=== PATIENT | male | born 1960 | race Caucasian/White ===

== ENCOUNTER → 2017-08-25 14:25 | Outpatient (CLI) | payer BC, SELFPAY ==
[2017-08-25 16:14] LABS: Alanine Aminotransfer ALT/SGPT 117 U/L (16-61); Anion Gap 10 (5-15); BUN 20 mg/dL (7-18); BUN/Creat Ratio 22.2 RATIO (10-20); CPK Total, Creatine Kinase 56 U/L (39-308); Calcium,Total 9.3 mg/dL (8.5-10.1); Chloride 105 mmol/L (98-107); Cholesterol 225 mg/dL (200); EST Glomerular Filtration Rate 92 mL/min (>60); Est Glom Filt Rate - Afr Amer 112 mL/min (>60); Glucose 160 mg/dL (74-106); High Density Lipoprotein 24 mg/dL; Potassium 4.4 mmol/L (3.5-5.1); Sodium Level 137 mmol/L (136-145); Triglycerides 762 mg/dL
[2017-08-25 16:19] LABS: Microalbumin,Random Urine 9.6 mg/L (NO RANGE EST.); Microalbumin:Creatinine Ratio 13.6 mg/g CRE (<30 mg/g CRE)
[2017-08-25 16:34] LABS: Hemoglobin A1c 6.7 % (4.2-6.3)
== END ==
PROVIDERS: Family Provider Family Medicine; PCP Family Medicine; Visit Provider Family Medicine
DX: E11.9 Type 2 diabetes mellitus without complications (principal); I25.10 Atherosclerotic heart disease of native coronary artery without angina pectoris
CPT/HCPCS: 36415; 80048; 80061; 82043; 82550; 82570; 83036; 84460

== ENCOUNTER 2017-08-31 12:30 | Outpatient (RCR) | payer BC, SELFPAY ==
--- NOTE | 2017-08-22 08:07 | HP.PTEVAL_ITS ---
Patient's Visit Information SONIA PARSONS is a 57 year old M referred to Physical Therapy by Jorge Luis PEACE with a diagnosis of R lateral epicondylitis. Date of Evaluation: 08/19/17 Physical Therapist: Kyaw Marquez - Visit Plan Frequency: 2x /Week Duration: 4 Weeks Plan: Start with DFM to lateral epicondyle, wrist extensor stretching, US to wrist flexor group insertion, eccentric loading of wrist extensors. - Subjective Subjective: Pt. is here today for his initial evaluation with diagnosis of R lateral epicondylitis. Pt. reports having increased pain for ~5 months now. He reports he initially hurt it when he slipped and fell on an out stretched arm. He reports some mild tenderness at the time, but shortly after he went hunting and got to the point where he could barely bend or straighten his R elbow. He went to physician who initially recommended casting for 2 weeks, but ulitmately decided on trialling PT. Increased pain: bending elbow, straightneing elbow, gripping, supination/pronation, extending wrist. Decreases pain: rest, limiting motion and use of brace. Pt. has not trialed ice or heat. Pt. is not taking any medications. Pt. is also having increased pain at nights, unsure why. Pt. 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 He reports being worried about this as his job is a lot of lifting, and labor like work. He is to follow up with physician in ~ 10 days. He is hopeful to reduce symptoms in order to get back to work without limitations. - Pain R lateral elbow Pain Intensity (Out of 10): 3 Pain Intensity Range: 2, 8 - Objective POSTURE: Pt. keeps R arm in gaurded positioning. He tends to not straighten out arm at rest. Pt. has normal cervical spine and shoulder positioning. PALPATION : Pt. is tender throughout lateral epicondyle, no pain at olecranon process, no pain at ulnar groove or medial epicondyle. Pt. has no pain in R shoulder or cervical spine. NEUROLOGICAL: Pt. has normal sensation throughout bilateral UEs to light and sharp touch. Pt. has 2+ biceps and triceps DTR bilaterally. No limb tension noted. ROM: R elbow- full motion with increased symptoms at end ranges of flexion and extension. Pt has normal wrist motions with increase in symptoms with extension and radial deviation. Normal shoulder and cervical spine ROM without increase in symptoms. MMT: LUE- wrist 5/5 throughout; elbow- 5/5 throughout, shoulder 5/5 throughout. 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 RUE- wrist- flexion 5/5 NE, ext 4+/5 increase NW, ulnar deviation 4/5 increase NW, radiation deviation 5/5 NE; elbow- flexion 5/5 NE, ext 5/5 NE, supination- 5/5 increase NW, prontation 5/5 mild increase NW; shoulder 5/5 NE. 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 - Special Tests R Elbow Tinels - Ulnar n.: Negative R Elbow Valgus Stress Test - MCL Instability: Negative R Elbow Varus Stress Stest - MCL Instability: Negative R Elbow Lat Epiconylitis - as named: Positive Comments: + cozens sign, + horn test - Goals Goal 1:: Pt. to be I with HEP. Goal Time Frame: 4-6 Weeks Goal 2:: Pt. to have full wrist extension of RUE without increase in symptoms. Goal Time Frame: 4-6 Weeks Goal 3:: Pt. to have no pain with all wrist extension activities. Goal Time Frame: 4-6 Weeks Goal 4:: Pt. to return to work without increase in symptoms. - Rehabilitation Potential Physical Therapy Diagnosis: Pt. has signs and symptoms consistent with R lateral epicondylitis. He has all positive signs correlated with this pathology. He has marked weakness of wrist extensors, radial deviators secondary to increased pain and pain with gripping. He would benefit from PT to decrease symptoms, eccentrically load tendon origin, and increase tissue length in order to reduce symptoms with all work related activities. Rehabilitation Potential: Good - Anticipated Interventions Patient/Client Instruction: Educate patient on: Condition, Plan of Care, Risk Factors, Benefits of Fitness Program For the Purpose of:: To improve safety, To improve health and function, To foster healthy habits, To improve decision making, To facilitate caregiver knowledge, To improve self management, To prevent re-injury, To improve ability to perform tasks related to life management, To improve tolerance to ADL's Therapeutic Exercise to Include: Strength training, Power training, Endurance training, Body mechanics, Postural training, Flexibilty training, Passive ROM, Active ROM For the Purpose of:: To decrease pain, To decrease swelling/inflammation, To increase ROM, To improve nutrient delivery to tissue, To increase oxygenation perfusion, To improve muscle performance and motor function, To improve health of tissue, To decrease soft tissue restriction, To increase flexibility/ROM Manual Therapy Techniques to Include: Trigger point massage, Scar massage, Mobilization, Functional dry needling For the Purpose of:: To decrease pain, To decrease swelling/inflammation, To increase ROM, To improve nutrient delivery to tissue Ultrasound (thermal/non thermal): Yes For the Purpose of:: To decrease pain, To decrease swelling/inflammation, To increase ROM Thank you for the opportunity to evaluate your patient. For Medicare and Medicare HMO plans, please review the plan of care and approve it. It will need to be FAXED BACK to us at [phone] for Medicare purposes. Please let me know if there are questions or concerns regarding this plan of care. Physician Signature: Date:
--- NOTE | 2018-02-09 10:33 | HP.PT.NRP ---
HP - Discharge Summary (1) - Patient Information SONIA PARSONS was seen in my office for initial evaluation on 08/19/17. The following Plan of Care was established for this patient: Initial Frequency: 2x /Week Initial Duration: 4 Weeks - Anticipated Interventions Patient/Client Instruction: Educate patient on: Condition, Plan of Care, Risk Factors, Benefits of Fitness Program For the Purpose of:: To improve safety, To improve health and function, To foster healthy habits, To improve decision making, To facilitate caregiver knowledge, To improve self management, To prevent re-injury, To improve ability to perform tasks related to life management, To improve tolerance to ADL's Therapeutic Exercise to Include: Strength training, Power training, Endurance training, Body mechanics, Postural training, Flexibilty training, Passive ROM, Active ROM For the Purpose of:: To decrease pain, To decrease swelling/inflammation, To increase ROM, To improve nutrient delivery to tissue, To increase oxygenation perfusion, To improve muscle performance and motor function, To improve health of tissue, To decrease soft tissue restriction, To increase flexibility/ROM Manual Therapy Techniques to Include: Trigger point massage, Scar massage, Mobilization, Functional dry needling For the Purpose of:: To decrease pain, To decrease swelling/inflammation, To increase ROM, To improve nutrient delivery to tissue Ultrasound (thermal/non thermal): Yes For the Purpose of:: To decrease pain, To decrease swelling/inflammation, To increase ROM This patient was last seen in our office 08/31/17. Pertinent comments regarding their Physical therapy will appear below: Pt. was treated for his lateral epicondilitis. Pt. was treated with US, eccentric loading and inotophoresis, and stretching. Pt. had to return back work and had late work hours. Pt. has not been seen in ~5 months and will be DC from PT at this point in time. At this point I will be discontinuing this patient from physical therapy. I would be happy to see this patient again in the future if found appropriate by the physician. Thank you! Kyaw Marquez
== END 2017-08-31 19:00 | disposition home or self-care (01) ==
LOC: PT 12:30
PROVIDERS: Family Provider Family Medicine; PCP Family Medicine; Visit Provider Family Medicine
DX: M77.11 Lateral epicondylitis, right elbow (principal)
CPT/HCPCS: 97035; 97110; 97161

== ENCOUNTER 2018-01-30 13:55 | Emergency (ER) | payer BC, SELFPAY ==
[2018-01-30 13:57] VITALS: BP 131/85; PULSE 84; RESP 16; TEMP 37.1; O2SAT 98; BMI 27.8
--- NOTE | 2018-01-30 16:19 | ED.VISSUMM ---
- ER Visit Summary Date of Service: 01/30/18 Chief Complaint: Perirectal abscess History of Present Illness: The patient is a 57 M who presents with abscess to his right perirectal area that has been getting worse over the past 3 days. Patient states the pain is constant, aching, and pressure. Patient states the pain is worse with sitting, laying, and walking. Patient denies any fevers or chills. Patient denies any discharge or drainage. Patient denies any bleeding. Patient denies any abdominal pain. Patient denies any nausea or vomiting. Physical Examination: Vital signs are stable. Patient is afebrile. Patient is in no acute distress. Oral mucosa is pink and moist. Neck is supple. Trachea is midline. Is no JVD noted. Heart was regular rate and rhythm. Lungs are clear and equal bilateral. There is good respiratory effort noted. Abdomen is soft. Bowel sounds are normal. There is no tenderness. There is no rebound or guarding noted. Rectal exam shows edema and tenderness over the right perirectal area. There is no fluctuance palpated. There is no active bleeding or drainage. The remaining physical exam is within normal limits. Test Results: CT scan of the abdomen and pelvis was obtained. There is some inflammatory changes in the perirectal area. There is no definite abscess noted. Emergency Department Course and Treatment: Patient was given a prescription for Augmentin and a short course of Fiatt. Patient was instructed to follow-up with his primary care physician in 3-5 days. Patient understood and was agreeable with the plan. All questions were answered. Disposition: Discharge home Impression: Perirectal abscess This note was generated with [employer] dictation software. It may contain incorrect words, spelling, and punctuation that were not noted in review of the chart prior to signing ED Disposition - Plan for ED Patient: Disposition: Home or Assisted Living Chief Complaint: Abscess Diagnosis: Perirectal abscess Instructions: ED Infec Skin Cellulitis Prescriptions: Hydrocodone Bitart/Apap 5-325 [Fiatt 5MG-325MG] 1 tab PO Q6H PRN PRN 3 Days #10 tab PRN Reason: Pain Amox/Clavulanate Tablet [Augmentin Tablet] 875 mg PO Q12H #20 tab Referrals: Jorge Luis De Guzman MD [Primary Care Provider] -
[2018-01-30 17:19] VITALS: RESP 18
== END 2018-01-30 17:19 | disposition home or self-care (01) ==
PROVIDERS: Emergency Provider Emergency Medicine; Family Provider Family Medicine; PCP Family Medicine
DX: K61.1 Rectal abscess (principal); I25.10 Atherosclerotic heart disease of native coronary artery without angina pectoris; I25.2 Old myocardial infarction; Z95.1 Presence of aortocoronary bypass graft; Z72.0 Tobacco use
CPT/HCPCS: 74176; 99282

== ENCOUNTER 2018-06-14 12:18 | Day surgery (SDC) | payer BC, SELFPAY ==
[2018-06-12 12:31] LABS: Hematocrit 44.7 % (40-54); Hemoglobin 15.6 g/dl (13.0-16.5); Mean Corp Hgb Conc 34.9 g/gl (32-36); Mean Corpuscular Hgb 31.2 pg (27.0-32.0); Mean Corpuscular Volume 89.4 fL (80-94); Mean Platelet Vol. 10.9 fl (6.2-12.0); Platelet Count 186 K/mm3 (150-450); RBC Distribution Width CV 12.9 % (11.6-14.6); RBC Distribution Width SD 41.6 fl (35.1-43.9); White Blood Count 4.4 K/mm3 (4.4-11.0)
[2018-06-12 12:32] LABS: Scan Indicated on CBC? Y/N NO
[2018-06-12 13:02] LABS: Anion Gap 11 (5-15); BUN 16 mg/dL (7-18); BUN/Creat Ratio 16.2 RATIO (10-20); Calcium,Total 9.3 mg/dL (8.5-10.1); Chloride 104 mmol/L (98-107); Creatinine, Serum 0.99 mg/dL (0.70-1.30); EST Glomerular Filtration Rate 83 mL/min (>60); Est Glom Filt Rate - Afr Amer 100 mL/min (>60); Glucose 185 mg/dL (74-106); Potassium 4.7 mmol/L (3.5-5.1); Sodium Level 139 mmol/L (136-145)
[2018-06-14] VITALS (7 sets, daily range): BP systolic 87–117; BP diastolic 53–74; PULSE 58–64; RESP 16; TEMP 36.7–37.1; O2SAT 92–100; BMI 26.9
[2018-06-14 13:00] LABS: Bedside Glucose 141 mg/dL (70-110)
--- NOTE | 2018-06-14 13:31 | DCINST_ITS ---
Discharge Diet: No Restrictions Discharge Activity: Return to Normal Activity, May Not Drive - while you are taking narcotic pain medications. Do not drive, work with heavy equipment or sign legal documents for 24 hours after your surgery. Additional Activity Instructions:: Consider using on a daily basis a daily fiber supplementation like Metamucil or Citrucel or FiberCon or Benefiber. I recommend utilizing a large tablespoon in juice or fluid daily. Mineral oil 30 cc (1 ounce) daily in juice or food Additional Dressing/Incision Instructions:: You may anticipate mucus or bloody or stool drainage. You may utilize gauze or a hygiene pad to assist. I encourage sitz baths sitting in a warm tub with soapy water for comfort and for hygiene after defecation. Allergies/Adverse Reactions: Allergies ticlopidine HCl [From Ticlid] Allergy (Verified 06/09/18 10:35) Unknown Medications to take at Discharge ascorbic acid (vitamin C) 500 mg tablet 500 mg PO TID tab 06/08/18 aspirin 81 mg tablet,delayed release 81 mg PO DAILY 06/08/18 atenolol 50 mg tablet 50 mg PO DAILY 06/08/18 cholecalciferol (vitamin D3) 50,000 unit tablet 50,000 unit PO QWEEK 06/08/18 fenofibrate micronized 200 mg capsule 200 mg PO DAILY 06/08/18 isosorbide mononitrate ER 60 mg tablet,extended release 24 hr 60 mg PO DAILY 06/08/18 lansoprazole 30 mg capsule,delayed release 30 mg PO DAILY 06/08/18 magnesium oxide 400 mg capsule 400 mg PO DAILY cap 06/08/18 metformin ER 500 mg tablet,extended release 24 hr 500 mg PO DAILY 06/08/18 multivitamin tablet 1 tab PO DAILY 06/08/18 nitroglycerin 0.4 mg sublingual tablet 0.4 mg SUBLINGUAL Q5-15M PRN 06/08/18 potassium citrate ER 5 mEq (540 mg) tablet,extended release 5 meq PO DAILY tab 06/08/18 prasugrel 10 mg tablet 10 mg PO DAILY 06/08/18 ramipril 5 mg capsule 10 mg PO DAILY 06/08/18 rosuvastatin 40 mg tablet 40 mg PO QHS 06/08/18 Hydrocodone Bitart/Apap 5-325 [[place] 5MG-325MG] 1 tablet PO Q6H PRN PRN 3 Days #10 tablet 06/14/18 Metronidazole [Flagyl] 250 mg PO Q8H #15 tablet 06/14/18 The following prescriptions were given: Hydrocodone Bitart/Apap 5-325 [[place] 5MG-325MG] 1 tablet PO Q6H PRN PRN 3 Days #10 tablet PRN Reason: Pain Metronidazole [Flagyl] 250 mg PO Q8H #15 tablet Primary Care Physician: Jorge Luis De Guzman MD [Primary Care Provider] - Test Results: Test results from this visit will be discussed in further detail at your follow- up appointment, if applicable. Please Follow Up With: Jarvis Hoover MD - [phone] When: Plan to have a follow up approximately 3 weeks after surgery.
[2018-06-14] MEDS: Bupivacaine Mpf 0.5% 30 ML VIAL (13:55)
[2018-06-14] MEDS: Dibucaine 30 GM Tube 1 APPLIC (14:00)
--- NOTE | 2018-06-14 14:12 | OP.PCM_ITS ---
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 58-year-old gent was taken the operating room. He was placed prone on the table. He underwent monitored anesthesia care local anesthetic. Cefotetan 2 g were given intravenously. The he was placed prone jackknife. The periorbital area was clipper and Betadine prep. Right posterior slightly lateral there was a evidence of an external tract. I placed a 0.5% Marcaine using a 30-gauge needle and a 25-gauge needle and a total of 30 cc was placed perianally. I used a 20-gauge Angiocath and injected hydroperoxide down the tract seeing the internal opening just proximal to the sphincter muscles. I was able to get a lacrimal duct probe to follow the tract. I then utilized electrocautery to incise down along the tract incising the mucosa at the entrance site within the anal rectum and then overlying the sphincter muscles and then externally. I utilized a curette to curette the track in all you size some electrocautery to clean the track as well as the in ternal and external tissues. Were needed electrocautery was used for hemostasis. I then placed a small vessel loop as my seton suture and I secured that to itself with 2 3-0 nylon sutures. There was good placement of the seton suture nice cleansing of the granulation tissue of the tract. This was a fistulotomy no tissue was sent for analysis. Vaseline gauze continue dibucaine was inserted. Sterile covered dressings applied. Sponge instrument and needle counts were reported the surgeon be correct. Blood loss was minimal. No apparent complications. Type of Anesthesia:: Local MAC Anesthesiologist: Jamal Burroughs
[2018-06-14] MEDS: HYDROcodone Bitartrate/Apap 5/325 Tablet PO (16:38)
--- OUTSIDE RECORDS SUMMARY | 2018-08-19 08:17 | XMS RPT_ITS ---
:1960 Author Organization OHIP Care Team Providers Name Role Phone Jarvis Hoover Attending Unavailable Bharathi De Guzman Referring Unavailable Jarvis Hoover Attending Unavailable Cebul, Jarvis Referring Unavailable De Guzman, Bharathi Primary Care Unavailable De Guzman, Bharathi Attending Unavailable De Guzman, Bharathi Referring Unavailable De Guzman, Bharathi Primary Care Unavailable De Guzman, Bharathi Attending Unavailable De Guzman, Bharathi Primary Care Unavailable De Guzman, Bharathi Primary Care Unavailable Schwiger, Bharathi Attending Unavailable PRINCE, BRYANNA E Attending Unavailable PRINCE, BRYANNA E Referring Unavailable PRINCE, BRYANNA E Referring Unavailable PRINCE, BRYANNA E Referring Unavailable PRINCE, BRYANNA E Referring Unavailable PRINCE, BRYANNA E Referring Unavailable JOSIE JARAMILLO Attending Unavailable PRINCE, BRYANNA E Referring Unavailable PRINCE, BRYANNA E Attending Unavailable PRINCE, BRYANNA E Referring Unavailable PRINCE, BRYANNA Attending Unavailable PRINCE, BRYANNA Referring Unavailable DE GUZMAN, BHARATHI A Primary Care Unavailable PRINCE, BRYANNA Attending Unavailable PRINCE, BRYANNA Referring Unavailable DE GUZMAN, BHARATHI A Primary Care Unavailable PROBLEMS PROBLEMS DATE TYPE CONDITION / CODE ATTENDING STATUS SOURCE 06/14/2018 Unknown G89.18 - Other acute CeJarvis diaz Active [facility] / G89.18(ICD-10) Hospital Repository 01/30/2018 Unknown K61.1 - Rectal Schwjovani, Bharathi Active [facility] abscess / Community K61.1(ICD-10) Hospital Repository 02/09/2018 Unknown M77.11 - Lateral De Guzman, Bharathi Active [facility] epicondylitis, right [facility] elbow / Hospital M77.11(ICD-10) Repository 08/29/2017 Active Atherosclerotic PRINCE, Active [place] heart disease of [facility] Other [place] coronary [place] artery without Repository angina pectoris / I25.10(ICD-10) 08/29/2017 Active Essential (primary) PRINCE, Active [place] hypertension / [facility] Other I10(ICD-10) [place] Repository 08/29/2017 Active Dizziness and PRINCE, Active [place] giddiness / BRYANNA E [facility] Other R42(ICD-10) [place] Repository 08/29/2017 Admitting Unknown / PRINCE, Active [facility] diagnosis UNK(Unknown) [facility] Repository PROCEDURES PROCEDURES No Procedure Records FoundRESULTS RESULTS OPERATIVE REPORT Observed: 06/15/2018 Status: F Source: [place] 6:05 AM [facility] REPOSITORY [facility] Medical Records Department [address] [place] [address] Operative Report 06/14/18 1408 MR#: [id number] Acct: [id number] Name: SONIA MORGAN Rep #: [id number] : 1960 58 From: Jarvis Hoover MD PCP: Bharathi De Guzman MD Status: DEP [facility] Y Location: 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 58-year-old gent was taken the operating room. He was placed prone on the table. He underwent monitored anesthesia care local anesthetic. Cefotetan 2 g were given intravenously. The he was placed prone jackknife. The periorbital area was clipper and Betadine prep. Right posterior slightly lateral there was a evidence of an external tract. I placed a 0.5% Marcaine using a 30-gauge needle and a 25-gauge needle and a total of 30 cc was placed perianally. I used a 20-gauge Angiocath and injected hydroperoxide down the tract seeing the internal opening just proximal to the sphincter muscles. I was able to get a lacrimal duct probe to follow the tract. I then utilized electrocautery to incise down along the tract incising the mucosa at the entrance site within the anal rectum and then overlying the sphincter muscles and then externally. I utilized a curette to curette the track in all you size some electrocautery to clean the track as well as the internal and external tissues. Were needed electrocautery was used for hemostasis. I then placed a small vessel loop as my seton suture and I secured that to itself with 2 3-0 nylon sutures. There was good placement of the seton suture nice cleansing of the granulation tissue of the tract. This was a fistulotomy no tissue was sent for analysis. Vaseline gauze continue dibucaine was inserted. Sterile covered dressings applied. Sponge instrument and needle counts were reported the surgeon be correct. Blood loss was minimal. No apparent complications. Type of Anesthesia:: Local MAC Anesthesiologist: Jamal Burroughs 06/15/18 0605 <Electronically signed by Jarvis Hoover MD> Date Jarvis Hoover MD CC: Bharathi De Guzman MD; Jarvis Hoover MD Signed DISCHARGE INSTRUCTION Observed: 06/15/2018 Status: F Source: [place] 6:05 AM [facility] REPOSITORY [facility] Medical Records Department [address] [place] [address] Instructions for Home/Discharge Instructions 06/14/18 1329 MR#: [id number] Acct: [id number] Name: SNOIA MORGAN Rep #: [id number] : 1960 58 From: Jarvis Hoover MD PCP: Bharathi De Guzman MD Status: DEP [facility] Discharge Diet: No Restrictions Discharge Activity: Return to Normal Activity, May Not Drive - while you are taking narcotic pain medications. Do not drive, work with heavy equipment or sign legal documents for 24 hours after your surgery. Additional Activity Instructions:: Consider using on a daily basis a daily fiber supplementation like Metamucil or Citrucel or FiberCon or Benefiber. I recommend utilizing a large tablespoon in juice or fluid daily. Mineral oil 30 cc (1 ounce) daily in juice or food Additional Dressing/Incision Instructions:: You may anticipate mucus or bloody or stool drainage. You may utilize gauze or a hygiene pad to assist. I encourage sitz baths sitting in a warm tub with soapy water for comfort and for hygiene after defecation. Allergies/Adverse Reactions: Allergies ticlopidine HCl [From Ticlid] Allergy (Verified 06/09/18 10:35) Unknown Medications to take at Discharge ascorbic acid (vitamin C) 500 mg tablet 500 mg PO TID tab 06/08/18 aspirin 81 mg tablet,delayed release 81 mg PO DAILY 06/08/18 atenolol 50 mg tablet 50 mg PO DAILY 06/08/18 cholecalciferol (vitamin D3) 50,000 unit tablet 50,000 unit PO QWEEK 06/08/18 fenofibrate micronized 200 mg capsule 200 mg PO DAILY 06/08/18 isosorbide mononitrate ER 60 mg tablet,extended release 24 hr 60 mg PO DAILY 06/08/18 lansoprazole 30 mg capsule,delayed release 30 mg PO DAILY 06/08/18 magnesium oxide 400 mg capsule 400 mg PO DAILY cap 06/08/18 metformin ER 500 mg tablet,extended release 24 hr 500 mg PO DAILY 06/08/18 multivitamin tablet 1 tab PO DAILY 06/08/18 nitroglycerin 0.4 mg sublingual tablet 0.4 mg SUBLINGUAL Q5- 15M PRN 06/08/18 potassium citrate ER 5 mEq (540 mg) tablet,extended release 5 meq PO DAILY tab 06/08/18 prasugrel 10 mg tablet 10 mg PO DAILY 06/08/18 ramipril 5 mg capsule 10 mg PO DAILY 06/08/18 rosuvastatin 40 mg tablet 40 mg PO QHS 06/08/18 Hydrocodone Bitart/Apap 5-325 [[place] 5MG-325MG] 1 tablet PO Q6H PRN PRN 3 Days #10 tablet 06/14/18 Metronidazole [Flagyl] 250 mg PO Q8H #15 tablet 06/14/18 The following prescriptions were given: Hydrocodone Bitart/Apap 5-325 [[place] 5MG-325MG] 1 tablet PO Q6H PRN PRN 3 Days #10 tablet PRN Reason: Pain Metronidazole [Flagyl] 250 mg PO Q8H #15 tablet Primary Care Physician: Bharathi De Guzman MD [Primary Care Provider] - Test Results: Test results from this visit will be discussed in further detail at your follow-up appointment, if applicable. Please Follow Up With: Jarvis Hoover MD - [phone] When: Plan to have a follow up approximately 3 weeks after surgery. 06/15/18 0605 <Electronically signed by Jarvis Hoover MD> Date Jarvis Hoover MD CC: Bharathi De Guzman MD Signed BEDSIDE GLUCOSE Collected: 06/14/2018 Status: F Source: [place] 12:45 PM [facility] REPOSITORY TYPE CODE TESTS RESULT OUT OF REFERENCE UNITS RANGE LAB L501.080 70-110 mg/dL High BEDSIDE GLU 141 Result Comment: MANAGEMENT OF PATIENT CARE PER NURSING PROTOCOL Performed By: #### L501.080 #### [facility] Point of Care [address] [place], [place] [address] CBC-COMPLETE BLOOD CNT Collected: 06/12/2018 Status: F Source: [place] NO DIFF 12:12 PM [facility] REPOSITORY TYPE CODE TESTS RESULT OUT OF RANGE REFERENCE UNITS LAB L100.1000 4.4-11.0 K/mm3 Normal WBC 4.4 LAB L100.1200 4.6-6.2 M/mm3 Normal RBC 5.00 LAB L100.1300 13.0-16.5 g/dl Normal HGB 15.6 LAB L100.1400 40-54 % Normal HCT 44.7 LAB L100.1500 80-94 fL Normal MCV 89.4 LAB L100.1600 27.0-32.0 pg Normal MCH 31.2 LAB L100.1700 32-36 g/gl Normal MCHC 34.9 LAB L100.1810 11.6-14.6 % Normal RDW CV 12.9 LAB L100.1820 35.1-43.9 fl Normal RDW SD 41.6 LAB L100.1900 150-450 K/mm3 Normal PLT 186 LAB L100.2000 6.2-12.0 fl Normal MPV 10.9 Performed By: #### L100.0500 #### [facility] [address] [place], [place], [address] BASIC METABOLIC Collected: 06/12/2018 Status: F Source: [place] PROFILE (BMP) 12:12 PM [facility] REPOSITORY TYPE CODE TESTS RESULT OUT OF RANGE REFERENCE UNITS LAB L501.0100 74-106 mg/dL High GLU 185 Result Comment: Fasting Glucose result greater than or equal to 126 mg/dL suggests DIABETES MELLITUS per A.D.A. criteria. Please note revised GLUCOSE reference range effective 2017. LAB L501.1000 7-18 mg/dL Normal BUN 16 LAB L501.1100 0.70-1.30 mg/dL Normal CREAT,SERUM 0.99 Result Comment: The validity of the calculated GFR AND GFRAA in patients over 70 years has not been determined. Clinical correlation is essential. LAB L501.1110 >60 mL/min Normal EST GFR 83 Result Comment: Non- GFR Calc LAB L501.1115 >60 mL/min Normal EST GFR - AA 100 Result Comment: GFR Calc LAB L501.1300 10-20 RATIO Normal BUN/CRE 16.2 LAB L501.2200 8.5-10.1 mg/dL CA Normal 9.3 LAB L501.5300 136-145 mmol/L NA Normal 139 LAB L501.5600 3.5-5.1 mmol/L K Normal 4.7 Result Comment: Moderate Hemolysis, Result may be falsely increased. LAB L501.5900 98-107 mmol/L Normal CL 104 LAB L501.6100 21.0-32.0 mmol/L Normal CO2 24.0 LAB L501.6200 5-15 Normal GAP 11 Performed By: #### L500.2500 #### [facility] [address] [facility] [place], [address] SURGERY VISIT REPORT Observed: 06/08/2018 Status: F Source: [place] 1:55 PM [facility] REPOSITORY [facility] 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 Is patient in pain?: No (Not currently, pain comes and goes) Allergies ticlopidine HCl [From Ticlid] Allergy (Verified 06/08/18 10:37) Unknown Medications acetylcysteine (bulk) powder ea MISCELLANEOUS g 06/08/18 [History Confirmed 06/08/18] ascorbic acid (vitamin C) 500 mg tablet 500 mg PO TID tab 06/08/18 [History Confirmed 06/08/18] aspirin 81 mg tablet,delayed release 81 mg PO DAILY 06/08/18 [History Confirmed 06/08/18] atenolol 50 mg tablet 50 mg PO DAILY 06/08/18 [History Confirmed 06/08/18] cholecalciferol (vitamin D3) 50,000 unit tablet 50,000 unit PO QWEEK 06/08/18 [History Confirmed 06/08/18] fenofibrate micronized 200 mg capsule 200 mg PO DAILY 06/08/18 [History Confirmed 06/08/18] isosorbide mononitrate ER 60 mg tablet,extended release 24 hr 60 mg PO DAILY 06/08/18 [History Confirmed 06/08/18] lansoprazole 30 mg capsule,delayed release 30 mg PO DAILY 06/08/18 [History Confirmed 06/08/18] magnesium oxide 400 mg capsule 400 mg PO DAILY cap 06/08/18 [History Confirmed 06/08/18] metformin ER 500 mg tablet,extended release 24 hr 500 mg PO QPM 06/08/18 [History Confirmed 06/08/18] multivitamin tablet 1 tab PO DAILY 06/08/18 [History Confirmed 06/08/18] nitroglycerin 0.4 mg sublingual tablet 0.4 mg SUBLINGUAL Q5- 15M PRN 06/08/18 [History Confirmed 06/08/18] potassium citrate ER 5 mEq (540 mg) tablet,extended release 5 meq PO DAILY tab 06/08/18 [History Confirmed 06/08/18] prasugrel 10 mg tablet 10 mg PO DAILY 06/08/18 [History Confirmed 06/08/18] ramipril 5 mg capsule 5 mg PO BID 06/08/18 [History Confirmed 06/08/18] rosuvastatin 40 mg tablet 40 mg PO DAILY 06/08/18 [History Confirmed 06/08/18] PFS Medical History Snoring (Acute) Malignant neoplasm of anterior wall of urinary bladder (Acute) Hypertension (Chronic) Hyperlipidemia (Acute) Esophagitis (Acute) Dysphagia (Acute) Diabetes (Acute) Coronary artery disease (Acute) COPD (chronic obstructive pulmonary disease) (Chronic) Carotid artery stenosis (Acute) Arrhythmia (Acute) Acute myocardial infarction (Acute) Acute gastritis without mention of hemorrhage (Acute) Surgical History Hx of vasectomy (Acute) Hx of heart artery stent (Acute) Hx of cardiac cath (Acute) History of esophagogastroduodenoscopy (EGD) (Acute) Hx of cystoscopy (Acute) Hx of colonoscopy (Acute) Hx of CABG (Acute) Hx of appendectomy (Acute) Family History Father Cancer Heart disease Brother Diabetes Hypertension Mother Heart disease Social History Smoking Status: Current every day smoker alcohol intake: current alcohol intake frequency: holidays/special occasions only substance use type: does not use caffeine: Yes HPI HPI HPI: SONIA MORGAN, is a 58 M who presents to the office today for surgical consultation regarding what he calls a buttock cyst. The patient states that intermittently this will swell and then drain or bleed. He does not recall a specific it accident or injury. He has not had any particular constipation or diarrhea. 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 His most recent colonoscopy was performed July 24, [address] Eris Bales at the [facility] at 50 cm a polyp was removed that was possible hyperplastic on pathology. At 15 cm a polyp was removed that was hyperplastic. It is of additional note that September 02, 2017 at the [facility] the patient had carotid duplex imaging. Peak systolic velocity within the right proximal internal carotid was 216 cm/s flow with an end-diastolic velocity of 52. On the left peak systolic velocity was 210 cm left obstructive with end-diastolic velocity of 60. On their interpretation scale that was felt to be consistent with 60-79% stenosis bilaterally. On my evaluation I would anticipate that this was likely closer to 60% stenosis bilaterally. On January 30, 2018 the patient was seen at the [facility] emergency room because of perirectal pain. The patient states that he did not have any incision and drainage performed. He was seen by Dr. Bharathi Mcfarland. A CT scan of the abdomen and pelvis was obtained. Perianal superficial inflammatory process without evidence of abscess was suggested. There was no evidence of acute proctocolitis. The patient states that since that index occasion he has had intermittent pain swelling and what he says is bloody discharge Patient is referred by his primary care physician Dr. Bharathi De Guzman for surgical consultation regarding perianal cystic lesion and a written compromise surgical consult recommendations will be returned to him ROS General General: No weight change, appetite, fatigue, colon cancer, breast cancer or weakness HEENT HEENT: No difficulty swallowing, eye injury, eye surgery, swollen glands or hoarseness Endo Endocrine: Yes diabetes mellitus; no thyroid disease, thyroid cancer, Hair loss, heat intolerance or cold intolerance Skin Skin: No rash or changing moles Musc Musculoskeletal: No back problems, arthritis, rheumatoid arthritis, gout or joint pain Cardio Cardiovascular: Yes heart disease, high blood pressure, heart attack and heart stent; no murmur, pacemaker, atrial fibrillation, palpitations, shortness of breat with exertion or chest pain Psych Psychiatric: No depression, anxiety or hearing voices Resp Respiratory: No shortness of breath, No sleep apnea, No cough, No COPD, No asthma, No emphysema, No wheezing Gastro Gastrointestinal: No abdominal pain, No nausea or vomiting, No diarrhea, No constipation, No blood in stool, No acid reflux, No hemorrhoids, No ulcers, No gallbladder problem, No black,tarry stools [place]rey Hematologic: Yes blood thinners, No blood disorders, No bleeding, No anemia, No blood clots Neuro Neurologic: No system reviewed and no additional complaints, except as docu, No as per HPI, No abnormal walking, No abnormal hearing, No abnormal movements, No abnormal speech, No behavioral changes, No burning sensations, No confusion, No seizure-like activity, No unsteadiness, No dizziness, No localized weakness, No frequent falls, No headache(s), No lack of coordination, No loss of vision, No memory loss, No numbness, No other visual disturbances, No radiating pain, No restless legs, No sensory deficit, No fainting, No tingling, No tremor(s), No weakness, No other Exam Const General: cooperative Nutritional Appearance: overweight Orientation: alert, awake [facility] Head: normal to inspection Resp Effort AND Inspection: normal respiratory effort Auscultation: clear to auscultation bilaterally Cardio Rate: regular rate Rhythm: regular rhythm Heart Sounds: no murmurs GI Palpation: soft, no hepatosplenomegaly Other: Inspection of the anus exteriorly demonstrates mild hemorrhoidal changes. Right slightly posterior lateral there is evidence of an external fistula track with slight induration that extends towards the anus. No active drainage. No erythema Neuro Cranial Nerves: CN's II-XI intact bilaterally Extrem General: no clubbing, cyanosis or edema Psych Affect: normal affect Assessment AND Plan Problems 1. Fistula, anal K60.3 Plan The patient's symptoms and findings are very much consistent with a fistula in ano. I recommend to him a examination under anesthesia with possible fistulotomy or possible fistulectomy or possible seton suture placement. I believe this procedure could be performed under monitored anesthesia care local anesthetic. It is of note that the patient has coronary stents and has had open coronary artery bypass grafting. He has been a long-term cigarette smoker. He states that he is still not nicotine free continuing to use the e-cigarette. Among his other medications he is treated with aspirin and isosorbide mononitrate and Effient and rosuvastatin. He has had an opportunity to ask and have questions answered. Absolutely no guarantees of success have been offered. We will schedule and proceed at his discretion. He will utilize magnesium citrate with clear liquids a day preprocedure. I appreciate the opportunity of assisting with his surgical care CC: Dr. Bharathi Hoover M.D., F.A.C.S. Coding Level of Care Code Comprehensive,moderate Diagnoses Fistula, anal K60.3 06/08/18 0880 <Electronically signed by Jarvis Hoover MD> Date Jarvsi Hoover MD Cosigner Signature: Date (if applicable) CC: Bharathi De Guzman MD PROGRESS Observed: 04/07/2018 Status: COMPLETED Source: [place] 11:58 AM [facility] REPOSITORY HNO ID: [id number] Author: Josie Jaramillo Service: (none) Author Type: Physician Type: Progress Notes Filed: 04/07/2018 11:58 AM Note Text: This office note has been dictated. Josie Jaramillo DO PROGRESS Observed: 04/03/2018 Status: COMPLETED Source: [place] 11:46 AM [facility] REPOSITORY HNO ID: [id number] Author: Bryanna Morrison Service: (none) Author Type: Physician Type: Progress Notes Filed: 04/03/2018 5:28 PM Note Text: PERTINENT CARDIAC HISTORY ASHD - PCI LAD and DX 1995, CABGx3 2003, PCI OM graft and Dx stent 2013, PCI (laser and brachy) LAD ISR 2017 HTN HL DM Carotid artery disease Persistent lateral T wave inversion PAD ADHERENCE TO GUIDELINES ALEJANDRO-I or ARB for HF with prior LVEF<40 (NQF 0081) - N/A ASA or Plavix for ASHD (NQF 0067) - met Beta luz maria for ASHD with prior [place] or prior LVEF<40 (NQF 0070) - met Beta luz maria for HF with prior LVEF<40 (NQF 0083) - N/A ALEJANDRO-I or ARB for ASHD with DM or prior LVEF<40 (NQF 0066) - met Statin therapy for ASHD or FHL or DM - met BMI documented and plan if >25 (NQF 0421) - lifestyle recommendation form Tobacco use screening and referral (NQF 0028) - lifestyle recommendation form Recommendation for whole food, plant based diet - lifestyle recommendation form CLINICAL IMPRESSION/PLAN: Sonia Morgan has stable ischemic heart disease. His blood pressure is adequately controlled. I've asked for a copy of his next set of labs to be sent to us. He has been advised to follow-up with vascular surgery regarding his carotid disease. I will see him in 6 months or as needed. Written and verbal health teaching given to patient, patient verbalizes understanding and agrees with treatment plan. DIAGNOSIS FOR VISIT: ASHD HISTORY OF PRESENT ILLNESS Sonia Morgan returns for follow-up of his coronary disease and hypertension. He has stopped working for the winter. He reports stable exercise tolerance. He's had no chest discomfort and has used no nitroglycerin. He denies orthopnea, edema, syncope, palpitations, TIAs, amaurosis and claudication. ALLERGIES: ALLERGIES Allergen Reactions - Ticlid [Ticlopidine* Muscle ache CURRENT OUTPATIENT MEDICATIONS: rosuvastatin (CRESTOR) 40 mg tablet Take 1 tablet by mouth daily at bedtime. clopidogrel (PLAVIX) 75 mg tablet TAKE ONE TABLET BY MOUTH DAILY ramipril (ALTACE) 10 mg capsule Take 1 capsule by mouth once daily. coenzyme Q10 (COQ-10) 100 mg cap capsule Take 100 mg by mouth twice daily. fenofibrate (LOFIBRA) 200 mg capsule Take 1 capsule by mouth once daily. atenolol (TENORMIN) 50 mg tablet Take 1 tablet by mouth once daily. isosorbide mononitrate ER (IMDUR) 30 mg 24 hr tablet Take 1 tablet by mouth once daily. ramipril (ALTACE) 5 mg capsule TAKE TWO CAPSULES BY MOUTH ONCE DAILY potassium citrate ER (UROCIT-K) 5 mEq (540 mg) TbER Take 1 tablet by mouth once daily. Ciprofloxacin HCl-Betaine Comb 500 mg 24 hr tablet Take 500 mg by mouth once daily. metFORMIN (GLUCOPHAGE) 500 mg tablet Take 1 tablet by mouth once daily. aspirin, enteric coated (ECOTRIN LOW STRENGTH) 81 mg EC tablet Take 1 tablet by mouth once daily. nitroglycerin sublingual (NITROQUICK) 0.4 mg SL tablet Dissolve 1 tablet under the tongue as needed. DISSOLVE ON TONGUE FOR CHEST PAIN. IF NO PAIN RELIEF, CALL 911 NEXIUM 40 mg capsule TAKE ONE CAPSULE BY MOUTH ONCE DAILY BEFORE BREAKFAST amitriptyline (ELAVIL) 25 mg tablet Take 1 tablet by mouth daily at bedtime. CINNAMON BARK ORAL Take 3,000 mg by mouth once daily. [place]-3 Fatty Acids (FISH OIL) 500 mg cap Take 2 capsules by mouth once daily. COMPOUNDED PRESCRIPTION BLOOD PRESSURE CUFF FOR HOME USE. DX: LABILE BLOOD PRESSURE Blood-Glucose Meter monitoring kit Dx: 790.29 blood sugar diagnostic (BLOOD GLUCOSE TEST) test strip Test blood sugar(s) 1 time daily. Dx: 790.29. Insulin: No Lancets lancets Test blood sugar(s) 1 time daily. Dx: 790.29. Insulin: No PHYSICAL EXAMINATION: VITAL SIGNS: BP 132/80 Pulse 82 Wt 193 lb 9.6 oz (87.8kg) Chest: Clear to auscultation. Trachea is midline. Air entry is equal. Cardiac: Regular rhythm. S1 and S2 are normal. PMI is nondisplaced. There is a soft S4 gallop and a soft systolic ejection murmur. Carotids are brisk with soft bilateral bruits. JVP is less than 10 cm. Abdomen: Soft and nontender. There are no pulsatile masses or bruits. No liver enlargement. Bowel sounds are active. Extremities: No edema. Pulses are intact and symmetrical. Recent carotid Doppler was reviewed. This shows no significant change. There is bilateral moderate plaque. Recent labs have been done in the primary care and are due. He was asked to have a copy sent to us. Most recent triglycerides were still quite elevated. Recent stress test was reviewed. This showed no evidence of ischemia. Electronically Signed: Bryanna Morrison MD April 03, 2018 11:47 AM CC: Bharathi De Guzman MD CNOV Observed: 04/03/2018 Status: COMPLETED Source: [place] 11:30 AM [facility] REPOSITORY Office Visit (CAWSTR) GILBERTSONIA BALDERRAMA ([id number]) 1960 M NFR Date Time Provider Department 04/03/18 11:30 AM BRYANNA MORRISON CAWSTR During your visit today, we recorded the following information about you: Pulse Blood pressure Weight 82/minute 132/80 87.8 kg Bryanna Morrison MD 04/03/2018 5:28 PM Signed PERTINENT CARDIAC HISTORY ASHD - PCI LAD and DX 1995, CABGx3 2003, PCI OM graft and Dx stent 2013, PCI (laser and brachy) LAD ISR 2016 HTN HL DM Carotid artery disease Persistent lateral T wave inversion PAD ADHERENCE TO GUIDELINES ALEJANDRO-I or ARB for HF with prior LVEF<40 (NQF 0081) - N/A ASA or Plavix for ASHD (NQF 0067) - met Beta luz maria for ASHD with prior [place] or prior LVEF<40 (NQF 0070) - met Beta luz maria for HF with prior LVEF<40 (NQF 0083) - N/A ALEJANDRO-I or ARB for ASHD with DM or prior LVEF<40 (NQF 0066) - met Statin therapy for ASHD or FHL or DM - met BMI documented and plan if >25 (NQF 0421) - lifestyle recommendation form Tobacco use screening and referral (NQF 0028) - lifestyle recommendation form Recommendation for whole food, plant based diet - lifestyle recommendation form CLINICAL IMPRESSION/PLAN: Sonia Liao Cathy has stable ischemic heart disease. His blood pressure is adequately controlled. I've asked for a copy of his next set of labs to be sent to us. He has been advised to follow-up with vascular surgery regarding his carotid disease. I will see him in 6 months or as needed. Written and verbal health teaching given to patient, patient verbalizes understanding and agrees with treatment plan. DIAGNOSIS FOR VISIT: ASHD HISTORY OF PRESENT ILLNESS Sonia Morgan returns for follow-up of his coronary disease and hypertension. He has stopped working for the winter. He reports stable exercise tolerance. He's had no chest discomfort and has used no nitroglycerin. He denies orthopnea, edema, syncope, palpitations, TIAs, amaurosis and claudication. ALLERGIES: ALLERGIES Allergen Reactions - Ticlid [Ticlopidine* Muscle ache CURRENT OUTPATIENT MEDICATIONS: rosuvastatin (CRESTOR) 40 mg tablet Take 1 tablet by mouth daily at bedtime. clopidogrel (PLAVIX) 75 mg tablet TAKE ONE TABLET BY MOUTH DAILY ramipril (ALTACE) 10 mg capsule Take 1 capsule by mouth once daily. coenzyme Q10 (COQ-10) 100 mg cap capsule Take 100 mg by mouth twice daily. fenofibrate (LOFIBRA) 200 mg capsule Take 1 capsule by mouth once daily. atenolol (TENORMIN) 50 mg tablet Take 1 tablet by mouth once daily. isosorbide mononitrate ER (IMDUR) 30 mg 24 hr tablet Take 1 tablet by mouth once daily. ramipril (ALTACE) 5 mg capsule TAKE TWO CAPSULES BY MOUTH ONCE DAILY potassium citrate ER (UROCIT-K) 5 mEq (540 mg) TbER Take 1 tablet by mouth once daily. Ciprofloxacin HCl-Betaine Comb 500 mg 24 hr tablet Take 500 mg by mouth once daily. metFORMIN (GLUCOPHAGE) 500 mg tablet Take 1 tablet by mouth once daily. aspirin, enteric coated (ECOTRIN LOW STRENGTH) 81 mg EC tablet Take 1 tablet by mouth once daily. nitroglycerin sublingual (NITROQUICK) 0.4 mg SL tablet Dissolve 1 tablet under the tongue as needed. DISSOLVE ON TONGUE FOR CHEST PAIN. IF NO PAIN RELIEF, CALL 911 NEXIUM 40 mg capsule TAKE ONE CAPSULE BY MOUTH ONCE DAILY BEFORE BREAKFAST amitriptyline (ELAVIL) 25 mg tablet Take 1 tablet by mouth daily at bedtime. CINNAMON BARK ORAL Take 3,000 mg by mouth once daily. [place]-3 Fatty Acids (FISH OIL) 500 mg cap Take 2 capsules by mouth once daily. COMPOUNDED PRESCRIPTION BLOOD PRESSURE CUFF FOR HOME USE. DX: LABILE BLOOD PRESSURE Blood-Glucose Meter monitoring kit Dx: 790.29 blood sugar diagnostic (BLOOD GLUCOSE TEST) test strip Test blood sugar(s) 1 time daily. Dx: 790.29. Insulin: No Lancets lancets Test blood sugar(s) 1 time daily. Dx: 790.29. Insulin: No PHYSICAL EXAMINATION: VITAL SIGNS: BP 132/80 Pulse 82 Wt 193 lb 9.6 oz (87.8kg) Chest: Clear to auscultation. Trachea is midline. Air entry is equal. Cardiac: Regular rhythm. S1 and S2 are normal. PMI is nondisplaced. There is a soft S4 gallop and a soft systolic ejection murmur. Carotids are brisk with soft bilateral bruits. JVP is less than 10 cm. Abdomen: Soft and nontender. There are no pulsatile masses or bruits. No liver enlargement. Bowel sounds are active. Extremities: No edema. Pulses are intact and symmetrical. Recent carotid Doppler was reviewed. This shows no significant change. There is bilateral moderate plaque. Recent labs have been done in the primary care and are due. He was asked to have a copy sent to us. Most recent triglycerides were still quite elevated. Recent stress test was reviewed. This showed no evidence of ischemia. Electronically Signed: Bryanna Morrison MD April 03, 2018 11:47 AM CC: MD Bryanna Harrington MD 04/03/2018 11:47 AM Signed LIFESTYLE CHANGE A healthy lifestyle is the most important component of your overall treatment plan. Please give serious thought to the following areas and commit to making [facility] changes. EAT A WHOLE FOOD, PLANT BASED DIET The nutrition your body gets is more important than the medicine you take. What matters most is the overall way you eat. We encourage you to minimize the use of animal products (which include dairy and all meats except fatty fish) and use whole, unprocessed plant foods to provide your protein, vitamins and other nutrients. We have a lot of information to share with you on this topic. This is not a diet. It is a way of life that you will keep with you. EXERCISE REGULARLY It is not important to spend hours in the gym, lifting weights and perspiring heavily. A total of 2-3 hours per week of aerobic (causing you to be moderately short of breath) exercise is sufficient to improve your health. Talk to us before you begin a new exercise program, if you have heart disease or experience shortness of breath or chest pain. REDUCE STRESS Chronic emotional and physical stress leads to disease. Ways of reducing stress include meditation, visualization, prayer, yoga and other forms of relaxation therapy. Consistency is the davis. Find a technique that works for you and do it every day. CULTIVATE RELATIONSHIPS Loneliness and isolation have a major negative impact on health. Seek out others who can love, care for and nurture you. Avoid hurtful relationships. MAINTAIN IDEAL BODY WEIGHT The best way to do this is to do all the things above. Our bodies naturally find the right weight if we keep moving and feed ourselves the right food. If your BMI is greater than 25, we strongly recommend a referral to a weight management program. Please speak to us or your family physician about available programs. AVOID NICOTINE IN ALL FORMS This includes all tobacco products, whether chewed, smoked, vaped, or rubbed on the skin. Smoking cessation programs, which can make use of tobacco substitutes, medications to suppress cravings and behavior management, are available. Please contact your family physician about programs in your area. Referring Provider: BRYANNA MORRISON [[id number]] Allergies As of Date: 04/03/2018 Noted Allergy Reaction TICLID (TICLOPIDINE HCL) 02/05/2005 Comments: Muscle ache Date Reviewed: 04/03/2018 Reviewed by: Joe Barraza RN - Fully Assessed Reason for Visit: Recheck [92] Visit Diagnoses:ASHD (arteriosclerotic heart disease) [I25.10] Essential hypertension [I10] Order(s):rosuvastatin (CRESTOR) 40 mg tabletTake 1 tablet by mouth daily at bedtime.Disp: 90 tabletRfl: 3 Prescriptions as of 04/03/2018 Sig: ROSUVASTATIN 40 MG TABLET Take 1 tablet by mouth daily * CLOPIDOGREL 75 MG TABLET TAKE ONE TABLET BY MOUTH DAILY RAMIPRIL 10 MG CAPSULE Take 1 capsule by mouth once * COENZYME Q10 100 MG CAPSULE Take 100 mg by mouth twice da* FENOFIBRATE MICRONIZED 200 MG* Take 1 capsule by mouth once * ATENOLOL 50 MG TABLET Take 1 tablet by mouth once d* ISOSORBIDE MONONITRATE ER 30 * Take 1 tablet by mouth once d* RAMIPRIL 5 MG CAPSULE TAKE TWO CAPSULES BY MOUTH ON* POTASSIUM CITRATE ER 5 MEQ (5* Take 1 tablet by mouth once d* CIPROFLOXACIN ER 500 MG TABLE* Take 500 mg by mouth once jun* METFORMIN 500 MG TABLET Take 1 tablet by mouth once d* ASPIRIN 81 MG TABLET,DELAYED * Take 1 tablet by mouth once d* NITROGLYCERIN 0.4 MG SUBLINGU* Dissolve 1 tablet under the t* NEXIUM 40 MG CAPSULE,DELAYED * TAKE ONE CAPSULE BY MOUTH ONC* AMITRIPTYLINE 25 MG TABLET Take 1 tablet by mouth daily * CINNAMON BARK ORAL Take 3,000 mg by mouth once d* OMEGA-3 FATTY ACIDS 500 MG CA* Take 2 capsules by mouth once* COMPOUNDED PRESCRIPTION BLOOD PRESSURE CUFF FOR HOME * BLOOD-GLUCOSE METER KIT Dx: 790.29 BLOOD SUGAR DIAGNOSTIC STRIPS Test blood sugar(s) 1 time da* LANCETS Test blood sugar(s) 1 time da* Problem List As Of Date 04/03/2018 Noted Resolved Acute myocardial infarction [410] More... HYPERLIPIDEMIA NEC/NOS [E78.5] INVALID FOR* HYPERTENSION NOS [I10] INVALID FOR* CORONARY ATHEROSCLER UNSPEC VESSEL [I25.10] INVALID FOR* BLADDER CANCER UNSPECIFIED [C67.9] INVALID FOR* More... TOBACCO USE DISORDER [F17.200] INVALID FOR* Personal history of malignant neoplasm of bladd*INVALID FOR*09/01/2010 LBP (Low Back Pain) [M54.5] INVALID FOR* Neoplasm of Uncertain Behavior of Skin [D48.5] INVALID FOR*09/16/2009 Wart [B07.9] INVALID FOR*09/01/2010 Insomnia [G47.00] INVALID FOR* Diabetes mellitus type II, controlled, with no *INVALID FOR*11/01/2011 Perirectal abscess [K61.1] INVALID FOR*11/01/2011 Pre-diabetes [R73.03] INVALID FOR* Family conflict [Z63.8] INVALID FOR* Other and unspecified angina pectoris [I20.9] INVALID FOR* Routine physical examination [Z00.00] INVALID FOR* Anxiety [F41.9] INVALID FOR* GERD (gastroesophageal reflux disease) [K21.9] INVALID FOR* Hx of past noncompliance [Z91.19] More... Abnormal stress test [R94.39] INVALID FOR* Carotid artery stenosis [I65.29] BPH (benign prostatic hyperplasia) [N40.0] INVALID FOR* History of bladder cancer [Z85.51] INVALID FOR* Screening for colon cancer [Z12.11] INVALID FOR*07/24/2015 Old myocardial infarction [I25.2] INVALID FOR* Presence of drug coated stent in left circumfle*INVALID FOR* Presence of drug coated stent in LAD coronary a*INVALID FOR* Stenosis of carotid artery [I65.29] INVALID FOR* Other instructions from your clinician: LIFESTYLE CHANGE A healthy lifestyle is the most important component of your overall treatment plan. 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 EAT A WHOLE FOOD, PLANT BASED DIET The nutrition your body gets is more important than the medicine you take. What matters most is the overall way you eat. We encourage you to minimize the use of animal products (which include dairy and all meats except fatty fish) and use whole, unprocessed plant foods to provide your protein, vitamins and other nutrients. We have a lot of information to share with you on this topic. This is not a diet. It is a way of life that you will keep with you. EXERCISE REGULARLY It is not important to spend hours in the gym, lifting weights and perspiring heavily. A total of 2-3 hours per week of aerobic (causing you to be moderately short of breath) exercise is sufficient to improve your health. Talk to us before you begin a new exercise program, if you have heart disease or experience shortness of breath or chest pain. REDUCE STRESS Chronic emotional and physical stress leads to disease. Ways of reducing stress include meditation, visualization, prayer, yoga and other forms of relaxation therapy. Consistency is the davis. Find a technique that works for you and do it every day. CULTIVATE RELATIONSHIPS Loneliness and isolation have a major negative impact on health. Seek out others who can love, care for and nurture you. Avoid hurtful relationships. MAINTAIN IDEAL BODY WEIGHT The best way to do this is to do all the things above. Our bodies naturally find the right weight if we keep moving and feed ourselves the right food. If your BMI is greater than 25, we strongly recommend a referral to a weight management program. Please speak to us or your family physician about available programs. AVOID NICOTINE IN ALL FORMS This includes all tobacco products, whether chewed, smoked, vaped, or rubbed on the skin. Smoking cessation programs, which can make use of tobacco substitutes, medications to suppress cravings and behavior management, are available. Please contact your family physician about programs in your area. Prescriptions ordered this encounter Disp Refills Start End ROSUVASTATIN 40 MG TABLET 90 t* 3 04/03/2018 Route: ORAL Sig: Take 1 tablet by mouth daily at bedtime. Medications Discontinued During This Encounter rosuvastatin (CRESTOR) 40 mg tablet 90 t* 3 07/08/2015 04/03/2018 Route: ORAL Sig: Take 1 tablet by mouth daily at bedtime. Disc: Reason for discontinue is not on file. Encounter Status:Closed by BRYANNA MORRISON MD on 04/03/18 CNOV Observed: 04/03/2018 Status: COMPLETED Source: [place] 11:00 AM [facility] REPOSITORY Office Visit (VASSWS) SONIA MORGAN ([id number]) 1960 M NFR Date Time Provider Department 04/03/18 11:00 AM JOSIE JARAMILLO During your visit today, we recorded the following information about you: Josie Jaramillo DO 04/07/2018 11:58 AM Signed This office note has been dictated. Josie Jaramillo DO Referring Provider: BRYANNA MORRISON [[id number]] Allergies As of Date: 04/03/2018 Noted Allergy Reaction TICLID (TICLOPIDINE HCL) 02/05/2005 Comments: Muscle ache Date Reviewed: 04/03/2018 Reviewed by: Joe Barraza RN - Fully Assessed Reason for Visit: Established Patient [175] Primary Visit Diagnosis:Carotid artery stenosis, asymptomatic [I65.29] Order(s):US CAROTID ARTERIES [facility] [[id number]] Order #: [id number] FUTURE Prescriptions as of 04/03/2018 Sig: CLOPIDOGREL 75 MG TABLET TAKE ONE TABLET BY MOUTH DAILY RAMIPRIL 10 MG CAPSULE Take 1 capsule by mouth once * COENZYME Q10 100 MG CAPSULE Take 100 mg by mouth twice da* FENOFIBRATE MICRONIZED 200 MG* Take 1 capsule by mouth once * ATENOLOL 50 MG TABLET Take 1 tablet by mouth once d* ISOSORBIDE MONONITRATE ER 30 * Take 1 tablet by mouth once d* RAMIPRIL 5 MG CAPSULE TAKE TWO CAPSULES BY MOUTH ON* POTASSIUM CITRATE ER 5 MEQ (5* Take 1 tablet by mouth once d* CIPROFLOXACIN ER 500 MG TABLE* Take 500 mg by mouth once jun* METFORMIN 500 MG TABLET Take 1 tablet by mouth once d* ASPIRIN 81 MG TABLET,DELAYED * Take 1 tablet by mouth once d* NITROGLYCERIN 0.4 MG SUBLINGU* Dissolve 1 tablet under the t* X ROSUVASTATIN 40 MG TABLET Take 1 tablet by mouth daily * NEXIUM 40 MG CAPSULE,DELAYED * TAKE ONE CAPSULE BY MOUTH ONC* AMITRIPTYLINE 25 MG TABLET Take 1 tablet by mouth daily * CINNAMON BARK ORAL Take 3,000 mg by mouth once d* OMEGA-3 FATTY ACIDS 500 MG CA* Take 2 capsules by mouth once* COMPOUNDED PRESCRIPTION BLOOD PRESSURE CUFF FOR HOME * BLOOD-GLUCOSE METER KIT Dx: 790.29 BLOOD SUGAR DIAGNOSTIC STRIPS Test blood sugar(s) 1 time da* LANCETS Test blood sugar(s) 1 time da* Problem List As Of Date 04/03/2018 Noted Resolved Acute myocardial infarction [410] More... HYPERLIPIDEMIA NEC/NOS [E78.5] INVALID FOR* HYPERTENSION NOS [I10] INVALID FOR* CORONARY ATHEROSCLER UNSPEC VESSEL [I25.10] INVALID FOR* BLADDER CANCER UNSPECIFIED [C67.9] INVALID FOR* More... TOBACCO USE DISORDER [F17.200] INVALID FOR* Personal history of malignant neoplasm of bladd*INVALID FOR*09/01/2010 LBP (Low Back Pain) [M54.5] INVALID FOR* Neoplasm of Uncertain Behavior of Skin [D48.5] INVALID FOR*09/16/2009 Wart [B07.9] INVALID FOR*09/01/2010 Insomnia [G47.00] INVALID FOR* Diabetes mellitus type II, controlled, with no *INVALID FOR*11/01/2011 Perirectal abscess [K61.1] INVALID FOR*11/01/2011 Pre-diabetes [R73.03] INVALID FOR* Family conflict [Z63.8] INVALID FOR* Other and unspecified angina pectoris [I20.9] INVALID FOR* Routine physical examination [Z00.00] INVALID FOR* Anxiety [F41.9] INVALID FOR* GERD (gastroesophageal reflux disease) [K21.9] INVALID FOR* Hx of past noncompliance [Z91.19] More... Abnormal stress test [R94.39] INVALID FOR* Carotid artery stenosis [I65.29] BPH (benign prostatic hyperplasia) [N40.0] INVALID FOR* History of bladder cancer [Z85.51] INVALID FOR* Screening for colon cancer [Z12.11] INVALID FOR*07/24/2015 Old myocardial infarction [I25.2] INVALID FOR* Presence of drug coated stent in left circumfle*INVALID FOR* Presence of drug coated stent in LAD coronary a*INVALID FOR* Stenosis of carotid artery [I65.29] INVALID FOR* Encounter Status:Closed by JOSIE JARAMILLO DO on 04/07/18 PROGRESS Observed: 04/03/2018 Status: COMPLETED Source: [place] 12:00 AM [facility] REPOSITORY O ID: [id number] Author: Josie Jaramillo Service: Vascular Surgery Author Type: Physician Type: Progress Notes Filed: 04/10/2018 4:43 PM Note Text: NAME: SONIA MORGAN [facility] NO: [id number] DATE OF SERVICE: 04/03/2018 Subjective: Mr. Morgan is here to follow up on bilateral carotid artery disease. He was last seen in 2014. He denies any focal neurologic deficit or shortness of breath. Otherwise, he has been doing well. He has been followed by Dr. Morrison from Cardiology. His medications were reviewed, which include Plavix and aspirin. Reviewed his carotid duplex which demonstrates bilateral 60-79% stenosis, which has been stable from July 2016. Assessment/Plan: Asymptomatic carotid artery disease. Reviewed with Mr. Morgan recommend continued antiplatelet therapy, blood pressure control and cholesterol management, and continued close followup with Cardiology. He will follow up with me in one year with repeat imaging, or sooner with any concerns. Josie Jaramillo D.O. KB/089 Audio #: [id number] Date Dictated: 04/07/2018 11:48:59 Date Typed: 04/10/2018 09:27:11 Date Revised: EMERGENCY DEPARTMENT Observed: 01/30/2018 Status: F Source: [place] SUMMARY 5:16 PM [facility] REPOSITORY [facility] Medical Records Department [address] [place] [address] Emergency Department Summary 01/30/18 1619 MR#: [id number] Acct: [id number] Name: SONIA MORGAN Rep #: [id number] : 1960 57 From: Bharathi Mcfarland DO PCP: Gab BERGMAN,Bharathi Status: REG ER - ER Visit Summary Date of Service: 01/30/18 Chief Complaint: Perirectal abscess History of Present Illness: The patient is a 57 M who presents with abscess to his right perirectal area that has been getting worse over the past 3 days. Patient states the pain is constant, aching, and pressure. Patient states the pain is worse with sitting, laying, and walking. Patient denies any fevers or chills. Patient denies any discharge or drainage. Patient denies any bleeding. Patient denies any abdominal pain. Patient denies any nausea or vomiting. Physical Examination: Vital signs are stable. Patient is afebrile. Patient is in no acute distress. Oral mucosa is pink and moist. Neck is supple. Trachea is midline. Is no JVD noted. Heart was regular rate and rhythm. Lungs are clear and equal bilateral. There is good respiratory effort noted. Abdomen is soft. Bowel sounds are normal. There is no tenderness. There is no rebound or guarding noted. Rectal exam shows edema and tenderness over the right perirectal area. There is no fluctuance palpated. There is no active bleeding or drainage. The remaining physical exam is within normal limits. Test Results: CT scan of the abdomen and pelvis was obtained. There is some inflammatory changes in the perirectal area. There is no definite abscess noted. Emergency Department Course and Treatment: Patient was given a prescription for Augmentin and a short course of [place]. Patient was instructed to follow-up with his primary care physician in 3-5 days. Patient understood and was agreeable with the plan. All questions were answered. Disposition: Discharge home Impression: Perirectal abscess This note was generated with Zeuss dictation software. It may contain incorrect words, spelling, and punctuation that were not noted in review of the chart prior to signing ED Disposition - Plan for ED Patient: Disposition: Home or Assisted Living Chief Complaint: Abscess Diagnosis: Perirectal abscess Instructions: ED Infec Skin Cellulitis Prescriptions: Hydrocodone Bitart/Apap 5-325 [[place] 5MG-325MG] 1 tab PO Q6H PRN PRN 3 Days #10 tab PRN Reason: Pain Amox/Clavulanate Tablet [Augmentin Tablet] 875 mg PO Q12H #20 tab Referrals: Bharathi De Guzman MD [Primary Care Provider] - What to do if you have Problems For any increased pain, shortness of breath, bleeding, nausea or vomiting, chest pain, or any unexpected problems, contact your Primary Care Provider. Call [facility] ([phone]) or report to the closest Emergency Room. Call 911 if necessary. 01/30/18 1716 <Electronically signed by Bharathi Mcfarland DO> Date Bharathi Mcfarland DO Cosigner Signature (If Indicated): Date CC: Bharathi De Guzman MD ABDOMEN/PELVIS WITHOUT Observed: 01/30/2018 Status: F Source: [place] CONT 3:11 PM [facility] REPOSITORY [facility] Imaging Services [address] [place] [address] Abdomen/Pelvis without Cont MR#: [id number] Acct: [id number] Name: SONIA MORGAN Rep #: [id number] : 1960 M 57 From: Nahun Ambrose MD PCP: Bharathi De Guzman MD Status: REG ER Study: Abdomen/Pelvis without Cont Date of Exam: 01/30/18 Exam# [id number] Ordering Dr: Bhraathi Mcfarland DO STUDY: CT ABDOMEN AND PELVIS WITHOUT CONTRAST REASON FOR EXAM: Male, 57 years old. Perirectal abscess. RADIATION DOSAGE (If Supplied By Facility): CTDIvol = ( 10.90 ) mGy, DLP = ( 593.47 ) mGycm TECHNIQUE: Transaxial images were obtained from the dome of the diaphragm to the symphysis pubis without oral contrast, and without intravenous contrast. Sagittal and coronal images were reconstructed. Individualized dose optimization techniques were used for this CT. COMPARISON: None. FINDINGS: There is an area of induration in the right posterior perianal soft tissues of the gluteal crease measuring approximately 3.3 cm craniocaudal, 2.1 cm anterior-posterior and 1.9 cm transverse, consistent with phlegmon without organized abscess. There is thickening of the overlying skin and mild induration in nearby fat consistent with cellulitis. There is no evidence of intraperitoneal extension of this process. The rectum appears normal. Body wall soft tissues otherwise unremarkable. No acute osseous process. Degenerative disease at L5-S1 with disc narrowing, vacuum changes, disc bulge and facet arthropathy contributes to bilateral foraminal narrowing. No cardiomegaly. Coronary calcifications are present. Normal distal esophagus. Lung bases clear. Hepatic steatosis with hepatomegaly. Right liver craniocaudal 20 cm. Multiple small gravel-like calculi in the gallbladder. No inflammatory features. Nondilated biliary tree. Mild pancreatic atrophy. Normal spleen and adrenal glands. Normal kidneys, collecting systems, ureters, urinary bladder, prostate and seminal vesicles. Pelvic floor and sidewalls and retroperitoneum exhibit no mass or lymphadenopathy. Mild aortoiliac atherosclerosis. Normal stomach, small bowel and mesentery. The appendix is not clearly seen. There may be a small appendiceal stump. Correlate for prior appendectomy. Normal appearance of the large bowel and rectum. There is creeping fat surrounding much of the sigmoid colon and rectum which may be a site of prior inflammation but there is no evidence of acute proctocolitis. CT/Abdomen/Pelvis without Cont IMPRESSION: Perianal superficial inflammatory process without evidence of abscess. Electronically Signed: Nahun Ambrose, at 16:40 EDT Tel , Service support , CC: Bharathi Mcfarland DO; Bharathi De Guzman MD Radio Program Checker: Signed NM CARDIAC PERF Observed: 09/05/2017 Status: F Source: [place] STRESS/PHARM 3:09 PM CLINIC OTHER CAMPUS REPOSITORY * * *Final Report* * * DATE OF EXAM: Sep 05 2017 3:09PM MAVIS 0006 - NM CARDIAC PERF STRESS/PHARM / PROCEDURE REASON: I25.10-Atherosclerotic heart disease of [place] coronary artery without angina pe * * * * Physician Interpretation * * * * PATIENT: Name: CATHY Liao Age: 57 years Gender: M CONCLUSIONS: 1. SPECT Perfusion Study: Normal. 2. There is no scintigraphic evidence for inducible ischemia. 3. No evidence of scarred myocardium. 4. Functional capacity N/A (pharmacological). 5. Left ventricle is normal in size. The left ventricle systolic function is hyperdynamic. 6. This is a low risk scan. 1 LVEF % 77 Prior Study Comparison Prior nuclear cardiology exam was performed on [..].08/15/2012. Nuclear Med Report:1-Day Tc-Tetrofosmin Gated SPECT Myocardial Perfusion with Regadenoson Stress: Myocardial perfusion imaging was performed at rest 30 minutes following the IV injection of Tc-99m tetrofosmin. The patient received 0.4 mg of regadenoson, via rapid IV push, immediately followed by Tc-99m tetrofosmin IV. Gated post stress tomographic imaging was performed 30 to 60 minutes later. See administered doses below. [facility] Date of service: 09/05/2017 1:28:03 PM Ordering Physician: Bryanna Morrison Requesting Physician: Indication: Assessment for suspected CAD, Abnormal Baseline ECG and Unable to Exercise. Interpreting physician: Araceli Duncan MD Patient History: History of hypertension, diabetes mellitus, dyslipidemia, coronary heart disease, family hx of premature CAD and myocardial infarction. Medications currently taking are B-luz maria, nitrate, ACEI, ASA, plavix and statins. Previous Cardiovascular Interventions: PCI CABG (x3) Height: 175.26 cm BSA: 2.08 m? Weight: 88.91 kg BMI: 28.9 kg/m? Exam Type: Rest Stress Radiopharm: Tc-99m Tetrofosmin Tc-99m Tetrofosmin Dosage(mCi): 11.6 31.6 Atten Correction: not performed not performed Stress Agent: Regadenoson 0.4mg Supply provided from [facility] Resting Heart Rate: 63 bpm Resting Blood Press: 168/79 mmHg Image Quality The overall study imaging quality was deemed to be excellent. FINDINGS: Left Ventricle Wall Motion: 1 - All scored segments are normal. 1 1 LVEF: 77 % LEFT VENTRICLE The left ventricle is normal in size. Left ventricular systolic function is hyperdynamic. Right Ventricle The right ventricle is unseen or not interrogated. Stress Test Findings: There is no scintigraphic evidence for inducible ischemia. There is no evidence of scarring. The stress test was terminated due to the following: End of Protocol. Peak HR 93 bpm. (58 % MPHR) Peak BP 169 mmHg/83 mmHg Patient experienced shortness of breath and headache during stress. Stress ECG normal sinus rhythm and showed borderline ST depression. Stress complications: none. Final Radio Program Checker: V[employer]ware Transcribe Date/Time: Sep 05 2017 1:28P Dictated by : ARACELI DUNCAN MD This examination was interpreted and the report reviewed and electronically signed by: ARACELI DUNCAN MD on Sep 05 2017 6:42PM EST [id number] ASP/LOPEZ RESIST PANEL Collected: 09/05/2017 Status: F Source: [place] 12:25 PM [facility] REPOSITORY TYPE CODE TESTS RESULT OUT OF REFERENCE UNITS RANGE LAB ADP 70-100 % Max ADP Max Aggreg Low 9 LAB [place] 66-100 % Max Arach Max Aggreg Low 3 LAB INTRP4 Interpretation (NOTE) Result Comment: Performing Pathologist: Mya Lyons M.D., Ph.D. Abnormal - see comment below. The platelet aggregation study is abnormal and suggests combined therapy with aspirin and clopidogrel. COMMENT: If the patient is on aspirin therapy, the degree of platelet inhibition indicates aspirin responsiveness because the arachidonic acid aggregation is <20 percent and the ADP aggregation is <70 percent. These parameters were developed at the [facility] utilizing the assay and reagents performed on this patient's platelets. Samra HARGROVE. Gerardo HARGROVE. Leanne MOLINA. A prospective, blinded determination of the natural history of aspirin resistance among stable patients with cardiovascular disease. Journal of the [place] College of Cardiology. 41(6):961-5, 2002. There is a decrease in ADP-induced platelet aggregation. Guidelines for optimal platelet inhibition during clopidogrel therapy have not been well-established. However, if the patient is currently receiving clopidogrel therapy, the results suggest clopidogrel response. The medication record indicates therapy with aspirin at 81 mg/day plus clopidogrel at 75 mg/day. Compared to prior results from 08/29/17, the current aggregation pattern indicates a similar level of platelet inhibition for an aspirin effect. Performed By: #### ASPCLP #### [facility] [address] [place], [place] [address] CNPN Observed: 09/02/2017 Status: COMPLETED Source: [place] 12:00 AM [facility] OTHER CAMPUS REPOSITORY Telephone (CDLBME) SONIA MORGAN ([id number]) 1960 M NFR Date Time Provider Department 09/02/17 MEGHANN PANIAGUA (RN) CDLE During your visit today, we recorded the following information about you: Meghann Paniagua RN, RN 09/02/2017 12:31 PM Signed Left message regarding reminder for stress test on Tuesday and given instructions Allergies As of Date: 09/02/2017 Noted Allergy Reaction TICLID (TICLOPIDINE HCL) 02/05/2005 Comments: Muscle ache Date Reviewed: 08/29/2017 Reviewed by: Kolby (Rn) YULISA Hoyos - Fully Assessed Reason for Visit: Reminder Call [[id number]] Prescriptions as of 09/02/2017 Sig: COENZYME Q10 100 MG CAPSULE Take 100 mg by mouth twice da* FENOFIBRATE MICRONIZED 200 MG* Take 1 capsule by mouth once * ATENOLOL 50 MG TABLET Take 1 tablet by mouth once d* ISOSORBIDE MONONITRATE ER 30 * Take 1 tablet by mouth once d* RAMIPRIL 5 MG CAPSULE TAKE TWO CAPSULES BY MOUTH ON* CLOPIDOGREL 75 MG TABLET Take 1 tablet by mouth once d* POTASSIUM CITRATE ER 5 MEQ (5* Take 1 tablet by mouth once d* CIPROFLOXACIN ER 500 MG TABLE* Take 500 mg by mouth once jun* METFORMIN 500 MG TABLET Take 1 tablet by mouth once d* ASPIRIN 81 MG TABLET,DELAYED * Take 1 tablet by mouth once d* NITROGLYCERIN 0.4 MG SUBLINGU* Dissolve 1 tablet under the t* ROSUVASTATIN 40 MG TABLET Take 1 tablet by mouth daily * NEXIUM 40 MG CAPSULE,DELAYED * TAKE ONE CAPSULE BY MOUTH ONC* AMITRIPTYLINE 25 MG TABLET Take 1 tablet by mouth daily * CINNAMON BARK ORAL Take 3,000 mg by mouth once d* OMEGA-3 FATTY ACIDS 500 MG CA* Take 2 capsules by mouth once* COMPOUNDED PRESCRIPTION BLOOD PRESSURE CUFF FOR HOME * BLOOD-GLUCOSE METER KIT Dx: 790.29 BLOOD SUGAR DIAGNOSTIC STRIPS Test blood sugar(s) 1 time da* LANCETS Test blood sugar(s) 1 time da* Problem List As Of Date 09/02/2017 Noted Resolved Acute myocardial infarction [410] More... HYPERLIPIDEMIA NEC/NOS [E78.5] INVALID FOR* HYPERTENSION NOS [I10] INVALID FOR* CORONARY ATHEROSCLER UNSPEC VESSEL [I25.10] INVALID FOR* BLADDER CANCER UNSPECIFIED [C67.9] INVALID FOR* More... TOBACCO USE DISORDER [F17.200] INVALID FOR* Personal history of malignant neoplasm of bladd*INVALID FOR*09/01/2010 LBP (Low Back Pain) [M54.5] INVALID FOR* Neoplasm of Uncertain Behavior of Skin [D48.5] INVALID FOR*09/16/2009 Wart [B07.9] INVALID FOR*09/01/2010 Insomnia [G47.00] INVALID FOR* Diabetes mellitus type II, controlled, with no *INVALID FOR*11/01/2011 Perirectal abscess [K61.1] INVALID FOR*11/01/2011 Pre-diabetes [R73.03] INVALID FOR* Family conflict [Z63.8] INVALID FOR* Other and unspecified angina pectoris [I20.9] INVALID FOR* Routine physical examination [Z00.00] INVALID FOR* Anxiety [F41.9] INVALID FOR* GERD (gastroesophageal reflux disease) [K21.9] INVALID FOR* Hx of past noncompliance [Z91.19] More... Abnormal stress test [R94.39] INVALID FOR* Carotid artery stenosis [I65.29] BPH (benign prostatic hyperplasia) [N40.0] INVALID FOR* History of bladder cancer [Z85.51] INVALID FOR* Screening for colon cancer [Z12.11] INVALID FOR*07/24/2015 Old myocardial infarction [I25.2] INVALID FOR* Presence of drug coated stent in left circumfle*INVALID FOR* Presence of drug coated stent in LAD coronary a*INVALID FOR* Stenosis of carotid artery [I65.29] INVALID FOR* Encounter Status:Closed by MEGHANN PANIAGUA on 09/02/17 ASP/LOPEZ RESIST PANEL Collected: 08/29/2017 Status: F Source: [place] 2:08 PM [facility] REPOSITORY TYPE CODE TESTS RESULT OUT OF REFERENCE UNITS RANGE LAB ADP 70-100 % Max ADP Max Aggreg Technical difficulties. Unable to report. LAB [place] 66-100 % Max Arach Max Aggreg 3 Low LAB INTRP4 Interpretation (NOTE) Result Comment: Performing Pathologist: Dr. Jame Rose M.D., Ph.D. Abnormal - see comment below. The platelet aggregation study is abnormal and is consistent with an aspirin-like drug effect. If the patient is on aspirin therapy, the degree of platelet inhibition indicates aspirin responsiveness because the arachidonic acid aggregation is <20 percent and the ADP aggregation is <70 percent. These parameters were developed at the [facility] utilizing the assay and reagents performed on this patient's platelets. Samra HARGROVE. Gerardo HARGROVE. Leanne MOLINA. A prospective, blinded determination of the natural history of aspirin resistance among stable patients with cardiovascular disease. Journal of the [place] College of Cardiology. 41(6):961-5, 2003. The medication record indicates therapy with aspirin at 81 mg/day plus clopidogrel at 75 mg/day. Please correlate these laboratory results with clinical findings and medication history. Performed By: #### ASPCLP #### [facility] [address] [place], [place] [address] PROGRESS Observed: 08/29/2017 Status: COMPLETED Source: [place] 1:42 PM [facility] OTHER CAMPUS REPOSITORY HNO ID: [id number] Author: Bryanna Morrison Service: (none) Author Type: Physician Type: Progress Notes Filed: 08/29/2017 1:55 PM Note Text: PERTINENT CARDIAC HISTORY ASHD - PCI LAD and DX 1995, CABGx3 2003, PCI OM graft and Dx stent 2013, PCI (laser and brachy) LAD ISR 2016 HTN HL DM Carotid artery disease Persistent lateral T wave inversion PAD ADHERENCE TO GUIDELINES ALEJANDRO-I or ARB for HF with prior LVEF<40 (NQF 0081) - N/A ASA or Plavix for ASHD (NQF 0067) - met Beta luz maria for ASHD with prior [place] or prior LVEF<40 (NQF 0070) - met Beta luz maria for HF with prior LVEF<40 (NQF 0083) - N/A ALEJANDRO-I or ARB for ASHD with DM or prior LVEF<40 (NQF 0066) - met Statin therapy for ASHD or FHL or DM - met BMI documented and plan if >25 (NQF 0421) - lifestyle recommendation form Tobacco use screening and referral (NQF 0028) - lifestyle recommendation form Recommendation for whole food, plant based diet - lifestyle recommendation form CLINICAL IMPRESSION/PLAN: Sonia Morgan has a change in his EKG which is nonspecific but concerning. Recent changes were made in his lipid treatment. He had increased triglycerides and mild elevation of liver enzymes. This is being managed in primary care. He will have clopidogrel inhibition test to see whether he needs to switch from Nexium to Protonix. In addition, he will undergo pharmacologic nuclear stress testing to see if there is any large area of ischemia. I've encouraged him to use nitroglycerin liberally for chest discomfort. He will be referred to vascular surgery for follow-up. Carotid Doppler examination will be performed. Otherwise, he's been advised to continue his current medication and use nitroglycerin liberally for chest discomfort. I will see him in 6 months or as needed. Written and verbal health teaching given to patient, patient verbalizes understanding and agrees with treatment plan. DIAGNOSIS FOR VISIT: ASHD Hypertension HISTORY OF PRESENT ILLNESS Sonia Morgan returns for follow-up of multiple cardiac issues, as noted above. He's had intermittent atypical chest discomfort of various types. He has used nitroglycerin on occasion with incomplete relief. He reports stable exercise tolerance. 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 He is now taking Plavix. Contrary to my recommendation, he did not switch from Nexium to Pepcid. He has not had the clopidogrel inhibition test. He's had no orthopnea or edema. He denies syncope, palpitations, TIAs, amaurosis and claudication. He is overdue for vascular surgery follow-up. ALLERGIES: ALLERGIES Allergen Reactions - Ticlid [Ticlopidine* Muscle ache CURRENT OUTPATIENT MEDICATIONS: coenzyme Q10 (COQ-10) 100 mg cap capsule Take 100 mg by mouth twice daily. fenofibrate (LOFIBRA) 200 mg capsule Take 1 capsule by mouth once daily. atenolol (TENORMIN) 50 mg tablet Take 1 tablet by mouth once daily. isosorbide mononitrate ER (IMDUR) 30 mg 24 hr tablet Take 1 tablet by mouth once daily. ramipril (ALTACE) 5 mg capsule TAKE TWO CAPSULES BY MOUTH ONCE DAILY clopidogrel (PLAVIX) 75 mg tablet Take 1 tablet by mouth once daily. potassium citrate ER (UROCIT-K) 5 mEq (540 mg) TbER Take 1 tablet by mouth once daily. Ciprofloxacin HCl-Betaine Comb 500 mg 24 hr tablet Take 500 mg by mouth once daily. metFORMIN (GLUCOPHAGE) 500 mg tablet Take 1 tablet by mouth once daily. aspirin, enteric coated (ECOTRIN LOW STRENGTH) 81 mg EC tablet Take 1 tablet by mouth once daily. nitroglycerin sublingual (NITROQUICK) 0.4 mg SL tablet Dissolve 1 tablet under the tongue as needed. DISSOLVE ON TONGUE FOR CHEST PAIN. IF NO PAIN RELIEF, CALL 911 rosuvastatin (CRESTOR) 40 mg tablet Take 1 tablet by mouth daily at bedtime. NEXIUM 40 mg capsule TAKE ONE CAPSULE BY MOUTH ONCE DAILY BEFORE BREAKFAST amitriptyline (ELAVIL) 25 mg tablet Take 1 tablet by mouth daily at bedtime. CINNAMON BARK ORAL Take 3,000 mg by mouth once daily. Anson-3 Fatty Acids (FISH OIL) 500 mg cap Take 2 capsules by mouth once daily. COMPOUNDED PRESCRIPTION BLOOD PRESSURE CUFF FOR HOME USE. DX: LABILE BLOOD PRESSURE Blood-Glucose Meter monitoring kit Dx: 790.29 blood sugar diagnostic (BLOOD GLUCOSE TEST) test strip Test blood sugar(s) 1 time daily. Dx: 790.29. Insulin: No Lancets lancets Test blood sugar(s) 1 time daily. Dx: 790.29. Insulin: No regadenoson (LEXISCAN) 0.4 mg/5 mL syrg Inject 5 mL intravenously one time only for 1 dose. 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, multiple resections - Personal history of noncompliance with medical treatment, presenting hazards to health follow up non-compliance - Psychosexual dysfunction with inhibited sexual excitement - Snoring - Tobacco use disorder PAST SURGICAL HISTORY Procedure Laterality Date - APPENDECTOMY 1986 - CABG X (3) ARTERIAL GRAFTS 06/2003 - COLONOSCOP W/ OR W/O BRSH SPEC 07/24/15 Colonoscopy (MAC) - CYSTOSCOPY AND BIOPSY 2001 multiple cystoscopies w TURB showing superficial TCC - EGD W/O BRS SPECIMEN W/BX 09/22/09 - HEART CATHETERIZATION 08/23/12 stable coronary disease - HEART CATHETERIZATION 08/28/13 Stents: diag, SV to OM x 4 - HEART SURGERY HX - INSERT INTRACORONARY STENT 1995 2 STENTS CARDIAC - VASECTOMY 08/12/2006 FAMILY HISTORY Problem Relation Age of Onset - Ischemic Heart Disease Mother 39 - Diabetes Mother - Cancer Father ?LUNG CANCER Social History Marital status: Spouse name: Rosaura Years of education: Number of children: 2 Occupational History 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 Rides motorcycle and hunts. REVIEW OF SYSTEMS: General: No chills, fever, weight loss, night sweats. Respiratory: No productive cough. Cardiac: As noted above. GI: No melena. : No dysuria. Musculoskeletal: No myalgias. PHYSICAL EXAMINATION: S/he is alert and in no distress. VITAL SIGNS: BP 132/80 Pulse 76 Ht 5' 9 (1.75m) Wt 196 lb 12.8 oz (89.3kg) BMI 29.05 kg/(m2). SHEENT: Skin is warm and dry. No xanthelasmas appreciated. Pharynx is benign. There is no oral cyanosis. Neck: supple. No adenopathy or thyroid enlargement. Chest: Clear to percussion and auscultation. Trachea is midline. Air entry is equal. There is no chest wall tenderness. Cardiac: Regular rhythm. S1 and S2 are normal. PMI is nondisplaced. There is a soft S4 gallop. There is a soft systolic ejection murmur. No click is heard. Carotids are brisk with soft bilateral bruits. JVP is less than 10 cm. Abdomen: Soft and nontender. There are no pulsatile masses or bruits. No liver enlargement. Bowel sounds are active. Extremities: No edema. Pulses are diminished but symmetrical. There is no evidence of ischemia. No clubbing or cyanosis. No femoral bruits. Neurologic: Grossly normal motor and sensory. S/he is alert and oriented x4. EKG shows sinus rhythm. Lateral T wave inversion is more prominent. Carotid Doppler examination is overdue. His most recent study showed moderately severe bilateral disease which had increased. Electronically Signed: Bryanna Morrison MD August 29, 2017 1:42 PM CC:Bharathi De Guzman MD CNOV Observed: 08/29/2017 Status: COMPLETED Source: [place] 1:00 PM [facility] OTHER [place] REPOSITORY Office Visit (AGCARDWST) SONIA MORGAN ([id number]) 1960 M NFR Date Time Provider Department 08/29/17 1:00 PM BRYANNA MORRISON AGCARDKATY During your visit today, we recorded the following information about you: Pulse Blood pressure Weight Height 76/minute 132/80 89.3 kg 1.753 m Bryanna Morrison MD 08/29/2017 1:55 PM Signed PERTINENT CARDIAC HISTORY ASHD - PCI LAD and DX 1995, CABGx3 2003, PCI OM graft and Dx stent 2013, PCI (laser and brachy) LAD ISR 2016 HTN HL DM Carotid artery disease Persistent lateral T wave inversion PAD ADHERENCE TO GUIDELINES ALEJANDRO-I or ARB for HF with prior LVEFANDlt;40 (NQF 0081) - N/A ASA or Plavix for ASHD (NQF 0067) - met Beta luz maria for ASHD with prior [place] or prior LVEFANDlt;40 (NQF 0070) - met Beta luz maria for HF with prior LVEFANDlt;40 (NQF 0083) - N/A ALEJANDRO-I or ARB for ASHD with DM or prior LVEFANDlt;40 (NQF 0066) - met Statin therapy for ASHD or FHL or DM - met BMI documented and plan if ANDgt;25 (NQF 0421) - lifestyle recommendation form Tobacco use screening and referral (NQF 0028) - lifestyle recommendation form Recommendation for whole food, plant based diet - lifestyle recommendation form CLINICAL IMPRESSION/PLAN: Sonia Morgan has a change in his EKG which is nonspecific but concerning. Recent changes were made in his lipid treatment. He had increased triglycerides and mild elevation of liver enzymes. This is being managed in primary care. He will have clopidogrel inhibition test to see whether he needs to switch from Nexium to Protonix. In addition, he will undergo pharmacologic nuclear stress testing to see if there is any large area of ischemia. I've encouraged him to use nitroglycerin liberally for chest discomfort. He will be referred to vascular surgery for follow-up. Carotid Doppler examination will be performed. Otherwise, he's been advised to continue his current medication and use nitroglycerin liberally for chest discomfort. I will see him in 6 months or as needed. Written and verbal health teaching given to patient, patient verbalizes understanding and agrees with treatment plan. DIAGNOSIS FOR VISIT: ASHD Hypertension HISTORY OF PRESENT ILLNESS Sonia Morgan returns for follow-up of multiple cardiac issues, as noted above. He's had intermittent atypical chest discomfort of various types. He has used nitroglycerin on occasion with incomplete relief. He reports stable exercise tolerance. 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 He is now taking Plavix. Contrary to my recommendation, he did not switch from Nexium to Pepcid. He has not had the clopidogrel inhibition test. He's had no orthopnea or edema. He denies syncope, palpitations, TIAs, amaurosis and claudication. He is overdue for vascular surgery follow-up. ALLERGIES: ALLERGIES Allergen Reactions - Ticlid [Ticlopidine* Muscle ache CURRENT OUTPATIENT MEDICATIONS: coenzyme Q10 (COQ-10) 100 mg cap capsule Take 100 mg by mouth twice daily. fenofibrate (LOFIBRA) 200 mg capsule Take 1 capsule by mouth once daily. atenolol (TENORMIN) 50 mg tablet Take 1 tablet by mouth once daily. isosorbide mononitrate ER (IMDUR) 30 mg 24 hr tablet Take 1 tablet by mouth once daily. ramipril (ALTACE) 5 mg capsule TAKE TWO CAPSULES BY MOUTH ONCE DAILY clopidogrel (PLAVIX) 75 mg tablet Take 1 tablet by mouth once daily. potassium citrate ER (UROCIT-K) 5 mEq (540 mg) TbER Take 1 tablet by mouth once daily. Ciprofloxacin HCl-Betaine Comb 500 mg 24 hr tablet Take 500 mg by mouth once daily. metFORMIN (GLUCOPHAGE) 500 mg tablet Take 1 tablet by mouth once daily. aspirin, enteric coated (ECOTRIN LOW STRENGTH) 81 mg EC tablet Take 1 tablet by mouth once daily. nitroglycerin sublingual (NITROQUICK) 0.4 mg SL tablet Dissolve 1 tablet under the tongue as needed. DISSOLVE ON TONGUE FOR CHEST PAIN. IF NO PAIN RELIEF, CALL 911 rosuvastatin (CRESTOR) 40 mg tablet Take 1 tablet by mouth daily at bedtime. NEXIUM 40 mg capsule TAKE ONE CAPSULE BY MOUTH ONCE DAILY BEFORE BREAKFAST amitriptyline (ELAVIL) 25 mg tablet Take 1 tablet by mouth daily at bedtime. CINNAMON BARK ORAL Take 3,000 mg by mouth once daily. Anson-3 Fatty Acids (FISH OIL) 500 mg cap Take 2 capsules by mouth once daily. COMPOUNDED PRESCRIPTION BLOOD PRESSURE CUFF FOR HOME USE. DX: LABILE BLOOD PRESSURE Blood-Glucose Meter monitoring kit Dx: 790.29 blood sugar diagnostic (BLOOD GLUCOSE TEST) test strip Test blood sugar(s) 1 time daily. Dx: 790.29. Insulin: No Lancets lancets Test blood sugar(s) 1 time daily. Dx: 790.29. Insulin: No regadenoson (LEXISCAN) 0.4 mg/5 mL syrg Inject 5 mL intravenously one time only for 1 dose. 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, multiple resections - Personal history of noncompliance with medical treatment, presenting hazards to health follow up non-compliance - Psychosexual dysfunction with inhibited sexual excitement - Snoring - Tobacco use disorder PAST SURGICAL HISTORY Procedure Laterality Date - APPENDECTOMY 1986 - CABG X (3) ARTERIAL GRAFTS 06/2003 - COLONOSCOP W/ OR W/O BRSH SPEC 07/24/15 Colonoscopy (MAC) - CYSTOSCOPY AND BIOPSY 2001 multiple cystoscopies w TURB showing superficial TCC - EGD W/O BRS SPECIMEN W/BX 09/22/09 - HEART CATHETERIZATION 08/23/12 stable coronary disease - HEART CATHETERIZATION 08/28/13 Stents: diag, SV to OM x 4 - HEART SURGERY HX - INSERT INTRACORONARY STENT 1995 2 STENTS CARDIAC - VASECTOMY 08/12/2006 FAMILY HISTORY Problem Relation Age of Onset - Ischemic Heart Disease Mother 39 - Diabetes Mother - Cancer Father ?LUNG CANCER Social History Marital status: Spouse name: Rosaura Years of education: Number of children: 2 Occupational History 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 Rides motorcycle and hunts. REVIEW OF SYSTEMS: General: No chills, fever, weight loss, night sweats. Respiratory: No productive cough. Cardiac: As noted above. GI: No melena. : No dysuria. Musculoskeletal: No myalgias. PHYSICAL EXAMINATION: S/he is alert and in no distress. VITAL SIGNS: BP 132/80 Pulse 76 Ht 5' 9ANDquot; (1.75m) Wt 196 lb 12.8 oz (89.3kg) BMI 29.05 kg/(m2). SHEENT: Skin is warm and dry. No xanthelasmas appreciated. Pharynx is benign. There is no oral cyanosis. Neck: supple. No adenopathy or thyroid enlargement. Chest: Clear to percussion and auscultation. Trachea is midline. Air entry is equal. There is no chest wall tenderness. Cardiac: Regular rhythm. S1 and S2 are normal. PMI is nondisplaced. There is a soft S4 gallop. There is a soft systolic ejection murmur. No click is heard. Carotids are brisk with soft bilateral bruits. JVP is less than 10 cm. Abdomen: Soft and nontender. There are no pulsatile masses or bruits. No liver enlargement. Bowel sounds are active. Extremities: No edema. Pulses are diminished but symmetrical. There is no evidence of ischemia. No clubbing or cyanosis. No femoral bruits. Neurologic: Grossly normal motor and sensory. S/he is alert and oriented x4. EKG shows sinus rhythm. Lateral T wave inversion is more prominent. Carotid Doppler examination is overdue. His most recent study showed moderately severe bilateral disease which had increased. Electronically Signed: Bryanna Morrison MD August 29, 2017 1:42 PM CC:MD Kolby Harrington RN, RN 08/29/2017 6:15 PM Signed Copy of OV note mailed to Dr. De Guzman's office. Referring Provider: BRYANNA MORRISON [[id number]] Allergies As of Date: 08/29/2017 Noted Allergy Reaction TICLID (TICLOPIDINE HCL) 02/05/2005 Comments: Muscle ache Date Reviewed: 08/29/2017 Reviewed by: Kolby (Rn) YULISA Hoyos - Fully Assessed Reason for Visit: Follow Up [171] Cmt: 6 month Primary Visit Diagnosis:ASHD (arteriosclerotic heart disease) [I25.10] Other Visit Diagnoses:Essential hypertension [I10] Dizziness and giddiness [R42] Order(s):fenofibrate (LOFIBRA) 200 mg capsuleTake 1 capsule by mouth once daily.Disp: Rfl: atenolol (TENORMIN) 50 mg tabletTake 1 tablet by mouth once daily.Disp: 90 tabletRfl: 3 isosorbide mononitrate ER (IMDUR) 30 mg 24 hr tabletTake 1 tablet by mouth once daily.Disp: 90 tabletRfl: 3 ECG B/O W INTERP (MED OFFICE) [ECG06] Order #: [id number] CONSULT TO VASCULAR SURGERY [9042] Order #: [id number]: 1 NM CARDIAC PERF STRESS/PHARM [[id number]] Order #: [id number] FUTURE regadenoson (LEXISCAN) 0.4 mg/5 mL syrgInject 5 mL intravenously one time only for 1 dose. Give IV push over 10 seconds and follow with 5 ml of normal salineDisp: 5 mLRfl: 0 IV START - SPECIFY [[id number]] Order #: [id number]: 1 IV DISCONTINUE [[id number]] Order #: [id number]: 1 CAROTID ARTERIES [facility] [[id number]] Order #: [id number] FUTURE Prescriptions as of 08/29/2017 Sig: COENZYME Q10 100 MG CAPSULE Take 100 mg by mouth twice da* FENOFIBRATE MICRONIZED 200 MG* Take 1 capsule by mouth once * ATENOLOL 50 MG TABLET Take 1 tablet by mouth once d* ISOSORBIDE MONONITRATE ER 30 * Take 1 tablet by mouth once d* RAMIPRIL 5 MG CAPSULE TAKE TWO CAPSULES BY MOUTH ON* CLOPIDOGREL 75 MG TABLET Take 1 tablet by mouth once d* POTASSIUM CITRATE ER 5 MEQ (5* Take 1 tablet by mouth once d* CIPROFLOXACIN ER 500 MG TABLE* Take 500 mg by mouth once jun* METFORMIN 500 MG TABLET Take 1 tablet by mouth once d* ASPIRIN 81 MG TABLET,DELAYED * Take 1 tablet by mouth once d* NITROGLYCERIN 0.4 MG SUBLINGU* Dissolve 1 tablet under the t* ROSUVASTATIN 40 MG TABLET Take 1 tablet by mouth daily * NEXIUM 40 MG CAPSULE,DELAYED * TAKE ONE CAPSULE BY MOUTH ONC* AMITRIPTYLINE 25 MG TABLET Take 1 tablet by mouth daily * CINNAMON BARK ORAL Take 3,000 mg by mouth once d* OMEGA-3 FATTY ACIDS 500 MG CA* Take 2 capsules by mouth once* COMPOUNDED PRESCRIPTION BLOOD PRESSURE CUFF FOR HOME * BLOOD-GLUCOSE METER KIT Dx: 790.29 BLOOD SUGAR DIAGNOSTIC STRIPS Test blood sugar(s) 1 time da* LANCETS Test blood sugar(s) 1 time da* REGADENOSON 0.4 MG/5 ML INTRA* Inject 5 mL intravenously one* Problem List As Of Date 08/29/2017 Noted Resolved Acute myocardial infarction [410] More... HYPERLIPIDEMIA NEC/NOS [E78.5] INVALID FOR* HYPERTENSION NOS [I10] INVALID FOR* CORONARY ATHEROSCLER UNSPEC VESSEL [I25.10] INVALID FOR* BLADDER CANCER UNSPECIFIED [C67.9] INVALID FOR* More... TOBACCO USE DISORDER [F17.200] INVALID FOR* Personal history of malignant neoplasm of bladd*INVALID FOR*09/01/2010 LBP (Low Back Pain) [M54.5] INVALID FOR* Neoplasm of Uncertain Behavior of Skin [D48.5] INVALID FOR*09/16/2009 Wart [B07.9] INVALID FOR*09/01/2010 Insomnia [G47.00] INVALID FOR* Diabetes mellitus type II, controlled, with no *INVALID FOR*11/01/2011 Perirectal abscess [K61.1] INVALID FOR*11/01/2011 Pre-diabetes [R73.03] INVALID FOR* Family conflict [Z63.8] INVALID FOR* Other and unspecified angina pectoris [I20.9] INVALID FOR* Routine physical examination [Z00.00] INVALID FOR* Anxiety [F41.9] INVALID FOR* GERD (gastroesophageal reflux disease) [K21.9] INVALID FOR* Hx of past noncompliance [Z91.19] More... Abnormal stress test [R94.39] INVALID FOR* Carotid artery stenosis [I65.29] BPH (benign prostatic hyperplasia) [N40.0] INVALID FOR* History of bladder cancer [Z85.51] INVALID FOR* Screening for colon cancer [Z12.11] INVALID FOR*07/24/2015 Old myocardial infarction [I25.2] INVALID FOR* Presence of drug coated stent in left circumfle*INVALID FOR* Presence of drug coated stent in LAD coronary a*INVALID FOR* Stenosis of carotid artery [I65.29] INVALID FOR* Visit Notes: >> Kolby (Yulisa) YULISA Hoyos TueAug 29, 2017 6:15 PM Status: Signed Copy of OV note mailed to Dr. De Guzman's office. Prescriptions ordered this encounter Disp Refills Start End FENOFIBRATE MICRONIZED 200 MG CAPSULE 08/29/2017 Class: Med Update Route: ORAL Sig: Take 1 capsule by mouth once daily. ATENOLOL 50 MG TABLET 90 t* 3 08/29/2017 Route: ORAL Sig: Take 1 tablet by mouth once daily. ISOSORBIDE MONONITRATE ER 30 MG TABL* 90 t* 3 08/29/2017 Route: ORAL Sig: Take 1 tablet by mouth once daily. REGADENOSON 0.4 MG/5 ML INTRAVENOUS * 5 mL 0 08/29/2017 08/29/2017 Class: In Office Route: INTRAVENOUS Sig: Inject 5 mL intravenously one time only for 1 dose. Give IV push over 10 seconds and follow with 5 ml of normal saline Medications Discontinued During This Encounter fenofibrate (LOFIBRA) 134 mg capsule 90 c* 1 03/04/2015 08/29/2017 Route: ORAL Sig: Take 1 capsule by mouth once daily. Disc: Reason for discontinue is not on file. atenolol (TENORMIN) 50 mg tablet 90 t* 3 07/05/2016 08/29/2017 Route: ORAL Sig: Take 1 tablet by mouth once daily. Disc: Reason for discontinue is not on file. isosorbide mononitrate ER (IMDUR) 30* 30 t* 11 06/23/2017 08/29/2017 Cmt: Please consider 90 day supplies to promote better adherence Sig: TAKE ONE TABLET BY MOUTH ONCE DAILY Disc: Reason for discontinue is not on file. Classic SmartForms filed during this visit: Extended Vitals Encounter Status:Closed by BRYANNA MORRISON MD on 08/29/17 BASIC METABOLIC Collected: 08/25/2017 Status: F Source: [place] PROFILE (BMP) 2:27 PM [facility] REPOSITORY TYPE CODE TESTS RESULT OUT OF RANGE REFERENCE UNITS LAB L501.0100 74-106 mg/dL High GLU 160 Result Comment: Fasting Glucose result greater than or equal to 126 mg/dL suggests DIABETES MELLITUS per A.D.A. criteria. Please note revised GLUCOSE reference range effective 2017. LAB L501.1000 7-18 mg/dL High BUN 20 LAB L501.1100 0.70-1.30 mg/dL Normal CREAT,SERUM 0.90 Result Comment: The validity of the calculated GFR AND GFRAA in patients over 70 years has not been determined. Clinical correlation is essential. LAB L501.1110 >60 mL/min Normal EST GFR 92 Result Comment: Non- GFR Calc LAB L501.1115 >60 mL/min Normal EST GFR - AA 112 Result Comment: GFR Calc LAB L501.1300 10-20 RATIO High BUN/CRE 22.2 LAB L501.2200 8.5-10.1 mg/dL CA Normal 9.3 LAB L501.5300 136-145 mmol/L NA Normal 137 LAB L501.5600 3.5-5.1 mmol/L K Normal 4.4 Result Comment: Slight Hemolysis, Result may be falsely increased. LAB L501.5900 98-107 mmol/L Normal CL 105 LAB L501.6100 21.0-32.0 mmol/L Normal CO2 22.0 LAB L501.6200 5-15 Normal GAP 10 Performed By: #### L500.2500, L500.4100, L501.3620, L501.4405 #### [facility] [address] [place], [address] LIPID PROFILE Collected: 08/25/2017 Status: F Source: [place] 2:27 PM [facility] REPOSITORY TYPE CODE TESTS RESULT OUT OF RANGE REFERENCE UNITS LAB L501.4900 200 mg/dL High CHOL 225 Result Comment: <200 mg/dL Desirable 200-240 mg/dL Borderline >240 mg/dL High Risk LAB L501.5000 mg/dL High TRIG 762 Result Comment: The drugs N-Acetylcysteine and Metamizole may falsely depress this assay. TRIGLYCERIDE IS GREATER THAN 400 mg/dL. LDL RESULT IS INVALID AND WILL NOT BE REPORTED. Serum Triglycerides Reference Interval Normal <150 mg/dL Borderline high 150 - 199 mg/dL High 200 - 499 mg/dL Very High > or = 500 mg/dL LAB L501.6400 mg/dL Low HDL 24 Result Comment: The drugs N-Acetylcysteine and Metamizole may falsely depress this assay. Reference Range HDL <40 mg/dL Low HDL Cholesterol HDL >or= 60 mg/dL High HDL Cholesterol LAB L501.6500 0-130 mg/dL Test Normal not performed LDL LAB L501.6600 5-40 mg/dL Test Normal not performed VLDL Performed By: #### L500.2500, L500.4100, L501.3620, L501.4405 #### [facility] [address] [place], [address] CPK TOTAL, CREATINE Collected: 08/25/2017 Status: F Source: [place]EL KINASE 2:27 PM [facility] REPOSITORY TYPE CODE TESTS RESULT OUT OF RANGE REFERENCE UNITS LAB L501.3620 39-308 U/L Normal CPK TOTAL 56 Performed By: #### L500.2500, L500.4100, L501.3620, L501.4405 #### [facility] [address] [place], [address] ALANINE AMINOTRANSFERAS Collected: 08/25/2017 Status: F Source: [place] AN[place]EL (SGPT) 2:27 PM [facility] REPOSITORY TYPE CODE TESTS RESULT OUT OF RANGE REFERENCE UNITS LAB L501.4405 16-61 U/L High ALT 117 Result Comment: Please note revised ALT reference range effective 2017. Performed By: #### L500.2500, L500.4100, L501.3620, L501.4405 #### [facility] [address] [place], [address] MICROALB:CREAT Collected: 08/25/2017 Status: F Source: [place] RATIO,RANDOM UR 2:27 PM [facility] REPOSITORY TYPE CODE TESTS RESULT OUT OF RANGE REFERENCE UNITS LAB L501.1200 NO RANGE EST. mg/dL Normal UR CREAT 70.30 LAB L502.0500 NO RANGE EST. mg/L Normal 9.6 MICROALBUMIN ,UR LAB L502.0600 <30 mg/g CRE mg/g CRE Normal 13.6 MALB:CREAT Performed By: #### L502.0250 #### [facility] [address] [place], [address] HEMOGLOBIN A1C Collected: 08/25/2017 Status: F Source: [place] 2:27 PM [facility] REPOSITORY TYPE CODE TESTS RESULT OUT OF RANGE REFERENCE UNITS LAB L501.9985 4.2-6.3 % High HGB A1C 6.7 Performed By: #### L501.9985 #### [facility] [address] [place], [address] INITAL EVALUATION (1) Observed: 08/22/2017 Status: F Source: [place] - PT 8:07 AM [facility] REPOSITORY [facility] Physical Therapy [facility] [address] [place] [address] Fax REHABILITATION SERVICES INITIAL EVALUATION MR#: [id number] Acct: [id number] Name: SONIA MORGAN Rep #: [id number] : 1960 57 From: Kyaw Marquez DPT Referring Dr.: Bharathi De Guzman MD Status: REG RCR Insurance: [employer] SELF PAY INSURANCE Patient's Visit Information SONIA MORGAN is a 57 year old M referred to Physical Therapy by Bharathi PEACE with a diagnosis of R lateral epicondylitis. Date of Evaluation: 08/19/17 Physical Therapist: Kyaw Marquez - Visit Plan Frequency: 2x /Week Duration: 4 Weeks Plan: Start with DFM to lateral epicondyle, wrist extensor stretching, US to wrist flexor group insertion, eccentric loading of wrist extensors. - Subjective Subjective: Pt. is here today for his initial evaluation with diagnosis of R lateral epicondylitis. Pt. reports having increased pain for 5 months now. He reports he initially hurt it when he slipped and fell on an out stretched arm. He reports some mild tenderness at the time, but shortly after he went hunting and got to the point where he could barely bend or straighten his R elbow. He went to physician who initially recommended casting for 2 weeks, but ulitmately decided on trialling PT. Increased pain: bending elbow, straightneing elbow, gripping, supination/pronation, extending wrist. Decreases pain: rest, limiting motion and use of brace. Pt. has not trialed ice or heat. Pt. is not taking any medications. Pt. is also having increased pain at nights, unsure why. Pt. 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 He reports being worried about this as his job is a lot of lifting, and labor like work. He is to follow up with physician in 10 days. He is hopeful to reduce symptoms in order to get back to work without limitations. - Pain R lateral elbow Pain Intensity (Out of 10): 3 Pain Intensity Range: 2, 8 - Objective POSTURE: Pt. keeps R arm in gaurded positioning. He tends to not straighten out arm at rest. Pt. has normal cervical spine and shoulder positioning. PALPATION: Pt. is tender throughout lateral epicondyle, no pain at olecranon process, no pain at ulnar groove or medial epicondyle. Pt. has no pain in R shoulder or cervical spine. NEUROLOGICAL: Pt. has normal sensation throughout bilateral UEs to light and sharp touch. Pt. has 2+ biceps and triceps DTR bilaterally. No limb tension noted. ROM: R elbow- full motion with increased symptoms at end ranges of flexion and extension. Pt has normal wrist motions with increase in symptoms with extension and radial deviation. Normal shoulder and cervical spine ROM without increase in symptoms. MMT: LUE- wrist 5/5 throughout; elbow- 5/5 throughout, shoulder 5/5 throughout. 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 RUE- wrist- flexion 5/5 NE, ext 4+/5 increase NW, ulnar deviation 4/5 increase NW, radiation deviation 5/5 NE; elbow- flexion 5/5 NE, ext 5/5 NE, supination- 5/5 increase NW, prontation 5/5 mild increase NW; shoulder 5/5 NE. 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 - Special Tests R Elbow Tinels - Ulnar n.: Negative R Elbow Valgus Stress Test - MCL Instability: Negative R Elbow Varus Stress Stest - MCL Instability: Negative R Elbow Lat Epiconylitis - as named: Positive Comments: + cozens sign, + horn test - Goals Goal 1:: Pt. to be I with HEP. Goal Time Frame: 4-6 Weeks Goal 2:: Pt. to have full wrist extension of RUE without increase in symptoms. Goal Time Frame: 4-6 Weeks Goal 3:: Pt. to have no pain with all wrist extension activities. Goal Time Frame: 4-6 Weeks Goal 4:: Pt. to return to work without increase in symptoms. - Rehabilitation Potential Physical Therapy Diagnosis: Pt. has signs and symptoms consistent with R lateral epicondylitis. He has all positive signs correlated with this pathology. He has marked weakness of wrist extensors, radial deviators secondary to increased pain and pain with gripping. He would benefit from PT to decrease symptoms, eccentrically load tendon origin, and increase tissue length in order to reduce symptoms with all work related activities. Rehabilitation Potential: Good - Anticipated Interventions Patient/Client Instruction: Educate patient on: Condition, Plan of Care, Risk Factors, Benefits of Fitness Program For the Purpose of:: To improve safety, To improve health and function, To foster healthy habits, To improve decision making, To facilitate caregiver knowledge, To improve self management, To prevent re-injury, To improve ability to perform tasks related to life management, To improve tolerance to ADL's Therapeutic Exercise to Include: Strength training, Power training, Endurance training, Body mechanics, Postural training, Flexibilty training, Passive ROM, Active ROM For the Purpose of:: To decrease pain, To decrease swelling/inflammation, To increase ROM, To improve nutrient delivery to tissue, To increase oxygenation perfusion, To improve muscle performance and motor function, To improve health of tissue, To decrease soft tissue restriction, To increase flexibility/ROM Manual Therapy Techniques to Include: Trigger point massage, Scar massage, Mobilization, Functional dry needling For the Purpose of:: To decrease pain, To decrease swelling/inflammation, To increase ROM, To improve nutrient delivery to tissue Ultrasound (thermal/non thermal): Yes For the Purpose of:: To decrease pain, To decrease swelling/inflammation, To increase ROM Thank you for the opportunity to evaluate your patient. For Medicare and Medicare HMO plans, please review the plan of care and approve it. It will need to be FAXED BACK to us at [phone] for Medicare purposes. Please let me know if there are questions or concerns regarding this plan of care. Physician Signature: Date: <Electronically signed by Kyaw Marquez DPT> 08/22/17 0807 CC: Bharathi De Guzman MD CLS Signed For Medicare only, by signing this I certify the plan of care. Physicians Signature Date ALLERGIES ALLERGIES DATE TYPE / CODE NAME / CODE REACTION SEVERITY SOURCE 06/09/2018 Drug ticlopidine Unknown Unknown [place] Allergy/416 HCl/[id number](RXN [place] 958015([facility] ED CT) Repository 02/05/2005 DRUG TICLOPIDINE HCL [facility] INGREDI/419 Other [place] [address]([facility] ED CT) /[id number] TICLOPIDINE HCL [place] [address]([facility] [facility] CT) Repository ENCOUNTERS ENCOUNTERS ADMIT/DISCHARGE ACCOUNT NUMBER ADMITTING ENCOUNTER LOCATION SOURCE CLASS 06/14/2018/06/14/19 [id number] Ambulatory [address] ding:SDCRoom Repository : AC16 06/08/2018/06/08/19 [id number] Ambulatory BMSBuilding: [address] Repository 04/03/2018/04/05/20 [id number] Ambulatory [address] Main [place] Repository 04/03/2018/04/17/20 [id number] Ambulatory [address] Repository 04/03/2018 [id number] Ambulatory [facility] MEDICAL Repository CENTERBuildi ng:CAGWS 01/30/2018/01/31/20 [id number] Emergency [address] ding:ED Repository 09/05/2017 [id number] Ambulatory [facility] Other [place] Repository 09/05/2017 [id number] Ambulatory [facility] Other [place] Repository 09/05/2017 [id number] Ambulatory [facility] Main [place] Repository 09/02/2017/09/03/19 [id number] Ambulatory [address] Main [place] Repository 08/31/2017/09/01/19 [id number] Ambulatory [address] ding:PT Repository 08/29/2017/08/30/19 [id number] Ambulatory [address] Main [place] Repository 08/29/2017/08/30/19 [id number] Ambulatory [address] Other [place] Repository 08/29/2017/08/30/19 [id number] Ambulatory [facility] [place] [address] MEDICAL Repository SUBLIMITYBuildi ng:CAGWS 08/25/2017 [id number] Ambulatory [facility] ding:MFPLAB Repository PAYERS PAYERS ENCOUNTER GUARANTOR PAYER SUBSCRIBER SOURCE 06/14/2018 SONIA Liao Primary SONIA Walter [id number] Insurance:ANTHEMPolic MANDLEYDOB: [facility] y [place]: [id number] [id number] Repository [address]Gur: (330) Date:6679-46-87RJ [phone] () [address] [place] [address] 21468EV: 06/14/2018 Secondary NOT GIVENUNK Jose Angel Insurance:SELF PAY [facility] Number: Effective Repository Date:2018-06-08 06/08/2018 SONIA Liao Primary SONIA Liao [place] [id number] Insurance:ANTHEMPolic MANDLEYDOB: [facility] y Number: [id number], [place] [id number] Repository [address]Hnd: [phone]) Date:7698-63-70LQ [phone] () [id number] [place] [address] 67801EN: 06/08/2018 Secondary NOT GIVENUNK [place] Insurance:SELF PAY [facility] Number: Effective Repository Date:2018-06-06 04/03/2018 SONIA Liao [facility] Insurance:BLUE CARD MANDLEYDOB: [facility] Number: [id number] [facility] [id number] [place], [place] Date: [address]Sos: () 01/30/2018 SONIA Liao Primary SONIA Walter [id number] Insurance:ANTHEMPolic MANDLEYDOB: [facility] y Number: [id number], [place] [id number] Repository [address]Nmj: ([phone]) Date:1527-97-04NV [phone] () 345752FMFAABV, [place] [address]YM: 01/30/2018 Secondary NOT GIVENUNK [place] Insurance:SELF PAY [facility] Number: Effective Repository Date:2018-01-30 08/31/2017 Sonia Liao Primary [id number] Insurance:ANTHEMPolic MandleyDOB: [facility] y Number: [id number] [id number] Repository [address]Ioy: (330) Date:0423-36-46DJ [phone] () 238[address]CTLEPRV, [place] [address]AV: 08/31/2017 Secondary NOT GIVENUNK [place] Insurance:SELF PAY [facility] Number: Effective Repository Date:2017-08-09 08/29/2017 SONIA Liao [facility] Number: [id number] [facility] [id number] [place], [place] Date: [address]Hlm: () 08/25/2017 Sonia Liao Primary Sonia Gentileoster [id number] Insurance:ANTHEMPolic MandleyDOB: [facility] y Number: [id number], [place] [id number] Repository [address]Lwu: ([phone]) Date:5298-35-85DO [phone] () 518656YSDZOTS, [place] [address]QJ: 08/25/2017 Secondary NOT GIVENUNK Jose Angel Insurance:SELF PAY [facility] Number: Effective Repository Date:2017-08-25
== END 2018-06-14 16:51 | disposition home or self-care (01) ==
LOC: SDC 12:19 → AC 12:20
PROVIDERS: Family Provider Family Medicine; PCP Family Medicine; Referring Provider Surgery; Visit Provider Surgery
PROC: (CPT 46020; principal; 2018-06-14 14:10)
DX: K60.3 Anal fistula (principal); I25.10 Atherosclerotic heart disease of native coronary artery without angina pectoris; I25.2 Old myocardial infarction; I65.29 Occlusion and stenosis of unspecified carotid artery; I10 Essential (primary) hypertension; E78.5 Hyperlipidemia, unspecified; E78.00 Pure hypercholesterolemia, unspecified; E11.9 Type 2 diabetes mellitus without complications; J44.9 Chronic obstructive pulmonary disease, unspecified; K21.9 Gastro-esophageal reflux disease without esophagitis; F17.290 Nicotine dependence, other tobacco product, uncomplicated; Z95.1 Presence of aortocoronary bypass graft; Z95.5 Presence of coronary angioplasty implant and graft; Z79.84 Long term (current) use of oral hypoglycemic drugs; Z79.82 Long term (current) use of aspirin; Z79.899 Other long term (current) drug therapy
CPT/HCPCS: 00902; 46020; 46275; 36415; 80048; 82962; 85027; 93005; J7120; J2405

== ENCOUNTER → 2020-01-08 10:24 | Outpatient (CLI) | payer BC, SELFPAY ==
[2019-05-29 09:14] VITALS: BMI 28.2
[2020-01-08 12:49] LABS: Hemoglobin A1c 7.4 % (3.8-5.6)
[2020-01-08 12:56] LABS: ALB/GLOB Ratio 1.3 RATIO (0.9-2.4); AST(SGOT) 51 U/L (15-37); Alanine Aminotransfer ALT/SGPT 92 U/L (16-61); Albumin, Serum 4.4 g/dL (3.2-5.0); Alkaline Phosphatase 49 U/L (45-117); Anion Gap 10 (5-15); BUN 20 mg/dL (7-18); BUN/Creat Ratio 23.4 RATIO (10-20); Calcium,Total 9.3 mg/dL (8.5-10.1); Chloride 102 mmol/L (98-107); Cholesterol 216 mg/dL (200); Creatinine, Serum 0.85 mg/dL (0.70-1.30); EST Glomerular Filtration Rate 97 mL/min (>60); Est Glom Filt Rate - Afr Amer 118 mL/min (>60); Globulin 3.3 g/dL (2.2-4.2); Glucose 213 mg/dL (74-106); High Density Lipoprotein 20 mg/dL; Potassium 4.2 mmol/L (3.5-5.1); Protein, Total 7.7 g/dL (6.4-8.2); Sodium Level 135 mmol/L (136-145); Thyroid Stim Hormone (TSH) 2.31 uIU/mL (0.358-3.74); Triglycerides 814 mg/dL
[2020-01-08 13:15] LABS: Microalbumin,Random Urine 5.4 mg/L (NO RANGE EST.); Microalbumin:Creatinine Ratio 20.3 mg/g CRE (<30 mg/g CRE)
== END ==
PROVIDERS: PCP Family Medicine; Visit Provider Family Medicine
DX: E11.9 Type 2 diabetes mellitus without complications (principal)
CPT/HCPCS: 36415; 80053; 80061; 82043; 82570; 83036; 84443

== ENCOUNTER → 2020-05-06 11:30 | Outpatient (CLI) | payer BC, SELFPAY ==
[2020-01-08 16:29] VITALS: BMI 28.0
[2020-05-06 15:57] LABS: ALB/GLOB Ratio 1.5 RATIO (0.9-2.4); AST(SGOT) 75 U/L (15-37); AST(SGOT) 76 U/L (15-37); Alanine Aminotransfer ALT/SGPT 128 U/L (16-61); Alanine Aminotransfer ALT/SGPT 129 U/L (16-61); Albumin, Serum 4.5 g/dL (3.2-5.0); Alkaline Phosphatase 47 U/L (45-117); Anion Gap 9 (5-15); BUN 21 mg/dL (7-18); BUN/Creat Ratio 23.2 RATIO (10-20); Calcium,Total 9.8 mg/dL (8.5-10.1); Chloride 105 mmol/L (98-107); Cholesterol 210 mg/dL (200); Creatinine, Serum 0.91 mg/dL (0.70-1.30); EST Glomerular Filtration Rate 90 mL/min (>60); Est Glom Filt Rate - Afr Amer 109 mL/min (>60); Globulin 3.1 g/dL (2.2-4.2); Glucose 174 mg/dL (74-106); High Density Lipoprotein 30 mg/dL; Magnesium 1.9 mg/dL (1.6-2.6); Potassium 4.1 mmol/L (3.5-5.1); Protein, Total 7.5 g/dL (6.4-8.2); Protein, Total 7.6 g/dL (6.4-8.2); Sodium Level 136 mmol/L (136-145); Thyroid Stim Hormone (TSH) 2.86 uIU/mL (0.358-3.74); Triglycerides 335 mg/dL; Very Low Density Lipoprotein 67 mg/dL (5-40)
[2020-05-06 16:01] LABS: Hemoglobin A1c 7.6 % (3.8-5.6)
== END ==
PROVIDERS: Internal Medicine Cardiovascular Disease; PCP Family Medicine; Visit Provider Family Medicine
DX: I10 Essential (primary) hypertension (principal); E11.9 Type 2 diabetes mellitus without complications; E78.00 Pure hypercholesterolemia, unspecified
CPT/HCPCS: 36415; 80053; 80061; 80076; 83036; 83735; 84443

== ENCOUNTER → 2020-09-01 06:44 | Outpatient (CLI) | payer BC, SELFPAY ==
[2020-08-12 13:29] VITALS: BMI 27.4
--- NOTE | 2020-09-01 06:47 | CDU_ITS ---
Reason For Study: STENOSIS Rt. Velocities/BP Lt. Velocities/BP Prox CCA 149/23 cm/sec. Prox CCA 119/30 cm/sec. Mid CCA 103/21 cm/sec. Mid CCA 89/27 cm/sec. Dist CCA 76/22 cm/sec. Dist CCA 79/24 cm/sec. Prox ICA 266/66 cm/sec. Prox ICA 260/76 cm/sec. Mid ICA 146/26 cm/sec. Mid ICA 133/35 cm/sec. Dist ICA 68/25 cm/sec. Dist ICA 100/28 cm/sec. Rt. ICA/CCA = 2.6. Lt. ICA/CCA = 2.9. Prox ECA 128/32 cm/sec. Prox ECA 312/78 cm/sec. Rt. Vert. 44/11 cm/sec. Lt. Vert. 65/19 cm/sec. Right Extracranial There is homogeneous, smooth atherosclerotic plaque noted in the right common carotid artery. There is heterogeneous, irregular atherosclerotic plaque noted in the right internal carotid artery. There is homogeneous, smooth atherosclerotic plaque noted in the right external carotid artery. Antegrade flow is noted in the right vertebral artery. There is heterogeneous, irregular atherosclerotic plaque noted in the left bulb. Left Extracranial There is homogeneous, smooth atherosclerotic plaque noted in the left common carotid artery. There is heterogeneous, irregular atherosclerotic plaque noted in the left internal carotid artery. There is heterogeneous, irregular atherosclerotic plaque noted in the left external carotid artery. Antegrade flow is noted in the left vertebral artery. There is heterogeneous, irregular atherosclerotic plaque noted in the left bulb. Procedure Carotid Duplex 83471. Exam performed in department. VL/Carotid Duplex Ultrasound Interpretation Summary Severe (>70%) stenosis right extracranial internal carotid. Severe (>70%) steno sis left extracranial internal carotid. Flow within the vertebral arteries is antegrade bilaterally. Ordering Physician: Tom Mitchell Referring Physician: BHARATHI MCKEON Performed By: Camryn Morris, SIERRA, RVT
--- NOTE | 2020-09-01 06:47 | ECHOCS_ITS ---
Reason For Study: S/P CABG Procedure This was a 2D Doppler, Color Flow transthoracic echocardiogram. The study was technically difficult. Contrast injection was performed. Exam performed in department. Left Ventricle Normal LV size. Left ventricular systolic function is normal. The estimated ejection fraction is 65 %. Stage 1 diastolic dysfunction. No regional wall motion abnormalities noted. Right Ventricle Normal RV size. Normal systolic function. Atria Normal left atrium. Normal right atrium. Mitral Valve Normal mitral valve. Tricuspid Valve Normal tricuspid valve. Mild (1+) tricuspid valve insufficiency. Pulmonary artery systolic pressure is 35 mmHg. Aortic Valve The aortic valve is not well visualized. Pulmonic Valve The pulmonic valve is not well visualized. Great Vessels Normal aortic root. The pulmonary artery is normal size. Normal inferior vena cava. Pericardium/Pleural No pericardial effusion. Medication Diluted definity 3.0ml given slow IV push to enhance endocardial definition. MMode/2D Measurements & Calculations LVIDd: 4.3 cm IVSd: 1.1 cm Ao root diam: 2.7 cm LVIDs: 3.4 cm LVPWd: 1.1 cm RVDd: 3.3 cm FS: 22.1 % LAV(MOD-bp): 54.9 ml LVAd ap4: 28.5 cm2 SV(MOD-sp4): 50.8 ml LAV(MOD-bp) Indexed: 27.5 ml/m2 EDV(MOD-sp4): 79.4 ml LAV(MOD-sp2): 57.7 ml EDV(sp4-el): 83.7 ml LAV(MOD-sp4): 52.1 ml LVAs ap4: 15.2 cm2 ESV(MOD-sp4): 28.6 ml ESV(sp4-el): 29.2 ml EF(MOD-sp4): 64.0 % EF(sp4-el): 65.1 % SV(sp4-el): 54.5 ml LA A4 area: 18.6 cm2 LA dimension(2D): 4.2 cm RA A4 area: 15.7 cm2 Time Measurements MV dec time: 0.17 sec Doppler Measurements & Calculations MV E max camilo: 97.1 cm/sec Lat Peak E' Camilo: 9.6 cm/sec Med Peak E' Camilo: 8.5 cm/sec MV A max camilo: 65.2 cm/sec E/E' lat: 10.1 E/E' med: 11.5 MV E/A: 1.5 Ao V2 max: 125.7 cm/sec LV V1 max: 131.1 cm/sec PA V2 max: 108.6 cm/sec Ao max P.3 mmHg LV V1 max P.9 mmHg TR max camilo: 277.6 cm/sec TR max P.8 mmHg ECHO/Echo Complete W/ Contrast Interpretation Summary Normal LV size. Left ventricular systolic function is normal. The estimated ejection fraction is 65 %. Stage 1 diastolic dysfunction. Contrast injection was performed. Ordering Physician: Tom Mitchell Referring Physician: Jorge Luis De Guzman Performed By: Alfreda Haney, SIERRA, RVT
--- NOTE | 2020-09-01 17:59 | STRESSREP_ITS ---
Stress Test Report Pharmacologic myocardial perfusion stress test. 60-year-old man with a history of coronary artery disease status post previous coronary bypass surgery. Medications aspirin, atenolol, rosuvastatin, clopidogrel, ramipril, isosorbide. Stress protocol: Resting EKG demonstrates normal sinus rhythm with a rate of 65 bpm normal intervals are noted resting blood pressure is 152/80 mmHg. 0.4 mg of regadenoson was infused per usual protocol followed by infusion of normal saline. The maximum heart rate was 85 bpm which was 53% of maximum predicted heart rate the maximum workload was 1 metabolic equivalent. At rest there were no ST or T wave changes noted to suggest abnormal flow reserve. The peak blood pressure was 154/80 mmHg. At peak infusion nonspecific ST changes were noted with did not meet the criteria for ischemia. Myocardial perfusion protocol. 10.4 mCi of technetium 99m sestamibi was injected at rest. 0.4 mg of regaden oson was infused per usual protocol. At peak infusion 33.50 mCi of technetium 99m sestamibi was injected stress images were obtained stress and rest images were reconstructed and compared in the short axis vertical long and horizontal long axis. Gated images were also obtained. Perfusion SPECT analysis: Review of the stress images demonstrate normal uptake of tracer noted in all areas of the myocardium. The resting images similar demonstrate normal uptake of tracer noted in all areas of the myocardium. No areas of reversibility are noted to suggest ischemia and no previous infarct is noted. Gated SPECT analysis: The gated ejection fraction is 69%. Conclusion: Normal pharmacologic myocardial perfusion stress test. Preserved ejection fraction.
== END ==
PROVIDERS: PCP Family Medicine; Referring Provider Internal Medicine Cardiovascular Disease; Visit Provider Internal Medicine Cardiovascular Disease
DX: I25.10 Atherosclerotic heart disease of native coronary artery without angina pectoris (principal); I65.23 Occlusion and stenosis of bilateral carotid arteries; Z95.1 Presence of aortocoronary bypass graft
CPT/HCPCS: 78452; 93017; 93306; 93880; A9500; Q9957; A4216; C8929; J2785

== ENCOUNTER → 2021-04-02 12:40 | Outpatient (CLI) | payer OTHER, SELFPAY ==
[2021-04-02 13:55] LABS: AST(SGOT) 130 U/L (15-37); Alanine Aminotransfer ALT/SGPT 146 U/L (16-61); Albumin, Serum 4.1 g/dL (3.2-5.0); Alkaline Phosphatase 35 U/L (45-117); Bilirubin, Direct 0.25 mg/dL (0.00-0.30); Cholesterol 243 mg/dL (200); Globulin 3.2 g/dL (2.2-4.2); High Density Lipoprotein 31 mg/dL; Protein, Total 7.3 g/dL (6.4-8.2); Triglycerides 473 mg/dL
== END ==
PROVIDERS: PCP Family Medicine; Referring Provider Nurse Practitioner Family; Visit Provider Nurse Practitioner Family
DX: E78.1 Pure hyperglyceridemia (principal); E78.5 Hyperlipidemia, unspecified
CPT/HCPCS: 36415; 80061; 80076

== ENCOUNTER → 2021-10-02 | Outpatient (CLI) | payer OTHER, SELFPAY ==
--- NOTE | 2021-10-02 15:05 | STRESSREP ---
Stress Test Report Pharmacologic myocardial perfusion stress test. 61-year-old male with a history of coronary disease status post coronary bypass surgery. Stress protocol: Resting EKG demonstrates normal sinus rhythm with normal intervals. Resting blood pressure is 164/82 mmHg resting heart rate is 81 bpm. 0.4 mg of regadenoson was infused per usual protocol followed by rapid saline flush injection. Continuous EKG monitoring was performed. The patient maintained sinus rhythm throughout the recording. At rest there were no ST or T wave changes noted to suggest abnormal flow reserve and at peak infusion nonspecific ST changes were noted with did not meet the criteria for ischemia. The maximum heart rate was 101 bpm which was 63% of max impact at heart rate. The maximum blood pressure was 164/82 mmHg. Myocardial perfusion protocol. 11.9 mCi of technetium 99m sestamibi was injected at rest. 0.4 mg of regadenoson was infused per usual protocol. At peak infusion 34.4 mCi of technetium 99 sestamibi was injected stress images were obtained stress and rest images were reconstructed and compared in the short axis vertical long and horizontal long axis. Gated images were also obtained Perfusion SPECT analysis: Review of the stress images demonstrate normal uptake of tracer uptake in all areas of the myocardium. The resting images similarly demonstrate normal uptake of tracer noted in all areas of the myocardium. No areas of reversibility are noted to suggest ischemia and no previous infarct is noted. Gated SPECT analysis: Gated ejection fraction is 72%. Conclusion: Normal pharmacologic myocardial perfusion stress test. Preserved ejection fraction.
== END | disposition home or self-care (01) ==
PROVIDERS: PCP Student in an Organized Health Care Education/Training Program; Referring Provider Physician Assistant Medical; Visit Provider Physician Assistant Medical
DX: R07.9 Chest pain, unspecified (principal)
CPT/HCPCS: 78452; 93017; A9500; A4216; J2785

== ENCOUNTER 2022-01-08 06:06 | Emergency (ER) | payer OTHER, SELFPAY ==
[2022-01-08 06:08] VITALS: BP 162/87; PULSE 87; RESP 15; TEMP 36.4; O2SAT 98; BMI 23.8
[2022-01-08 06:13] VITALS: O2SAT 97
--- NOTE | 2022-01-08 06:37 | EDS_ITS ---
HPI History of Present Illness Chief Complaint: Shortness of Breath Informant: patient Onset/Context/Timing Onset: Hours (6-7) Context: Gradual Onset Timing: Continuous Quality: swollen Location: throat Current Severity: Moderate Maximum Severity: Moderate Worsened by: nothing Relieved by: nothing Associated Symptoms Associated Symptoms: feels like trouble swallowing and breathing Narrative Narrative: Patient states in the middle of the night he started noticing swelling in the back of his throat, some discomfort with swallowing and feels like it is hard to breathe. Patient states it is a little to the left. He states it sort of feels like when you are snoring but more prominent. Patient states lying down versus sitting up is no different. He denies any chest symptoms. He is able to swallow, it is just sore to do so. He denies any vomiting, coughing, fevers or chills. He drinks 3-4 alcohol drinks per day after work mostly, he admits he may have had a few more than this last night. [facility] Medical History Acute gastritis without mention of hemorrhage Arrhythmia Atherosclerosis of coronary artery bypass graft without angina pectoris Atherosclerosis of coronary artery of [place] heart without angina pectoris Carotid artery stenosis COPD (chronic obstructive pulmonary disease) Diabetes Dysphagia Esophagitis Essential (primary) hypertension Fistula, anal Hyperlipidemia Hypertriglyceridemia Malignant neoplasm of anterior wall of urinary bladder Peripheral vascular occlusive disease Snoring Home Medications ascorbic acid (vitamin C) 500 mg tablet 500 mg PO TID 06/08/18 [History Last Taken Unknown] aspirin 81 mg tablet,delayed release (Adult Low Dose Aspirin) 81 mg PO DAILY 06/08/18 [History Last Taken Unknown] cholecalciferol (vitamin D3) 1,250 mcg (50,000 unit) tablet 50,000 unit PO QWEEK 06/08/18 [History Last Taken Unknown] magnesium oxide 400 mg PO DAILY 06/08/18 [History Last Taken Unknown] acetylcysteine 600 mg capsule (NAC) 600 mg PO DAILY 05/29/19 [History Last Taken Unknown] icosapent ethyl 1 gram capsule (Vascepa) 2 g PO BID #360 caps 01/28/21 [Rx Last Taken Unknown] atenolol 50 mg tablet 50 mg PO DAILY #90 tabs 04/02/21 [Rx Last Taken Unknown] clopidogrel 75 mg tablet 75 mg PO DAILY #90 tabs 04/02/21 [Rx Last Taken Unknown] fenofibrate micronized 200 mg capsule 200 mg PO DAILY #90 caps 04/02/21 [Rx Last Taken Unknown] isosorbide mononitrate 60 mg tablet,extended release 24 hr 60 mg PO DAILY #90 tabs 04/02/21 [Rx Last Taken Unknown] lansoprazole 30 mg capsule,delayed release 30 mg PO DAILY #90 caps 04/02/21 [Rx Last Taken Unknown] metformin 500 mg tablet,extended release 24 hr 500 mg PO BID #180 tabs 04/02/21 [Rx Last Taken Unknown] nitroglycerin 0.4 mg sublingual tablet 0.4 mg sublingual Q5-15M PRN CHEST PAIN #25 tabs 04/02/21 [Rx Last Taken Unknown] potassium citrate 5 mEq (540 mg) tablet,extended release 5 meq PO DAILY #90 tabs 04/02/21 [Rx Last Taken Unknown] ramipril 10 mg capsule 10 mg PO DAILY #90 caps 04/02/21 [Rx Last Taken Unknown] rosuvastatin 40 mg tablet (Crestor) 40 mg PO QHS #90 tabs 04/02/21 [Rx Last Taken Unknown] milk thistle 175 mg tablet 175 mg PO BID 09/22/21 [History Last Taken Unknown] prednisone 20 mg tablet 20 mg PO DAILY #3 TABLETS 01/08/22 [Rx Last Taken Unknown] Allergy/AdvReac Type Severity Reaction Status Date / Time ticlopidine HCl [From Ticlid] Allergy Unknown Verified 01/08/22 06:10 Family History Father Cancer Heart disease Brother Diabetes Hypertension Mother Heart disease Surgical History H/O coronary artery bypass surgery (2003) history of anal fistula repair (05/2018) History of coronary artery stent placement (07/02/16) History of esophagogastroduodenoscopy (EGD) History of left heart catheterization (07/02/16) Hx of appendectomy Hx of colonoscopy Hx of cystoscopy Hx of vasectomy Social History Smoking Status: Current some day smoker tobacco type: e-cigarettes alcohol intake: current alcohol intake frequency: holidays/special occasions only substance use type: does not use caffeine: Yes ROS ROS ED Constitutional Constitutional ED: Denies chills or fever(s) Eyes Eyes: Denies change in vision or diplopia ENT ENT ED: Reports as per HPI, sore throat and throat swelling; Denies ear pain or tongue swelling Cardiovascular Cardiovascular: Denies chest pain or palpitations Respiratory/Chest Respiratory/Chest: Denies cough, dyspnea or sputum Gastrointestinal Gastrointestinal: Denies abdominal pain, diarrhea, nausea or vomiting Integumentary Denies abscess or rash Neurologic Neurologic: Denies headache(s), paresthesias or weakness EXAM Physical Exam Const Vital Signs: 01/08/22 06:08 01/08/22 06:13 Temperature 97.5 F L Temperature Source Temporal Pulse Rate 87 Respiratory Rate 15 Respiratory Effort Non-Labored Respiratory Depth Normal Respiratory Pattern Normal Blood Pressure 162/87 H Blood Pressure Mean 112 Pulse Ox 98 Oxygen Delivery Method Room Air Room Air Positive well nourished and well developed General Appearance ED: well developed and NAD HEENT Reports moist mucous membranes HEENT Narrative: Posterior oropharynx is symmetric, tonsils are normal, no exudates. Uvula is edematous and relatively short for swollen uvula; there is a small abrasion on the left side of it, there is a small amount of red on cotton swab when I dab it. No active bleeding. No focal swelling or signs of abscess/infection. No trismus. Tongue normal with no sublingual edema. No stridor. Voice is normal. Eyes PERRL and EOMs intact bilaterally Neck no lymphadenopathy and supple General: Negative for tenderness Resp normal respiratory effort Effort and Inspection: able to speak in complete sentences Extremity normal to inspection General Extremety ED: Negative for edema or tenderness General Extremity: Negative for edema Neuro oriented x3, CN's II-XII intact bilaterally, no focal motor deficits, no sensory deficits noted and gait normal Sensorium / Orientation: alert Speech: speech normal Psych mental status grossly normal Skin no rashes or lesions noted and no wounds MDM MDM MDM Narrative Medical decision making narrative: I anesthetized the patient's throat topically with 20% benzocaine to allow easier exploration of the abnormal area on the left side of the uvula with a cotton swab, as it resembled a tonsillolith and on initial inspection I cannot tell if it was on the medial left tonsil or the uvula. The patient is unsure of how he could have scraped his uvula. My suspicion is that he has uvulitis related to alcohol use, if that is the case it should self-resolve within a day or 2. If not, sometimes prednisone helps. Given that he is a treated type II diabetic, I am going to prescribe him prednisone at half dose and only for several days he was given the first dose here and given appropriate discharge instructions and reasons to return. Discharge Plan Triage Chief Complaint: Shortness of Breath ED Provider: Adama Clay Dx/Rx/DC Orders Clinical Impression: Uvulitis Instructions: ED Uvulitis Prescriptions: New prednisone 20 mg tablet 20 mg PO DAILY Qty: 3 0RF No Action aspirin [Adult Low Dose Aspirin] 81 mg tablet,delayed release (DR/EC) 81 mg PO DAILY cholecalciferol (vitamin D3) 50,000 unit tablet 50,000 unit PO QWEEK magnesium oxide 400 mg capsule 400 mg PO DAILY ascorbic acid (vitamin C) 500 mg tablet 500 mg PO TID acetylcysteine [NAC] 600 mg capsule 600 mg PO DAILY Rx Instructions: administer with a meal atenolol 50 mg tablet 50 mg PO DAILY Qty: 90 3RF clopidogrel 75 mg tablet 75 mg PO DAILY Qty: 90 3RF fenofibrate micronized 200 mg capsule 200 mg PO DAILY Qty: 90 3RF isosorbide mononitrate 60 mg tablet extended release 24 hr 60 mg PO DAILY Qty: 90 3RF nitroglycerin 0.4 mg tablet, sublingual 0.4 mg SUBLINGUAL Q5-15M PRN (Reason: CHEST PAIN) Qty: 25 3RF potassium citrate 5 mEq (540 mg) tablet extended release 5 meq PO DAILY Qty: 90 3RF ramipril 10 mg capsule 10 mg PO DAILY Qty: 90 3RF rosuvastatin [Crestor] 40 mg tablet 40 mg PO QHS Qty: 90 3RF lansoprazole 30 mg capsule,delayed release(DR/EC) 30 mg PO DAILY Qty: 90 3RF metformin 500 mg tablet extended release 24 hr 500 mg PO BID Qty: 180 3RF milk thistle 175 mg tablet 175 mg PO BID Rx Instructions: give with meal/snack Vascepa 1 gram capsule 2 g PO BID Qty: 360 3RF Primary Care Provider: Chai Andrea Referrals: Andrea,Chai, DO [Primary Care Provider] - 3-5 Days if not improving Activity Restrictions/Additional Instructions: The prednisone is once daily; you already received your dose the morning of 01/08, if you still have the symptoms morning of 01/09, take the medication prescribed, but if it is better, hold off and try to avoid taking the prescription if possible. Try not to drink any alcohol until it is better, since this can worsen it and cause it. Disposition Disposition: Home, Self Care
[2022-01-08 06:42] VITALS: BP 132/82; PULSE 79; RESP 15; O2SAT 96
[2022-01-08] MEDS: predniSONE 20 MG Tablet PO (06:43)
== END 2022-01-08 06:46 | disposition home or self-care (01) ==
PROVIDERS: Emergency Provider Emergency Medicine; PCP Student in an Organized Health Care Education/Training Program; Visit Provider Emergency Medicine
DX: K12.2 Cellulitis and abscess of mouth (principal); E11.51 Type 2 diabetes mellitus with diabetic peripheral angiopathy without gangrene; J44.9 Chronic obstructive pulmonary disease, unspecified; I25.10 Atherosclerotic heart disease of native coronary artery without angina pectoris; I10 Essential (primary) hypertension; E78.5 Hyperlipidemia, unspecified; F17.290 Nicotine dependence, other tobacco product, uncomplicated; Z72.89 Other problems related to lifestyle; Z79.02 Long term (current) use of antithrombotics/antiplatelets; Z79.82 Long term (current) use of aspirin; Z79.84 Long term (current) use of oral hypoglycemic drugs; Z79.899 Other long term (current) drug therapy
CPT/HCPCS: 99283

== ENCOUNTER 2022-06-06 12:53 | Inpatient (IN) | payer OTHER, SELFPAY ==
[2022-06-06] VITALS (7 sets, daily range): BP systolic 131–149; BP diastolic 66–82; PULSE 54–73; RESP 12–18; TEMP 35.8–36.9; O2SAT 98–100; BMI 22.6
--- NOTE | 2022-06-06 13:04 | EKG12_ITS ---
Test Reason : CP Blood Pressure : / mmHG Vent. Rate : 052 BPM Atrial Rate : 052 BPM P-R Int : 152 ms QRS Dur : 092 ms QT Int : 430 ms P-R-T Axes : 059 011 059 degrees QTc Int : 399 ms Sinus bradycardia Otherwise normal ECG Confirmed by ROBERT BERGMAN, MADHU ([id number]), continuity editor VIKTOR PALMER ([id number]) on 06/07/2022 1:57:23 PM Referred By: DC Confirmed By:MADHU JONES MD
--- NOTE | 2022-06-06 13:04 | RAD_ITS ---
EXAM: XR CHEST, 1 VIEW CLINICAL INDICATION: chest pain TECHNIQUE: Frontal view of the chest. This report was created using [employer] report generation technology. COMPARISON: XR Chest dated 08/28/2013 FINDINGS: LUNGS AND PLEURAL SPACES: Normal. No consolidation or edema. No pneumothorax. No effusion. HEART: Heart is normal size. Surgical changes of coronary artery bypass graft (CABG). Left coronary artery stent is noted. MEDIASTINUM: No mediastinal or hilar mass. BONES/JOINTS: No acute abnormality. SOFT TISSUES: Normal. RAD/Chest 1 View (Portable) IMPRESSION: No acute cardiopulmonary abnormality. Electronically Signed: Ridge Cheatham MD at 13:38 EST ,
--- NOTE | 2022-06-06 13:04 | CT_ITS ---
EXAM: CT ABDOMEN AND PELVIS WITH INTRAVENOUS CONTRAST CLINICAL INDICATION: epigastric pain TECHNIQUE: Helically acquired images were obtained of the abdomen and pelvis with intravenous contrast. This CT exam was performed using one or more of the following dose reduction techniques: automated exposure control, adjustment of the mA and/or kV according to patient size, and/or use of iterative reconstruction technique. This report was created using [employer] report generation technology. CONTRAST: IV 100mL [id number] COMPARISON: CT Abdomen Pelvis dated 01/30/2018 FINDINGS: LOWER THORAX: Normal. Lung bases are clear. No cardiomegaly. No pericardial effusion. ABDOMEN: LIVER: Mild hepatic steatosis. GALLBLADDER AND BILE DUCTS: Multiple calcified stones are present within the gallbladder. 3.6 mm calcification at the distal end of the common bile duct at the level of the ampulla consistent with a common bile duct stone. No gallbladder distention or wall edema. PANCREAS: No evidence of acute pancreatitis. No focal cystic or solid mass. SPLEEN: Normal. Normal size without focal cystic or solid mass. ADRENALS: Normal. No nodules. KIDNEYS AND URETERS: Normal. Normal renal size and position. No hydronephrosis. STOMACH AND BOWEL: Normal. No bowel distention. No focal inflammatory change. PELVIS: APPENDIX: No evidence of acute appendicitis. BLADDER: Normal. REPRODUCTIVE: Unremarkable as visualized. No mass. ABDOMEN and PELVIS: INTRAPERITONEAL SPACE: Normal. No ascites or other fluid collection. No free air. BONES/JOINTS: Normal. No suspicious lytic or blastic abnormality. SOFT TISSUES: Normal. No discrete abdominal or pelvic wall hernia. VASCULATURE: Normal. Abdominal aorta is non-dilated. LYMPH NODES: Normal. No enlarged lymph nodes. CT/Abdomen/Pelvis W IV Cont ONLY IMPRESSION: 1. Cholelithiasis. 2. Choledocholithiasis. 3. Mild hepatic steatosis. Electronically Signed: Ridge Cheatham MD at 15:04 EST ,
[2022-06-06] MEDS: 0.9% Normal Saline 1,000 ML 1000 ML IV (13:35)
[2022-06-06] MEDS: Ondansetron 4 MG/2 ML Vial IV (13:36)
[2022-06-06] MEDS: Morphine 4 MG/ML Syringe IV (13:36)
[2022-06-06 13:47] LABS: Absolute Lymphocyte Count 1.12 X10^3/uL (0.83-4.51); Absolute Neutrophil Count 6.7 X10^3/uL (2.0-7.7); Basophil# 0.03 X10^3/uL; Basophil% 0.3 % (0-1); Eosinophil# 0.03 X10^3/uL; Eosinophils% 0.3 % (0-5); Hematocrit 42.1 % (40-54); Hemoglobin 14.5 g/dL (13.0-16.5); Lymphocyte # 1.12 X10^3/ul (0.83-4.51); Lymphocyte % 12.5 % (19-41); Mean Corp Hgb Conc 34.4 g/dL (32-36); Mean Corpuscular Hgb 30.9 pg (27.0-32.0); Mean Corpuscular Volume 89.8 fL (80-94); Mean Platelet Vol. 10.9 fl (6.2-12.0); Monocyte# 1.07 X10^3/uL; Monocyte% 11.9 % (0-10); NRBC Flagged by Analyzer 0 % (0-5); Neutrophil # 6.71 X10^3/uL (2.7-7.7); Neutrophil % 74.7 % (47-70); Platelet Count 203 K/mm3 (150-450); RBC Distribution Width CV 12.8 % (11.6-14.6); RBC Distribution Width SD 41.9 fl (35.1-43.9); Red Blood Count 4.69 M/mm3 (4.6-6.2)
[2022-06-06 14:02] LABS: Partial Thromboplast Time 26.6 Seconds (24.1-36.2)
[2022-06-06 14:06] LABS: ALB/GLOB Ratio 1.3 RATIO (0.9-2.4); AST(SGOT) 98 U/L (15-37); Alanine Aminotransfer ALT/SGPT 71 U/L (16-61); Albumin, Serum 3.8 g/dL (3.2-5.0); Alkaline Phosphatase 46 U/L (45-117); Anion Gap 5 (5-15); BUN 20 mg/dL (7-18); BUN/Creat Ratio 24.1 RATIO (10-20); Calcium,Total 9.5 mg/dL (8.5-10.1); Chloride 106 mmol/L (98-107); Creatinine, Serum 0.83 mg/dL (0.70-1.30); EST Glomerular Filtration Rate 100 mL/min (>60); Est Glom Filt Rate - Afr Amer 121 mL/min (>60); Globulin 2.9 g/dL (2.2-4.2); Glucose 176 mg/dL (74-106); Lipase 579 U/L (73-393); Potassium 3.4 mmol/L (3.5-5.1); Protein, Total 6.7 g/dL (6.4-8.2); Sodium Level 137 mmol/L (136-145); Troponin-I HS (w/2H Reflex) 31 pg/mL (3.0-78.0)
[2022-06-06 14:11] LABS: International Normalized Ratio 1.2; Prothrombin Time (Protime)PT. 14.5 SECONDS (11.7-14.9)
[2022-06-06 15:44] LABS: Reflex Troponin-HS? (from REC) Y
--- NOTE | 2022-06-06 15:55 | EDS_ITS ---
HPI History of Present Illness Chief Complaint: Chest Pain Informant: patient Onset/Context/Timing Onset: Today Location: epigastric and chest Maximum Severity: Severe Worsened by: nothing Relieved by: nothing Narrative Narrative: drinks 5 drinks per day, no history of pancreatitis. history of CAD, CABG, stents. compliant with meds. Prior similar symptoms: No Recent Illness/Hospitalization: No PFSH PFSH Medical History Acute gastritis without mention of hemorrhage Arrhythmia Atherosclerosis of coronary artery bypass graft without angina pectoris Atherosclerosis of coronary artery of [place] heart without angina pectoris Carotid artery stenosis COPD (chronic obstructive pulmonary disease) Diabetes Dysphagia Esophagitis Essential (primary) hypertension Fistula, anal Hyperlipidemia Hypertriglyceridemia Malignant neoplasm of anterior wall of urinary bladder Peripheral vascular occlusive disease Snoring Home Medications ascorbic acid (vitamin C) 500 mg tablet 500 mg PO TID 06/08/18 [History Last Taken Unknown] aspirin 81 mg tablet,delayed release (Adult Low Dose Aspirin) 81 mg PO DAILY 06/08/18 [History Last Taken Unknown] cholecalciferol (vitamin D3) 1,250 mcg (50,000 unit) tablet 50,000 unit PO QWEEK 06/08/18 [History Last Taken Unknown] magnesium oxide 400 mg PO DAILY 06/08/18 [History Last Taken Unknown] acetylcysteine 600 mg capsule (NAC) 600 mg PO DAILY 05/29/19 [History Last Taken Unknown] clopidogrel 75 mg tablet 75 mg PO DAILY #90 tabs 04/02/21 [Rx Last Taken U nknown] fenofibrate micronized 200 mg capsule 200 mg PO DAILY #90 caps 04/02/21 [Rx Last Taken Unknown] lansoprazole 30 mg capsule,delayed release 30 mg PO DAILY #90 caps 04/02/21 [Rx Last Taken Unknown] metformin 500 mg tablet,extended release 24 hr 500 mg PO BID #180 tabs 04/02/21 [Rx Last Taken Unknown] nitroglycerin 0.4 mg sublingual tablet 0.4 mg sublingual Q5-15M PRN CHEST PAIN #25 tabs 04/02/21 [Rx Last Taken Unknown] rosuvastatin 40 mg tablet (Crestor) 40 mg PO QHS #90 tabs 04/02/21 [Rx Last Taken Unknown] milk thistle 175 mg tablet 175 mg PO BID 09/22/21 [History Last Taken Unknown] icosapent ethyl 1 gram capsule (Vascepa) 2 g PO BID #360 caps 01/20/22 [Rx Last Taken Unknown] potassium citrate 5 mEq (540 mg) tablet,extended release 5 meq PO DAILY #90 tabs 02/15/22 [Rx Last Taken Unknown] atenolol 50 mg tablet 50 mg PO DAILY #90 tabs 04/21/22 [Rx Last Taken Unknown] ramipril 10 mg capsule 10 mg PO DAILY #90 caps 04/21/22 [Rx Last Taken Unknown] Allergy/AdvReac Type Severity Reaction Status Date / Time ticlopidine HCl [From Ticlid] Allergy Unknown Verified 06/06/22 12:55 Family History Father Cancer Heart disease Brother Diabetes Hypertension Mother Heart disease Surgical History H/O coronary artery bypass surgery (2003) history of anal fistula repair (05/2018) History of coronary artery stent placement (07/02/16) History of esophagogastroduodenoscopy (EGD) History of left heart catheterization (07/02/16) Hx of appendectomy Hx of colonoscopy Hx of cystoscopy Hx of vasectomy Social History Smoking Status: Current some day smoker tobacco type: e-cigarettes alcohol intake: current alcohol intake frequency: holidays/special occasions only substance use type: does not use caffeine: Yes ROS ROS ED Constitutional Constitutional ED: Denies chills or fever(s) Eyes Eyes: Denies blurry vision ENT ENT ED: Denies ear pain Cardiovascular Cardiovascular: Reports chest pain Respiratory/Chest Respiratory/Chest: Denies cough Gastrointestinal Gastrointestinal: Reports abdominal pain; Denies constipation, diarrhea, melena, nausea or vomiting Genitourinary Genitourinary ED: Denies dysuria Musculoskeletal Musculoskeletal: Denies arthralgias Integumentary Denies abscess Neurologic Neurologic: Denies headache(s) Psychiatric Psychiatric: Denies anxiety Endocrine Endocrinology: Denies cold intolerance Hematologic/Lymphatic Hematologic/Lymphatic: Reports systems reviewed and no addt'l complaints, except as documented Allergic/Immunologic Allergic/Immunologic ED: Denies mouth swelling EXAM Physical Exam Const Vital Signs: 06/06/22 12:54 06/06/22 13:34 06/06/22 13:39 Temperature 96.4 F L Temperature Source Temporal Pulse Rate 58 L 54 L Respiratory Rate 18 12 Respiratory Effort Short of Breath Blood Pressure 131/66 H 134/67 H Blood Pressure Mean 87 89 Pulse Ox 98 99 Oxygen Delivery Method Room Air Room Air 06/06/22 14:27 Temperature Temperature Source Pulse Rate 63 Respiratory Rate 16 Respiratory Effort Blood Pressure 139/70 H Blood Pressure Mean 93 Pulse Ox 100 Oxygen Delivery Method Room Air Positive well nourished and well developed General Appearance ED: well developed HEENT Reports moist mucous membranes Eyes EOMs intact bilaterally Resp normal respiratory effort and clear to auscultation bilaterally Cardio regular rate and regular rhythm GI non-distended Palpation: tender Extremity normal to inspection Neuro oriented x3 and CN's II-XII intact bilaterally Psych mental status grossly normal Skin no rashes or lesions noted MDM MDM MDM Narrative Medical decision making narrative: Sinus rhythm at a rate of 52. No sign of ischemia or infarction pattern. This was interpreted by me. CT abdomen pelvis showed cholelithiasis, choledocholithiasis, hepatic steatosis. I agree with radiologist interpretation. Chest x-ray showed nothing acute. This was interpreted by the radiologist and myself. CBC was normal. Coags normal. Potassium 3.4. Total bilirubin is elevated at 2.1, AST 98, ALT 71, lipase 579. Glucose 176. Patient was treated with morphine and Zofran while awaiting results. Suspect that coronary disease/ACS is unlikely. Delta troponin is pending. Suspect that his pain is related to cholelithiasis and choledocholithiasis. His bilirubin is slightly elevated. Lipase is also slightly elevated. Patient will need GI consult. Pain control. Hospitalist was contacted to admit for further care. Disposition admit to [facility] Impression #1 epigastric pain Impression #2 cholelithiasis and choledocholithiasis Impression #3 history of coronary disease Lab Data Attestation: I reviewed the patient's lab results. Labs: Laboratory Results - last 24 hr 06/06/22 06/06/22 06/06/22 13:18 13:18 13:18 WBC 9.0 RBC 4.69 Hgb 14.5 Hct 42.1 MCV 89.8 MCH 30.9 MCHC 34.4 RDW Std Deviation 41.9 RDW Coeff of Jeffrey 12.8 Plt Count 203 MPV 10.9 Immature Gran % (Auto) 0.300 Neut % (Auto) 74.7 H Lymph % (Auto) 12.5 L [place] % (Auto) 11.9 H Eos % (Auto) 0.3 Baso % (Auto) 0.3 Absolute Neuts (auto) 6.7 Absolute Lymphs (auto) 1.12 Nucleated RBC % 0 PT 14.5 INR 1.2 APTT 26.6 Sodium 137 Potassium 3.4 L Chloride 106 Carbon Dioxide 26.0 Anion Gap 5 BUN 20 H Creatinine 0.83 Estim Creat Clear Calc 91.10 Est GFR (MDRD) Af Amer 121 Est GFR (MDRD) Non-Af 100 BUN/Creatinine Ratio 24.1 H Glucose 176 H Calcium 9.5 Total Bilirubin 2.10 H AST 98 H ALT 71 H Alkaline Phosphatase 46 Troponin I High Sens 31 Total Protein 6.7 Albumin 3.8 Globulin 2.9 Albumin/Globulin Ratio 1.3 Lipase 579 H Radiography Diagnostic Testing: Clinical Impression(s) from Imaging Studies Abdomen/Pelvis CT 06/06/22 13:04 IMPRESSION: 1. Cholelithiasis. 2. Choledocholithiasis. 3. Mild hepatic steatosis. Electronically Signed: Ridge Cheatham MD at 15:04 EST , Chest X-Ray 06/06/22 13:04 IMPRESSION: No acute cardiopulmonary abnormality. Electronically Signed: Ridge Cheatham MD at 13:38 EST , Discharge Plan Triage Chief Complaint: Chest Pain ED Provider: Javon Juarez Dx/Rx/DC Orders Prescriptions: No Action aspirin [Adult Low Dose Aspirin] 81 mg tablet,delayed release (DR/EC) 81 mg PO DAILY cholecalciferol (vitamin D3) 50,000 unit tablet 50,000 unit PO QWEEK magnesium oxide 400 mg capsule 400 mg PO DAILY ascorbic acid (vitamin C) 500 mg tablet 500 mg PO TID acetylcysteine [NAC] 600 mg capsule 600 mg PO DAILY Rx Instructions: administer with a meal clopidogrel 75 mg tablet 75 mg PO DAILY Qty: 90 3RF fenofibrate micronized 200 mg capsule 200 mg PO DAILY Qty: 90 3RF nitroglycerin 0.4 mg tablet, sublingual 0.4 mg SUBLINGUAL Q5-15M PRN (Reason: CHEST PAIN) Qty: 25 3RF rosuvastatin [Crestor] 40 mg tablet 40 mg PO QHS Qty: 90 3RF lansoprazole 30 mg capsule,delayed release(DR/EC) 30 mg PO DAILY Qty: 90 3RF metformin 500 mg tablet extended release 24 hr 500 mg PO BID Qty: 180 3RF milk thistle 175 mg tablet 175 mg PO BID Rx Instructions: give with meal/snack Vascepa 1 gram capsule 2 g PO BID Qty: 360 3RF potassium citrate 5 mEq (540 mg) tablet extended release 5 meq PO DAILY Qty: 90 3RF atenolol 50 mg tablet 50 mg PO DAILY Qty: 90 3RF ramipril 10 mg capsule 10 mg PO DAILY Qty: 90 3RF Primary Care Provider: Chai Andrea Referrals: Chai Andrea DO [Primary Care Provider] -
[2022-06-06 16:14] LABS: Troponin-I HS 34 pg/mL (3.0-78.0)
--- NOTE | 2022-06-06 16:35 | PCM.HP.STD ---
HPI - General General Date of Admission: 06/06/22 Date of Service: 06/06/22 Chief Complaint: Epigastric pain HPI Narrative SONIA PARSONS, is a 62 M who presented to the emergency department complaining of epigastric pain and chest pain. Patient states he felt well yesterday. He was hunting today and they stopped for lunch and he was experiencing fairly severe epigastric pain and right upper quadrant pain. He reports he tried to eat a couple bites of chili but was unable secondary to pain being so bad. He stated it radiated up into his chest a little bit but was predominantly in the epigastric region and radiated across his upper abdomen. He had no nausea or vomiting. No change in stools. He is never had this before. He does admit to regular alcohol use and states he drinks up to 9 shots daily. He has never not drink for an extended period of time so he is unclear if he will go through withdrawal. He has had no fever or chills, no respiratory symptoms, no shortness of breath, no tingling, numbness, or weakness. Upon presentation his temperature was 96.4, heart rate was 58, blood pressure 131/68, respiratory rate was 18 and his oxygen saturation was 98% on room air. BC was unremarkable other than the fact that he had a bit of a left shift with a 74.7% neutrophilia. Coags are normal. His chemistry panel showed mild hypokalemia with potassium of 3.4 and a blood glucose of 176. His liver function was abnormal with an AST of 98, ALT of 71, and total bili of 2.1. Alk phos was normal. His initial troponin was 31 and repeat was 34. His EKG shows sinus bradycardia with normal intervals and no ST-T wave changes concerning for acute ischemia. Chest x-ray demonstrated no acute cardiopulmonary process. Given his abdominal pain and abnormal liver function a CT of his abdomen pelvis was performed which showed cholelithiasis, choledocholithiasis, and mild hepatic steatosis. [facility] Medical History (Updated 06/06/22 @ 16:[address] Marcie Gomes DO) Acute gastritis without mention of hemorrhage Arrhythmia Atherosclerosis of coronary artery bypass graft without angina pectoris Atherosclerosis of coronary artery of [place] heart without angina pectoris Carotid artery stenosis COPD (chronic obstructive pulmonary disease) Diabetes Dysphagia Esophagitis Essential (primary) hypertension Fistula, anal Hyperlipidemia Hypertriglyceridemia Malignant neoplasm of anterior wall of urinary bladder Peripheral vascular occlusive disease Snoring Home Medications ascorbic acid (vitamin C) 500 mg tablet 500 mg PO TID 06/08/18 [History Last Taken Unknown] aspirin 81 mg tablet,delayed release (Adult Low Dose Aspirin) 81 mg PO DAILY 06/08/18 [History Last Taken Unknown] magnesium oxide 400 mg PO DAILY 06/08/18 [History Last Taken Unknown] acetylcysteine 600 mg capsule (NAC) 600 mg PO DAILY 05/29/19 [History Last Taken Unknown] nitroglycerin 0.4 mg sublingual tablet 0.4 mg sublingual Q5-15M PRN CHEST PAIN #25 tabs 04/02/21 [Rx Last Taken Unknown] milk thistle 175 mg tablet 175 mg PO BID 09/22/21 [History Last Taken Unknown] atenolol 50 mg tablet 50 mg PO DAILY BP 06/06/22 [History Last Taken 06/06/22] cholecalciferol (vitamin D3) 25 mcg (1,000 unit) capsule 25 mcg PO DAILY SUPPLEMENT 06/06/22 [History Last Taken 06/06/22] clindamycin HCl 150 mg capsule 150 mg PO Q6H INFECTION 06/06/22 [History Last Taken Unknown] clopidogrel 75 mg tablet 75 mg PO DAILY BLOOD THINNER 06/06/22 [History Last Taken 06/06/22] fenofibrate micronized 200 mg capsule 200 mg PO DAILY CHOLESTEROL 06/06/22 [History Last Taken 06/06/22] icosapent ethyl 1 gram capsule (Vascepa) 2 g PO BID SUPPLEMENT 06/06/22 [History Last Taken 06/06/22] lansoprazole 30 mg capsule,delayed release 30 mg PO DAILY GERD 06/06/22 [History Last Taken 06/06/22] metformin 500 mg tablet,extended release 24 hr 500 mg PO BID DM 06/06/22 [History Last Taken 06/06/22] potassium citrate 5 mEq (540 mg) tablet,extended release 5 meq PO DAILY SUPPLEMENT 06/06/22 [History Last Taken 06/06/22] ramipril 10 mg capsule 10 mg PO DAILY HEART 06/06/22 [History Last Taken 06/06/22] rosuvastatin 40 mg tablet (Crestor) 40 mg PO QHS CHOLESTEROL 06/06/22 [History Last Taken 06/01/22] sildenafil 100 mg tablet 100 mg PO DAILY PRN Erectile Dysfunction 06/06/22 [History Last Taken Unknown] Allergy/AdvReac Type Severity Reaction Status Date / Time ticlopidine HCl [From Ticlid] Allergy Unknown Verified 06/06/22 12:55 Family History Father Cancer Heart disease Brother Diabetes Hypertension Mother Heart disease Surgical History H/O coronary artery bypass surgery (2003) history of anal fistula repair (05/2018) History of coronary artery stent placement (07/02/16) History of esophagogastroduodenoscopy (EGD) History of left heart catheterization (07/02/16) Hx of appendectomy Hx of colonoscopy Hx of cystoscopy Hx of vasectomy Social History (Updated 06/06/22 @ 16:[address] Marcie Gomes DO) household members: none housing: house Smoking Status: Current every day smoker tobacco type: cigarettes Smoking packs per day: 0.5 Smoking cigarettes per day: 10.0 alcohol intake: current alcohol intake frequency: 3 or more drinks per day details: Patient admits to drinking upwards of 9 shots of hard liquor daily substance use type: does not use caffeine: Yes ROS Constitutional Constitutional: Denies anorexia, change in weight, chills, fatigue, fever(s), malaise, night sweats, weakness or other Eyes Eyes: Denies blurry vision, change in eye color, change in vision, discharge from eye(s), double vision, erythema, eye pain, loss of vision or other ENT HEENT: Denies abnormal hearing, dysphagia, ear pain, epistaxis, headache(s), hearing loss, nasal congestion, nasal discharge, post nasal drip, sinus pressure, sore throat or other Cardiovascular Cardiovascular: Reports chest pain; Denies claudication, dyspnea on exertion, edema, lightheadedness, orthopnea, palpitations, paroxysmal nocturnal dyspnea, rapid heart rate, syncope or other Respiratory/Chest Respiratory/Chest: Denies cough, dyspnea, excessive phlegm production, hemoptysis, productive cough, shortness of breath at rest, shortness of breath with exertion, wheezing or other Gastrointestinal Gastrointestinal: Reports abdominal pain; Denies coffee ground emesis, constipation, diarrhea, dyspepsia, hematemesis, hematochezia, loose stools, melena, nausea, vomiting or other Genitourinary Genitourinary: Denies burning urination, difficulty urinating, dysuria, hematuria, nocturia, urinary frequency, urinary hesitancy, urinary incontinence, urinary urgency or other Musculoskeletal Musculoskeletal: Denies arthralgias, back pain, joint pain, joint stiffness, joint swelling, myalgias, neck pain or other Neurologic Neurologic: Denies abnormal gait, abnormal speech, confusion, disequilibrium, dizziness, focal weakness, headache(s), numbness, paresthesias, seizure-like activity, seizures, syncope, tingling, tremor(s) or other Psychiatric Psychiatric: Denies anxiety, depression, homicidal ideation, suicidal ideation or other Endocrine Endocrinology: Denies change in body appearance, cold intolerance, excessive sweating, heat intolerance, polydipsia, polyuria or other Hematologic/Lymphatic Hematologic/Lymphatic: Denies anemia, easy bleeding, easy bruising, lymphadenopathy or other Allergic/Immunologic Allergic/Immunologic: Denies rhinitis, hives, eczemia, asthma or other Vital Signs Vital Signs Vital Signs: 06/06/22 12:54 06/06/22 13:34 06/06/22 13:39 Temperature 96.4 F L Temperature Source Temporal Pulse Rate 58 L 54 L Respiratory Rate 18 12 Respiratory Effort Short of Breath Blood Pressure 131/66 H 134/67 H Blood Pressure Mean 87 89 Pulse Ox 98 99 Oxygen Delivery Method Room Air Room Air 06/06/22 14:27 06/06/22 16:04 06/06/22 16:24 Temperature 98.4 F Temperature Source Oral Pulse Rate 63 62 73 Respiratory Rate 16 16 16 Respiratory Effort Blood Pressure 139/70 H 132/66 H 145/73 H Blood Pressure Mean 93 88 97 Pulse Ox 100 98 99 Oxygen Delivery Method Room Air Room Air Room Air Weight Weight: 70.76 kg Body Mass Index (BMI) 22.6 Physical Exam Const alert, oriented x3, no apparent distress and well nourished Constitutional Narrative: Upper middle-aged white male sitting up in bed, appears comfortable and nontoxic General Appearance: cooperative HEENT normocephalic, head/scalp atraumatic, hearing grossly normal bilaterally and moist oral mucous membranes HEENT Narrative: Dentition is fair, Mallampati is 2-3, no thrush Eyes PERRL, EOMs intact bilaterally and conjunctivae normal Eyes Narrative: No scleral icterus Neck no lymphadenopathy, supple and no JVD Neck Narrative: Bilateral carotid bruits Resp normal respiratory effort, no retractions, no use of accessory muscles and clear to auscultation bilaterally Resp Narrative: Diffusely diminished but clear Auscultation: Negative for crackles, rhonchi or wheezes Cardio regular rate, regular rhythm, S1 normal heart sound, S2 normal heart sound, no murmurs, no rub, no gallops and no clicks GI normal to inspection, nondistended, normoactive bowel sounds and soft to palpation GI Narrative: Tenderness in the right upper quadrant and epigastrium Palpation: tender Extremity no clubbing, cyanosis or edema Extremity Narrative: 1+ pedal pulses Skin no rashes or lesions noted, no wounds, skin turgor normal, no jaundice, no petechiae and no mottling Neuro oriented x3, CN's II-XII intact bilaterally, moves all extremities and no focal motor deficits Speech: speech normal Motor Exam: strength 5/5 throughout Psych affect normal Psych Narrative: Very pleasant, eye contact is good, appropriately interactive Results Lab / Micro Data Result Diagrams: 06/06/22 13:18 06/06/22 13:18 Labs: Laboratory Results - last 24 hr 06/06/22 13:18: WBC 9.0, RBC 4.69, Hgb 14.5, Hct 42.1, MCV 89.8, MCH 30.9, MCHC 34.4, RDW Std Deviation 41.9, RDW Coeff of Jeffrey 12.8, Plt Count 203, MPV 10.9, Immature Gran % (Auto) 0.300, Neut % (Auto) 74.7 H, Lymph % (Auto) 12.5 L, [place] % (Auto) 11.9 H, Eos % (Auto) 0.3, Baso % (Auto) 0.3, Absolute Neuts (auto) 6.7, Absolute Lymphs (auto) 1.12, Nucleated RBC % 0 06/06/22 13:18: PT 14.5, INR 1.2, APTT 26.6 06/06/22 13:18: Sodium 137, Potassium 3.4 L, Chloride 106, Carbon Dioxide 26.0, Anion Gap 5, BUN 20 H, Creatinine 0.83, Estim Creat Clear Calc 91.10, Est GFR (MDRD) Af Amer 121, Est GFR (MDRD) Non-Af 100, BUN/Creatinine Ratio 24.1 H, Glucose 176 H, Calcium 9.5, Total Bilirubin 2.10 H, AST 98 H, ALT 71 H, Alkaline Phosphatase 46, Troponin I High Sens 31, Total Protein 6.7, Albumin 3.8, Globulin 2.9, Albumin/Globulin Ratio 1.3, Lipase 579 H 06/06/22 15:45: Troponin I High Sens 34 Radiology Impression Abdomen/Pelvis CT 06/06/22 13:04 IMPRESSION: 1. Cholelithiasis. 2. Choledocholithiasis. 3. Mild hepatic steatosis. Electronically Signed: Ridge Cheatham MD at 15:04 EST , Chest X-Ray 06/06/22 13:04 IMPRESSION: No acute cardiopulmonary abnormality. Electronically Signed: Ridge Cheatham MD at 13:38 EST , Assessment & Plan Assessment/Plan (1) Epigastric pain: (2) Transaminitis: (3) Hyperbilirubinemia: (4) Cholelithiasis: (5) Choledocholithiasis: (6) Hyperglycemia: (7) Pancreatitis: (8) Alcohol abuse: PLAN: Plan Epigastric pain with choledocholithiasis/cholelithiasis -N.p.o. but okay for p.o. meds -IV fluids at 125 cc/h -As needed pain medication -Antiemetics -Consultation to gastroenterology for ERCP tomorrow--> Case discussed with Dr. Araya Transaminitis/hyperbilirubinemia -Secondary to the above -Repeat CMP in a.m. Mild pancreatitis -Only chemical in nature as his CT does not show any pancreatic stranding or signs of pancreatitis -Lipase 579 at the time of admission -N.p.o. -As needed pain medication -IV fluids DM-2 -Hold home metformin -Sliding scale insulin every 6 hours -Accu-Cheks -Check hemoglobin A1c Hepatic steatosis -Likely related to metabolic syndrome/alcohol use -Recommend outpatient follow-up with GI Alcohol abuse -Patient states he drinks upwards of 9 shots of hard alcohol daily -Has never detoxed and never had withdrawal -Start phenobarbital taper with supportive medications -Patient not interested in talking to 180 -He states he could stop drinking if he wanted to CAD/HTN/HPL -Continue home rosuvastatin -Continue home [place] -Restart Vascepa at discharge -continue home Plavix -Continue home atenolol Carotid stenosis -Patient follows with Dr. Garcia -Has bilateral bruits on exam -Continue Plavix and aspirin GERD -Continue PPI we will utilize IV while he is n.p.o. DVT prophylaxis -Lovenox CODE STATUS -Full code as verified on mission -Continue home aspirin Charges/Coding Visit Charges Inpatient E&M: 11189 Init Hosp L3
--- NOTE | 2022-06-06 16:45 | CPS ---
Pt not in room yet. Left I.S. outside door.
[2022-06-06] MEDS: Phenobarbital 32.4 MG Tablet PO ×2 (17:38→21:15)
[2022-06-06] MEDS: Potassium Chloride Oral Tablet 20 MEQ PO (17:38)
[2022-06-06] MEDS: Clindamycin HCl 150 MG Capsule PO (17:39)
[2022-06-06] MEDS: Lactated Ringers 1,000 ML 150 ML IV (17:39)
[2022-06-06] MEDS: HYDROmorphone 0.5 MG/0.5 ML SYRINGE IV ×2 (17:39→21:15)
[2022-06-07] VITALS (15 sets, daily range): BP systolic 86–151; BP diastolic 61–87; PULSE 58–73; RESP 16–18; TEMP 36.3–37.2; O2SAT 98–100; BMI 22.7
[2022-06-07] MEDS: Clindamycin HCl 150 MG Capsule PO ×2 (00:04→06:00)
[2022-06-07] MEDS: Lactated Ringers 1,000 ML 150 ML IV ×3 (00:04→12:41)
[2022-06-07] MEDS: Phenobarbital 32.4 MG Tablet PO ×6 (00:04→20:26)
[2022-06-07] MEDS: HYDROmorphone 0.5 MG/0.5 ML SYRINGE IV ×6 (00:23→23:15)
[2022-06-07 05:20] LABS: Absolute Lymphocyte Count 1.06 X10^3/uL (0.83-4.51); Basophil# 0.04 X10^3/uL; Basophil% 0.6 % (0-1); Eosinophil# 0.08 X10^3/uL; Eosinophils% 1.3 % (0-5); Hematocrit 44.4 % (40-54); Hemoglobin 14.9 g/dL (13.0-16.5); Lymphocyte # 1.06 X10^3/ul (0.83-4.51); Lymphocyte % 17.1 % (19-41); Mean Corp Hgb Conc 33.6 g/dL (32-36); Mean Corpuscular Hgb 30.8 pg (27.0-32.0); Mean Corpuscular Volume 91.7 fL (80-94); Mean Platelet Vol. 11.5 fl (6.2-12.0); Monocyte# 0.98 X10^3/uL; Monocyte% 15.8 % (0-10); NRBC Flagged by Analyzer 0 % (0-5); Neutrophil # 4.01 X10^3/uL (2.7-7.7); Neutrophil % 64.9 % (47-70); Platelet Count 179 K/mm3 (150-450); RBC Distribution Width CV 12.9 % (11.6-14.6); RBC Distribution Width SD 43.5 fl (35.1-43.9); Red Blood Count 4.84 M/mm3 (4.6-6.2); White Blood Count 6.2 K/mm3 (4.4-11.0)
[2022-06-07 06:38] LABS: ALB/GLOB Ratio 1.3 RATIO (0.9-2.4); AST(SGOT) 136 U/L (15-37); Alanine Aminotransfer ALT/SGPT 127 U/L (16-61); Albumin, Serum 3.5 g/dL (3.2-5.0); Alkaline Phosphatase 47 U/L (45-117); Anion Gap 6 (5-15); BUN 14 mg/dL (7-18); BUN/Creat Ratio 19.6 RATIO (10-20); Calcium,Total 8.9 mg/dL (8.5-10.1); Chloride 108 mmol/L (98-107); Creatinine, Serum 0.72 mg/dL (0.70-1.30); EST Glomerular Filtration Rate 118 mL/min (>60); Est Glom Filt Rate - Afr Amer 143 mL/min (>60); Estimated Creatinine Clearance 105.01 ml/min; Globulin 2.7 g/dL (2.2-4.2); Glucose 89 mg/dL (74-106); Magnesium 1.5 mg/dL (1.6-2.6); Phosphorus 2.2 mg/dL (2.5-4.9); Potassium 3.6 mmol/L (3.5-5.1); Protein, Total 6.2 g/dL (6.4-8.2); Sodium Level 140 mmol/L (136-145)
[2022-06-07 08:19] LABS: Hemoglobin A1c 5.7 % (3.8-5.6)
[2022-06-07] MEDS: 0.9% Saline Lock 10 ML Syringe IV ×2 (10:03→23:16)
[2022-06-07] MEDS: Atenolol 50 MG Tablet PO (10:19)
--- NOTE | 2022-06-07 10:29 | CASEMGMT ---
YULISA CM in to pt room to perform assessment, pt is off of the floor at this time.
--- NOTE | 2022-06-07 10:32 | PN.HOSP_ITS ---
Subjective Subjective Patient is a 62-year-old gentleman with history of chronic alcohol dependence presented with abdominal pain. Imaging studies demonstrated cholelithiasis as well as choledocholithiasis admitted to regular nursing floor Objective Data Objective Data Vital Signs: Vital Signs Temp Pulse Resp BP Pulse Ox O2 Del Method 98.9 F 66 18 139/84 H 98 Room Air 06/07/22 08:52 06/07/22 08:52 06/07/22 08:52 06/07/22 08:52 06/07/22 09:08 06/07/22 09:08 Oxygen Delivery Method Room Air Weight: 70.76 kg Body Mass Index (BMI) 22.6 Intake & Output: Intake and Output for Last 24 Hours 06/05/22 06/06/22 06/07/22 23:59 23:59 23:59 Intake Total 1000 / 1000 1902.5 / 1902.5 Balance 1000 / 1000 1902.5 / 1902.5 Lab / Micro Data Result Diagrams: 06/07/22 04:17 06/07/22 04:17 Labs: Laboratory Results - last 24 hr 06/06/22 13:18: WBC 9.0, RBC 4.69, Hgb 14.5, Hct 42.1, MCV 89.8, MCH 30.9, MCHC 34.4, RDW Std Deviation 41.9, RDW Coeff of Jeffrey 12.8, Plt Count 203, MPV 10.9, Immature Gran % (Auto) 0.300, Neut % (Auto) 74.7 H, Lymph % (Auto) 12.5 L, [place] % (Auto) 11.9 H, Eos % (Auto) 0.3, Baso % (Auto) 0.3, Absolute Neuts (auto) 6.7, Absolute Lymphs (auto) 1.12, Nucleated RBC % 0 06/06/22 13:18: PT 14.5, INR 1.2, APTT 26.6 06/06/22 13:18: Sodium 137, Potassium 3.4 L, Chloride 106, Carbon Dioxide 26.0, Anion Gap 5, BUN 20 H, Creatinine 0.83, Estim Creat Clear Calc 91.10, Est GFR (MDRD) Af Amer 121, Est GFR (MDRD) Non-Af 100, BUN/Creatinine Ratio 24.1 H, Glucose 176 H, Calcium 9.5, Total Bilirubin 2.10 H, AST 98 H, ALT 71 H, Alkaline Phosphatase 46, Troponin I High Sens 31, Total Protein 6.7, Albumin 3.8, Globulin 2.9, Albumin/Globulin Ratio 1.3, Lipase 579 H 06/06/22 15:45: Troponin I High Sens 34 06/07/22 04:17: WBC 6.2, RBC 4.84, Hgb 14.9, Hct 44.4, MCV 91.7, MCH 30.8, MCHC 33.6, RDW Std Deviation 43.5, RDW Coeff of Jeffrey 12.9, Plt Count 179, MPV 11.5, Immature Gran % (Auto) 0.300, Neut % (Auto) 64.9, Lymph % (Auto) 17.1 L, [place] % (Auto) 15.8 H, Eos % (Auto) 1.3, Baso % (Auto) 0.6, Absolute Neuts (auto) 4.0, Absolute Lymphs (auto) 1.06, Nucleated RBC % 0 06/07/22 04:17: Sodium 140, Potassium 3.6, Chloride 108 H, Carbon Dioxide 26.0, Anion Gap 6, BUN 14, Creatinine 0.72, Estim Creat Clear Calc 105.01, Est GFR (MDRD) Af Amer 143, Est GFR (MDRD) Non-Af 118, BUN/Creatinine Ratio 19.6, Glucose 89, Calcium 8.9, Phosphorus 2.2 L, Magnesium 1.5 L, Total Bilirubin 3.30 H, AST 136 H, ALT 127 H, Alkaline Phosphatase 47, Total Protein 6.2 L, Albumin 3.5, Globulin 2.7, Albumin/Globulin Ratio 1.3 06/07/22 04:17: Hemoglobin A1c 5.7 H Radiography Diagnostic Testing: Radiology Impression Abdomen/Pelvis CT 06/06/22 13:04 IMPRESSION: 1. Cholelithiasis. 2. Choledocholithiasis. 3. Mild hepatic steatosis. Electronically Signed: Ridge Cheatham MD at 15:04 EST , Chest X-Ray 06/06/22 13:04 IMPRESSION: No acute cardiopulmonary abnormality. Electronically Signed: Ridge Cheatham MD at 13:38 EST , Physical Exam Narrative GENERAL: cooperative HEENT: Atraumatic; normocephalic EYES; Anicteric, Normal Conjunctiva NECK; supple, normal thyroid, RESPIRATORY: Diminished to auscultation CARDIOVASCULAR: Regular S1 S2, GI: soft, normoactive bowel sounds, : No Renal angle tenderness; EXTREMITIES: No edema, no clubbing, MUSCULOSKELETAL: no muscle wasting NEURO: Awake; no lateralizing signs. SKIN: No Rash PSYCH; Flat affect Assessment & Plan Assessment/Plan (1) Epigastric pain: PLAN: Plan Patient is a 62-year-old gentleman with history of chronic alcohol dependence presented with abdominal pain. Imaging studies demonstrated cholelithiasis as well as choledocholithiasis admitted to regular nursing floor 1. Epigastric discomfort ? Secondary to combination of choledocholithiasis/cholelithiasis. Managed symptomatically with pain meds. Kept n.p.o. started on IV fluids and consultation placed to GI plan is for patient to undergo ERCP 2. Acute pancreatitis ? Secondary to gallstones as well as alcohol use monitoring with daily lipase levels. Patient was kept n.p.o. Was started on PPI?Protonix 3. Acute transaminitis and hyperbilirubinemia ? Secondary to patient alcohol use as well as gallstones monitoring with daily LFTs 4. Diabetes mellitus type 2 ? Patient is on metformin held please on Accu-Cheks with insulin sliding scale coverage 5. Hepatic steatosis ? Secondary to patient alcohol use as well as underlying diabetes. Monitoring with daily LFTs. GI on board 6. Chronic alcohol abuse ? Counseled on cessation, started on phenobarb taper for possible early alcohol withdrawal 7. Coronary artery disease ? Patient has history of CABG with subsequent PCI patient is on recommended medications including rosuvastatin, aspirin atenolol Plavix 8. Essential hypertension ? Patient blood pressure controlled on atenolol and ramipril did continue 9. Dyslipidemia patient is on rosuvastatin did continue 10. GERD ? Patient is on lansoprazole, substituted with Protonix in the hospital 12. Carotid artery stenosis ? Patient is followed by vascular surgery as outpatient 10. DVT prophylaxis ? SC Lovenox Total time spent on patient; 40 minutes Charges/Coding Visit Charges Inpatient E&M: 04225 Subs Hosp L2
--- NOTE | 2022-06-07 11:22 | EX.PCM.CON.G ---
HPI Consult Data Date of Consult: 06/06/22 HPI Narrative Reason for Consultation: Choledocholithiasis HPI Narrative: SONIA PARSONS, is a 62 M who presented to the emergency department complaining of epigastric pain and chest pain.? Patient states he felt well yesterday.? He was hunting today and they stopped for lunch and he was experiencing fairly severe epigastric pain and right upper quadrant pain.? He reports he tried to eat a couple bites of chili but was unable secondary to pain being so bad.? He stated it radiated up into his chest a little bit but was predominantly in the epigastric region and radiated across his upper abdomen.? He had no nausea or vomiting.? No change in stools.? He is never had this before.? He does admit to regular alcohol use and states he drinks up to 9 shots daily.? He has never not drink for an extended period of time so he is unclear if he will go through withdrawal.? He has had no fever or chills, no respiratory symptoms, no shortness of breath, no tingling, numbness, or weakness. In the ED his comprehensive metabolic profile showed a bilirubin of 2.81, AST of 198 and ALT of 171. He was also noted to have an increased lipase. he had a CT scan abdomen pelvis that had shown multiple filling defects in the distal common bile duct consistent with choledocholithiasis. I was consulted for ERCP. [facility] Medical History (Updated 06/06/22 @ 21:27 by Shane Apple) Acute gastritis without mention of hemorrhage Alcohol use Arrhythmia Atherosclerosis of coronary artery bypass graft without angina pectoris Atherosclerosis of coronary artery of [place] heart without angina pectoris Back pain due to injury Carotid artery stenosis Chest pain COPD (chronic obstructive pulmonary disease) Diabetes Dysphagia Esophagitis Essential (primary) hypertension Fistula, anal GERD (gastroesophageal reflux disease) Heart attack High cholesterol History of stress test Hyperlipidemia Hypertension Hypertriglyceridemia Malignant neoplasm of anterior wall of urinary bladder Peripheral vascular occlusive disease Rheumatic fever Snoring Home Medications ascorbic acid (vitamin C) 500 mg tablet 500 mg PO TID SUPPLEMENT 06/08/18 [History Last Taken 06/06/22] aspirin 81 mg tablet,delayed release (Adult Low Dose Aspirin) 81 mg PO DAILY HEALTH 06/08/18 [History Last Taken 06/06/22] magnesium oxide 400 mg PO DAILY SUPPLEMETN 06/08/18 [History Last Taken 2 Weeks Ago ~05/23/22] acetylcysteine 600 mg capsule (NAC) 1,200 mg PO BID DIGESTION 05/29/19 [History Last Taken 06/06/22] nitroglycerin 0.4 mg sublingual tablet 0.4 mg sublingual Q5-15M PRN CHEST PAIN #25 tabs 04/02/21 [Rx Last Taken Unknown] milk thistle 175 mg tablet 175 mg PO BID SUPPLEMENT 09/22/21 [History Last Taken 06/06/22] atenolol 50 mg tablet 50 mg PO DAILY BP 06/06/22 [History Last Taken 06/06/22] cholecalciferol (vitamin D3) 25 mcg (1,000 unit) capsule 25 mcg PO DAILY SUPPLEMENT 06/06/22 [History Last Taken 06/06/22] clindamycin HCl 150 mg capsule 150 mg PO Q6H INFECTION 06/06/22 [History Last Taken Unknown] clopidogrel 75 mg tablet 75 mg PO DAILY BLOOD THINNER 06/06/22 [History Last Taken 06/06/22] fenofibrate micronized 200 mg capsule 200 mg PO DAILY CHOLESTEROL 06/06/22 [History Last Taken 06/06/22] icosapent ethyl 1 gram capsule (Vascepa) 2 g PO BID SUPPLEMENT 06/06/22 [History Last Taken 06/06/22] lansoprazole 30 mg capsule,delayed release 30 mg PO DAILY GERD 06/06/22 [History Last Taken 06/06/22] metformin 500 mg tablet,extended release 24 hr 500 mg PO BID DM 06/06/22 [History Last Taken 06/06/22] potassium citrate 5 mEq (540 mg) tablet,extended release 5 meq PO DAILY SUPPLEMENT 06/06/22 [History Last Taken 06/06/22] ramipril 10 mg capsule 10 mg PO DAILY HEART 06/06/22 [History Last Taken 06/06/22] rosuvastatin 40 mg tablet (Crestor) 40 mg PO QHS CHOLESTEROL 06/06/22 [History Last Taken 06/01/22] sildenafil 100 mg tablet 100 mg PO DAILY PRN Erectile Dysfunction 06/06/22 [History Last Taken Unknown] Allergy/AdvReac Type Severity Reaction Status Date / Time ticlopidine HCl [From Ticlid] Allergy Unknown Verified 06/06/22 12:55 Family History Father Cancer Heart disease Brother Diabetes Hypertension Mother Heart disease Surgical History (Updated 06/06/22 @ 21:27 by Shane Apple) H/O cardiac catheterization H/O coronary artery bypass surgery (2003) history of anal fistula repair (05/2018) History of coronary artery stent placement (07/02/16) History of esophagogastroduodenoscopy (EGD) History of left heart catheterization (07/02/16) Hx of appendectomy Hx of colonoscopy Hx of cystoscopy Hx of vasectomy Status post cardiac surgery Social History (Updated 06/06/22 @ 16:[address] Marcie Gomes DO) household members: none housing: house Smoking Status: Current every day smoker tobacco type: cigarettes alcohol intake: current alcohol intake frequency: 3 or more drinks per day details: Patient admits to drinking upwards of 9 shots of hard liquor daily substance use type: does not use caffeine: Yes ROS Constitutional Constitutional: Denies anorexia, change in weight, chills, fatigue, fever(s), malaise, night sweats, weakness or other Eyes Eyes: Denies blurry vision, change in eye color, change in vision, discharge from eye(s), double vision, erythema, eye pain, loss of vision or other ENT HEENT: Denies abnormal hearing, dysphagia, ear pain, epistaxis, headache(s), hearing loss, nasal congestion, nasal discharge, post nasal drip, sinus pressure, sore throat or other Cardiovascular Cardiovascular: Reports chest pain; Denies claudication, dyspnea on exertion, edema, lightheadedness, orthopnea, palpitations, paroxysmal nocturnal dyspnea, rapid heart rate, syncope or other Respiratory/Chest Respiratory/Chest: Denies cough, dyspnea, excessive phlegm production, hemoptysis, productive cough, shortness of breath at rest, shortness of breath with exertion, wheezing or other Gastrointestinal Gastrointestinal: Reports abdominal pain; Denies coffee ground emesis, constipation, diarrhea, dyspepsia, hematemesis, hematochezia, loose stools, melena, nausea, vomiting or other Genitourinary Genitourinary: Denies burning urination, difficulty urinating, dysuria, hematuria, nocturia, urinary frequency, urinary hesitancy, urinary incontinence, urinary urgency or other Musculoskeletal Musculoskeletal: Denies arthralgias, back pain, joint pain, joint stiffness, joint swelling, myalgias, neck pain or other Neurologic Neurologic: Denies abnormal gait, abnormal speech, confusion, disequilibrium, dizziness, focal weakness, headache(s), numbness, paresthesias, seizure-like activity, seizures, syncope, tingling, tremor(s) or other Psychiatric Psychiatric: Denies anxiety, depression, homicidal ideation, suicidal ideation or other Endocrine Endocrinology: Denies change in body appearance, cold intolerance, excessive sweating, heat intolerance, polydipsia, polyuria or other Hematologic/Lymphatic Hematologic/Lymphatic: Denies anemia, easy bleeding, easy bruising, lymphadenopathy or other Allergic/Immunologic Allergic/Immunologic: Denies rhinitis, hives, eczemia, asthma or other Physical Exam Narrative GENERAL: cooperative HEENT: Atraumatic; normocephalic EYES; Anicteric, Normal Conjunctiva NECK; supple, normal thyroid, RESPIRATORY: Diminished to auscultation CARDIOVASCULAR: Regular S1 S2, GI: soft, normoactive bowel sounds, : No Renal angle tenderness; EXTREMITIES: No edema, no clubbing, MUSCULOSKELETAL: no muscle wasting NEURO: Awake; no lateralizing signs. SKIN: No Rash PSYCH; Flat affect Lab / Micro Data Result Diagrams: 06/07/22 04:17 06/07/22 04:17 Labs: Laboratory Results - last 24 hr 06/06/22 13:18: WBC 9.0, RBC 4.69, Hgb 14.5, Hct 42.1, MCV 89.8, MCH 30.9, MCHC 34.4, RDW Std Deviation 41.9, RDW Coeff of Jeffrey 12.8, Plt Count 203, MPV 10.9, Immature Gran % (Auto) 0.300, Neut % (Auto) 74.7 H, Lymph % (Auto) 12.5 L, [place] % (Auto) 11.9 H, Eos % (Auto) 0.3, Baso % (Auto) 0.3, Absolute Neuts (auto) 6.7, Absolute Lymphs (auto) 1.12, Nucleated RBC % 0 06/06/22 13:18: PT 14.5, INR 1.2, APTT 26.6 06/06/22 13:18: Sodium 137, Potassium 3.4 L, Chloride 106, Carbon Dioxide 26.0, Anion Gap 5, BUN 20 H, Creatinine 0.83, Estim Creat Clear Calc 91.10, Est GFR (MDRD) Af Amer 121, Est GFR (MDRD) Non-Af 100, BUN/Creatinine Ratio 24.1 H, Glucose 176 H, Calcium 9.5, Total Bilirubin 2.10 H, AST 98 H, ALT 71 H, Alkaline Phosphatase 46, Troponin I High Sens 31, Total Protein 6.7, Albumin 3.8, Globulin 2.9, Albumin/Globulin Ratio 1.3, Lipase 579 H 06/06/22 15:45: Troponin I High Sens 34 06/07/22 04:17: WBC 6.2, RBC 4.84, Hgb 14.9, Hct 44.4, MCV 91.7, MCH 30.8, MCHC 33.6, RDW Std Deviation 43.5, RDW Coeff of Jeffrey 12.9, Plt Count 179, MPV 11.5, Immature Gran % (Auto) 0.300, Neut % (Auto) 64.9, Lymph % (Auto) 17.1 L, [place] % (Auto) 15.8 H, Eos % (Auto) 1.3, Baso % (Auto) 0.6, Absolute Neuts (auto) 4.0, Absolute Lymphs (auto) 1.06, Nucleated RBC % 0 06/07/22 04:17: Sodium 140, Potassium 3.6, Chloride 108 H, Carbon Dioxide 26.0, Anion Gap 6, BUN 14, Creatinine 0.72, Estim Creat Clear Calc 105.01, Est GFR (MDRD) Af Amer 143, Est GFR (MDRD) Non-Af 118, BUN/Creatinine Ratio 19.6, Glucose 89, Calcium 8.9, Phosphorus 2.2 L, Magnesium 1.5 L, Total Bilirubin 3.30 H, AST 136 H, ALT 127 H, Alkaline Phosphatase 47, Total Protein 6.2 L, Albumin 3.5, Globulin 2.7, Albumin/Globulin Ratio 1.3 06/07/22 04:17: Hemoglobin A1c 5.7 H Radiology Impression Abdomen/Pelvis CT 06/06/22 13:04 IMPRESSION: 1. Cholelithiasis. 2. Choledocholithiasis. 3. Mild hepatic steatosis. Electronically Signed: Ridge Cheatham MD at 15:04 EST , Chest X-Ray 06/06/22 13:04 IMPRESSION: No acute cardiopulmonary abnormality. Electronically Signed: Ridge Cheatham MD at 13:38 EST , Assessment & Plan Assessment/Plan (1) Alcohol abuse: PLAN: Patient counseled on the harms that alcohol is causing to his liver and his pancreas. He said he would try to stop. (2) Choledocholithiasis: PLAN: He will need to undergo ERCP with stone removal. He was explained alternatives, risk, benefits including outstanding bleeding, infection, sepsis, perforation, need for emergent surgery . He will have an ASA of 3. (3) Pancreatitis: PLAN: Mild biochemical evidence of pancreatitis most likely secondary to just extreme edema at the distal common bile duct. Charges/Coding Visit Charges Inpatient E&M: 40285 Init Hosp L3
--- NOTE | 2022-06-07 11:30 | RAD_ITS ---
STUDY: ERCP. REASON FOR EXAM: Male, 62 years old. ERCP -- CHOLEDOCHOLITHIASIS, STENT PLACEMENT FLUOROSCOPY TIME (if supplied): ( 81.3 seconds ) minutes/seconds. 16 images were obtained. TECHNIQUE: An ERCP was performed by the grinder brake lining. Contrast was injected. COMPARISON: None. FINDINGS: Stent placement. RAD/ERCP Biliary/Pancreas IMPRESSION: Stent placement. Electronically Signed: Damaso Valenzuela MD at 8:12 EST ,
--- NOTE | 2022-06-07 12:42 | OP.ERCP_ITS ---
Patient Name: Mundo Morgna Procedure Date: 06/07/2022 11:36 AM Date of : 1960 Age: 62 Procedure: ERCP Indications: Bile duct stone(s) Providers: Jim Araya DO Medicines: Monitored Anesthesia Care Patient Profile: This is a 62 year old male. Refer to note in patient chart for documentation of history and physical. Patient has symptoms of acute epigastric abdominal pain and acute jaundice. Complications: No immediate complications. Procedure: Pre-Anesthesia Assessment: - Prior to the procedure, a History and Physical was performed, and patient medications and allergies were reviewed. The patient is competent. The risks and benefits of the procedure and the sedation options and risks were discussed with the patient. All questions were answered and informed consent was obtained. Patient identification and proposed procedure were verified by the physician in the pre-procedure area. Mental Status Examination: normal. Airway Examination: normal oropharyngeal airway and neck mobility. Respiratory Examination: clear to auscultation. CV Examination: normal. Prophylactic Antibiotics: The patient does not require prophylactic antibiotics. Prior Anticoagulants: The patient has taken no previous anticoagulant or antiplatelet agents. After reviewing the risks and benefits, the patient was deemed in satisfactory condition to undergo the procedure. The anesthesia plan was to use general anesthesia. Immediately prior to administration of medications, the patient was re-assessed for adequacy to receive sedatives. The heart rate, respiratory rate, oxygen saturations, blood pressure, adequacy of pulmonary ventilation, and response to care were monitored throughout the procedure. The physical status of the patient was re-assessed after the procedure. After obtaining informed consent, the scope was passed under direct vision. Throughout the procedure, the patient's blood pressure, pulse, and oxygen saturations were monitored continuously. The Duodenoscope was introduced through the mouth, and advanced to the duodenum and used to inject contrast into the bile duct. The ERCP was accomplished without difficulty. The patient tolerated the procedure well. Scope In: 12:03:57 PM Scope Out: 12:34:28 PM Total Procedure Duration Time 0 hours 30 minutes 31 seconds Findings: The coater smoking pipe film was normal. The esophagus was successfully intubated under direct vision. The scope was advanced to a normal major papilla in the descending duodenum without detailed examination of the pharynx, larynx and associated structures, and upper GI tract. The upper GI tract was grossly normal. The bile duct was deeply cannulated. Contrast was injected. I personally interpreted the bile duct images. There was brisk flow of contrast through the ducts. Image quality was excellent. Contrast extended to the entire biliary tree. Opacification of the entire opacified area was successful. The maximum diameter of the ducts was 8 mm. The lower third of the main bile duct contained one stone, which was 6 mm in diameter. The main bile duct was diffusely dilated, with a stone causing an obstruction. The largest diameter was 7 mm. A straight Roadrunner wire was passed into the biliary tree. A 5 mm biliary sphincterotomy was made with a traction (standard) sphincterotome using ERBE electrocautery. The sphincterotomy oozed blood. The biliary tree was swept with a 15 mm balloon starting at the bifurcation. Sludge was swept from the duct. All stones were removed. Dilation of the common bile duct with an 8-9-10 mm x 5.5 cm CRE balloon (to a maximum balloon size of 8 mm) dilator was successful. One 10 Fr by 5 cm temporary stent was placed 5 cm into the common bile duct. Bile flowed through the stent. The stent was in good position. Impression: - The entire main bile duct was dilated, with a stone causing an obstruction. - Choledocholithiasis was found. Complete removal was accomplished by biliary sphincterotomy and balloon extraction. - A biliary sphincterotomy was performed. - The biliary tree was swept. Procedure Code(s): --- Professional --- 79341, Endoscopic retrograde cholangiopancreatography (ERCP); with placement of endoscopic stent into biliary or pancreatic duct, including pre- and post-dilation and guide wire passage, when performed, including sphincterotomy, when performed, each stent 03240, Endoscopic retrograde cholangiopancreatography (ERCP); with removal of calculi/debris from biliary/pancreatic duct(s) 30988, Endoscopic catheterization of the biliary ductal system, radiological supervision and interpretation CPT copyright 2017 [employer]. All rights reserved. The codes documented in this report are preliminary and upon ekg/ecg technician review may be revised to meet current compliance requirements. Jim Araya DO 06/07/2022 12:41:42 PM This report has been signed electronically. Number of Addenda: 0 Note Initiated On: 06/07/2022 11:36 AM
--- NOTE | 2022-06-07 12:42 | OP.CCLET_ITS ---
06/07/2022 Chai Andrea [address] [place] [address] Re : ERCP procedure for Mundo Morgan Dear Dr. Andrea This procedure was performed on Tuesday, June 07, 2022. My impressions and recommendations are as follows: Impressions : - The entire main bile duct was dilated, with a stone causing an obstruction. - Choledocholithiasis was found. Complete removal was accomplished by biliary sphincterotomy and balloon extraction. - A biliary sphincterotomy was performed. - The biliary tree was swept. Recommendations : My findings are described in the full procedure note, which is enclosed. If I can be of further assistance, please feel free to contact me at . Sincerely, Jim Araya, 06/07/2022 12:41:42 PM This report has been signed electronically.
[2022-06-07 13:26] LABS: Bedside Glucose 86 mg/dL (74-106)
--- NOTE | 2022-06-07 15:24 | EX.PCM.CON.S ---
Assessment & Plan Assessment/Plan (1) Choledocholithiasis with acute cholecystitis: PLAN: This is a 62-year-old male, with a complex past cardiac history, who presents for evaluation of choledocholithiasis and acute cholecystitis. Latter diagnosis was made on basis of exam with positive Bob sign. Patient is status post ERCP with stone extraction and sphincterotomy earlier today, 06/07/2022. I held a lengthy conversation with him at bedside regarding the recommendation to pursue cholecystectomy after ERCP to mitigate his risk for recurrent choledocholithiasis. Further, after examining him I do believe he has cholecystitis. He accepts this recommendation. I also discussed with him the need to minimize his perioperative risk for bleeding given his history of Plavix use. Since his last administration was 06/06/2022, I would consider 06/11/2022 as patient's first eligible day for an operation. He states that he understands this rationale and is willing to go along with what ever recommendation I have. Patient was initially placed on p.o. Cleocin for his condition, but I am transitioning him to IV Zosyn for more comprehensive coverage of biliary enterics. The above information and plan has also been relayed to patient's attending, Dr. Keen. HPI Consult Data Date of Consult: 06/07/22 HPI Narrative Reason for Consultation: Cholelithiasis and choledocholithiasis HPI Narrative: SONIA PARSONS, is a 62 M who presented to [facility] on 06/06/2022 with complaints of epigastric pain. His labs were notable for derangements of his LFTs as well as CT imaging showing cholecystitis with choledocholithiasis. Gastroenterology was consulted for ERCP with stone extraction. This was completed earlier today with sphincterotomy and gastroenterology has consulted surgery for consideration of cholecystectomy. Patient states that this pain began just a couple days ago when he was hunting. He states overall he feels improved, but has some persistent right-sided discomfort following the ERCP procedure. He confirms a complex past cardiac history inclusive of CABG in 7 heart catheterizations. He states he can no longer count how many stents he has required. He is maintained on Plavix and his last use of this medication was 06/06/2022. He also comments on his work-up in August for heart attack like symptoms and states that he was under deep stress when taking care of his ill with cancer who short time later. He has not had recurrence of the symptoms. Regarding his diabetes diagnosis and blood sugars he states that in January or February his A1c was the best it has ever been. Concerning his diagnosis of urinary bladder cancer, he reports this was managed locally with cystoscopy treatments. Lastly, concerning reports of significant alcohol use, patient confirms a history of 6-8 drinks on most nights of the week. His last drink was 2 days ago at which time he had 2 drinks. Patient's past surgical history?concerning his abdomen?includes open appendectomy in the 1980s. [facility] Medical History (Updated 06/07/22 @ 15:[address] Tu Colón MD) Acute gastritis without mention of hemorrhage Alcohol use Arrhythmia Atherosclerosis of coronary artery bypass graft without angina pectoris Atherosclerosis of coronary artery of [place] heart without angina pectoris Back pain due to injury Carotid artery stenosis Chest pain COPD (chronic obstructive pulmonary disease) Diabetes Dysphagia Esophagitis Essential (primary) hypertension Fistula, anal GERD (gastroesophageal reflux disease) Heart attack High cholesterol History of stress test Hyperlipidemia Hypertension Hypertriglyceridemia Malignant neoplasm of anterior wall of urinary bladder Peripheral vascular occlusive disease Rheumatic fever Snoring Home Medications ascorbic acid (vitamin C) 500 mg tablet 500 mg PO TID SUPPLEMENT 06/08/18 [History Last Taken 06/06/22] aspirin 81 mg tablet,delayed release (Adult Low Dose Aspirin) 81 mg PO DAILY HEALTH 06/08/18 [History Last Taken 06/06/22] magnesium oxide 400 mg PO DAILY SUPPLEMETN 06/08/18 [History Last Taken 2 Weeks Ago ~05/23/22] acetylcysteine 600 mg capsule (NAC) 1,200 mg PO BID DIGESTION 05/29/19 [History Last Taken 06/06/22] nitroglycerin 0.4 mg sublingual tablet 0.4 mg sublingual Q5-15M PRN CHEST PAIN #25 tabs 04/02/21 [Rx Last Taken Unknown] milk thistle 175 mg tablet 175 mg PO BID SUPPLEMENT 09/22/21 [History Last Taken 06/06/22] atenolol 50 mg tablet 50 mg PO DAILY BP 06/06/22 [History Last Taken 06/06/22] cholecalciferol (vitamin D3) 25 mcg (1,000 unit) capsule 25 mcg PO DAILY SUPPLEMENT 06/06/22 [History Last Taken 06/06/22] clindamycin HCl 150 mg capsule 150 mg PO Q6H INFECTION 06/06/22 [History Last Taken Unknown] clopidogrel 75 mg tablet 75 mg PO DAILY BLOOD THINNER 06/06/22 [History Last Taken 06/06/22] fenofibrate micronized 200 mg capsule 200 mg PO DAILY CHOLESTEROL 06/06/22 [History Last Taken 06/06/22] icosapent ethyl 1 gram capsule (Vascepa) 2 g PO BID SUPPLEMENT 06/06/22 [History Last Taken 06/06/22] lansoprazole 30 mg capsule,delayed release 30 mg PO DAILY GERD 06/06/22 [History Last Taken 06/06/22] metformin 500 mg tablet,extended release 24 hr 500 mg PO BID DM 06/06/22 [History Last Taken 06/06/22] potassium citrate 5 mEq (540 mg) tablet,extended release 5 meq PO DAILY SUPPLEMENT 06/06/22 [History Last Taken 06/06/22] ramipril 10 mg capsule 10 mg PO DAILY HEART 06/06/22 [History Last Taken 06/06/22] rosuvastatin 40 mg tablet (Crestor) 40 mg PO QHS CHOLESTEROL 06/06/22 [History Last Taken 06/01/22] sildenafil 100 mg tablet 100 mg PO DAILY PRN Erectile Dysfunction 06/06/22 [History Last Taken Unknown] Allergy/AdvReac Type Severity Reaction Status Date / Time ticlopidine HCl [From Ticlid] Allergy Unknown Verified 06/06/22 12:55 Family History Father Cancer Heart disease Brother Diabetes Hypertension Mother Heart disease Surgical History (Updated 06/06/22 @ 21:27 by Shane Apple) H/O cardiac catheterization H/O coronary artery bypass surgery (2003) history of anal fistula repair (05/2018) History of coronary artery stent placement (07/02/16) History of esophagogastroduodenoscopy (EGD) History of left heart catheterization (07/02/16) Hx of appendectomy Hx of colonoscopy Hx of cystoscopy Hx of vasectomy Status post cardiac surgery Social History (Updated 06/06/22 @ 16:[address] Marcie Gomes DO) household members: none housing: house Smoking Status: Current every day smoker tobacco type: cigarettes alcohol intake: current alcohol intake frequency: 3 or more drinks per day details: Patient admits to drinking upwards of 9 shots of hard liquor daily substance use type: does not use caffeine: Yes Physical Exam Const alert, oriented x3 and no apparent distress General Appearance: cooperative and comfortable Resp normal respiratory effort GI GI Narrative: Long right lower quadrant incision well-healed. Nondistended. Tenderness to palpation in the right upper quadrant with positive Bob sign. Lab / Micro Data Result Diagrams: 06/07/22 04:17 06/07/22 04:17 Labs: Laboratory Results - last 24 hr 06/06/22 15:45: Troponin I High Sens 34 06/07/22 04:17: WBC 6.2, RBC 4.84, Hgb 14.9, Hct 44.4, MCV 91.7, MCH 30.8, MCHC 33.6, RDW Std Deviation 43.5, RDW Coeff of Jeffrey 12.9, Plt Count 179, MPV 11.5, Immature Gran % (Auto) 0.300, Neut % (Auto) 64.9, Lymph % (Auto) 17.1 L, [place] % (Auto) 15.8 H, Eos % (Auto) 1.3, Baso % (Auto) 0.6, Absolute Neuts (auto) 4.0, Absolute Lymphs (auto) 1.06, Nucleated RBC % 0 06/07/22 04:17: Sodium 140, Potassium 3.6, Chloride 108 H, Carbon Dioxide 26.0, Anion Gap 6, BUN 14, Creatinine 0.72, Estim Creat Clear Calc 105.01, Est GFR (MDRD) Af Amer 143, Est GFR (MDRD) Non-Af 118, BUN/Creatinine Ratio 19.6, Glucose 89, Calcium 8.9, Phosphorus 2.2 L, Magnesium 1.5 L, Total Bilirubin 3.30 H, AST 136 H, ALT 127 H, Alkaline Phosphatase 47, Total Protein 6.2 L, Albumin 3.5, Globulin 2.7, Albumin/Globulin Ratio 1.3 06/07/22 04:17: Hemoglobin A1c 5.7 H 06/07/22 13:05: POC Glucose 86 Charges/Coding Visit Charges Inpatient E&M: 63504 Subs Hosp L2
--- NOTE | 2022-06-07 16:14 | CASEMGMT ---
YULISA GRAF Assessment: Face to Face with pt for initial transition planning/care coordination assessment. RN HOMAR introduced self and role at [facility], pt voices understanding and consents to assessment. Pt is A/O x4 and answers all questions appropriately at this time. Pt sitting up in bed in no distress with sig other at bedside. Care providers, pharmacy, and demographics verified/updated. Admitting Dx: choledocholithiasis PCP:Emre Specialists:Stephen cardio Kay Pharmacy: [facility] Insurance: [employer] Prescription Benefit: yes LNOK: Tatiana Duvall, sister in law; Jesu Torres, sig other Living Arrangements: Pt lives with sig other in a single story house with 2 steps to enter with a rail. Pt reports he is I in ADL's and denies concerns at home. Transportation: Pt drives self and denies concerns with transportation. DME/HHC/SNF: Pt has a cane, FWW at home but does not use. Pt has a BGM but chooses not to use. Pt denies hx of HHC or SNF stays. Pt states no concerns with going home at time of dc. Pt wishing to be dc'd tonight. Pt states no further concerns/needs. CM to follow. Advised pt to ask CM if any further question/concerns/needs arise, voices understanding. Pt Goal: Home Plan: Home
[2022-06-07] MEDS: 0.9% Normal Saline 1,000 ML 150 ML IV ×2 (17:13→23:13)
[2022-06-08] VITALS (11 sets, daily range): BP systolic 109–146; BP diastolic 58–67; PULSE 52–66; RESP 12–18; TEMP 36–36.9; O2SAT 98–100; BMI 22.7
[2022-06-08] MEDS: traZODone 100 MG Tablet PO (00:19)
[2022-06-08] MEDS: Phenobarbital 32.4 MG Tablet PO ×6 (00:20→21:08)
[2022-06-08] MEDS: 0.9% Normal Saline 1,000 ML 150 ML IV ×2 (05:29→12:27)
[2022-06-08] MEDS: 0.9% Saline Lock 10 ML Syringe IV ×4 (05:37→20:05)
[2022-06-08] MEDS: HYDROmorphone 0.5 MG/0.5 ML SYRINGE IV ×4 (05:37→20:05)
--- NOTE | 2022-06-08 08:29 | PCM.PN.HOSP ---
Subjective Subjective Follow-up cholelithiasis Patient underwent ERCP on 06/07/[address] Araya findings included ?The entire main bile duct was dilated, with a stone causing an obstruction. - Choledocholithiasis was found.? Complete removal was accomplished by biliary ?sphincterotomy and balloon extraction. - A biliary sphincterotomy was performed. - The biliary tree was swept. Consult subsequently placed general surgery for possible Rozina cystectomy. Patient was seen in this regard by Dr. Colón Case discussed with him Patient seen this a.m. complaining of severe abdominal pain ordered lipase levels to rule out post ERCP pancreatitis Objective Data Objective Data Vital Signs: Vital Signs Temp Pulse Resp BP Pulse Ox O2 Del Method 97.3 F L 62 18 132/63 H 98 Room Air 06/08/22 05:24 06/08/22 05:24 06/08/22 05:24 06/08/22 05:24 06/08/22 08:06 06/08/22 08:06 Oxygen Delivery Method Room Air Weight: 70.76 kg Body Mass Index (BMI) 22.6 Intake & Output: Intake and Output for Last 24 Hours 06/06/22 06/07/22 06/08/22 23:59 23:59 23:59 Intake Total 1000 / 1000 6087.75 / 6087.75 1046 / 1046 Balance 1000 / 1000 6087.75 / 6087.75 1046 / 1046 Lab / Micro Data Result Diagrams: 06/07/22 04:17 06/07/22 04:17 Labs: Laboratory Results - last 24 hr 06/07/22 13:05: POC Glucose 86 Radiography Diagnostic Testing: Radiology Impression Endo Retro Cholangiopancreatogram 06/07/22 11:30 IMPRESSION: Stent placement. Electronically Signed: Damaso Valenzuela MD at 8:12 EST , Physical Exam Narrative GENERAL: cooperative HEENT: Atraumatic; normocephalic EYES; Anicteric, Normal Conjunctiva NECK; supple, normal thyroid, RESPIRATORY: Diminished to auscultation CARDIOVASCULAR: Regular S1 S2, GI: soft, normoactive bowel sounds, right upper quadrant tenderness : No Renal angle tenderness; EXTREMITIES: No edema, no clubbing, MUSCULOSKELETAL: no muscle wasting NEURO: Awake; no lateralizing signs. SKIN: No Rash PSYCH; Flat affect Assessment & Plan Assessment/Plan (1) Epigastric pain: PLAN: Plan Patient is a 62-year-old gentleman with history of chronic alcohol dependence presented with abdominal pain. Imaging studies demonstrated cholelithiasis as well as choledocholithiasis admitted to regular nursing floor 1. Epigastric discomfort ? Secondary to combination of choledocholithiasis/cholelithiasis. Managed symptomatically with pain meds. Kept n.p.o. started on IV fluids and consultation placed to GI plan is for patient to undergo ERCP 06/08/2022 patient underwent ERCP on 06/07/[address] Araya findings included ?The entire main bile duct was dilated, with a stone causing an obstruction. - Choledocholithiasis was found.? Complete removal was accomplished by biliary ?sphincterotomy and balloon extraction. - A biliary sphincterotomy was performed. - The biliary tree was swept. Consult subsequently placed general surgery for possible Rozina cystectomy. Patient was seen in this regard by Dr. Colón Case discussed with him Patient seen this a.m. complaining of severe abdominal pain ordered lipase levels to rule out post ERCP pancreatitis 2. Acute pancreatitis ? Secondary to gallstones as well as alcohol use monitoring with daily lipase levels. Patient was kept n.p.o. Was started on PPI?Protonix ? 06/08/2022 patient pain much more intense compared to previous day. Repeat labs ordered 3. Acute transaminitis and hyperbilirubinemia ? Secondary to patient alcohol use as well as gallstones monitoring with daily LFTs 4. Diabetes mellitus type 2 ? Patient is on metformin held please on Accu-Cheks with insulin sliding scale coverage 5. Hepatic steatosis ? Secondary to patient alcohol use as well as underlying diabetes. Monitoring with daily LFTs. GI on board 6. Chronic alcohol abuse ? Counseled on cessation, started on phenobarb taper for possible early alcohol withdrawal 7. Coronary artery disease ? Patient has history of CABG with subsequent PCI patient is on recommended medications including rosuvastatin, aspirin atenolol Plavix 8. Essential hypertension ? Patient blood pressure controlled on atenolol and ramipril did continue 9. Dyslipidemia patient is on rosuvastatin did continue 10. GERD ? Patient is on lansoprazole, substituted with Protonix in the hospital 12. Carotid artery stenosis ? Patient is followed by vascular surgery as outpatient 10. DVT prophylaxis ? SC Lovenox Total time spent on patient; 40 minutes Charges/Coding Visit Charges Inpatient E&M: 42714 Subs Hosp L2
[2022-06-08] MEDS: Thiamine Hydrochloride 100 MG Tablet PO (08:35)
[2022-06-08] MEDS: Folic Acid 1 MG Tablet PO (08:35)
[2022-06-08] MEDS: Fenofibrate 145 MG Tablet PO (08:36)
[2022-06-08 10:05] LABS: Absolute Lymphocyte Count 1.07 X10^3/uL (0.83-4.51); Absolute Neutrophil Count 7.8 X10^3/uL (2.0-7.7); Basophil# 0.01 X10^3/uL; Basophil% 0.1 % (0-1); Eosinophil# 0.06 X10^3/uL; Eosinophils% 0.6 % (0-5); Hematocrit 39.2 % (40-54); Hemoglobin 13.2 g/dL (13.0-16.5); Lymphocyte # 1.07 X10^3/ul (0.83-4.51); Lymphocyte % 10.8 % (19-41); Mean Corp Hgb Conc 33.7 g/dL (32-36); Mean Corpuscular Hgb 30.8 pg (27.0-32.0); Mean Corpuscular Volume 91.6 fL (80-94); Mean Platelet Vol. 11.2 fl (6.2-12.0); Monocyte# 0.93 X10^3/uL; Monocyte% 9.4 % (0-10); NRBC Flagged by Analyzer 0 % (0-5); Neutrophil # 7.78 X10^3/uL (2.7-7.7); Neutrophil % 78.9 % (47-70); Platelet Count 147 K/mm3 (150-450); RBC Distribution Width CV 12.9 % (11.6-14.6); RBC Distribution Width SD 42.6 fl (35.1-43.9); Red Blood Count 4.28 M/mm3 (4.6-6.2); White Blood Count 9.9 K/mm3 (4.4-11.0)
[2022-06-08 10:34] LABS: AST(SGOT) 64 U/L (15-37); Alanine Aminotransfer ALT/SGPT 97 U/L (16-61); Albumin, Serum 3.2 g/dL (3.2-5.0); Alkaline Phosphatase 47 U/L (45-117); Anion Gap 4 (5-15); BUN 8 mg/dL (7-18); Bilirubin, Direct 0.82 mg/dL (0.00-0.30); Calcium,Total 8.7 mg/dL (8.5-10.1); Chloride 108 mmol/L (98-107); Creatinine, Serum 0.62 mg/dL (0.70-1.30); EST Glomerular Filtration Rate 140 mL/min (>60); Est Glom Filt Rate - Afr Amer 169 mL/min (>60); Estimated Creatinine Clearance 121.95 ml/min; Globulin 2.8 g/dL (2.2-4.2); Glucose 128 mg/dL (74-106); Lipase 4630 U/L (73-393); Magnesium 1.5 mg/dL (1.6-2.6); Potassium 3.1 mmol/L (3.5-5.1); Sodium Level 139 mmol/L (136-145)
[2022-06-08 10:37] LABS: Amylase 746 U/L (25-115); Phosphorus 2.2 mg/dL (2.5-4.9)
[2022-06-08] MEDS: Atenolol 50 MG Tablet PO (11:16)
[2022-06-08] MEDS: Aspirin E.C. 81 MG Tablet PO (11:16)
[2022-06-08] MEDS: Ramipril 10 MG Capsule PO (11:17)
[2022-06-08] MEDS: Enoxaparin 40 MG/0.4 ML Syringe SC (11:17)
--- NOTE | 2022-06-08 12:20 | PN.SURG_ITS ---
Subjective Subjective Patient seen and evaluated during AM rounds. He is found resting in bed, but reports a difficult overnight course due to progressive abdominal discomfort. He states that this pain intensified approximately 10 PM last evening. He notes pain going across his entire upper abdomen. Objective Data Objective Data Vital Signs: Vital Signs Temp Pulse Resp BP Pulse Ox O2 Del Method 97.8 F 52 L 18 146/67 H 98 Room Air 06/08/22 09:30 06/08/22 09:30 06/08/22 09:30 06/08/22 09:30 06/08/22 09:30 06/08/22 10:00 Oxygen Delivery Method Room Air Weight: 155 lb 15.985 oz Body Mass Index (BMI) 22.6 Intake & Output: Intake and Output for Last 24 Hours 06/06/22 06/07/22 06/08/22 23:59 23:59 23:59 Intake Total 1000 / 1000 6087.75 / 6087.75 1096 / 1096 Balance 1000 / 1000 6087.75 / 6087.75 1096 / 1096 Lab / Micro Data Result Diagrams: 06/08/22 09:52 06/08/22 09:52 Labs: Laboratory Results - last 24 hr 06/07/22 13:05: POC Glucose 86 06/08/22 09:52: WBC 9.9, RBC 4.28 L, Hgb 13.2, Hct 39.2 L, MCV 91.6, MCH 30.8, MCHC 33.7, RDW Std Deviation 42.6, RDW Coeff of Jeffrey 12.9, Plt Count 147 L, MPV 11.2, Immature Gran % (Auto) 0.200, Neut % (Auto) 78.9 H, Lymph % (Auto) 10.8 L, [place] % (Auto) 9.4, Eos % (Auto) 0.6, Baso % (Auto) 0.1, Absolute Neuts (auto) 7.8 H, Absolute Lymphs (auto) 1.07, Nucleated RBC % 0 06/08/22 09:52: Sodium 139, Potassium 3.1 L, Chloride 108 H, Carbon Dioxide 27.0, Anion Gap 4 L, BUN 8, Creatinine 0.62 L, Estim Creat Clear Calc 121.95, Est GFR (MDRD) Af Amer 169, Est GFR (MDRD) Non-Af 140, BUN/Creatinine Ratio 13.0, Glucose 128 H, Calcium 8.7, Magnesium 1.5 L, Total Bilirubin 1.20 H, Direct Bilirubin 0.82 H, AST 64 H, ALT 97 H, Alkaline Phosphatase 47, Total Protein 6.0 L, Albumin 3.2, Globulin 2.8, Lipase 4630 H 06/08/22 09:52: Phosphorus 2.2 L, Amylase 746 H Radiography Diagnostic Testing: Radiology Impression Endo Retro Cholangiopancreatogram 06/07/22 11:30 IMPRESSION: Stent placement. Electronically Signed: Damaso Valenzuela MD at 8:12 EST , Physical Exam Const oriented x3 Resp normal respiratory effort GI GI Narrative: Patient with pain primarily of his epigastrium and to a lesser degree in the right upper quadrant. Positive Bob sign remains present Assessment & Plan Assessment/Plan (1) Choledocholithiasis with acute cholecystitis: PLAN: This is a 62-year-old male, with a complex past cardiac history, who presents for evaluation of choledocholithiasis and acute cholecystitis. Latter diagnosis was made on basis of exam with positive Bob sign. Patient is status post ERCP with stone extraction and sphincterotomy 06/07/2022. Patient with more discomfort this morning and a significantly elevated lipase. Suspect component of post ERCP pancreatitis on top of pre-existing stone?related irritation. Apparently there was conversation around patient potentially discharging and representing for surgery later in the week, given current condition would strongly recommend against this course of action. This would be met with a very high probability of readmission. ? Continue IV Zosyn empirically ? Trend CMP ? Trend abdominal exam ? Continue to hold Plavix ? Tentatively planning for laparoscopic cholecystectomy with possible intraoperative cholangiogram on 06/11/2022 (2) Pancreatitis: PLAN: Patient with more significant epigastric tenderness of likely mu ltifactorial etiology?including stone disease and probable post ERCP component. ? Recommend bowel rest today with continued maintenance IV fluids ? Trend abdominal exam ? Notify GI with this clinical update Charges/Coding Visit Charges Inpatient E&M: 46374 Init Hosp L2
[2022-06-08] MEDS: oxyCODONE 5 MG Tablet PO (12:26)
[2022-06-08] MEDS: Magnesium Sulfate 4gm/100mL 4 GM/100 ML IV.SOLN. IV (13:23)
--- NOTE | 2022-06-08 16:44 | PCM.PROGNOTE ---
Subjective Subjective Patient underwent an ERCP yesterday for acute choledocholithiasis with acute pancreatitis. He was having some pain this morning rating down to his back. His amylase and lipase are elevated and it is likely that he has post ERCP pancreatitis. Objective Data Objective Data Vital Signs: Vital Signs Temp Pulse Resp BP Pulse Ox O2 Del Method 96.8 F L 59 L 12 111/58 L 100 Room Air 06/08/22 15:08 06/08/22 15:08 06/08/22 15:08 06/08/22 15:08 06/08/22 15:08 06/08/22 15:08 Oxygen Delivery Method Room Air Weight: 155 lb 15.985 oz Body Mass Index (BMI) 22.6 Intake & Output: Intake and Output for Last 24 Hours 06/06/22 06/07/22 06/08/22 23:59 23:59 23:59 Intake Total 1000 / 1000 6087.75 / 6087.75 3068.5 / 3068.5 Balance 1000 / 1000 6087.75 / 6087.75 3068.5 / 3068.5 Lab / Micro Data Result Diagrams: 06/08/22 09:52 06/08/22 09:52 Labs: Laboratory Results - last 24 hr 06/08/22 09:52: WBC 9.9, RBC 4.28 L, Hgb 13.2, Hct 39.2 L, MCV 91.6, MCH 30.8, MCHC 33.7, RDW Std Deviation 42.6, RDW Coeff of Jeffrey 12.9, Plt Count 147 L, MPV 11.2, Immature Gran % (Auto) 0.200, Neut % (Auto) 78.9 H, Lymph % (Auto) 10.8 L, [place] % (Auto) 9.4, Eos % (Auto) 0.6, Baso % (Auto) 0.1, Absolute Neuts (auto) 7.8 H, Absolute Lymphs (auto) 1.07, Nucleated RBC % 0 06/08/22 09:52: Sodium 139, Potassium 3.1 L, Chloride 108 H, Carbon Dioxide 27.0, Anion Gap 4 L, BUN 8, Creatinine 0.62 L, Estim Creat Clear Calc 121.95, Est GFR (MDRD) Af Amer 169, Est GFR (MDRD) Non-Af 140, BUN/Creatinine Ratio 13.0, Glucose 128 H, Calcium 8.7, Magnesium 1.5 L, Total Bilirubin 1.20 H, Direct Bilirubin 0.82 H, AST 64 H, ALT 97 H, Alkaline Phosphatase 47, Total Protein 6.0 L, Albumin 3.2, Globulin 2.8, Lipase 4630 H 06/08/22 09:52: Phosphorus 2.2 L, Amylase 746 H Radiography Diagnostic Testing: Radiology Impression Endo Retro Cholangiopancreatogram 06/07/22 11:30 IMPRESSION: Stent placement. Electronically Signed: Damaso Valenzuela MD at 8:12 EST , Physical Exam Const oriented x3 Resp normal respiratory effort GI GI Narrative: Patient with pain primarily of his epigastrium and to a lesser degree in the right upper quadrant. Positive Bob sign remains present Assessment & Plan Assessment/Plan (1) Choledocholithiasis with acute cholecystitis: PLAN: Choledocholithiasis status post ERCP with sphincterotomy balloon sweep and extraction of distal common bile duct stone. He has a stent placed in the common bile duct to ensure drainage. (2) Epigastric pain: PLAN: Epigastric pain likely secondary to worsening pancreatitis. (3) Alcohol abuse: PLAN: History of alcohol abuse with fatty liver disease likely secondary to alcohol without any previous history of cirrhosis. He has not shown any signs of DTs at this time. (4) Pancreatitis: PLAN: Acute pancreatitis status post ERCP with increase in amylase and lipase consistent with progressive pancreatitis from his previous diagnosis. Recommend IV fluids at 300 cc an hour, n.p.o. and pain medicine. I will recheck his amylase and lipase tonight. Charges/Coding Visit Charges Inpatient E&M: 17182 Subs Hosp L3
[2022-06-08] MEDS: 0.9% Normal Saline 1,000 ML 100 ML IV (20:11)
[2022-06-08] MEDS: Rosuvastatin 20 MG Tablet 40 MG PO (21:09)
[2022-06-09] VITALS (12 sets, daily range): BP systolic 107–147; BP diastolic 64–79; PULSE 52–68; RESP 16–18; TEMP 36.4–36.6; O2SAT 95–100
[2022-06-09] MEDS: 0.9% Normal Saline 1,000 ML 100 ML IV ×3 (01:31→22:53)
[2022-06-09] MEDS: Phenobarbital 32.4 MG Tablet PO ×4 (01:31→18:36)
[2022-06-09] MEDS: oxyCODONE 5 MG Tablet PO ×3 (04:29→19:56)
[2022-06-09 06:08] LABS: Absolute Lymphocyte Count 1.01 X10^3/uL (0.83-4.51); Absolute Neutrophil Count 3.9 X10^3/uL (2.0-7.7); Basophil# 0.02 X10^3/uL; Basophil% 0.3 % (0-1); Eosinophil# 0.14 X10^3/uL; Eosinophils% 2.4 % (0-5); Hematocrit 35.7 % (40-54); Hemoglobin 11.7 g/dL (13.0-16.5); Lymphocyte # 1.01 X10^3/ul (0.83-4.51); Lymphocyte % 17.6 % (19-41); Mean Corp Hgb Conc 32.8 g/dL (32-36); Mean Corpuscular Hgb 30.8 pg (27.0-32.0); Mean Corpuscular Volume 93.9 fL (80-94); Mean Platelet Vol. 11.6 fl (6.2-12.0); Monocyte# 0.68 X10^3/uL; Monocyte% 11.8 % (0-10); NRBC Flagged by Analyzer 0 % (0-5); Neutrophil # 3.87 X10^3/uL (2.7-7.7); Neutrophil % 67.6 % (47-70); Platelet Count 118 K/mm3 (150-450); RBC Distribution Width CV 13.1 % (11.6-14.6); RBC Distribution Width SD 44.7 fl (35.1-43.9); White Blood Count 5.7 K/mm3 (4.4-11.0)
[2022-06-09 06:40] LABS: AST(SGOT) 34 U/L (15-37); Alanine Aminotransfer ALT/SGPT 68 U/L (16-61); Alkaline Phosphatase 45 U/L (45-117); Amylase 137 U/L (25-115); Anion Gap 2 (5-15); BUN 5 mg/dL (7-18); BUN/Creat Ratio 8.9 RATIO (10-20); Bilirubin, Direct 0.57 mg/dL (0.00-0.30); Chloride 113 mmol/L (98-107); Creatinine, Serum 0.56 mg/dL (0.70-1.30); EST Glomerular Filtration Rate 157 mL/min (>60); Est Glom Filt Rate - Afr Amer 190 mL/min (>60); Estimated Creatinine Clearance 135.02 ml/min; Globulin 2.3 g/dL (2.2-4.2); Glucose 72 mg/dL (74-106); Lipase 343 U/L (73-393); Phosphorus 2.3 mg/dL (2.5-4.9); Potassium 3.5 mmol/L (3.5-5.1); Protein, Total 5.3 g/dL (6.4-8.2); Sodium Level 141 mmol/L (136-145)
[2022-06-09] MEDS: HYDROmorphone 0.5 MG/0.5 ML SYRINGE IV ×4 (07:23→21:27)
[2022-06-09] MEDS: Folic Acid 1 MG Tablet PO (07:25)
[2022-06-09] MEDS: Thiamine Hydrochloride 100 MG Tablet PO (07:25)
[2022-06-09] MEDS: Aspirin E.C. 81 MG Tablet PO (07:25)
[2022-06-09] MEDS: Enoxaparin 40 MG/0.4 ML Syringe SC (07:25)
[2022-06-09] MEDS: Fenofibrate 145 MG Tablet PO (07:25)
[2022-06-09] MEDS: Ramipril 10 MG Capsule PO (07:25)
[2022-06-09] MEDS: Atenolol 50 MG Tablet PO (07:25)
--- NOTE | 2022-06-09 08:52 | PN.HOSP_ITS ---
Subjective Subjective Follow-up acute pancreatitis Patient seen still complains of epigastric discomfort. His lipase levels robe up markedly however decreased this AM. Objective Data Objective Data Vital Signs: Vital Signs Temp Pulse Resp BP Pulse Ox O2 Del Method 97.8 F 65 16 114/73 95 Room Air 06/09/22 08:10 06/09/22 08:10 06/09/22 08:10 06/09/22 08:10 06/09/22 08:10 06/09/22 08:10 Oxygen Delivery Method Room Air Weight: 70.76 kg Body Mass Index (BMI) 22.6 Intake & Output: Intake and Output for Last 24 Hours 06/07/22 06/08/22 06/09/22 23:59 23:59 23:59 Intake Total 6087.75 / 6087.75 4216.83 / 4216.83 583.33 / 583.33 Balance 6087.75 / 6087.75 4216.83 / 4216.83 583.33 / 583.33 Lab / Micro Data Result Diagrams: 06/09/22 04:32 06/09/22 04:32 Labs: Laboratory Results - last 24 hr 06/08/22 09:52: WBC 9.9, RBC 4.28 L, Hgb 13.2, Hct 39.2 L, MCV 91.6, MCH 30.8, MCHC 33.7, RDW Std Deviation 42.6, RDW Coeff of Jeffrey 12.9, Plt Count 147 L, MPV 11.2, Immature Gran % (Auto) 0.200, Neut % (Auto) 78.9 H, Lymph % (Auto) 10.8 L, [place] % (Auto) 9.4, Eos % (Auto) 0.6, Baso % (Auto) 0.1, Absolute Neuts (auto) 7 .8 H, Absolute Lymphs (auto) 1.07, Nucleated RBC % 0 06/08/22 09:52: Sodium 139, Potassium 3.1 L, Chloride 108 H, Carbon Dioxide 27.0, Anion Gap 4 L, BUN 8, Creatinine 0.62 L, Estim Creat Clear Calc 121.95, Est GFR (MDRD) Af Amer 169, Est GFR (MDRD) Non-Af 140, BUN/Creatinine Ratio 13.0, Glucose 128 H, Calcium 8.7, Magnesium 1.5 L, Total Bilirubin 1.20 H, Direct Bilirubin 0.82 H, AST 64 H, ALT 97 H, Alkaline Phosphatase 47, Total Protein 6.0 L, Albumin 3.2, Globulin 2.8, Lipase 4630 H 06/08/22 09:52: Phosphorus 2.2 L, Amylase 746 H 06/09/22 04:32: WBC 5.7, RBC 3.80 L, Hgb 11.7 L, Hct 35.7 L, MCV 93.9, MCH 30.8, MCHC 32.8, RDW Std Deviation 44.7 H, RDW Coeff of Jeffrey 13.1, Plt Count 118 L, MPV 11.6, Immature Gran % (Auto) 0.300, Neut % (Auto) 67.6, Lymph % (Auto) 17.6 L, [place] % (Auto) 11.8 H, Eos % (Auto) 2.4, Baso % (Auto) 0.3, Absolute Neuts (auto) 3.9, Absolute Lymphs (auto) 1.01, Nucleated RBC % 0 06/09/22 04:32: Sodium 141, Potassium 3.5, Chloride 113 H, Carbon Dioxide 26.0, Anion Gap 2 L, BUN 5 L, Creatinine 0.56 L, Estim Creat Clear Calc 135.02, Est GFR (MDRD) Af Amer 190, Est GFR (MDRD) Non-Af 157, BUN/Creatinine Ratio 8.9 L, Glucose 72 L, Calcium 8.0 L, Phosphorus 2.3 L, Magnesium 2.0, Total Bilirubin 0.80, Direct Bilirubin 0.57 H, AST 34, ALT 68 H, Alkaline Phosphatase 45, Total Protein 5.3 L, Albumin 3.0 L, Globulin 2.3 06/09/22 04:32: Amylase 137 H, Lipase 343 Physical Exam Narrative GENERAL: cooperative HEENT: Atraumatic; normocephalic EYES; Anicteric, Normal Conjunctiva NECK; supple, normal thyroid, RESPIRATORY: Diminished to auscultation CARDIOVASCULAR: Regular S1 S2, GI: soft, normoactive bowel sounds, right upper quadrant tenderness : No Renal angle tenderness; EXTREMITIES: No edema, no clubbing, MUSCULOSKELETAL: no muscle wasting NEURO: Awake; no lateralizing signs. SKIN: No Rash PSYCH; Flat affect Assessment & Plan Assessment/Plan (1) Epigastric pain: PLAN: Plan Patient is a 62-year-old gentleman with history of chronic alcohol dependence presented with abdominal pain. Imaging studies demonstrated cholelithiasis as well as choledocholithiasis admitted to regular nursing floor 1. Epigastric discomfort ? Secondary to combination of choledocholithiasis/cholelithiasis. Managed symptomatically with pain meds. Kept n.p.o. started on IV fluids and consultation placed to GI plan is for patient to undergo ERCP 06/08/2022 patient underwent ERCP on 06/07/[address] Araya findings included ?The entire main bile duct was dilated, with a stone causing an obstruction. - Choledocholithiasis was found.? Complete removal was accomplished by biliary ?sphincterotomy and balloon extraction. - A biliary sphincterotomy was performed. - The biliary tree was swept. Consult subsequently placed general surgery for possible Rozina cystectomy. Patient was seen in this regard by Dr. Colón Case discussed with him Patient seen this a.m. complaining of severe abdominal pain ordered lipase levels to rule out post ERCP pancreatitis -06/09/2022. Patient still has some epigastric discomfort lipase levels trending down however 2. Acute pancreatitis ? Secondary to gallstones as well as alcohol use monitoring with daily lipase levels. Patient was kept n.p.o. Was started on PPI?Protonix ? 06/08/2022 patient pain much more intense compared to previous day. Repeat labs ordered 3. Acute transaminitis and hyperbilirubinemia ? Secondary to patient alcohol use as well as gallstones monitoring with daily LFTs 4. Diabetes mellitus type 2 ? Patient is on metformin held please on Accu-Cheks with insulin sliding scale coverage 5. Hepatic steatosis ? Secondary to patient alcohol use as well as underlying diabetes. Monitoring with daily LFTs. GI on board 6. Chronic alcohol abuse ? Counseled on cessation, started on phenobarb taper for possible early alcohol withdrawal 7. Coronary artery disease ? Patient has history of CABG with subsequent PCI patient is on recommended medications including rosuvastatin, aspirin atenolol Plavix 8. Essential hypertension ? Patient blood pressure controlled on atenolol and ramipril did continue 9. Dyslipidemia patient is on rosuvastatin did continue 10. GERD ? Patient is on lansoprazole, substituted with Protonix in the hospital 12. Carotid artery stenosis ? Patient is followed by vascular surgery as outpatient 10. DVT prophylaxis ? SC Lovenox Total time spent on patient; 40 minutes Charges/Coding Visit Charges Inpatient E&M: 86164 Subs Hosp L2
--- NOTE | 2022-06-09 09:16 | PCM.PN.SRG ---
Subjective Subjective Patient evaluated during rounds this morning. Patient notes his abdominal pain has improved. He denies any concerns or compliants at this time. He was notified that his lipase and amylase have decreased. Objective Data Objective Data Vital Signs: Vital Signs Temp Pulse Resp BP Pulse Ox O2 Del Method 97.8 F 65 16 114/73 95 Room Air 06/09/22 08:10 06/09/22 08:10 06/09/22 08:10 06/09/22 08:10 06/09/22 08:10 06/09/22 08:10 Oxygen Delivery Method Room Air Weight: 155 lb 15.985 oz Body Mass Index (BMI) 22.6 Intake & Output: Intake and Output for Last 24 Hours 06/07/22 06/08/22 06/09/22 23:59 23:59 23:59 Intake Total 6087.75 / 6087.75 4216.83 / 4216.83 583.33 / 583.33 Balance 6087.75 / 6087.75 4216.83 / 4216.83 583.33 / 583.33 Lab / Micro Data Result Diagrams: 06/09/22 04:32 06/09/22 04:32 Labs: Laboratory Results - last 24 hr 06/08/22 09:52: WBC 9.9, RBC 4.28 L, Hgb 13.2, Hct 39.2 L, MCV 91.6, MCH 30.8, MCHC 33.7, RDW Std Deviation 42.6, RDW Coeff of Jeffrey 12.9, Plt Count 147 L, MPV 11.2, Immature Gran % (Auto) 0.200, Neut % (Auto) 78.9 H, Lymph % (Auto) 10.8 L, [place] % (Auto) 9.4, Eos % (Auto) 0.6, Baso % (Auto) 0.1, Absolute Neuts (auto) 7.8 H, Absolute Lymphs (auto) 1.07, Nucleated RBC % 0 06/08/22 09:52: Sodium 139, Potassium 3.1 L, Chloride 108 H, Carbon Dioxide 27.0, Anion Gap 4 L, BUN 8, Creatinine 0.62 L, Estim Creat Clear Calc 121.95, Est GFR (MDRD) Af Amer 169, Est GFR (MDRD) Non-Af 140, BUN/Creatinine Ratio 13.0, Glucose 128 H, Calcium 8.7, Magnesium 1.5 L, Total Bilirubin 1.20 H, Direct Bilirubin 0.82 H, AST 64 H, ALT 97 H, Alkaline Phosphatase 47, Total Protein 6.0 L, Albumin 3.2, Globulin 2.8, Lipase 4630 H 06/08/22 09:52: Phosphorus 2.2 L, Amylase 746 H 06/09/22 04:32: WBC 5.7, RBC 3.80 L, Hgb 11.7 L, Hct 35.7 L, MCV 93.9, MCH 30.8, MCHC 32.8, RDW Std Deviation 44.7 H, RDW Coeff of Jeffrey 13.1, Plt Count 118 L, MPV 11.6, Immature Gran % (Auto) 0.300, Neut % (Auto) 67.6, Lymph % (Auto) 17.6 L, [place] % (Auto) 11.8 H, Eos % (Auto) 2.4, Baso % (Auto) 0.3, Absolute Neuts (auto) 3.9, Absolute Lymphs (auto) 1.01, Nucleated RBC % 0 06/09/22 04:32: Sodium 141, Potassium 3.5, Chloride 113 H, Carbon Dioxide 26.0, Anion Gap 2 L, BUN 5 L, Creatinine 0.56 L, Estim Creat Clear Calc 135.02, Est GFR (MDRD) Af Amer 190, Est GFR (MDRD) Non-Af 157, BUN/Creatinine Ratio 8.9 L, Glucose 72 L, Calcium 8.0 L, Phosphorus 2.3 L, Magnesium 2.0, Total Bilirubin 0.80, Direct Bilirubin 0.57 H, AST 34, ALT 68 H, Alkaline Phosphatase 45, Total Protein 5.3 L, Albumin 3.0 L, Globulin 2.3 06/09/22 04:32: Amylase 137 H, Lipase 343 Physical Exam GI soft to palpation Inspection: Negative for abdominal distention Palpation: tender RUQ Assessment & Plan Assessment/Plan (1) Choledocholithiasis with acute cholecystitis: PLAN: Continue patient off of his Plavix Plan for laparoscopic cholecystectomy on Tuesday with Dr. Colón Increase diet to regular-low fat diet We will continue to monitor this patient Charges/Coding Visit Charges Inpatient E&M: 04716 Subs Hosp L1
[2022-06-09] MEDS: 0.9% Saline Lock 10 ML Syringe IV ×2 (12:47)
--- NOTE | 2022-06-09 16:32 | PN_ITS ---
Subjective Subjective Patient is feeling better today. He states that he is hungry and would like to try to advance his diet. Objective Data Objective Data Vital Signs: Vital Signs Temp Pulse Resp BP Pulse Ox O2 Del Method 97.5 F L 52 L 16 107/64 100 Room Air 06/09/22 14:59 06/09/22 16:25 06/09/22 14:59 06/09/22 14:59 06/09/22 14:59 06/09/22 14:59 Oxygen Delivery Method Room Air Weight: 155 lb 15.985 oz Body Mass Index (BMI) 22.6 Intake & Output: Intake and Output for Last 24 Hours 06/07/22 06/08/22 06/09/22 23:59 23:59 23:59 Intake Total 6087.75 / 6087.75 4216.83 / 4216.83 2348.25 / 2348.25 Balance 6087.75 / 6087.75 4216.83 / 4216.83 2348.25 / 2348.25 Lab / Micro Data Result Diagrams: 06/09/22 04:32 06/09/22 04:32 Labs: Laboratory Results - last 24 hr 06/09/22 04:32: WBC 5.7, RBC 3.80 L, Hgb 11.7 L, Hct 35.7 L, MCV 93.9, MCH 30.8, MCHC 32.8, RDW Std Deviation 44.7 H, RDW Coeff of Jeffrey 13.1, Plt Count 118 L, MPV 11.6, Immature Gran % (Auto) 0.300, Neut % (Auto) 67.6, Lymph % (Auto) 17.6 L, [place] % (Auto) 11.8 H, Eos % (Auto) 2.4, Baso % (Auto) 0.3, Absolute Neuts (auto) 3.9, Absolute Lymphs (auto) 1.01, Nucleated RBC % 0 06/09/22 04:32: Sodium 141, Potassium 3.5, Chloride 113 H, Carbon Dioxide 26.0, Anion Gap 2 L, BUN 5 L, Creatinine 0.56 L, Estim Creat Clear Calc 135.02, Est GFR (MDRD) Af Amer 190, Est GFR (MDRD) Non-Af 157, BUN/Creatinine Ratio 8.9 L, Glucose 72 L, Calcium 8.0 L, Phosphorus 2.3 L, Magnesium 2.0, Total Bilirubin 0.80, Direct Bilirubin 0.57 H, AST 34, ALT 68 H, Alkaline Phosphatase 45, Total Protein 5.3 L, Albumin 3.0 L, Globulin 2.3 06/09/22 04:32: Amylase 137 H, Lipase 343 Physical Exam Narrative GENERAL: cooperative HEENT: Atraumatic; normocephalic EYES; Anicteric, Normal Conjunctiva NECK; supple, normal thyroid, RESPIRATORY: Diminished to auscultation CARDIOVASCULAR: Regular S1 S2, GI: soft, normoactive bowel sounds, right upper quadrant tenderness : No Renal angle tenderness; EXTREMITIES: No edema, no clubbing, MUSCULOSKELETAL: no muscle wasting NEURO: Awake; no lateralizing signs. SKIN: No Rash PSYCH; Flat affect Assessment & Plan Assessment/Plan (1) Choledocholithiasis with acute cholecystitis: PLAN: Choledocholithiasis status post ERCP with sphincterotomy balloon sweep and extraction of distal common bile duct stone. He has a stent placed in the common bile duct to ensure drainage. (2) Epigastric pain: PLAN: Epigastric pain likely secondary to worsening pancreatitis. This is now im proving with IV fluids. Diet can be increased to full liquids. (3) Alcohol abuse: PLAN: History of alcohol abuse with fatty liver disease likely secondary to alcohol without any previous history of cirrhosis. He has not shown any signs of DTs at this time. (4) Pancreatitis: PLAN: Acute pancreatitis status post ERCP with increase in amylase and lipase consistent with progressive pancreatitis from his previous diagnosis. Recommend IV fluids and pain medicine. I will recheck his amylase and lipase tonight. Charges/Coding Visit Charges Inpatient E&M: 82653 Subs Hosp L3
[2022-06-09] MEDS: Rosuvastatin 20 MG Tablet 40 MG PO (21:27)
[2022-06-10] VITALS (9 sets, daily range): BP systolic 134–165; BP diastolic 76–86; PULSE 51–66; RESP 14–16; TEMP 36.4–36.6; O2SAT 99–100
[2022-06-10] MEDS: Phenobarbital 32.4 MG Tablet PO ×4 (01:14→18:24)
[2022-06-10] MEDS: HYDROmorphone 0.5 MG/0.5 ML SYRINGE IV ×5 (01:14→20:43)
[2022-06-10] MEDS: oxyCODONE 5 MG Tablet PO ×4 (04:53→22:24)
[2022-06-10 06:20] LABS: Absolute Lymphocyte Count 0.99 X10^3/uL (0.83-4.51); Absolute Neutrophil Count 2.7 X10^3/uL (2.0-7.7); Basophil# 0.01 X10^3/uL; Basophil% 0.2 % (0-1); Eosinophil# 0.16 X10^3/uL; Eosinophils% 3.6 % (0-5); Hematocrit 40.8 % (40-54); Hemoglobin 13.5 g/dL (13.0-16.5); Lymphocyte # 0.99 X10^3/ul (0.83-4.51); Lymphocyte % 22.3 % (19-41); Mean Corp Hgb Conc 33.1 g/dL (32-36); Mean Corpuscular Hgb 30.9 pg (27.0-32.0); Mean Corpuscular Volume 93.4 fL (80-94); Mean Platelet Vol. 11.6 fl (6.2-12.0); Monocyte# 0.53 X10^3/uL; Monocyte% 11.9 % (0-10); NRBC Flagged by Analyzer 0 % (0-5); Neutrophil # 2.73 X10^3/uL (2.7-7.7); Neutrophil % 61.5 % (47-70); Platelet Count 136 K/mm3 (150-450); RBC Distribution Width CV 13.1 % (11.6-14.6); RBC Distribution Width SD 44.8 fl (35.1-43.9); Red Blood Count 4.37 M/mm3 (4.6-6.2); White Blood Count 4.4 K/mm3 (4.4-11.0)
[2022-06-10 07:09] LABS: AST(SGOT) 28 U/L (15-37); Alanine Aminotransfer ALT/SGPT 63 U/L (16-61); Albumin, Serum 3.1 g/dL (3.2-5.0); Alkaline Phosphatase 65 U/L (45-117); Anion Gap 6 (5-15); BUN 6 mg/dL (7-18); BUN/Creat Ratio 9.3 RATIO (10-20); Calcium,Total 8.5 mg/dL (8.5-10.1); Chloride 110 mmol/L (98-107); Creatinine, Serum 0.64 mg/dL (0.70-1.30); EST Glomerular Filtration Rate 133 mL/min (>60); Est Glom Filt Rate - Afr Amer 161 mL/min (>60); Estimated Creatinine Clearance 118.14 ml/min; Glucose 99 mg/dL (74-106); Potassium 3.4 mmol/L (3.5-5.1); Protein, Total 6.1 g/dL (6.4-8.2); Sodium Level 141 mmol/L (136-145)
[2022-06-10] MEDS: Enoxaparin 40 MG/0.4 ML Syringe SC (08:20)
[2022-06-10] MEDS: Folic Acid 1 MG Tablet PO (08:20)
[2022-06-10] MEDS: Fenofibrate 145 MG Tablet PO (08:20)
[2022-06-10] MEDS: Atenolol 50 MG Tablet PO (08:20)
[2022-06-10] MEDS: Ramipril 10 MG Capsule PO (08:20)
[2022-06-10] MEDS: Thiamine Hydrochloride 100 MG Tablet PO (08:20)
[2022-06-10] MEDS: Aspirin E.C. 81 MG Tablet PO (08:20)
[2022-06-10] MEDS: 0.9% Normal Saline 1,000 ML 100 ML IV ×2 (08:24→17:54)
--- NOTE | 2022-06-10 09:05 | PN.HOSP_ITS ---
Subjective Subjective Follow-up acute pancreatitis Patient still continues to experience right upper quadrant discomfort. Plan is for patient to undergo laparoscopic cholecystectomy on 06/11/2022; diagnostic data reviewed this a.m. signal potassium of 3.4 additional replacement given Objective Data Objective Data Vital Signs: Vital Signs Temp Pulse Resp BP Pulse Ox O2 Del Method 97.9 F 51 L 16 134/76 H 100 Room Air 06/10/22 08:28 06/10/22 08:33 06/10/22 08:28 06/10/22 08:28 06/10/22 08:28 06/10/22 08:28 Oxygen Delivery Method Room Air Weight: 70.76 kg Body Mass Index (BMI) 22.6 Intake & Output: Intake and Output for Last 24 Hours 06/08/22 06/09/22 06/10/22 23:59 23:59 23:59 Intake Total 4216.83 / 4216.83 4163.75 / 4163.75 1001.67 / 1001.67 Balance 4216.83 / 4216.83 4163.75 / 4163.75 1001.67 / 1001.67 Lab / Micro Data Result Diagrams: 06/10/22 05:15 06/10/22 05:15 Labs: Laboratory Results - last 24 hr 06/10/22 05:15: WBC 4.4, RBC 4.37 L, Hgb 13.5, Hct 40.8, MCV 93.4, MCH 30.9, MCHC 33.1, RDW Std Deviation 44.8 H, RDW Coeff of Jeffrey 13.1, Plt Count 136 L, MPV 11.6, Immature Gran % (Auto) 0.500, Neut % (Auto) 61.5, Lymph % (Auto) 22.3, [place] % (Auto) 11.9 H, Eos % (Auto) 3.6, Baso % (Auto) 0.2, Absolute Neuts (auto) 2.7, Absolute Lymphs (auto) 0.99, Nucleated RBC % 0 06/10/22 05:15: Sodium 141, Potassium 3.4 L, Chloride 110 H, Carbon Dioxide 25.0, Anion Gap 6, BUN 6 L, Creatinine 0.64 L, Estim Creat Clear Calc 118.14, Est GFR (MDRD) Af Amer 161, Est GFR (MDRD) Non-Af 133, BUN/Creatinine Ratio 9.3 L, Glucose 99, Calcium 8.5, Total Bilirubin 0.60, Direct Bilirubin 0.40 H, AST 28, ALT 63 H, Alkaline Phosphatase 65, Total Protein 6.1 L, Albumin 3.1 L, Globulin 3.0 Physical Exam Narrative GENERAL: cooperative HEENT: Atraumatic; normocephalic EYES; Anicteric, Normal Conjunctiva NECK; supple, normal thyroid, RESPIRATORY: Diminished to auscultation CARDIOVASCULAR: Regular S1 S2, GI: soft, normoactive bowel sounds, right upper quadrant tenderness : No Renal angle tenderness; EXTREMITIES: No edema, no clubbing, MUSCULOSKELETAL: no muscle wasting NEURO: Awake; no lateralizing signs. SKIN: No Rash PSYCH; Flat affect Assessment & Plan Assessment/Plan (1) Epigastric pain: PLAN: Plan Patient is a 62-year-old gentleman with history of chronic alcohol dependence presented with abdominal pain. Imaging studies demonstrated cholelithiasis as well as choledocholithiasis admitted to regular nursing floor 1. Epigastric discomfort ? Secondary to combination of choledocholithiasis/cholelithiasis. Managed symptomatically with pain meds. Kept n.p.o. started on IV fluids and consultation placed to GI plan is for patient to undergo ERCP 06/08/2022 patient underwent ERCP on 06/07/[address] Araya findings included ?The entire main bile duct was dilated, with a stone causing an obstruction. - Choledocholithiasis was found.? Complete removal was accomplished by biliary ?sphincterotomy and balloon extraction. - A biliary sphincterotomy was performed. - The biliary tree was swept. Consult subsequently placed general surgery for possible Rozina cystectomy. Patient was seen in this regard by Dr. Colón Case discussed with him Patient seen this a.m. complaining of severe abdominal pain ordered lipase levels to rule out post ERCP pancreatitis -06/09/2022. Patient still has some epigastric discomfort lipase levels trending down however ? 06/10/2022; plan for patient to undergo laparoscopic cholecystectomy on 06/11/2022; 2. Acute pancreatitis ? Secondary to gallstones as well as alcohol use monitoring with daily lipase levels. Patient was kept n.p.o. Was started on PPI?Protonix ? 06/08/2022 patient pain much more intense compared to previous day. Repeat labs ordered 3. Acute transaminitis and hyperbilirubinemia ? Secondary to patient alcohol use as well as gallstones monitoring with daily LFTs 4. Diabetes mellitus type 2 ? Patient is on metformin held please on Accu-Cheks with insulin sliding scale coverage 5. Hepatic steatosis ? Secondary to patient alcohol use as well as underlying diabetes. Monitoring with daily LFTs. GI on board 6. Chronic alcohol abuse ? Counseled on cessation, started on phenobarb taper for possible early alcohol withdrawal 7. Coronary artery disease ? Patient has history of CABG with subsequent PCI patient is on recommended medications including rosuvastatin, aspirin atenolol Plavix 8. Essential hypertension ? Patient blood pressure controlled on atenolol and ramipril did continue 9. Dyslipidemia patient is on rosuvastatin did continue 10. GERD ? Patient is on lansoprazole, substituted with Protonix in the hospital 12. Carotid artery stenosis ? Patient is followed by vascular surgery as outpatient 10. DVT prophylaxis ? SC Lovenox 11. Hypokalemia ? Corrected per protocol repeat BMP ordered for a.m. Total time spent on patient; 40 minutes Charges/Coding Visit Charges Inpatient E&M: 75070 Subs Hosp L2
--- NOTE | 2022-06-10 11:39 | PCM.PN.SRG ---
Subjective Subjective Patient evaluated walking in the hallway. He notes his abdominal pain remains the same. He does not have any until someone palpates his abdomen. He denies any nausea, vomiting. He has been tolerating his current diet. Objective Data Objective Data Vital Signs: Vital Signs Temp Pulse Resp BP Pulse Ox O2 Del Method 97.9 F 51 L 16 134/76 H 100 Room Air 06/10/22 08:28 06/10/22 08:33 06/10/22 08:28 06/10/22 08:28 06/10/22 08:28 06/10/22 08:28 Oxygen Delivery Method Room Air Weight: 155 lb 15.985 oz Body Mass Index (BMI) 22.6 Intake & Output: Intake and Output for Last 24 Hours 06/08/22 06/09/22 06/10/22 23:59 23:59 23:59 Intake Total 4216.83 / 4216.83 4163.75 / 4163.75 1161.67 / 1161.67 Balance 4216.83 / 4216.83 4163.75 / 4163.75 1161.67 / 1161.67 Lab / Micro Data Result Diagrams: 06/10/22 05:15 06/10/22 05:15 Labs: Laboratory Results - last 24 hr 06/10/22 05:15: WBC 4.4, RBC 4.37 L, Hgb 13.5, Hct 40.8, MCV 93.4, MCH 30.9, MCHC 33.1, RDW Std Deviation 44.8 H, RDW Coeff of Jeffrey 13.1, Plt Count 136 L, MPV 11.6, Immature Gran % (Auto) 0.500, Neut % (Auto) 61.5, Lymph % (Auto) 22.3, [place] % (Auto) 11.9 H, Eos % (Auto) 3.6, Baso % (Auto) 0.2, Absolute Neuts (auto) 2.7, Absolute Lymphs (auto) 0.99, Nucleated RBC % 0 06/10/22 05:15: Sodium 141, Potassium 3.4 L, Chloride 110 H, Carbon Dioxide 25.0, Anion Gap 6, BUN 6 L, Creatinine 0.64 L, Estim Creat Clear Calc 118.14, Est GFR (MDRD) Af Amer 161, Est GFR (MDRD) Non-Af 133, BUN/Creatinine Ratio 9.3 L, Glucose 99, Calcium 8.5, Total Bilirubin 0.60, Direct Bilirubin 0.40 H, AST 28, ALT 63 H, Alkaline Phosphatase 65, Total Protein 6.1 L, Albumin 3.1 L, Globulin 3.0 Physical Exam GI soft to palpation Auscultation: normoactive bowel sounds Palpation: tender RUQ Assessment & Plan Assessment/Plan (1) Choledocholithiasis with acute cholecystitis: PLAN: Dr. Colón will plan to perform a laparoscopic cholecystectomy with intraoperative cholangiogram. Procedure details, risks and benefits have been reviewed. Patient has had the opportunity to ask and have questions answered. We will proceed tomorrow at the OR discretion. Charges/Coding Visit Charges Inpatient E&M: 06395 Subs Hosp L1
[2022-06-10 14:27] LABS: Amylase 83 U/L (25-115); Lipase 473 U/L (73-393)
[2022-06-10] MEDS: Potassium Chloride Oral Tablet 20 MEQ PO (16:21)
--- NOTE | 2022-06-10 19:24 | PCM.PROGNOTE ---
Subjective Subjective Patient said he is having some right upper quadrant pain and some mild midepigastric pain. He does not have the pain that radiated to his back anymore on his left side. Objective Data Objective Data Vital Signs: Vital Signs Temp Pulse Resp BP Pulse Ox O2 Del Method 97.6 F L 60 16 165/85 H 99 Room Air 06/10/22 15:22 06/10/22 15:22 06/10/22 15:22 06/10/22 15:22 06/10/22 15:22 06/10/22 15:22 Oxygen Delivery Method Room Air Weight: 155 lb 15.985 oz Body Mass Index (BMI) 22.6 Intake & Output: Intake and Output for Last 24 Hours 06/08/22 06/09/22 06/10/22 23:59 23:59 23:59 Intake Total 4216.83 / 4216.83 4163.75 / 4163.75 3261.67 / 3261.67 Balance 4216.83 / 4216.83 4163.75 / 4163.75 3261.67 / 3261.67 Lab / Micro Data Result Diagrams: 06/10/22 05:15 06/10/22 05:15 Labs: Laboratory Results - last 24 hr 06/10/22 05:15: WBC 4.4, RBC 4.37 L, Hgb 13.5, Hct 40.8, MCV 93.4, MCH 30.9, MCHC 33.1, RDW Std Deviation 44.8 H, RDW Coeff of Jeffrey 13.1, Plt Count 136 L, MPV 11.6, Immature Gran % (Auto) 0.500, Neut % (Auto) 61.5, Lymph % (Auto) 22.3, [place] % (Auto) 11.9 H, Eos % (Auto) 3.6, Baso % (Auto) 0.2, Absolute Neuts (auto) 2.7, Absolute Lymphs (auto) 0.99, Nucleated RBC % 0 06/10/22 05:15: Sodium 141, Potassium 3.4 L, Chloride 110 H, Carbon Dioxide 25.0, Anion Gap 6, BUN 6 L, Creatinine 0.64 L, Estim Creat Clear Calc 118.14, Est GFR (MDRD) Af Amer 161, Est GFR (MDRD) Non-Af 133, BUN/Creatinine Ratio 9.3 L, Glucose 99, Calcium 8.5, Total Bilirubin 0.60, Direct Bilirubin 0.40 H, AST 28, ALT 63 H, Alkaline Phosphatase 65, Total Protein 6.1 L, Albumin 3.1 L, Globulin 3.0 06/10/22 05:15: Amylase 83, Lipase 473 H Physical Exam GI soft to palpation Auscultation: normoactive bowel sounds Palpation: tender RUQ Assessment & Plan Assessment/Plan (1) Choledocholithiasis with acute cholecystitis: PLAN: Dr. Colón will plan to perform a laparoscopic cholecystectomy with intraoperative cholangiogram. (2) Epigastric pain: PLAN: Epigastric pain likely secondary to worsening pancreatitis. This is now improving with IV fluids. Diet can be increased to full liquids. (3) Alcohol abuse: PLAN: History of alcohol abuse with fatty liver disease likely secondary to alcohol without any previous history of cirrhosis. He has not shown any signs of DTs at this time. (4) Pancreatitis: PLAN: Acute pancreatitis status post ERCP with increase in amylase and lipase consistent with progressive pancreatitis from his previous diagnosis. Recommend IV fluids and pain medicine. I will recheck his amylase and lipase tonight. Charges/Coding Visit Charges Inpatient E&M: 60044 Subs Hosp L3
[2022-06-10] MEDS: 0.9% Saline Lock 10 ML Syringe IV (20:44)
[2022-06-10] MEDS: Rosuvastatin 20 MG Tablet 40 MG PO (22:24)
[2022-06-11] VITALS (17 sets, daily range): BP systolic 139–186; BP diastolic 67–116; PULSE 46–104; RESP 16–18; TEMP 36.2–37; O2SAT 96–100; BMI 22.7
--- NOTE | 2022-06-11 | GALL_PTH ---
PATIENT: SONIA PARSONS LOC: MS3 U#:[id number] AGE/SX: 62/M ROOM: FL311 RE06/06/[address]: Dr. Sonia Keen MD : 1960 BED: 1 DIS: 06/12/2022 SPEC #: [id number] RECD: 06/11/22 16:57 STATUS: NYA REQ #: [id number] MIGUEL ÁNGEL: 06/11/22 00:[address]: Tu Colón DEPT: SURGICAL PATHOLOGY RECD BY: Jason Lenz ENTERED: 06/14/22 11:25 SP TYPE: GALLBLADDE OTHR DR: MD Dr. Chai Hayes DO Dr. Kathryn Lee, DO Dr. Michael Bortz, MD Tissues: Gallbladder, NOS Procedures: Surgery Specimen Level III Comments: @ Ordering doctor for SUIII edited from to @ by LUIS F at 06/14/22 1518 @ Submitting doctor edited from to @ by BRANDONOD at 06/14/22 1518 HEADER OPERATION: Laparoscopic cholecystectomy with IOC PRE-OP DIAGNOSIS: Choledocholithiasis with acute cholecystitis TISSUE SUBMITTED: Gallbladder MICROSCOPIC DIAGNOSIS Gallbladder, cholecystectomy: Chronic and acute cholecystitis and cholelithiasis. Rokitansky-Aschoff sinuses. AM:suri 06/15/2022 MICROSCOPIC DESCRIPTION Slides are reviewed. GROSS DESCRIPTION Received is one container labeled with the patient's name and designated gallbladder. The specimen consists of a gallbladder measuring 6.5 cm in length and up to 3 cm in diameter. The external surface is pink-johns, smooth and glistening for the most part. Focally it is granular, hemorrhagic and contains cautery artifact. The gallbladder contains a small amount of green-yellow mucoid bile and multiple irregular brownish-black stones measuring in aggregate 2 x 1 x 0.5 cm and 0.1 to 0.5 cm in greatest dimension. The mucosa is bile-stained and without any mass lesions. The gallbladder wall measures 0.5 to 1.2 cm in thickness. The thickened area is located at the fundus and shows focal cystic changes. Quantitative Consultant sections from the gallbladder and the cystic duct are submitted in two cassettes. Cassette 2 contains the thickened area at the fundus. / SJ:suri 06/14/2022 TC:2 [facility]: [id number]
[2022-06-11] MEDS: 0.9% Saline Lock 10 ML Syringe IV ×2 (02:52→09:28)
[2022-06-11] MEDS: HYDROmorphone 0.5 MG/0.5 ML SYRINGE IV ×3 (02:52→21:16)
[2022-06-11] MEDS: oxyCODONE 5 MG Tablet PO ×3 (04:45→23:57)
[2022-06-11] MEDS: 0.9% Normal Saline 1,000 ML 100 ML IV ×2 (04:55→16:22)
[2022-06-11] MEDS: Lactated Ringers 1,000 ML 15 ML IV (06:31)
[2022-06-11 06:32] LABS: Absolute Lymphocyte Count 0.89 X10^3/uL (0.83-4.51); Absolute Neutrophil Count 2.6 X10^3/uL (2.0-7.7); Basophil# 0.02 X10^3/uL; Basophil% 0.5 % (0-1); Eosinophil# 0.21 X10^3/uL; Eosinophils% 4.9 % (0-5); Hematocrit 35.9 % (40-54); Hemoglobin 12.2 g/dL (13.0-16.5); Lymphocyte # 0.89 X10^3/ul (0.83-4.51); Lymphocyte % 20.8 % (19-41); Mean Corpuscular Hgb 31.5 pg (27.0-32.0); Mean Corpuscular Volume 92.8 fL (80-94); Mean Platelet Vol. 11.4 fl (6.2-12.0); Monocyte# 0.56 X10^3/uL; Monocyte% 13.1 % (0-10); NRBC Flagged by Analyzer 0 % (0-5); Neutrophil # 2.59 X10^3/uL (2.7-7.7); Neutrophil % 60.5 % (47-70); Platelet Count 128 K/mm3 (150-450); RBC Distribution Width CV 12.9 % (11.6-14.6); Red Blood Count 3.87 M/mm3 (4.6-6.2); White Blood Count 4.3 K/mm3 (4.4-11.0)
[2022-06-11 06:47] LABS: International Normalized Ratio 1.3; Partial Thromboplast Time 30.5 Seconds (24.1-36.2); Prothrombin Time (Protime)PT. 15.9 SECONDS (11.7-14.9)
[2022-06-11 06:54] LABS: AST(SGOT) 21 U/L (15-37); Alanine Aminotransfer ALT/SGPT 46 U/L (16-61); Albumin, Serum 2.8 g/dL (3.2-5.0); Alkaline Phosphatase 54 U/L (45-117); Anion Gap 8 (5-15); BUN 4 mg/dL (7-18); BUN/Creat Ratio 7.3 RATIO (10-20); Bilirubin, Direct 0.37 mg/dL (0.00-0.30); Calcium,Total 8.3 mg/dL (8.5-10.1); Chloride 114 mmol/L (98-107); Creatinine, Serum 0.55 mg/dL (0.70-1.30); EST Glomerular Filtration Rate 160 mL/min (>60); Est Glom Filt Rate - Afr Amer 193 mL/min (>60); Estimated Creatinine Clearance 137.47 ml/min; Globulin 2.6 g/dL (2.2-4.2); Glucose 88 mg/dL (74-106); Potassium 3.4 mmol/L (3.5-5.1); Protein, Total 5.4 g/dL (6.4-8.2); Sodium Level 144 mmol/L (136-145)
--- NOTE | 2022-06-11 08:47 | PCM.PN.HOSP ---
Subjective Subjective Follow-up gallstone pancreatitis Patient is scheduled to undergo laparoscopic cholecystectomy with intraoperative cholangiogram seen this a.m. complaining of right upper quadrant pain Objective Data Objective Data Vital Signs: Vital Signs Temp Pulse Resp BP Pulse Ox O2 Del Method 97.4 F L 55 L 16 139/116 H 100 Room Air 06/11/22 03:30 06/11/22 03:30 06/11/22 03:30 06/11/22 03:30 06/11/22 03:30 06/11/22 03:30 Oxygen Delivery Method Room Air Weight: 70.76 kg Body Mass Index (BMI) 22.6 Intake & Output: Intake and Output for Last 24 Hours 06/09/22 06/10/22 06/11/22 23:59 23:59 23:59 Intake Total 4163.75 / 4163.75 3261.67 / 3261.67 1050 / 1050 Balance 4163.75 / 4163.75 3261.67 / 3261.67 1050 / 1050 Lab / Micro Data Result Diagrams: 06/11/22 06:20 06/11/22 06:20 Labs: Laboratory Results - last 24 hr 06/10/22 05:15: Amylase 83, Lipase 473 H 06/11/22 06:20: WBC 4.3 L, RBC 3.87 L, Hgb 12.2 L, Hct 35.9 L, MCV 92.8, MCH 31.5, MCHC 34.0, RDW Std Deviation 44.0 H, RDW Coeff of Jeffrey 12.9, Plt Count 128 L, MPV 11.4, Immature Gran % (Auto) 0.200, Neut % (Auto) 60.5, Lymph % (Auto) 20.8, [place] % (Auto) 13.1 H, Eos % (Auto) 4.9, Baso % (Auto) 0.5, Absolute Neuts (auto) 2.6, Absolute Lymphs (auto) 0.89, Nucleated RBC % 0 06/11/22 06:20: Sodium 144, Potassium 3.4 L, Chloride 114 H, Carbon Dioxide 22.0, Anion Gap 8, BUN 4 L, Creatinine 0.55 L, Estim Creat Clear Calc 137.47, Est GFR (MDRD) Af Amer 193, Est GFR (MDRD) Non-Af 160, BUN/Creatinine Ratio 7.3 L, Glucose 88, Calcium 8.3 L, Total Bilirubin 0.40, Direct Bilirubin 0.37 H, AST 21, ALT 46, Alkaline Phosphatase 54, Total Protein 5.4 L, Albumin 2.8 L, Globulin 2.6 06/11/22 06:20: PT 15.9 H, INR 1.3, APTT 30.5 Physical Exam Narrative GENERAL: cooperative HEENT: Atraumatic; normocephalic EYES; Anicteric, Normal Conjunctiva NECK; supple, normal thyroid, RESPIRATORY: Diminished to auscultation CARDIOVASCULAR: Regular S1 S2, GI: soft, normoactive bowel sounds, right upper quadrant tenderness : No Renal angle tenderness; EXTREMITIES: No edema, no clubbing, MUSCULOSKELETAL: no muscle wasting NEURO: Awake; no lateralizing signs. SKIN: No Rash PSYCH; Flat affect Const alert, oriented x3, no apparent distress and well nourished Constitutional Narrative: Upper middle-aged white male sitting up in bed, appears comfortable and nontoxic General Appearance: cooperative HEENT normocephalic, head/scalp atraumatic, hearing grossly normal bilaterally and moist oral mucous membranes Eyes PERRL, EOMs intact bilaterally and conjunctivae normal Eyes Narrative: No scleral icterus Neck no lymphadenopathy, supple and no JVD Neck Narrative: Bilateral carotid bruits Resp normal respiratory effort, no retractions, no use of accessory muscles and clear to auscultation bilaterally Resp Narrative: Diffusely diminished but clear Auscultation: Negative for crackles, rhonchi or wheezes Cardio regular rate, regular rhythm, S1 normal heart sound, S2 normal heart sound, no murmurs, no rub, no gallops and no clicks GI normal to inspection, nondistended, normoactive bowel sounds and soft to palpation GI Narrative: Tenderness in the right upper quadrant and epigastrium Palpation: tender Extremity no clubbing, cyanosis or edema Extremity Narrative: 1+ pedal pulses Skin no rashes or lesions noted, no wounds, skin turgor normal, no jaundice, no petechiae and no mottling Neuro oriented x3, CN's II-XII intact bilaterally, moves all extremities and no focal motor deficits Speech: speech normal Motor Exam: strength 5/5 throughout Psych affect normal Psych Narrative: Very pleasant, eye contact is good, appropriately interactive Assessment & Plan Assessment/Plan (1) Epigastric pain: PLAN: Plan Patient is a 62-year-old gentleman with history of chronic alcohol dependence presented with abdominal pain. Imaging studies demonstrated cholelithiasis as well as choledocholithiasis admitted to regular nursing floor 1. Epigastric discomfort ? Secondary to combination of choledocholithiasis/cholelithiasis. Managed symptomatically with pain meds. Kept n.p.o. started on IV fluids and consultation placed to GI plan is for patient to undergo ERCP 06/08/2022 patient underwent ERCP on 06/07/[address] Araya findings included ?The entire main bile duct was dilated, with a stone causing an obstruction. - Choledocholithiasis was found.? Complete removal was accomplished by biliary ?sphincterotomy and balloon extraction. - A biliary sphincterotomy was performed. - The biliary tree was swept. Consult subsequently placed general surgery for possible Rozina cystectomy. Patient was seen in this regard by Dr. Colón Case discussed with him Patient seen this a.m. complaining of severe abdominal pain ordered lipase levels to rule out post ERCP pancreatitis -06/09/2022. Patient still has some epigastric discomfort lipase levels trending down however ? 06/10/2022; plan for patient to undergo laparoscopic cholecystectomy on 06/11/2022; ?06/11/2022;Patient is scheduled to undergo laparoscopic cholecystectomy with intraoperative cholangiogram 2. Acute pancreatitis ? Secondary to gallstones as well as alcohol use monitoring with daily lipase levels. Patient was kept n.p.o. Was started on PPI?Protonix ? 06/08/2022 patient pain much more intense compared to previous day. Repeat labs ordered 3. Acute transaminitis and hyperbilirubinemia ? Secondary to patient alcohol use as well as gallstones monitoring with daily LFTs 4. Diabetes mellitus type 2 ? Patient is on metformin held please on Accu-Cheks with insulin sliding scale coverage 5. Hepatic steatosis ? Secondary to patient alcohol use as well as underlying diabetes. Monitoring with daily LFTs. GI on board 6. Chronic alcohol abuse ? Counseled on cessation, started on phenobarb taper for possible early alcohol withdrawal 7. Coronary artery disease ? Patient has history of CABG with subsequent PCI patient is on recommended medications including rosuvastatin, aspirin atenolol Plavix 8. Essential hypertension ? Patient blood pressure controlled on atenolol and ramipril did continue 9. Dyslipidemia patient is on rosuvastatin did continue 10. GERD ? Patient is on lansoprazole, substituted with Protonix in the hospital 12. Carotid artery stenosis ? Patient is followed by vascular surgery as outpatient 10. DVT prophylaxis ? SC Lovenox 11. Hypokalemia ? Corrected per protocol repeat BMP ordered for a.m. Total time spent on patient; 38 minutes Charges/Coding Visit Charges Inpatient E&M: 59676 Subs Hosp L2
[2022-06-11] MEDS: Atenolol 50 MG Tablet PO (08:59)
--- NOTE | 2022-06-11 11:44 | PCM.PN.SRG ---
Subjective Subjective Seen and examined. He reports significant improvement in his pain control is not requiring pain medication. Objective Data Objective Data Vital Signs: Vital Signs Temp Pulse Resp BP Pulse Ox O2 Del Method 97.9 F 62 18 186/88 H 100 Room Air 06/11/22 09:30 06/11/22 09:30 06/11/22 09:30 06/11/22 09:30 06/11/22 09:30 06/11/22 09:30 Oxygen Delivery Method Room Air Weight: 155 lb 15.985 oz Body Mass Index (BMI) 22.6 Intake & Output: Intake and Output for Last 24 Hours 06/09/22 06/10/22 06/11/22 23:59 23:59 23:59 Intake Total 4163.75 / 4163.75 3261.67 / 3261.67 1210 / 1210 Balance 4163.75 / 4163.75 3261.67 / 3261.67 1210 / 1210 Lab / Micro Data Result Diagrams: 06/11/22 06:20 06/11/22 06:20 Labs: Laboratory Results - last 24 hr 06/10/22 05:15: Amylase 83, Lipase 473 H 06/11/22 06:20: WBC 4.3 L, RBC 3.87 L, Hgb 12.2 L, Hct 35.9 L, MCV 92.8, MCH 31.5, MCHC 34.0, RDW Std Deviation 44.0 H, RDW Coeff of Jeffrey 12.9, Plt Count 128 L, MPV 11.4, Immature Gran % (Auto) 0.200, Neut % (Auto) 60.5, Lymph % (Auto) 20.8, [place] % (Auto) 13.1 H, Eos % (Auto) 4.9, Baso % (Auto) 0.5, Absolute Neuts (auto) 2.6, Absolute Lymphs (auto) 0.89, Nucleated RBC % 0 06/11/22 06:20: Sodium 144, Potassium 3.4 L, Chloride 114 H, Carbon Dioxide 22.0, Anion Gap 8, BUN 4 L, Creatinine 0.55 L, Estim Creat Clear Calc 137.47, Est GFR (MDRD) Af Amer 193, Est GFR (MDRD) Non-Af 160, BUN/Creatinine Ratio 7.3 L, Glucose 88, Calcium 8.3 L, Total Bilirubin 0.40, Direct Bilirubin 0.37 H, AST 21, ALT 46, Alkaline Phosphatase 54, Total Protein 5.4 L, Albumin 2.8 L, Globulin 2.6 06/11/22 06:20: PT 15.9 H, INR 1.3, APTT 30.5 Physical Exam Const oriented x3 and no apparent distress Resp normal respiratory effort GI GI Narrative: Nondistended, soft, minimally tender to palpation Assessment & Plan Assessment/Plan (1) Choledocholithiasis with acute cholecystitis: PLAN: This is a 62-year-old male, with a complex past cardiac history, who presents for evaluation of choledocholithiasis and acute cholecystitis. Latter diagnosis was made on basis of exam with positive Bob sign. Patient is status post ERCP with stone extraction and sphincterotomy 06/07/2022. Patient with initial exacerbation of symptoms, but now reporting improvement with treatments rendered. Exam also reassuring. We have held patient's Plavix appropriately for laparoscopic cholecystectomy with intraoperative cholangiogram and we will proceed for this procedure today. (2) Pancreatitis: PLAN: Appears clinically, significantly improved Charges/Coding Visit Charges Inpatient E&M: 86182 Subs Hosp L2
[2022-06-11] MEDS: Bupiv/Epi 0.5% Mpf 30 ML Vial (12:30)
--- NOTE | 2022-06-11 12:30 | RAD_ITS ---
STUDY: INTRAOPERATIVE GLANDULAR. REASON FOR EXAM: Male, 62 years old. Laparoscopic cholecystectomy. FLUOROSCOPY TIME (if supplied): ( 23.2 seconds ) minutes/seconds. A cine loop of 143 images were submitted. TECHNIQUE: An intraoperative cholangiogram was performed by the surgeon. Imaging was submitted. COMPARISON: None. FINDINGS: A biliary stent is seen within the common bile duct. Free flow of contrast is seen into the duodenum. No intraluminal filling defect is seen. RAD/Cholangiogram/ O R,Initial IMPRESSION: 3. Contrast is seen entering the duodenum. No retained calculus is seen. Electronically Signed: Damaso Valenzuela MD at 14:45 EST ,
--- NOTE | 2022-06-11 13:19 | PN_ITS ---
Subjective Subjective Patient said he is having some right upper quadrant pain and some mild midepigastric pain.? He does not have the pain that radiated to his back anymore on his left side. Objective Data Objective Data Vital Signs: Vital Signs Temp Pulse Resp BP Pulse Ox O2 Del Method 97.9 F 62 18 186/88 H 100 Room Air 06/11/22 09:30 06/11/22 09:30 06/11/22 09:30 06/11/22 09:30 06/11/22 09:30 06/11/22 09:30 Oxygen Delivery Method Room Air Weight: 155 lb 15.985 oz Body Mass Index (BMI) 22.6 Intake & Output: Intake and Output for Last 24 Hours 06/09/22 06/10/22 06/11/22 23:59 23:59 23:59 Intake Total 4163.75 / 4163.75 3261.67 / 3261.67 1210 / 1210 Balance 4163.75 / 4163.75 3261.67 / 3261.67 1210 / 1210 Lab / Micro Data Result Diagrams: 06/11/22 06:20 06/11/22 06:20 Labs: Laboratory Results - last 24 hr 06/10/22 05:15: Amylase 83, Lipase 473 H 06/11/22 06:20: WBC 4.3 L, RBC 3.87 L, Hgb 12.2 L, Hct 35.9 L, MCV 92.8, MCH 31.5, MCHC 34.0, RDW Std Deviation 44.0 H, RDW Coeff of Jeffrey 12.9, Plt Count 128 L, MPV 11.4, Immature Gran % (Auto) 0.200, Neut % (Auto) 60.5, Lymph % (Auto) 20.8, [place] % (Auto) 13.1 H, Eos % (Auto) 4.9, Baso % (Auto) 0.5, Absolute Neuts (auto) 2.6, Absolute Lymphs (auto) 0.89, Nucleated RBC % 0 06/11/22 06:20: Sodium 144, Potassium 3.4 L, Chloride 114 H, Carbon Dioxide 22.0, Anion Gap 8, BUN 4 L, Creatinine 0.55 L, Estim Creat Clear Calc 137.47, Est GFR (MDRD) Af Amer 193, Est GFR (MDRD) Non-Af 160, BUN/Creatinine Ratio 7.3 L, Glucose 88, Calcium 8.3 L, Total Bilirubin 0.40, Direct Bilirubin 0.37 H, AST 21, ALT 46, Alkaline Phosphatase 54, Total Protein 5.4 L, Albumin 2.8 L, Globulin 2.6 06/11/22 06:20: PT 15.9 H, INR 1.3, APTT 30.5 Physical Exam Const oriented x3 and no apparent distress Resp normal respiratory effort GI GI Narrative: Nondistended, soft, minimally tender to palpation Assessment & Plan Assessment/Plan (1) Choledocholithiasis with acute cholecystitis: PLAN: This is a 62-year-old male, with a complex past cardiac history, who presents for evaluation of choledocholithiasis and acute cholecystitis. Latter diagnosis was made on basis of exam with positive Bob sign. Patient is status post ERCP with stone extraction and sphincterotomy 06/07/2022. Patient with initial exacerbation of symptoms, but now reporting improvement with treatments rendered. Exam also reassuring. We have held patient's Plavix appropriately for laparoscopic cholecystectomy with intraoperative cholangiogram and we will proceed for this procedure today. (2) Pancreatitis: PLAN: Appears clinically, significantly improved Charges/Coding Visit Charges Inpatient E&M: 63414 Subs Hosp L2
--- NOTE | 2022-06-11 13:49 | OP.PCM_ITS ---
Report of Operation Date of Procedure: 06/11/22 Pre-Operative Diagnosis: Choledocholithiasis with acute cholecystitis and acute gallstone pancreatitis status post ERCP with stone extraction and common bile duct stenting Post-Operative Diagnosis: Same Surgery/Procedure Performed:: Laparoscopic Cholecystectomy with intraoperative cholangiogram Description of Surgical Findings:: ? Evidence of acute cholecystitis with numerous adhesions between the gallbladder infundibulum and the omentum. ? Friable gallbladder leading to inadvertent rent and local contamination ? Cholecystectomy showing a small cystic duct joining a dilated common bile duct containing a biliary stent the right and left hepatic ducts Surgeon: Tu Colón seed corn production manager: Heaven Borrero Type of Anesthesia: General/Supplemental Anesthesiologist: Jorge Luis Aburto Specimen's removed: Gallbladder Drains: None Estimated Blood Loss (mL): 50 Description of Procedure: After proper identification in the preoperative holding area the patient was brought to the operating room where he was positioned supine on the operating room table. Preoperatively SCDs were placed (antibiotics had been preoperatively administered on the day surgery holding area). General anesthesia was then induced. Patient's abdomen was prepped and draped in usual sterile fashion. A formal timeout was conducted to confirm both patient and the procedure. Procedure was begun with a supraumbilical incision which was extended deeply down to the level of the fascia. The fascia was elevated and incised, as well as the peritoneum. A finger sweep was performed to ensure there were no underlying adhesions and a 12 mm balloon trocar was inserted. Pneumoperitoneum was established at 15 mmHg. 3 additional trocars were placed in the epigastrium and in the right upper quadrant (3 x 5 mm). Inspection of the peritoneum revealed no inadvertent injury to the viscera below. The gallbladder was visualized with significant inflammation and was white. Also several adhesions between the lateral aspect of the gallbladder and the underlying omentum. Windows were bluntly opened and these adhesions were taken with electrocautery. The gallbladder fundus was then grasped and elevated cephalad. During this retraction peritoneal rent was made in the gallbladder infundibulum resulting in local spillage of bile that was suctioned free and a clamp was moved across his whole to occlude it and prevent further contamination. Using careful dissection the peritoneum was opened and the structures of the hepatocystic triangle were delineated. I identified what appeared to be a dilated cystic duct and a tightly adherent cystic artery, however, I could not identify a plane between these 2 structures and again a inadvertent rent was made in the cystic duct structure. Separate from this tubular structure there was a second structure that was in a more appropriate place for a cystic artery near the gallbladder fossa. With this anatomical ambiguity and the friability of the gallbladder, I elected to perform a cholangiogram at this point. A cholangiocatheter was fed into the proximal segment of the cystic duct and clamped using an Blanco Kael clamp. Under fluoroscopy a cholangiogram was then obtained showing a long cystic duct flowing into a common bile duct bearing a biliary stent with unobstructed antegrade flow of contrast into the duodenum. There was also retrograde flow through the common hepatic duct into the right and left hepatic ducts. Satisfied with this result the cholangiocatheter was removed and the cystic duct stump was triply clipped and sharply divided. Ensuring circumferential dissection about the cystic artery, it was triply clipped and sharply divided as well. The gallbladder was then removed from the gallbladder fossa with the use of electrocautery. Selective electrocautery was used to obtain hemostasis in the gallbladder fossa. The gallbladder was placed in an Endo Catch bag and removed from the peritoneum. Morison's pouch was irrigated and the effluent was suctioned free of the peritoneum. Hemostasis was again confirmed. Pneumoperitoneum was evacuated and the fascia of the 12 mm port sites was closed with #1Vicryl in a [id number] fashion. A total of 30 mL of anesthetic was injected at the port sites for postoperative pain control. The skin of each port site was then closed in subcuticular fashion using 4-0 Monocryl. Steri- Strips and bandages were applied as dressings. Patient tolerated the procedure well without any apparent complications. On emergence from their anesthetic the patient was taken to PACU for ongoing recovery. Complications None Admit VTE Documentation VTE Mechan Device Prophylaxis: SCD's Procedures Digestive 40xxx-49xxx: 06287 Laparo cholecystectomy/graph
[2022-06-11] MEDS: Sugammadex Sodium 200 MG/2 ML VIAL IV (14:09)
--- NOTE | 2022-06-11 15:30 | NURSING ---
Patient down in surgery not on this floor at this time.
[2022-06-11 15:51] LABS: Bedside Glucose 105 mg/dL (74-106)
[2022-06-11] MEDS: Potassium Chloride Oral Tablet 20 MEQ PO (18:08)
[2022-06-11] MEDS: Ramipril 10 MG Capsule PO (18:15)
[2022-06-11] MEDS: hydrALAZINE 20 MG/ML Vial 10 MG IV (20:43)
[2022-06-11] MEDS: Rosuvastatin 20 MG Tablet 40 MG PO (21:04)
[2022-06-11] MEDS: Acetaminophen 325 MG Tablet 650 MG PO (23:58)
[2022-06-12 00:07] VITALS: BMI 22.7
[2022-06-12] MEDS: 0.9% Saline Lock 10 ML Syringe IV (02:30)
[2022-06-12] MEDS: HYDROmorphone 0.5 MG/0.5 ML SYRINGE IV (02:30)
[2022-06-12 02:33] VITALS: BP 125/67; PULSE 64; RESP 16; TEMP 36.6; O2SAT 98
[2022-06-12] MEDS: 0.9% Normal Saline 1,000 ML 100 ML IV (02:50)
[2022-06-12 03:46] VITALS: BMI 22.7
[2022-06-12 07:35] VITALS: BP 128/63; PULSE 65; PULSE 70; RESP 16; TEMP 36.9; O2SAT 98
--- NOTE | 2022-06-12 07:46 | NURSING ---
Addendum entered by Jenae Connor 06/12/22 07:48: instructed he is on a clear liquid diet and showed on the menu what he can order. Original Note: pt reported he had apple sauce, took it from the fridge.
[2022-06-12] MEDS: Fenofibrate 145 MG Tablet PO (07:57)
[2022-06-12] MEDS: Senna/Docusate Sodium 1 Tablet 2 TABLET PO (07:57)
[2022-06-12] MEDS: Aspirin E.C. 81 MG Tablet PO (07:58)
[2022-06-12] MEDS: Thiamine Hydrochloride 100 MG Tablet PO (07:58)
[2022-06-12] MEDS: Atenolol 50 MG Tablet PO (07:58)
[2022-06-12] MEDS: Folic Acid 1 MG Tablet PO (07:58)
[2022-06-12] MEDS: Potassium Chloride Oral Tablet 20 MEQ PO (07:58)
[2022-06-12] MEDS: Ramipril 10 MG Capsule PO (07:59)
--- NOTE | 2022-06-12 08:35 | PCM.PN.HOSP ---
Subjective Subjective Follow-up gallstone pancreatitis Laparoscopic Cholecystectomy with intraoperative cholangiogram clear on 06/11/2019 Description of Surgical Findings:: ? Evidence of acute cholecystitis with numerous adhesions between the gallbladder infundibulum and the omentum. ? Friable gallbladder leading to inadvertent rent and local contamination ? Cholecystectomy showing a small cystic duct joining a dilated common bile duct containing a biliary stent the right and left hepatic ducts Patient seen requesting to be discharged. Objective Data Objective Data Vital Signs: Vital Signs Temp Pulse Resp BP Pulse Ox O2 Del Method O2 Flow Rate 98.4 F 70 16 128/63 H 98 Room Air 2 06/12/22 07:35 06/12/22 07:35 06/12/22 07:35 06/12/22 07:35 06/12/22 07:35 06/12/22 07:35 06/11/22 20:17 Oxygen Flow Rate (L/min) 2 Oxygen Delivery Method Room Air Weight: 70.76 kg Body Mass Index (BMI) 22.6 Intake & Output: Intake and Output for Last 24 Hours 06/10/22 06/11/22 06/12/22 23:59 23:59 23:59 Intake Total 3261.67 / 3261.67 2380 / 2500 1120 / 1120 Balance 3261.67 / 3261.67 2380 / 2500 1120 / 1120 Lab / Micro Data Result Diagrams: 06/11/22 06:20 06/11/22 06:20 Labs: Laboratory Results - last 24 hr 06/11/22 15:28: POC Glucose 105 Radiography Diagnostic Testing: Radiology Impression Cholangiogram 06/11/22 12:30 IMPRESSION: 3. Contrast is seen entering the duodenum. No retained calculus is seen. Electronically Signed: Damaso Valenzuela MD at 14:45 EST , Physical Exam Narrative GENERAL: cooperative HEENT: Atraumatic; normocephalic EYES; Anicteric, Normal Conjunctiva NECK; supple, normal thyroid, RESPIRATORY: Diminished to auscultation CARDIOVASCULAR: Regular S1 S2, GI: soft, normoactive bowel sounds, right upper quadrant tenderness : No Renal angle tenderness; EXTREMITIES: No edema, no clubbing, MUSCULOSKELETAL: no muscle wasting NEURO: Awake; no lateralizing signs. SKIN: No Rash PSYCH; Flat affect Assessment & Plan Assessment/Plan (1) Epigastric pain: PLAN: Plan Patient is a 62-year-old gentleman with history of chronic alcohol dependence presented with abdominal pain. Imaging studies demonstrated cholelithiasis as well as choledocholithiasis admitted to regular nursing floor 1. Epigastric discomfort ? Secondary to combination of choledocholithiasis/cholelithiasis. Managed symptomatically with pain meds. Kept n.p.o. started on IV fluids and consultation placed to GI plan is for patient to undergo ERCP 06/08/2022 patient underwent ERCP on 06/07/[address] Araya findings included ?The entire main bile duct was dilated, with a stone causing an obstruction. - Choledocholithiasis was found.? Complete removal was accomplished by biliary ?sphincterotomy and balloon extraction. - A biliary sphincterotomy was performed. - The biliary tree was swept. Consult subsequently placed general surgery for possible Rozina cystectomy. Patient was seen in this regard by Dr. Colón Case discussed with him Patient seen this a.m. complaining of severe abdominal pain ordered lipase levels to rule out post ERCP pancreatitis -06/09/2022. Patient still has some epigastric discomfort lipase levels trending down however ? 06/10/2022; plan for patient to undergo laparoscopic cholecystectomy on 06/11/2022; ?06/11/2022;Patient is scheduled to undergo laparoscopic cholecystectomy with intraoperative cholangiogram ?06/12/2022; patient underwent laparoscopic Cholecystectomy with intraoperative cholangiogram on 06/11/2022 Description of Surgical Findings:: ? Evidence of acute cholecystitis with numerous adhesions between the gallbladder infundibulum and the omentum. ? Friable gallbladder leading to inadvertent rent and local contamination ? Cholecystectomy showing a small cystic duct joining a dilated common bile duct containing a biliary stent the right and left hepatic ducts Patient was seen in consultation by Dr. Meron Marquez for follow-up who recommended patient to be discharged home. 2. Acute pancreatitis ? Secondary to gallstones as well as alcohol use monitoring with daily lipase levels. Patient was kept n.p.o. Was started on PPI?Protonix ? 06/08/2022 patient pain much more intense compared to previous day. Repeat labs ordered 3. Acute transaminitis and hyperbilirubinemia ? Secondary to patient alcohol use as well as gallstones monitoring with daily LFTs 4. Diabetes mellitus type 2 ? Patient is on metformin held please on Accu-Cheks with insulin sliding scale coverage 5. Hepatic steatosis ? Secondary to patient alcohol use as well as underlying diabetes. Monitoring with daily LFTs. GI on board 6. Chronic alcohol abuse ? Counseled on cessation, started on phenobarb taper for possible early alcohol withdrawal 7. Coronary artery disease ? Patient has history of CABG with subsequent PCI patient is on recommended medications including rosuvastatin, aspirin atenolol Plavix 8. Essential hypertension ? Patient blood pressure controlled on atenolol and ramipril did continue 9. Dyslipidemia patient is on rosuvastatin did continue 10. GERD ? Patient is on lansoprazole, substituted with Protonix in the hospital 12. Carotid artery stenosis ? Patient is followed by vascular surgery as outpatient 10. DVT prophylaxis ? SC Lovenox 11. Hypokalemia ? Corrected per protocol repeat BMP ordered for a.m. Total time spent on patient; 38 minutes Charges/Coding Visit Charges Inpatient E&M: 61743 Subs Hosp L2
--- NOTE | 2022-06-12 08:41 | PN_ITS ---
Subjective Subjective Patient underwent successful cholecystectomy. There is noted to be mild bile leakage and operative report. He does have some discomfort around incision sites. No bowel movement yet. Objective Data Objective Data Vital Signs: Vital Signs Temp Pulse Resp BP Pulse Ox O2 Del Method O2 Flow Rate 98.4 F 70 16 128/63 H 98 Room Air 2 06/12/22 07:35 06/12/22 07:35 06/12/22 07:35 06/12/22 07:35 06/12/22 07:35 06/12/22 07:35 06/11/22 20:17 Oxygen Flow Rate (L/min) 2 Oxygen Delivery Method Room Air Weight: 155 lb 15.985 oz Body Mass Index (BMI) 22.6 Intake & Output: Intake and Output for Last 24 Hours 06/10/22 06/11/22 06/12/22 23:59 23:59 23:59 Intake Total 3261.67 / 3261.67 2380 / 2500 1120 / 1120 Balance 3261.67 / 3261.67 2380 / 2500 1120 / 1120 Lab / Micro Data Result Diagrams: 06/11/22 06:20 06/11/22 06:20 Labs: Laboratory Results - last 24 hr 06/11/22 15:28: POC Glucose 105 Radiography Diagnostic Testing: Radiology Impression Cholangiogram 06/11/22 12:30 IMPRESSION: 3. Contrast is seen entering the duodenum. No retained calculus is seen. Electronically Signed: Damaso Valenzuela MD at 14:45 EST , Physical Exam Narrative GENERAL: cooperative HEENT: Atraumatic; normocephalic EYES; Anicteric, Normal Conjunctiva NECK; supple, normal thyroid, RESPIRATORY: Diminished to auscultation CARDIOVASCULAR: Regular S1 S2, GI: soft, normoactive bowel sounds, right upper quadrant tenderness : No Renal angle tenderness; EXTREMITIES: No edema, no clubbing, MUSCULOSKELETAL: no muscle wasting NEURO: Awake; no lateralizing signs. SKIN: No Rash PSYCH; Flat affect Assessment & Plan Assessment/Plan (1) Choledocholithiasis with acute cholecystitis: PLAN: This is a 62-year-old male, with a complex past cardiac history, who presents for evaluation of choledocholithiasis and acute cholecystitis. Latter diagnosis was made on basis of exam with positive Bob sign. Patient is statu s post ERCP with stone extraction and sphincterotomy 06/07/2022. Repeat LFTs. Patient will need stent removed in 2 months. (2) Pancreatitis: PLAN: Appears clinically, significantly improved. He did have pancreatitis when he initially presented and then developed mild post ERCP point pancreatitis. Recommend IV fluids and repeat ESR, CRP and amylase and lipase when patient is eating. Charges/Coding Visit Charges Inpatient E&M: 16805 Subs Hosp L2
--- NOTE | 2022-06-12 10:09 | PCM.PN.SRG ---
Subjective Subjective patient is s/p laparoscopic cholecystectomy and wants to go home however, he comes out of the bathroom bent over with pain The nurses state that the patient wants to have his own way, recommendation was to keep patient in the hospital for pain management, but patient adamantly insists on going home Objective Data Objective Data Vital Signs: Vital Signs Temp Pulse Resp BP Pulse Ox O2 Del Method O2 Flow Rate 98.4 F 70 16 128/63 H 98 Room Air 2 06/12/22 07:35 06/12/22 07:35 06/12/22 07:35 06/12/22 07:35 06/12/22 07:35 06/12/22 07:35 06/11/22 20:17 Oxygen Flow Rate (L/min) 2 Oxygen Delivery Method Room Air Weight: 70.76 kg Body Mass Index (BMI) 22.6 Intake & Output: Intake and Output for Last 24 Hours 06/10/22 06/11/22 06/12/22 23:59 23:59 23:59 Intake Total 3261.67 / 3261.67 2380 / 2500 1120 / 1120 Balance 3261.67 / 3261.67 2380 / 2500 1120 / 1120 Lab / Micro Data Attestation: I reviewed the patient's lab results. Result Diagrams: 06/11/22 06:20 06/11/22 06:20 Labs: Laboratory Results - last 24 hr 06/11/22 15:28: POC Glucose 105 Radiography Diagnostic Testing: Radiology Impression Cholangiogram 06/11/22 12:30 IMPRESSION: 3. Contrast is seen entering the duodenum. No retained calculus is seen. Electronically Signed: Damaso Valenzuela MD at 14:45 EST , Physical Exam Const alert and oriented x3 Neck supple Resp normal respiratory effort Effort and Inspection: able to speak in complete sentences GI GI Narrative: abdomen is soft but generalized tenderness but no peritoneal signs, dressings intact Assessment & Plan Assessment/Plan (1) Status post laparoscopic cholecystectomy: PLAN: will discharge to home as patient wishes
[2022-06-12] MEDS: oxyCODONE 5 MG Tablet PO (11:58)
--- NOTE | 2022-06-12 12:04 | PCM.DC.SUM ---
Providers Date of Admission: 06/06/22 Date of Discharge: 06/12/22 Primary Care Physician: Dr. Chai Andrea, Consultations 06/06/22 16:37 Consult: Gastroenterology Routine Consulting Provider: [facility] Reason for Consult: Choledocholithiasis EMERGENT Consult: No Notified: Yes Date Notified: 06/06/22 Time Notified: 16:00 Method of Notification: Verbal 06/07/22 12:58 Consult: General Surgery Routine Consulting Provider: Tu Colón Reason for Consult: cholecystitis EMERGENT Consult: No Notified: Yes Date Notified: 06/07/22 Time Notified: 12:59 Method of Notification: Verbal Reason For Visit: CHOLEDOCHOLITHIASIS Diagnosis Discharge Diagnosis (1) Epigastric pain: Status: Acute Code(s): R10.13 - Epigastric pain Plan Patient is a 62-year-old gentleman with history of chronic alcohol dependence presented with abdominal pain. Imaging studies demonstrated cholelithiasis as well as choledocholithiasis admitted to regular nursing floor 1. Epigastric discomfort ? Secondary to combination of choledocholithiasis/cholelithiasis. Managed symptomatically with pain meds. Kept n.p.o. started on IV fluids and consultation placed to GI plan is for patient to undergo ERCP 06/08/2022 patient underwent ERCP on 06/07/[address] Araya findings included ?The entire main bile duct was dilated, with a stone causing an obstruction. - Choledocholithiasis was found.? Complete removal was accomplished by biliary ?sphincterotomy and balloon extraction. - A biliary sphincterotomy was performed. - The biliary tree was swept. Consult subsequently placed general surgery for possible Rozina cystectomy. Patient was seen in this regard by Dr. Colón Case discussed with him Patient seen this a.m. complaining of severe abdominal pain ordered lipase levels to rule out post ERCP pancreatitis -06/09/2022. Patient still has some epigastric discomfort lipase levels trending down however ? 06/10/2022; plan for patient to undergo laparoscopic cholecystectomy on 06/11/2022; ?06/11/2022;Patient is scheduled to undergo laparoscopic cholecystectomy with intraoperative cholangiogram ?06/12/2022; patient underwent laparoscopic Cholecystectomy with intraoperative cholangiogram on 06/11/2022 Description of Surgical Findings:: ? Evidence of acute cholecystitis with numerous adhesions between the gallbladder infundibulum and the omentum. ? Friable gallbladder leading to inadvertent rent and local contamination ? Cholecystectomy showing a small cystic duct joining a dilated common bile duct containing a biliary stent the right and left hepatic ducts Patient was seen in consultation by Dr. Meron Marquez for follow-up who recommended patient to be discharged home. 2. Acute pancreatitis ? Secondary to gallstones as well as alcohol use monitoring with daily lipase levels. Patient was kept n.p.o. Was started on PPI?Protonix ? 06/08/2022 patient pain much more intense compared to previous day. Repeat labs ordered 3. Acute transaminitis and hyperbilirubinemia ? Secondary to patient alcohol use as well as gallstones monitoring with daily LFTs 4. Diabetes mellitus type 2 ? Patient is on metformin held please on Accu-Cheks with insulin sliding scale coverage 5. Hepatic steatosis ? Secondary to patient alcohol use as well as underlying diabetes. Monitoring with daily LFTs. GI on board 6. Chronic alcohol abuse ? Counseled on cessation, started on phenobarb taper for possible early alcohol withdrawal 7. Coronary artery disease ? Patient has history of CABG with subsequent PCI patient is on recommended medications including rosuvastatin, aspirin atenolol Plavix 8. Essential hypertension ? Patient blood pressure controlled on atenolol and ramipril did continue 9. Dyslipidemia patient is on rosuvastatin did continue 10. GERD ? Patient is on lansoprazole, substituted with Protonix in the hospital 12. Carotid artery stenosis ? Patient is followed by vascular surgery as outpatient 10. DVT prophylaxis ? SC Lovenox 11. Hypokalemia ? Corrected per protocol repeat BMP ordered for a.m. Total time spent on patient; 38 minutes Medications at Discharge Home Medications ascorbic acid (vitamin C) 500 mg tablet 500 mg PO TID SUPPLEMENT 06/08/18 aspirin 81 mg tablet,delayed release (Adult Low Dose Aspirin) 81 mg PO DAILY HEALTH 06/08/18 magnesium oxide 400 mg PO DAILY SUPPLEMETN 06/08/18 acetylcysteine 600 mg capsule (NAC) 1,200 mg PO BID DIGESTION 05/29/19 nitroglycerin 0.4 mg sublingual tablet 0.4 mg sublingual Q5-15M PRN CHEST PAIN #25 tabs 04/02/21 milk thistle 175 mg tablet 175 mg PO BID SUPPLEMENT 09/22/21 atenolol 50 mg tablet 50 mg PO DAILY BP 06/06/22 cholecalciferol (vitamin D3) 25 mcg (1,000 unit) capsule 25 mcg PO DAILY SUPPLEMENT 06/06/22 clindamycin HCl 150 mg capsule 150 mg PO Q6H INFECTION 06/06/22 clopidogrel 75 mg tablet 75 mg PO DAILY BLOOD THINNER 06/06/22 fenofibrate micronized 200 mg capsule 200 mg PO DAILY CHOLESTEROL 06/06/22 icosapent ethyl 1 gram capsule (Vascepa) 2 g PO BID SUPPLEMENT 06/06/22 lansoprazole 30 mg capsule,delayed release 30 mg PO DAILY GERD 06/06/22 metformin 500 mg tablet,extended release 24 hr 500 mg PO BID DM 06/06/22 potassium citrate 5 mEq (540 mg) tablet,extended release 5 meq PO DAILY SUPPLEMENT 06/06/22 ramipril 10 mg capsule 10 mg PO DAILY HEART 06/06/22 rosuvastatin 40 mg tablet (Crestor) 40 mg PO QHS CHOLESTEROL 06/06/22 sildenafil 100 mg tablet 100 mg PO DAILY PRN Erectile Dysfunction 06/06/22 Hospital Course Summary of Care Provided Minutes Spent on Discharge: 36 Physical Exam Narrative GENERAL: cooperative HEENT: Atraumatic; normocephalic EYES; Anicteric, Normal Conjunctiva NECK; supple, normal thyroid, RESPIRATORY: Diminished to auscultation CARDIOVASCULAR: Regular S1 S2, GI: soft, normoactive bowel sounds, right upper quadrant tenderness : No Renal angle tenderness; EXTREMITIES: No edema, no clubbing, MUSCULOSKELETAL: no muscle wasting NEURO: Awake; no lateralizing signs. SKIN: No Rash PSYCH; Flat affect Weight / BMI Weight Weight: 70.76 kg Body Mass Index (BMI) 22.6 ABG / Lab / Microbiology Data Result Diagrams: 06/11/22 06:20 06/11/22 06:20 Laboratory: Laboratory Results - last 24 hr 06/11/22 15:28: POC Glucose 105 Radiography Diagnostic Testing: Radiology Impression Cholangiogram 06/11/22 12:30 IMPRESSION: 3. Contrast is seen entering the duodenum. No retained calculus is seen. Electronically Signed: Damaso Valenzuela MD at 14:45 EST , D/C Instructions Discharge Diet: No restrictions Discharge Activity: Return to Normal Activity Weight Bearing Status: Weight bearing as tolerated Call your doctor if you observe: Fever of 101 or Higher, Coldness, Increased Pain, Inability to urinate, Shortness of breath, Fainting spells, Chest pain, Increased palpitations (irregular heartbeat), Calf discomfort and Uncontrolled pain Meaningful Use Info Meaningful Use Diagnoses (Choose all that apply): None applicable Discharge Plan Admission Admit Date/Time: 06/06/22 15:56 Attending Provider: Mundo Keen Primary Care Provider: Chai Andrea Consulting Providers: Marcie Gomes ; Tu Colón Instructions Additional Instructions / Restrictions: stay on liquid diet for one to two days until pain is under better control may need to take an over the counter laxative leave dressings in place contact Dr. Colón office for follow up and further instructions Discharge Orders/Prescriptions Prescriptions: No Action aspirin [Adult Low Dose Aspirin] 81 mg tablet,delayed release (DR/EC) 81 mg PO DAILY magnesium oxide 400 mg capsule 400 mg PO DAILY ascorbic acid (vitamin C) 500 mg tablet 500 mg PO TID acetylcysteine [NAC] 600 mg capsule 1,200 mg PO BID Rx Instructions: administer with a meal nitroglycerin 0.4 mg tablet, sublingual 0.4 mg SUBLINGUAL Q5-15M PRN (Reason: CHEST PAIN) Qty: 25 3RF milk thistle 175 mg tablet 175 mg PO BID Rx Instructions: give with meal/snack clindamycin HCl 150 mg capsule 150 mg PO Q6H sildenafil 100 mg tablet 100 mg PO DAILY PRN (Reason: Erectile Dysfunction) Label Comments: TAKE 1 TABLET BY MOUTH NEEDED (ERECTILE DYSFUNCTION) cholecalciferol (vitamin D3) 25 mcg (1,000 unit) Capsule 25 mcg PO DAILY clopidogrel 75 mg tablet 75 mg PO DAILY fenofibrate micronized 200 mg capsule 200 mg PO DAILY lansoprazole 30 mg capsule,delayed release(DR/EC) 30 mg PO DAILY metformin 500 mg tablet extended release 24 hr 500 mg PO BID atenolol 50 mg tablet 50 mg PO DAILY potassium citrate 5 mEq (540 mg) tablet extended release 5 meq PO DAILY ramipril 10 mg capsule 10 mg PO DAILY rosuvastatin [Crestor] 40 mg tablet 40 mg PO QHS icosapent ethyl [Vascepa] 1 gram capsule 2 g PO BID Referrals / Follow Up: Chai Andrea DO [Primary Care Provider] - Within 1 Week Tu Colón MD [Med Staff - Active Staff] - Within 1 Week Jim Araya DO [Med Staff - Active Staff] - Within 2 Weeks Disposition Disposition (needs filled in before D/C Order can be placed): Home, Self Care Charges/Coding Visit Charges Inpatient E&M: 05020 Disch Hosp >30min
[2022-06-12 12:17] VITALS: BP 144/79; PULSE 60; RESP 18; TEMP 36.7; O2SAT 100
== END 2022-06-12 12:55 | disposition home or self-care (01) | DRG 417 ==
LOC: ED 13:09 → MS3 16:08
PROVIDERS: Anesthesiology; Internal Medicine Gastroenterology; Physician Assistant; Surgery; Admitting Provider Internal Medicine; Emergency Provider Emergency Medicine; PCP Student in an Organized Health Care Education/Training Program; Visit Provider Internal Medicine
PROC: 0FC98ZZ Extirpation of Matter from Common Bile Duct, Via Natural or Artificial Opening Endoscopic (ICD-10-PCS; CPT 43260; principal; 2022-06-07 11:25)
PROC: 0FT44ZZ Resection of Gallbladder, Percutaneous Endoscopic Approach (ICD-10-PCS; CPT 47610; principal; 2022-06-11 12:45)
DX: K80.63 Calculus of gallbladder and bile duct with acute cholecystitis with obstruction (principal); K85.10 Biliary acute pancreatitis without necrosis or infection; K91.81 Other intraoperative complications of digestive system; E11.51 Type 2 diabetes mellitus with diabetic peripheral angiopathy without gangrene; E11.65 Type 2 diabetes mellitus with hyperglycemia; J44.9 Chronic obstructive pulmonary disease, unspecified; F10.20 Alcohol dependence, uncomplicated; I25.10 Atherosclerotic heart disease of native coronary artery without angina pectoris; F17.290 Nicotine dependence, other tobacco product, uncomplicated; I10 Essential (primary) hypertension; E78.00 Pure hypercholesterolemia, unspecified; K70.0 Alcoholic fatty liver; K21.00 Gastro-esophageal reflux disease with esophagitis, without bleeding; I65.29 Occlusion and stenosis of unspecified carotid artery; E87.6 Hypokalemia; K83.8 Other specified diseases of biliary tract; K82.8 Other specified diseases of gallbladder; Y90.9 Presence of alcohol in blood, level not specified; Z71.41 Alcohol abuse counseling and surveillance of alcoholic; Z95.1 Presence of aortocoronary bypass graft; Z95.5 Presence of coronary angioplasty implant and graft; Z79.02 Long term (current) use of antithrombotics/antiplatelets; Z79.82 Long term (current) use of aspirin; Z79.84 Long term (current) use of oral hypoglycemic drugs; Z79.899 Other long term (current) drug therapy
CPT/HCPCS: 36415; 71045; 74177; 74300; 74330; 76000; 80048; 80053; 80076; 82150; 82962; 83036; 83690; 83735; 84100; 84484; 85025; 85610; 85730; 88304; 93005; 99252; 99284; 99406; J7030; J7040; J7050; J7120; Q9967; A4216; G0463; J2405

== ENCOUNTER 2022-06-15 21:03 | Emergency (ER) | payer OTHER, SELFPAY ==
[2022-06-15 21:04] VITALS: BP 148/59; PULSE 96; RESP 15; TEMP 36.8; O2SAT 98; BMI 22.1
--- NOTE | 2022-06-15 21:19 | EKG12_ITS ---
Test Reason : FEVER Blood Pressure : / mmHG Vent. Rate : 084 BPM Atrial Rate : 084 BPM P-R Int : 132 ms QRS Dur : 088 ms QT Int : 338 ms P-R-T Axes : 056 027 097 degrees QTc Int : 399 ms Sinus rhythm with Premature supraventricular complexes T wave abnormality, consider lateral ischemia Abnormal ECG Confirmed by ROBERT BERGMAN, MADHU ([id number]), film editor supervisor VIKTOR PALMER ([id number]) on 06/17/2022 8:22:39 AM Referred By: Confirmed By:MADHU JONES MD
--- NOTE | 2022-06-15 21:28 | EX.ED.DYSGE1 ---
HPI History of Present Illness Chief Complaint: Fever Detail of Chief Complaint: Documented temperature 100.6, shaking chills, URI SX and dysuria Informant: patient and spouse/S.O. 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 Patient had a an ERCP by Dr. Araya to remove a stone. He subsequently underwent laparoscopic cholecystectomy for acute cholecystitis and choledocholithiasis. He presents because 4 hours prior to presentation he had document after 100.6 with shaking chills. He does endorse rhinorrhea, congestion and mild sore throat and nonproductive cough. He denies headache, photophobia, neck pain or neck stiffness. He does endorse nausea without vomiting diarrhea. He does endorse dysuria with frequency. He states he has been drinking more fluids. He also complains of right flank discomfort. There is no history of trauma. He denies joint swelling. He does complain of some generalized aches. 1 hour prior to the elevated temperature he he took hydrocodone with acetaminophen. His states he took 2 pills. This may explain why he presently does not have an elevated temperature. Prior similar symptoms: No Recent Illness/Hospitalization: Yes [facility] Medical History Acute gastritis without mention of hemorrhage Alcohol use Arrhythmia Atherosclerosis of coronary artery bypass graft without angina pectoris Atherosclerosis of coronary artery of [place] without angina pectoris Back pain due to injury Carotid artery stenosis Chest pain COPD (chronic obstructive pulmonary disease) Diabetes Dysphagia Esophagitis Essential (primary) hypertension Fistula, anal GERD (gastroesophageal reflux disease) Heart attack High cholesterol History of stress test Hyperlipidemia Hypertension Hypertriglyceridemia Malignant neoplasm of anterior wall of urinary bladder Peripheral vascular occlusive disease Rheumatic fever Snoring Home Medications ascorbic acid (vitamin C) 500 mg tablet 500 mg PO TID SUPPLEMENT 06/08/18 [History Last Taken 06/06/22] aspirin 81 mg tablet,delayed release (Adult Low Dose Aspirin) 81 mg PO DAILY HEALTH 06/08/18 [History Last Taken 06/06/22] magnesium oxide 400 mg PO DAILY SUPPLEMETN 06/08/18 [History Last Taken 2 Weeks Ago ~05/23/22] acetylcysteine 600 mg capsule (NAC) 1,200 mg PO BID DIGESTION 05/29/19 [History Last Taken 06/06/22] nitroglycerin 0.4 mg sublingual tablet 0.4 mg sublingual Q5-15M PRN CHEST PAIN #25 tabs 04/02/21 [Rx Last Taken Unknown] milk thistle 175 mg tablet 175 mg PO BID SUPPLEMENT 09/22/21 [History Last Taken 06/06/22] atenolol 50 mg tablet 50 mg PO DAILY BP 06/06/22 [History Last Taken 06/06/22] cholecalciferol (vitamin D3) 25 mcg (1,000 unit) capsule 25 mcg PO DAILY SUPPLEMENT 06/06/22 [History Last Taken 06/06/22] clindamycin HCl 150 mg capsule 150 mg PO Q6H INFECTION 06/06/22 [History Last Taken Unknown] clopidogrel 75 mg tablet 75 mg PO DAILY BLOOD THINNER 06/06/22 [History Last Taken 06/06/22] fenofibrate micronized 200 mg capsule 200 mg PO DAILY CHOLESTEROL 06/06/22 [History Last Taken 06/06/22] icosapent ethyl 1 gram capsule (Vascepa) 2 g PO BID SUPPLEMENT 06/06/22 [History Last Taken 06/06/22] lansoprazole 30 mg capsule,delayed release 30 mg PO DAILY GERD 06/06/22 [History Last Taken 06/06/22] metformin 500 mg tablet,extended release 24 hr 500 mg PO BID DM 06/06/22 [History Last Taken 06/06/22] potassium citrate 5 mEq (540 mg) tablet,extended release 5 meq PO DAILY SUPPLEMENT 06/06/22 [History Last Taken 06/06/22] ramipril 10 mg capsule 10 mg PO DAILY HEART 06/06/22 [History Last Taken 06/06/22] rosuvastatin 40 mg tablet (Crestor) 40 mg PO QHS CHOLESTEROL 06/06/22 [History Last Taken 06/01/22] sildenafil 100 mg tablet 100 mg PO DAILY PRN Erectile Dysfunction 06/06/22 [History Last Taken Unknown] oxycodone-acetaminophen 5 mg-325 mg tablet (Percocet) 1 tab PO Q8H PRN pain 5 days #14 tabs 06/12/22 [Rx Last Taken Unknown] levofloxacin 500 mg tablet 500 mg PO DAILY #6 tabs 06/15/22 [Rx Last Taken Unknown] Allergy/AdvReac Type Severity Reaction Status Date / Time ticlopidine HCl [From Ticlid] Allergy Unknown Verified 06/15/22 21:09 Family History Father Cancer Heart disease Brother Diabetes Hypertension Mother Heart disease Surgical History H/O cardiac catheterization H/O coronary artery bypass surgery (2003) history of anal fistula repair (05/2018) History of coronary artery stent placement (07/02/16) History of esophagogastroduodenoscopy (EGD) History of left heart catheterization (07/02/16) Hx of appendectomy Hx of colonoscopy Hx of cystoscopy Hx of vasectomy Status post cardiac surgery Status post laparoscopic cholecystectomy Social History household members: none housing: house Smoking Status: Current every day smoker tobacco type: cigarettes alcohol intake: current alcohol intake frequency: 3 or more drinks per day details: Patient admits to drinking upwards of 9 shots of hard liquor daily substance use type: does not use caffeine: Yes ROS ROS ED Constitutional Constitutional ED: Reports chills and fever(s); Denies sweats or weight loss Eyes Eyes: Reports other Details: Further detail H PI narrative ; Denies blurry vision, change in vision or diplopia ENT ENT ED: Reports rhinorrhea and sore throat; Denies ear pain Cardiovascular Cardiovascular: Denies chest pain, orthopnea, palpitations or racing heartbeat Respiratory/Chest Respiratory/Chest: Reports cough; Denies dyspnea, dyspnea on exertion or orthopnea Gastrointestinal Gastrointestinal: Reports abdominal pain, constipation and nausea; Denies diarrhea, melena or vomiting Genitourinary Genitourinary ED: Reports dysuria and other Details: Further detail HPI narrative ; Denies hematuria or urinary frequency Musculoskeletal Musculoskeletal: Reports myalgias; Denies arthralgias, back pain or neck pain Integumentary Denies rash Neurologic Neurologic: Denies headache(s) or paresthesias Endocrine Endocrinology: Denies polydipsia or polyuria Hematologic/Lymphatic Hematologic/Lymphatic: Reports systems reviewed and no addt'l complaints, except as documented EXAM Physical Exam Const Vital Signs: 06/15/22 21:04 06/15/22 21:39 Temperature 98.2 F Temperature Source Temporal Pulse Rate 96 Respiratory Rate 15 Blood Pressure 148/59 H Blood Pressure Mean 88 Pulse Ox 98 Oxygen Delivery Method Room Air Room Air Positive well nourished and well developed General Appearance ED: well developed, NAD and pallor; Negative for cyanotic or diaphoretic HEENT Reports moist mucous membranes HEENT Narrative: Head is atraumatic normocephalic. Ears normal. TMs normal. Nares patent. There is clear drainage noted in the nares. There is slight erythema of the posterior pharynx out exudate. Uvula is midline. Eyes PERRL and EOMs intact bilaterally General Eye ED: Negative for pale conjunctiva or scleral icterus Neck no lymphadenopathy, supple and no JVD Chest Wall inspection of chest normal Resp normal respiratory effort and No clear to auscultation bilaterally Auscultation: rales right base Cardio regular rate, regular rhythm and no murmurs GI GI Narrative: Patient has bruising. There is tenderness over the bruised areas. There is no peritoneal findings. There is slight tympany to percussion. Bowel sounds are diminished. Incision sites are without evidence of infection or drainage. Palpation: soft Back/Spine no CVA tenderness Thoracic Spine / Upper Back: Negative for thoracic spinal tenderness Lumbar Spine / Lower Back: Negative for lumbar spinal tenderness Extremity Extremity Narrative: Extremities are slightly pale. General Extremety ED: Yes edema; Negative for tenderness General Extremity: edema Neuro oriented x3, CN's II-XII intact bilaterally and no sensory deficits noted Sensorium / Orientation: alert Motor Exam: strength 5/5 throughout Psych mental status grossly normal Skin no rashes or lesions noted, no wounds and skin turgor normal General Skin Exam: pallor; Negative for elasticity normal or jaundice MDM MDM MDM Narrative Medical decision making narrative: Patient presents with postop fever. Need to evaluate for atelectasis, pneumonia, viral infection, with complaints of dysuria will obtain UA. Sepsis work-up was undertaken. Because he has viral-like symptoms will obtain rapid antigen for COVID and influenza. Chest x-ray was obtained to evaluate rales noted on the right and rule out pneumonia. CBC to assess white count. H&H determined there is a drop in his hemoglobin since he has significant bruising. Other blood work to assess for endorgan dysfunction. EKG to rule out ischemia. Also determine rhythm. Patient with right lower lobe pneumonia. Curb 65 score is 0. Patient is appropriate for outpatient therapy. Since he has no allergies to antibiotics he was treated with levofloxacin. Lab Data Attestation: I reviewed the patient's lab results. Lab results narrative: White count and differential are normal. Comprehensive metabolic panel is unremarkable with no evidence of endorgan dysfunction. Patient does have prerenal azotemia. Lactate normal at 1 5. UA is not. Labs: Laboratory Results - last 24 hr 06/15/22 06/15/22 06/15/22 21:32 21:32 21:32 WBC 8.1 RBC 3.86 L Hgb 11.8 L Hct 35.4 L MCV 91.7 MCH 30.6 MCHC 33.3 RDW Std Deviation 42.5 RDW Coeff of Jeffrey 12.8 Plt Count 252 MPV 10.9 Immature Gran % (Auto) 0.200 Neut % (Auto) 64.2 Lymph % (Auto) 14.8 L Perry % (Auto) 15.0 H Eos % (Auto) 5.4 H Baso % (Auto) 0.4 Absolute Neuts (auto) 5.2 Absolute Lymphs (auto) 1.20 Nucleated RBC % 0 Sodium 138 Potassium 3.9 Chloride 108 H Carbon Dioxide 23.0 Anion Gap 7 BUN 22 H Creatinine 0.62 L Estim Creat Clear Calc 117.36 Est GFR (MDRD) Af Amer 168 Est GFR (MDRD) Non-Af 139 BUN/Creatinine Ratio 35.3 H Glucose 103 Lactic Acid 1.5 Calcium 9.7 Total Bilirubin 0.40 AST 25 ALT 45 Alkaline Phosphatase 136 H Total Protein 6.7 Albumin 3.2 Globulin 3.5 Albumin/Globulin Ratio 0.9 Urine Color Urine Clarity Urine pH Ur Specific [place] Urine Protein Urine Glucose (UA) Urine Ketones Urine Occult Blood Urine Nitrite Urine Bilirubin Urine Urobilinogen Ur Leukocyte Esterase Urine RBC Urine WBC Ur Squamous Epith Cells Urine Bacteria Urine Mucus 06/15/22 21:41 WBC RBC Hgb Hct MCV MCH MCHC RDW Std Deviation RDW Coeff of Jeffrey Plt Count MPV Immature Gran % (Auto) Neut % (Auto) Lymph % (Auto) Perry % (Auto) Eos % (Auto) Baso % (Auto) Absolute Neuts (auto) Absolute Lymphs (auto) Nucleated RBC % Sodium Potassium Chloride Carbon Dioxide Anion Gap BUN Creatinine Estim Creat Clear Calc Est GFR (MDRD) Af Amer Est GFR (MDRD) Non-Af BUN/Creatinine Ratio Glucose Lactic Acid Calcium Total Bilirubin AST ALT Alkaline Phosphatase Total Protein Albumin Globulin Albumin/Globulin Ratio Urine Color Straw Urine Clarity Clear Urine pH 8.0 Ur Specific [place] 1.010 Urine Protein Negative Urine Glucose (UA) Normal Urine Ketones Negative Urine Occult Blood Negative Urine Nitrite Negative Urine Bilirubin Negative Urine Urobilinogen Normal Ur Leukocyte Esterase Negative Urine RBC 0 SEEN Urine WBC 0 SEEN Ur Squamous Epith Cells 0 SEEN Urine Bacteria 0 SEEN Urine Mucus 0 SEEN Radiography Chest X-Ray - ED: 1 View and Read by ED Physician (Increased interstitial markings right lower lobe concern for pneumonia. There is no air bronchogram. Cardiac silhouette and size unremarkable. Osseous structures are unremarkable. Perihilar regions unremarkable.) Diagnostic Testing: Clinical Impression(s) from Imaging Studies Chest X-Ray 06/15/22 21:52 IMPRESSION: Right lower lung infiltrates. Electronically Signed: Luis Enrique Nielson MD at 22:04 EST Reading Location ID and State: [facility] / [place] Tel , Service support , The radiologist read the interstitial markings in the right lower lobe as pneumonia. EKG Initial EKG: Attestation: I personally reviewed and interpreted this EKG as follows: Interpretation: Sinus Rhythm (Rate is 84. There is an occasional PAC noted. AR interval is 130 ms. QS duration 88 ms. QT durations are 38 ms. [place] is normal. There is nonspecific ST-T wave changes noted with flipped T waves) Discharge Plan Triage Chief Complaint: Fever ED Provider: Jackson Flood Dx/Rx/DC Orders Clinical Impression: Right lower lobe pneumonia, Essential (primary) hypertension, Atherosclerosis of coronary artery bypass graft without angina pectoris, Status post laparoscopic cholecystectomy Instructions: ED Pneumonia (Adult) Prescriptions: New levofloxacin [levofloxacin] 500 mg tablet 500 mg PO DAILY Qty: 6 0RF No Action aspirin [Adult Low Dose Aspirin] 81 mg tablet,delayed release (DR/EC) 81 mg PO DAILY magnesium oxide 400 mg capsule 400 mg PO DAILY ascorbic acid (vitamin C) 500 mg tablet 500 mg PO TID acetylcysteine [NAC] 600 mg capsule 1,200 mg PO BID Rx Instructions: administer with a meal nitroglycerin 0.4 mg tablet, sublingual 0.4 mg SUBLINGUAL Q5-15M PRN (Reason: CHEST PAIN) Qty: 25 3RF milk thistle 175 mg tablet 175 mg PO BID Rx Instructions: give with meal/snack clindamycin HCl 150 mg capsule 150 mg PO Q6H sildenafil 100 mg tablet 100 mg PO DAILY PRN (Reason: Erectile Dysfunction) Label Comments: TAKE 1 TABLET BY MOUTH NEEDED (ERECTILE DYSFUNCTION) cholecalciferol (vitamin D3) 25 mcg (1,000 unit) Capsule 25 mcg PO DAILY clopidogrel 75 mg tablet 75 mg PO DAILY fenofibrate micronized 200 mg capsule 200 mg PO DAILY lansoprazole 30 mg capsule,delayed release(DR/EC) 30 mg PO DAILY metformin 500 mg tablet extended release 24 hr 500 mg PO BID atenolol 50 mg tablet 50 mg PO DAILY potassium citrate 5 mEq (540 mg) tablet extended release 5 meq PO DAILY ramipril 10 mg capsule 10 mg PO DAILY rosuvastatin [Crestor] 40 mg tablet 40 mg PO QHS icosapent ethyl [Vascepa] 1 gram capsule 2 g PO BID oxycodone-acetaminophen [Percocet] 5-325 mg tablet 1 tab PO Q8H PRN (Reason: pain) 5 Days Qty: 14 0RF Primary Care Provider: Chai Andrea Referrals: Chai Andrea, [Primary Care Provider] - 3-5 Days Disposition Disposition: Home, Self Care
[2022-06-15 21:46] LABS: Bacteria 0 SEEN /hpf (None Seen); Mucous, Urine 0 SEEN /hpf (<or=2+); Red Blood Cells-Urine 0 SEEN /hpf (0-5); Squamous Epithelial Cells - UA 0 SEEN /hpf (0-5); White Blood Cells 0 SEEN /hpf (0-5)
[2022-06-15 21:46] LABS: Absolute Neutrophil Count 5.2 X10^3/uL (2.0-7.7); Basophil# 0.03 X10^3/uL; Basophil% 0.4 % (0-1); Eosinophil# 0.44 X10^3/uL; Eosinophils% 5.4 % (0-5); Hematocrit 35.4 % (40-54); Hemoglobin 11.8 g/dL (13.0-16.5); Lymphocyte % 14.8 % (19-41); Mean Corp Hgb Conc 33.3 g/dL (32-36); Mean Corpuscular Hgb 30.6 pg (27.0-32.0); Mean Corpuscular Volume 91.7 fL (80-94); Mean Platelet Vol. 10.9 fl (6.2-12.0); Monocyte# 1.22 X10^3/uL; NRBC Flagged by Analyzer 0 % (0-5); Neutrophil % 64.2 % (47-70); Platelet Count 252 K/mm3 (150-450); RBC Distribution Width CV 12.8 % (11.6-14.6); RBC Distribution Width SD 42.5 fl (35.1-43.9); Red Blood Count 3.86 M/mm3 (4.6-6.2); White Blood Count 8.1 K/mm3 (4.4-11.0)
[2022-06-15] MEDS: 0.9% Normal Saline 1,000 ML 150 ML IV (21:46)
[2022-06-15 21:50] LABS: Color, Urine Straw (Yellow); Glucose, Dipstick Normal (Normal); Ketone-Dipstick Negative (Negative); Leukocyte Esterase-Dipstick Negative /ul (Negative); Nitrite-Dipstick Negative (Negative); Occult Blood-Urine Negative /ul (Negative); Protein-Dipstick Negative (Negative); Urine Bilirubin Dipstick Negative (Negative); Urine Clarity Clear (Clear); Urine Urobilinogen Normal (Normal)
--- NOTE | 2022-06-15 21:52 | RAD_ITS ---
INDICATION: Rales posteriorly right side, fever, cough EXAMINATION/TECHNIQUE: X-RAY - XR Chest 1 View COMPARISON: 06/06/2022 FINDINGS: LINES/DEVICES: None. LUNGS: Right lower lung infiltrates. The left lung appears clear. MEDIASTINUM AND CARDIOVASCULAR STRUCTURES: CABG. Central airways and mediastinal contour are unremarkable. RAD/Chest 1 View (Portable) IMPRESSION: Right lower lung infiltrates. Electronically Signed: Luis Enrique Nielson MD at 22:04 EST ,
[2022-06-15 22:02] LABS: ALB/GLOB Ratio 0.9 RATIO (0.9-2.4); AST(SGOT) 25 U/L (15-37); Alanine Aminotransfer ALT/SGPT 45 U/L (16-61); Albumin, Serum 3.2 g/dL (3.2-5.0); Alkaline Phosphatase 136 U/L (45-117); Anion Gap 7 (5-15); BUN 22 mg/dL (7-18); BUN/Creat Ratio 35.3 RATIO (10-20); Calcium,Total 9.7 mg/dL (8.5-10.1); Chloride 108 mmol/L (98-107); Creatinine, Serum 0.62 mg/dL (0.70-1.30); EST Glomerular Filtration Rate 139 mL/min (>60); Est Glom Filt Rate - Afr Amer 168 mL/min (>60); Estimated Creatinine Clearance 117.36 ml/min; Globulin 3.5 g/dL (2.2-4.2); Glucose 103 mg/dL (74-106); Potassium 3.9 mmol/L (3.5-5.1); Protein, Total 6.7 g/dL (6.4-8.2); Sodium Level 138 mmol/L (136-145)
[2022-06-15 22:10] LABS: Lactic Acid 1.5 mmol/L (0.4-1.9)
[2022-06-15 22:21] LABS: Partial Thromboplast Time 32.4 Seconds (24.1-36.2)
[2022-06-15 22:26] LABS: International Normalized Ratio 1.1; Prothrombin Time (Protime)PT. 14.2 SECONDS (11.7-14.9)
[2022-06-15] MEDS: levoFLOXacin 750 MG Tablet PO (22:35)
== END 2022-06-15 22:43 | disposition home or self-care (01) ==
PROVIDERS: Emergency Provider Emergency Medicine; PCP Student in an Organized Health Care Education/Training Program; Visit Provider Emergency Medicine
DX: J18.9 Pneumonia, unspecified organism (principal); J44.9 Chronic obstructive pulmonary disease, unspecified; E11.9 Type 2 diabetes mellitus without complications; I10 Essential (primary) hypertension; I25.10 Atherosclerotic heart disease of native coronary artery without angina pectoris; I25.2 Old myocardial infarction; E78.00 Pure hypercholesterolemia, unspecified; F17.210 Nicotine dependence, cigarettes, uncomplicated; F10.10 Alcohol abuse, uncomplicated; Z90.49 Acquired absence of other specified parts of digestive tract; Z95.1 Presence of aortocoronary bypass graft; Z95.5 Presence of coronary angioplasty implant and graft; Z79.02 Long term (current) use of antithrombotics/antiplatelets; Z79.82 Long term (current) use of aspirin; Z79.84 Long term (current) use of oral hypoglycemic drugs; Z79.899 Other long term (current) drug therapy
CPT/HCPCS: 71045; 80053; 81001; 83605; 85025; 85610; 85730; 87040; 87086; 87428; 93005; 96360; 99285; J7030; A4216

== ENCOUNTER 2022-08-17 13:14 | Day surgery (SDC) | payer OTHER, SELFPAY ==
[2022-08-17 13:41] VITALS: BP 117/66; PULSE 63; RESP 16; TEMP 36.6; O2SAT 100; BMI 22.7
[2022-08-17] MEDS: Lactated Ringers 1,000 ML 15 ML IV (13:50)
--- NOTE | 2022-08-17 14:02 | HP.PCM_ITS ---
History and Physical Date of Admission: 08/17/22 62 M who presented to the emergency department complaining of epigastric pain and chest pain.? Patient states he felt well yesterday.? He was hunting today and they stopped for lunch and he was experiencing fairly severe epigastric pain and right upper quadrant pain.? He reports he tried to eat a couple bites of chili but was unable secondary to pain being so bad.? He stated it radiated up into his chest a little bit but was predominantly in the epigastric region and radiated across his upper abdomen.? He had no nausea or vomiting.? No change in stools.? He is never had this before.? He does admit to regular alcohol use and states he drinks up to 9 shots daily.? He has never not drink for an extended period of time so he is unclear if he will go through withdrawal.? He has had no fever or chills, no respiratory symptoms, no shortness of breath, no tingling, numbness, or weakness.? In the ED his comprehensive metabolic profile showed a bilirubin of 2.81, AST of 198 and ALT of 171.? He was also noted to have an increased lipase.? he had a CT scan abdomen pelvis that had shown multiple filling defects in the distal common bile duct consistent with choledocholithiasis.? I was consulted for ERCP. he underwent ERCP with multiple stones removed from the common bile duct after sphincterotomy and balloon dilation of the distal common bile duct. He also had a stent placed in the common bile duct. He arrives today today for stent removal or exchange. [facility] Medical History?(Updated 06/06/22 @ 21:27 by Shane Apple) Acute gastritis without mention of hemorrhage Alcohol use Arrhythmia Atherosclerosis of coronary artery bypass graft without angina pectoris Atherosclerosis of coronary artery of [place] heart without angina pectoris Back pain due to injury Carotid artery stenosis Chest pain COPD (chronic obstructive pulmonary disease) Diabetes Dysphagia Esophagitis Essential (primary) hypertension Fistula, anal GERD (gastroesophageal reflux disease) Heart attack High cholesterol History of stress test Hyperlipidemia Hypertension Hypertriglyceridemia Malignant neoplasm of anterior wall of urinary bladder Peripheral vascular occlusive disease Rheumatic fever Snoring Home Medications ascorbic acid (vitamin C) 500 mg tablet 500 mg PO TID SUPPLEMENT 06/08/18 [History Last Taken 06/06/22] aspirin 81 mg tablet,delayed release (Adult Low Dose Aspirin) 81 mg PO DAILY HEALTH 06/08/18 [History Last Taken 06/06/22] magnesium oxide 400 mg PO DAILY SUPPLEMETN 06/08/18 [History Last Taken 2 Weeks Ago ~05/23/22] acetylcysteine 600 mg capsule (NAC) 1,200 mg PO BID DIGESTION 05/29/19 [History Last Taken 06/06/22] nitroglycerin 0.4 mg sublingual tablet 0.4 mg sublingual Q5-15M PRN CHEST PAIN #25 tabs 04/02/21 [Rx Last Taken Unknown] milk thistle 175 mg tablet 175 mg PO BID SUPPLEMENT 09/22/21 [History Last Taken 06/06/22] atenolol 50 mg tablet 50 mg PO DAILY BP 06/06/22 [History Last Taken 06/06/22] cholecalciferol (vitamin D3) 25 mcg (1,000 unit) capsule 25 mcg PO DAILY SUPPLEMENT 06/06/22 [History Last Taken 06/06/22] clindamycin HCl 150 mg capsule 150 mg PO Q6H INFECTION 06/06/22 [History Last Taken Unknown] clopidogrel 75 mg tablet 75 mg PO DAILY BLOOD THINNER 06/06/22 [History Last Taken 06/06/22] fenofibrate micronized 200 mg capsule 200 mg PO DAILY CHOLESTEROL 06/06/22 [History Last Taken 06/06/22] icosapent ethyl 1 gram capsule (Vascepa) 2 g PO BID SUPPLEMENT 06/06/22 [History Last Taken 06/06/22] lansoprazole 30 mg capsule,delayed release 30 mg PO DAILY GERD 06/06/22 [History Last Taken 06/06/22] metformin 500 mg tablet,extended release 24 hr 500 mg PO BID DM 06/06/22 [History Last Taken 06/06/22] potassium citrate 5 mEq (540 mg) tablet,extended release 5 meq PO DAILY SUPPLEMENT 06/06/22 [History Last Taken 06/06/22] ramipril 10 mg capsule 10 mg PO DAILY HEART 06/06/22 [History Last Taken 06/06/22] rosuvastatin 40 mg tablet (Crestor) 40 mg PO QHS CHOLESTEROL 06/06/22 [History Last Taken 06/01/22] sildenafil 100 mg tablet 100 mg PO DAILY PRN Erectile Dysfunction 06/06/22 [History Last Taken Unknown] Allergy/AdvReac Type Severity Reaction Status Date / Time ticlopidine HCl [From Ticlid] Allergy ? Unknown Verified 06/06/22 12:55 Family History? Father Cancer Heart diseaseBrother Diabetes HypertensionMother Heart disease Surgical History?(Updated 06/06/22 @ 21:27 by Shane Apple) H/O cardiac catheterization H/O coronary artery bypass surgery (2003) history of anal fistula repair (05/2018) History of coronary artery stent placement (07/02/16) History of esophagogastroduodenoscopy (EGD) History of left heart catheterization (07/02/16) Hx of appendectomy Hx of colonoscopy Hx of cystoscopy Hx of vasectomy Status post cardiac surgery Social History?(Updated 06/06/22 @ 16:[address] Marcie Gomes, DO) household members:? none housing:? house Smoking Status:? Current every day smoker tobacco type: cigarettes alcohol intake:? current alcohol intake frequency: 3 or more drinks per day details:? Patient admits to drinking upwards of 9 shots of hard liquor daily substance use type:? does not use caffeine:? Yes ROS Constitutional Constitutional: Denies anorexia, change in weight, chills, fatigue, fever(s), malaise, night sweats, weakness or other Eyes Eyes: Denies blurry vision, change in eye color, change in vision, discharge from eye(s), double vision, erythema, eye pain, loss of vision or other ENT HEENT: Denies abnormal hearing, dysphagia, ear pain, epistaxis, headache(s), hearing loss, nasal congestion, nasal discharge, post nasal drip, sinus pressure, sore throat or other Cardiovascular Cardiovascular: Reports chest pain; Denies claudication, dyspnea on exertion, edema, lightheadedness, orthopnea, palpitations, paroxysmal nocturnal dyspnea, rapid heart rate, syncope or other Respiratory/Chest Respiratory/Chest: Denies cough, dyspnea, excessive phlegm production, hemoptysis, productive cough, shortness of breath at rest, shortness of breath with exertion, wheezing or other Gastrointestinal Gastrointestinal: Reports abdominal pain; Denies coffee ground emesis, constipation, diarrhea, dyspepsia, hematemesis, hematochezia, loose stools, melena, nausea, vomiting or other Genitourinary Genitourinary: Denies burning urination, difficulty urinating, dysuria, hematuria, nocturia, urinary frequency, urinary hesitancy, urinary incontinence, urinary urgency or other Musculoskeletal Musculoskeletal: Denies arthralgias, back pain, joint pain, joint stiffness, joint swelling, myalgias, neck pain or other Neurologic Neurologic: Denies abnormal gait, abnormal speech, confusion, disequilibrium, dizziness, focal weakness, headache(s), numbness, paresthesias, seizure-like activity, seizures, syncope, tingling, tremor(s) or other Psychiatric Psychiatric: Denies anxiety, depression, homicidal ideation, suicidal ideation or other Endocrine Endocrinology: Denies change in body appearance, cold intolerance, excessive sweating, heat intolerance, polydipsia, polyuria or other Hematologic/Lymphatic Hematologic/Lymphatic: Denies anemia, easy bleeding, easy bruising, lymphadenopathy or other Allergic/Immunologic Allergic/Immunologic: Denies rhinitis, hives, eczemia, asthma or other Physical Exam Narrative GENERAL: cooperative HEENT: Atraumatic; normocephalic EYES; Anicteric, Normal Conjunctiva NECK; supple, normal thyroid, RESPIRATORY: Diminished to auscultation CARDIOVASCULAR:? Regular S1 S2, GI:? soft, normoactive bowel sounds, : No Renal angle tenderness; EXTREMITIES:? No edema, no clubbing, MUSCULOSKELETAL:? no muscle wasting NEURO:? Awake;? no lateralizing signs. SKIN:? No Rash PSYCH; Flat? affect Lab / Micro Data Result Diagrams: 06/07/22 04:17? 06/07/22 04:17? Labs: Laboratory Results - last 24 hr 06/06/22 13:18:?WBC 9.0, RBC 4.69, Hgb 14.5, Hct 42.1, MCV 89.8, MCH 30.9, MCHC 34.4, RDW Std Deviation 41.9, RDW Coeff of Jeffrey 12.8, Plt Count 203, MPV 10.9, Immature Gran % (Auto) 0.300,?Neut % (Auto) 74.7 H,?Lymph % (Auto) 12.5 L,?[place] % (Auto) 11.9 H, Eos % (Auto) 0.3, Baso % (Auto) 0.3, Absolute Neuts (auto) 6.7, Absolute Lymphs (auto) 1.12, Nucleated RBC % 0 06/06/22 13:18:?PT 14.5, INR 1.2, APTT 26.6 06/06/22 13:18:?Sodium 137,?Potassium 3.4 L, Chloride 106, Carbon Dioxide 26.0, Anion Gap 5,?BUN 20 H, Creatinine 0.83, Estim Creat Clear Calc 91.10, Est GFR (MDRD) Af Amer 121, Est GFR (MDRD) Non-Af 100,?BUN/Creatinine Ratio 24.1 H,? Glucose 176 H, Calcium 9.5,?Total Bilirubin 2.10 H,?AST 98 H,?ALT 71 H, Alkaline Phosphatase 46, Troponin I High Sens 31, Total Protein 6.7, Albumin 3.8, Globulin 2.9, Albumin/Globulin Ratio 1.3,?Lipase 579 H 06/06/22 15:45:?Troponin I High Sens 34 06/07/22 04:17:?WBC 6.2, RBC 4.84, Hgb 14.9, Hct 44.4, MCV 91.7, MCH 30.8, MCHC 33.6, RDW Std Deviation 43.5, RDW Coeff of [place] 12.9, Plt Count 179, MPV 11.5, Immature Gran % (Auto) 0.300, Neut % (Auto) 64.9,?Lymph % (Auto) 17.1 L,?[place] % (Auto) 15.8 H, Eos % (Auto) 1.3, Baso % (Auto) 0.6, Absolute Neuts (auto) 4.0, Absolute Lymphs (auto) 1.06, Nucleated RBC % 0 06/07/22 04:17:?Sodium 140, Potassium 3.6,?Chloride 108 H, Carbon Dioxide 26.0, Anion Gap 6, BUN 14, Creatinine 0.72, Estim Creat Clear Calc 105.01, Est GFR (MDRD) Af Amer 143, Est GFR (MDRD) Non-Af 118, BUN/Creatinine Ratio 19.6, Glucose 89, Calcium 8.9,?Phosphorus 2.2 L,?Magnesium 1.5 L,?Total Bilirubin 3.30 H,?AST 136 H,?ALT 127 H, Alkaline Phosphatase 47,?Total Protein 6.2 L, Albumin 3.5, Globulin 2.7, Albumin/Globulin Ratio 1.3 01/09/23 04:17: Hemoglobin A1c 5.7 H Radiology Impression Abdomen/Pelvis CT? 06/06/22 13:04 IMPRESSION: ? 1.? Cholelithiasis. ? 2.? Choledocholithiasis. ? 3.? Mild hepatic steatosis. ? Electronically Signed: Ridge Cheatham MD at 15:04 EST , ? Chest X-Ray? 06/06/22 13:04 IMPRESSION: ? No acute cardiopulmonary abnormality. ? Electronically Signed: Ridge Cheatham MD at 13:38 EST , ? Assessment & Plan Assessment/Plan (1) Alcohol abuse: PLAN: Patient counseled on the harms that alcohol is causing to his liver and his pancreas.? He said he would try to stop. (2) Choledocholithiasis: PLAN: He will need to undergo ERCP with stent removal or exchange.? He was explained alternatives, risk, benefits including outstanding bleeding, infection, sepsis, perforation, need for emergent surgery .? He will have an ASA of 3. (3) Pancreatitis: PLAN: Mild biochemical evidence of pancreatitis most likely secondary to just extreme edema at the distal common bile duct.
[2022-08-17 14:16] LABS: Bedside Glucose 123 mg/dL (74-106)
[2022-08-17 14:30] VITALS: BP 134/83; PULSE 65; RESP 16; O2SAT 100
--- NOTE | 2022-08-17 15:55 | RAD_ITS ---
CLINICAL HISTORY: Male, 62 years old. Pain. Stent removal. PROCEDURE: ERCP FLUOROSCOPY TIME (if supplied): 81.1 seconds 14.78 mGy exposure. TECHNIQUE: Fluoroscopic guidance was provided during the performance of an ERCP. 7 procedural images were presented for interpretation. The initial image demonstrates an endoscope in the duodenum with cannulization CBD. Contrast fills the extrahepatic and central intrahepatic ducts without stricture or filling defect. Minimal contrast is seen in the cystic duct. Second image demonstrates balloon sweeping of the CBD. There is increased contrast in the central intrahepatic ducts. Similar findings are seen in the third image. The fourth image demonstrates contrast in the intrahepatic bile ducts and common hepatic duct. The distal duct is not opacified. A fifth image demonstrates opacification of the intrahepatic and extrahepatic bile ducts without filling defect stricture or other abnormality. Similar findings are seen in the sixth and seventh images. Please refer to procedural report for further details. RAD/ERCP Biliary Only IMPRESSION: Fluoroscopy provided during ERCP. Electronically Signed: Austin Mcintosh DO at 17:56 EDT ,
--- NOTE | 2022-08-17 16:21 | OP.ERCP_ITS ---
Patient Name: Mundo Morgan Procedure Date: 08/17/2022 3:19 PM Date of : 1960 Age: 62 Procedure: ERCP Indications: Stent removal Providers: Jim Araya DO Medicines: Monitored Anesthesia Care, General Anesthesia Patient Profile: This is a 62 year old male. Refer to note in patient chart for documentation of history and physical. Patient has symptoms. Complications: No immediate complications. Procedure: Pre-Anesthesia Assessment: - Prior to the procedure, a History and Physical was performed, and patient medications and allergies were reviewed. The patient is competent. The risks and benefits of the procedure and the sedation options and risks were discussed with the patient. All questions were answered and informed consent was obtained. Patient identification and proposed procedure were verified by the physician in the pre-procedure area. Mental Status Examination: alert and oriented. Airway Examination: normal oropharyngeal airway and neck mobility. Respiratory Examination: clear to auscultation. CV Examination: normal. Prophylactic Antibiotics: The patient does not require prophylactic antibiotics. Prior Anticoagulants: The patient has taken no previous anticoagulant or antiplatelet agents. ASA Grade Assessment: II - A patient with mild systemic disease. After reviewing the risks and benefits, the patient was deemed in satisfactory condition to undergo the procedure. The anesthesia plan was to use monitored anesthesia care (MAC). Immediately prior to administration of medications, the patient was re-assessed for adequacy to receive sedatives. The heart rate, respiratory rate, oxygen saturations, blood pressure, adequacy of pulmonary ventilation, and response to care were monitored throughout the procedure. The physical status of the patient was re-assessed after the procedure. After obtaining informed consent, the scope was passed under direct vision. Throughout the procedure, the patient's blood pressure, pulse, and oxygen saturations were monitored continuously. The Duodenoscope was introduced through the mouth, and advanced to the duodenum and used to inject contrast into the dorsal pancreatic duct. The ERCP was accomplished without difficulty. The patient tolerated the procedure well. Scope In: 3:54:07 PM Scope Out: 4:13:37 PM Total Procedure Duration Time 0 hours 19 minutes 30 seconds Findings: The mexican food cook film was normal. The esophagus was successfully intubated under direct vision. The scope was advanced to a normal major papilla in the descending duodenum without detailed examination of the pharynx, larynx and associated structures, and upper GI tract. The upper GI tract was grossly normal. The bile duct was deeply cannulated with the short-nosed traction sphincterotome. Contrast was injected. I personally interpreted the bile duct images. There was brisk flow of contrast through the ducts. Image quality was excellent. Contrast extended to the entire biliary tree. Opacification of the entire biliary tree except for the cystic duct and gallbladder and main bile duct was successful. The maximum diameter of the ducts was 10 mm. The in the biliary system contained a single localized stenosis 3 mm in length. A 0.025 inch x 450 cm angled Visiglide wire was passed into the biliary tree. A 5 mm biliary sphincterotomy was made with a traction (standard) sphincterotome using ERBE electrocautery. The sphincterotomy oozed blood. The biliary tree was swept with a 15 mm balloon starting at the bifurcation. Sludge was swept from the duct. One stent was removed from the biliary tree using a snare. Impression: - A single localized biliary stricture was found. The stricture was post-surgical. - A biliary sphincterotomy was performed. - The biliary tree was swept and sludge was found. - One stent was removed from the biliary tree. Procedure Code(s): --- Professional --- 12339, Endoscopic retrograde cholangiopancreatography (ERCP); with removal of foreign body(s) or stent(s) from biliary/pancreatic duct(s) 56271, Endoscopic retrograde cholangiopancreatography (ERCP); with removal of calculi/debris from biliary/pancreatic duct(s) 20972, Endoscopic retrograde cholangiopancreatography (ERCP); with sphincterotomy/papillotomy 47457, 26, Endoscopic catheterization of the biliary ductal system, radiological supervision and interpretation CPT copyright 2017 [employer]. All rights reserved. The codes documented in this report are preliminary and upon roll grinder operator review may be revised to meet current compliance requirements. Jim Araya DO 08/17/2022 4:20:55 PM This report has been signed electronically. Number of Addenda: 0 Note Initiated On: 08/17/2022 3:19 PM
--- NOTE | 2022-08-17 16:22 | OP.CCLET_ITS ---
08/17/2022 Chai Andrea [address] [place] [address] Re : ERCP procedure for Mundo Morgan Dear Dr. Andrea This procedure was performed on Wednesday, August 17, 2022. My impressions and recommendations are as follows: Impressions : - A single localized biliary stricture was found. The stricture was post-surgical. - A biliary sphincterotomy was performed. - The biliary tree was swept and sludge was found. - One stent was removed from the biliary tree. Recommendations : My findings are described in the full procedure note, which is enclosed. If I can be of further assistance, please feel free to contact me at . Sincerely, Jim Araya, 08/17/2022 4:20:55 PM This report has been signed electronically.
[2022-08-17 16:26] VITALS: BP 119/79; PULSE 66; RESP 16; TEMP 36.1; O2SAT 100
[2022-08-17 16:45] VITALS: BP 135/76; PULSE 60; RESP 16; O2SAT 100
[2022-08-17 16:50] LABS: Bedside Glucose 85 mg/dL (74-106)
[2022-08-17 16:54] VITALS: BP 133/76; PULSE 59; RESP 16; TEMP 36.2; O2SAT 100
== END 2022-08-17 17:31 | disposition home or self-care (01) ==
LOC: EN 13:16 → AC 13:17
PROVIDERS: PCP Student in an Organized Health Care Education/Training Program; Referring Provider Student in an Organized Health Care Education/Training Program; Visit Provider Internal Medicine Gastroenterology
PROC: (CPT 43260; principal; 2022-08-17 14:10)
DX: K83.1 Obstruction of bile duct (principal); E11.9 Type 2 diabetes mellitus without complications; K85.90 Acute pancreatitis without necrosis or infection, unspecified; I25.10 Atherosclerotic heart disease of native coronary artery without angina pectoris; F17.210 Nicotine dependence, cigarettes, uncomplicated; F10.10 Alcohol abuse, uncomplicated; I10 Essential (primary) hypertension; I25.2 Old myocardial infarction; K21.9 Gastro-esophageal reflux disease without esophagitis; Z95.1 Presence of aortocoronary bypass graft; Z95.5 Presence of coronary angioplasty implant and graft; Z79.899 Other long term (current) drug therapy; Z79.84 Long term (current) use of oral hypoglycemic drugs; Z79.82 Long term (current) use of aspirin; Z79.01 Long term (current) use of anticoagulants
CPT/HCPCS: 43275; 43264; 43262; 74328; 76000; 82962; J7120; J2405

== ENCOUNTER 2022-08-18 06:39 | Inpatient (IN) | payer OTHER, SELFPAY ==
[2022-08-18] VITALS (8 sets, daily range): BP systolic 112–138; BP diastolic 66–76; PULSE 66–103; RESP 16–24; TEMP 36.6–37.8; O2SAT 92–99; BMI 52.0; BMI 23.9
--- NOTE | 2022-08-18 06:56 | EX.ED.DYSGE1 ---
HPI History of Present Illness Chief Complaint: Abd Pain Narrative Narrative: 62-year-old male here for abdominal pain. The patient states patient complains of severe, diffuse abdominal pain after getting biliary stent removed yesterday denies any nausea. Endorses alcohol use in the last 48 hours. [facility] Medical History Acute gastritis without mention of hemorrhage Alcohol use Arrhythmia Atherosclerosis of coronary artery bypass graft without angina pectoris Atherosclerosis of coronary artery of [place] heart without angina pectoris Back pain due to injury Cancer Cardiology follow-up encounter Carotid artery stenosis Chest pain COPD (chronic obstructive pulmonary disease) Diabetes Dysphagia Easy bruising Esophagitis Essential (primary) hypertension Excessive bleeding Fistula, anal Gastric reflux GERD (gastroesophageal reflux disease) Heart attack High cholesterol History of rheumatic fever History of stress test History of ulceration Hyperlipidemia Hypertension Hypertriglyceridemia Malignant neoplasm of anterior wall of urinary bladder Peripheral vascular occlusive disease Restless legs Rheumatic fever Snoring Wears glasses Home Medications aspirin 81 mg tablet,delayed release (Adult Low Dose Aspirin) 81 mg PO DAILY HEALTH 06/08/18 [History Last Taken 08/13/22] magnesium oxide 400 mg PO DAILY SUPPLEMENT 06/08/18 [History Last Taken 08/13/22] acetylcysteine 600 mg capsule (NAC) 1,200 mg PO BID DIGESTION 05/29/19 [History Last Taken 08/17/22] nitroglycerin 0.4 mg sublingual tablet 0.4 mg sublingual Q5-15M PRN CHEST PAIN #25 tabs 04/02/21 [Rx Last Taken Unknown] milk thistle 175 mg tablet 175 mg PO BID SUPPLEMENT 09/22/21 [History Last Taken 08/15/22] atenolol 50 mg tablet 50 mg PO DAILY BP 06/06/22 [History Last Taken 08/17/22] cholecalciferol (vitamin D3) 25 mcg (1,000 unit) capsule 25 mcg PO DAILY SUPPLEMENT 06/06/22 [History Last Taken 08/15/22] icosapent ethyl 1 gram capsule (Vascepa) 2 g PO BID SUPPLEMENT 06/06/22 [History Last Taken 08/14/22] lansoprazole 30 mg capsule,delayed release 30 mg PO DAILY GERD 06/06/22 [History Last Taken 08/17/22] metformin 500 mg tablet,extended release 24 hr 500 mg PO BID DM 06/06/22 [History Last Taken 08/15/22] potassium citrate 5 mEq (540 mg) tablet,extended release 5 meq PO DAILY SUPPLEMENT 06/06/22 [History Last Taken 08/15/22] ramipril 10 mg capsule 10 mg PO DAILY HEART 06/06/22 [History Last Taken 08/17/22] rosuvastatin 40 mg tablet (Crestor) 40 mg PO QHS CHOLESTEROL 06/06/22 [History Last Taken 08/13/22] sildenafil 100 mg tablet 100 mg PO DAILY PRN Erectile Dysfunction 06/06/22 [History Last Taken 08/14/22] clopidogrel 75 mg tablet 75 mg PO DAILY BLOOD THINNER #90 tabs 07/05/22 [Rx Last Taken 08/13/22] ascorbic acid (vitamin C) 500 mg tablet 1 g PO DAILY SUPPLEMENT 07/27/22 [History Last Taken 08/14/22] vitamin A palmitate 1 tab PO QODAY 07/27/22 [History Last Taken 08/14/22] cyanocobalamin (B12)-cobamamide 5,000 mcg-100 mcg sublingual lozenge (B12) 1 obie sublingual DAILY 08/13/22 [History Last Taken 08/14/22] fenofibrate micronized 200 mg capsule 200 mg PO DAILY 08/13/22 [History Last Taken 08/14/22] vitamin B complex 1 cap PO DAILY 08/13/22 [History Last Taken 08/14/22] Allergy/AdvReac Type Severity Reaction Status Date / Time ticlopidine HCl [From Ticlid] Allergy Unknown Verified 08/17/22 13:40 Family History Father Cancer Heart disease Brother Diabetes Hypertension Mother Heart disease Surgical History H/O cardiac catheterization H/O coronary artery bypass surgery (2003) history of anal fistula repair (05/2018) History of coronary artery stent placement (07/02/16) History of esophagogastroduodenoscopy (EGD) History of left heart catheterization (07/02/16) Hx of appendectomy Hx of colonoscopy Hx of cystoscopy Hx of vasectomy Status post cardiac surgery Status post laparoscopic cholecystectomy (05/2022) Social History household members: none housing: house Smoking Status: Current every day smoker tobacco type: cigarettes alcohol intake: current alcohol intake frequency: 0-2 drinks per day Alcohol type: hard liquor substance use type: does not use caffeine: Yes Type: coffee Number of servings: 4 ROS ROS ED ROS Narrative Constitutional: Denies fever HEENT: Denies sore throat Neck: Denies neck pain Cardiovascular: Denies chest pain, syncope Respiratory: Denies shortness of breath GI: Endorses abdominal pain : Denies changes in urinary habits Musculoskeletal: Denies muscle or joint pain Neurologic: Denies numbness weakness or loss of sensation Skin denies rash EXAM Physical Exam Narrative Exam Narrative: Nursing triage notes reviewed, Vital signs reviewed Constitutional: please see mdm HENT: MMM Eyes: Pupils equal round and reactive to light, Extraocular muscles intact Neck: No stridor, no JVD, full neck ROM Lungs: Clear to auscultation, No wheezing or rales. No increased work of breathing, no conversational dyspnea, no accessory muscle use, no nasal flaring. No respiratory distress noted Heart: Regular rate and rhythm, No murmurs, No rubs and No gallops, 2+ distal pulses (radial, femoral, posterior tibial) in all extremities Abdomen: Soft, diffuse tenderness, voluntary guarding but no obvious rigidity, rebound or involuntary guarding, no obvious peritoneal signs, no palpable pulsatile abdominal masses, no auscultated abdominal bruit : No CVAT Extremities: No edema Neuro: No focal neurological deficits, cranial nerves II through XII intact, 5/5 strength in all extremities. Intact sensation to light touch in all extremities, 2+ reflexes bilateral patella dens. Normal gait. No ataxia. Skin: No rash or lesions noted Const Vital Signs: 08/18/22 06:40 08/18/22 08:27 Temperature 97.8 F Temperature Source Temporal Pulse Rate 66 74 Respiratory Rate 17 Blood Pressure 138/76 H 135/68 H Blood Pressure Mean 96 90 Pulse Ox 96 99 Oxygen Delivery Method Room Air Room Air [facility] [place] Narrative Medical decision making narrative: Chief Complaint: Abdominal pain External records reviewed: Last gastroenterology note from May [address] scan from May 2022 showed cholelithiasis, choledocholithiasis and mild hepatic steatosis. Recommendation at that time was to undergo ERCP and stone removal I considered the following differential diagnosis: Acute surgical process in the abdomen pelvis, hepatobiliary obstruction, intra-abdominal infection, Patient was hemodynamically stable, afebrile, nontoxic-appearing, abdominal exam was benign without obvious peritoneal signs I obtained a broad lab and imaging work-up to further elucidate the etiology of patient's complaints. Treat the patient with IV narcotic pain medicine, Zofran and fluids. Labs concerning for acute pancreatitis. CT without evidence of acute surgical process. Did consult gastroenterology and internal medicine. [employer] Dr. Araya is aware of the patient's case has no further recommendation at this time. Internal medicine accepted patient for pain control fluids and treatment of acute pancreatitis Factors affecting care: History of choledocholithiasis status post recent stent removal, pancreatitis, alcohol abuse, CAD, hypertension, hyperlipidemia, peripheral vascular disease Social determinants of health: History of alcohol abuse History obtained from others: The patient's significant other Shared decision making: I will have a discussion with the patient and or visitors regarding risk/benefits of further testing or admission. They will be made aware of of the risk/benefits inherent in this decision they will be given the opportunity to voice understanding. Consults: Gastroenterology, internal medicine Lab Data Lab results narrative: CBC with marked leukocytosis suggestive of systemic inflammation severe anemia, no thrombocytopenia. CMP with no significant electrolyte abnormalities, anion gap to suggest endorgan hypoperfusion, [place], or evidence of severe hepatobiliary obstruction Lactate is wnl indicating no end-organ hypoperfusion and/or hypoxia. Lipase is grossly elevated likely source of patient's symptoms Troponin is negative, no evidence of myocardial ischemia Labs: Laboratory Results - last 24 hr 08/18/22 08/18/22 08/18/22 06:51 06:51 06:51 WBC 17.4 H RBC 5.11 Hgb 14.1 Hct 43.0 MCV 84.1 MCH 27.6 MCHC 32.8 RDW Std Deviation 46.3 H RDW Coeff of Jeffrey 15.3 H Plt Count 230 MPV 11.6 Immature Gran % (Auto) 0.400 Neut % (Auto) 87.5 H Lymph % (Auto) 6.5 L [place] % (Auto) 5.5 Eos % (Auto) 0.0 Baso % (Auto) 0.1 Absolute Neuts (auto) 15.2 H Absolute Lymphs (auto) 1.13 Nucleated RBC % 0 Sodium 136 Potassium 3.6 Chloride 101 Carbon Dioxide 28.0 Anion Gap 7 BUN 18 Creatinine 0.68 L Estim Creat Clear Calc 111.19 Est GFR (MDRD) Af Amer 150 Est GFR (MDRD) Non-Af 124 BUN/Creatinine Ratio 26.3 H Glucose 158 H Lactic Acid 1.1 Calcium 9.2 Total Bilirubin 0.60 Direct Bilirubin 0.23 AST 30 ALT 33 Alkaline Phosphatase 34 L Troponin I High Sens 11 Total Protein 6.5 Albumin 3.8 Globulin 2.7 Albumin/Globulin Ratio 1.4 Triglycerides Lipase 65332 H 08/18/22 06:51 WBC RBC Hgb Hct MCV MCH MCHC RDW Std Deviation RDW Coeff of Jeffrey Plt Count MPV Immature Gran % (Auto) Neut % (Auto) Lymph % (Auto) [place] % (Auto) Eos % (Auto) Baso % (Auto) Absolute Neuts (auto) Absolute Lymphs (auto) Nucleated RBC % Sodium Potassium Chloride Carbon Dioxide Anion Gap BUN Creatinine Estim Creat Clear Calc Est GFR (MDRD) Af Amer Est GFR (MDRD) Non-Af BUN/Creatinine Ratio Glucose Lactic Acid Calcium Total Bilirubin Direct Bilirubin AST ALT Alkaline Phosphatase Troponin I High Sens Total Protein Albumin Globulin Albumin/Globulin Ratio Triglycerides 102 Lipase Radiography Diagnostic Testing: Clinical Impression(s) from Imaging Studies Abdomen/Pelvis CT 08/18/22 07:05 IMPRESSION: Fatty infiltration of the liver. Status post cholecystectomy. Fluid distention of the stomach with thickening of the antral portion and first portion of the duodenum. Mildly dilated fluid-filled proximal small bowel loops with the increased markings in the central deep root of the mesentery. Bilateral perinephric stranding and fluid in the pararenal spaces bilaterally. Electronically Signed: Damaso Valenzuela MD at 8:34 EDT , EKG Initial EKG: Attestation: I personally reviewed and interpreted this EKG as follows: Comments: EKG with normal sinus rhythm, normal axis, normal intervals, no Discharge Plan Dx/Rx/DC Orders Clinical Impression: Alcohol abuse, Acute alcoholic pancreatitis Disposition Disposition: Acute Care Hospital [facility] Discharge Date/Time: 08/18/22 10:00
--- NOTE | 2022-08-18 07:05 | CT_ITS ---
STUDY: CT ABDOMEN AND PELVIS WITH CONTRAST REASON FOR EXAM: Male, 62 years old. Abdominal pain following biliary stent removal. RADIATION DOSAGE (If Supplied By Facility): CTDIvol = ( 13.99 ) mGy, DLP = ( 1008.57 ) mGycm TECHNIQUE: Transaxial images were obtained from the dome of the diaphragm to the symphysis pubis without oral contrast. IV 100mL Isovue-300 was administered. Sagittal and coronal images were reconstructed. Individualized dose optimization techniques were used for this CT. COMPARISON: Comparison is made with prior study dated June 06, 2022. FINDINGS: Minimal increased markings at the lung bases suggest mild basilar atelectasis. Coronary artery calcification. There is decreased attenuation of the liver consistent with steatosis. Small amount of perihepatic fluid. There are surgical clips in the gallbladder fossa consistent with a prior cholecystectomy. Normal spleen. Normal pancreas. Normal bilateral adrenal glands. Right perinephric stranding. Small amount of the fluid is seen in the right perinephric space. Left perinephric stranding. Small amount of fluid is seen in the anterior left pararenal space. Fluid distention of the stomach. Mildly dilated fluid-filled small bowel loops in the mid and left upper quadrant. The transition point is in the distal jejunum. Mild degree of the small bowel thickening in the left upper quadrant. Normal colon. The appendix is visualized and appears normal. There is diffuse atherosclerotic calcification of the abdominal aorta, without a demonstrated aneurysm. Normal inferior vena cava. Normal retroperitoneum. Diffuse increased markings in the mesenteric fat more prominent in the deep root of the mesentery. There is distention of the urinary bladder. Heterogeneous enlargement of the prostate with calcification. The prostate measures 5.3 cm x 5.6 cm. This causes indentation of the bladder base. Small amount of free fluid is seen in the pelvis. Normal abdominal wall. There are diffuse degenerative changes of the visualized lumbar spine. CT/Abdomen/Pelvis W IV Cont ONLY IMPRESSION: Fatty infiltration of the liver. Status post cholecystectomy. Fluid distention of the stomach with thickening of the antral portion and first portion of the duodenum. Mildly dilated fluid-filled proximal small bowel loops with the increased markings in the central deep root of the mesentery. Bilateral perinephric stranding and fluid in the pararenal spaces bilaterally. Electronically Signed: Damaso Valenzuela MD at 8:34 EDT ,
[2022-08-18 07:27] LABS: Absolute Lymphocyte Count 1.13 X10^3/uL (0.83-4.51); Absolute Neutrophil Count 15.2 X10^3/uL (2.0-7.7); Basophil# 0.02 X10^3/uL; Basophil% 0.1 % (0-1); Hemoglobin 14.1 g/dL (13.0-16.5); Lymphocyte # 1.13 X10^3/ul (0.83-4.51); Lymphocyte % 6.5 % (19-41); Mean Corp Hgb Conc 32.8 g/dL (32-36); Mean Corpuscular Hgb 27.6 pg (27.0-32.0); Mean Corpuscular Volume 84.1 fL (80-94); Mean Platelet Vol. 11.6 fl (6.2-12.0); Monocyte# 0.96 X10^3/uL; Monocyte% 5.5 % (0-10); NRBC Flagged by Analyzer 0 % (0-5); Neutrophil # 15.22 X10^3/uL (2.7-7.7); Neutrophil % 87.5 % (47-70); Platelet Count 230 K/mm3 (150-450); RBC Distribution Width CV 15.3 % (11.6-14.6); RBC Distribution Width SD 46.3 fl (35.1-43.9); Red Blood Count 5.11 M/mm3 (4.6-6.2); White Blood Count 17.4 K/mm3 (4.4-11.0)
[2022-08-18] MEDS: Morphine 4 MG/ML Syringe IV (07:35)
[2022-08-18] MEDS: Ondansetron 4 MG/2 ML Vial IV (07:35)
[2022-08-18] MEDS: 0.9% Normal Saline 1,000 ML 1000 ML IV (07:35)
[2022-08-18 07:50] LABS: Lactic Acid 1.1 mmol/L (0.4-1.9)
[2022-08-18 07:51] LABS: ALB/GLOB Ratio 1.4 RATIO (0.9-2.4); AST(SGOT) 30 U/L (15-37); Alanine Aminotransfer ALT/SGPT 33 U/L (16-61); Albumin, Serum 3.8 g/dL (3.2-5.0); Alkaline Phosphatase 34 U/L (45-117); Anion Gap 7 (5-15); BUN 18 mg/dL (7-18); BUN/Creat Ratio 26.3 RATIO (10-20); Bilirubin, Direct 0.23 mg/dL (0.00-0.30); Calcium,Total 9.2 mg/dL (8.5-10.1); Chloride 101 mmol/L (98-107); Creatinine, Serum 0.68 mg/dL (0.70-1.30); EST Glomerular Filtration Rate 124 mL/min (>60); Est Glom Filt Rate - Afr Amer 150 mL/min (>60); Estimated Creatinine Clearance 111.19 ml/min; Globulin 2.7 g/dL (2.2-4.2); Glucose 158 mg/dL (74-106); Lipase 17538 U/L (73-393); Potassium 3.6 mmol/L (3.5-5.1); Protein, Total 6.5 g/dL (6.4-8.2); Sodium Level 136 mmol/L (136-145); Troponin-I HS 11 pg/mL (3.0-78.0)
[2022-08-18] MEDS: HYDROmorphone 0.5 MG/0.5 ML SYRINGE IV ×4 (08:26→20:48)
--- NOTE | 2022-08-18 09:09 | NURSING ---
DR JUANY COLLINS
[2022-08-18] MEDS: 0.9% Normal Saline 1,000 ML 999 ML IV (09:15)
--- NOTE | 2022-08-18 09:15 | NURSING ---
MED SURG KITTOE PANCREATITIS
--- NOTE | 2022-08-18 09:16 | HP.PCM.HOS_ITS ---
HPI - General General Date of Admission: 08/18/22 Date of Service: 08/18/22 Chief Complaint: Abdominal pain HPI Narrative SONIA PARSONS, is a 62 M with history of chronic alcohol dependence, history of biliary stricture who underwent ERCP with biliary stent removal on 08/17/2022 presented with abdominal pain. Per patient pain started following his procedure was located in the mid abdomen. Did have nausea as well as vomiting. Presented to the emergency department in view of worsening symptoms. Patient was found to have acute pancreatitis with lipase levels greater than 17,000. CT of the abdomen and pelvis also did show evidence of pancreatitis. Admitted to regular nursing floor for further management [facility] Medical History Acute gastritis without mention of hemorrhage Alcohol use Arrhythmia Atherosclerosis of coronary artery bypass graft without angina pectoris Atherosclerosis of coronary artery of [place] heart without angina pectoris Back pain due to injury Cancer Cardiology follow-up encounter Carotid artery stenosis Chest pain COPD (chronic obstructive pulmonary disease) Diabetes Dysphagia Easy bruising Esophagitis Essential (primary) hypertension Excessive bleeding Fistula, anal Gastric reflux GERD (gastroesophageal reflux disease) Heart attack High cholesterol History of rheumatic fever History of stress test History of ulceration Hyperlipidemia Hypertension Hypertriglyceridemia Malignant neoplasm of anterior wall of urinary bladder Peripheral vascular occlusive disease Restless legs Rheumatic fever Snoring Wears glasses Home Medications aspirin 81 mg tablet,delayed release (Adult Low Dose Aspirin) 81 mg PO DAILY HEALTH 06/08/18 [History Last Taken 08/13/22] magnesium oxide 400 mg PO DAILY SUPPLEMENT 06/08/18 [History Last Taken 08/13/22] acetylcysteine 600 mg capsule (NAC) 1,200 mg PO BID DIGESTION 05/29/19 [History Last Taken 08/17/22] nitroglycerin 0.4 mg sublingual tablet 0.4 mg sublingual Q5-15M PRN CHEST PAIN #25 tabs 04/02/21 [Rx Last Taken Unknown] milk thistle 175 mg tablet 175 mg PO BID SUPPLEMENT 09/22/21 [History Last Taken 08/15/22] atenolol 50 mg tablet 50 mg PO DAILY BP 06/06/22 [History Last Taken 08/17/22] cholecalciferol (vitamin D3) 25 mcg (1,000 unit) capsule 25 mcg PO DAILY SUPPLEMENT 06/06/22 [History Last Taken 08/15/22] icosapent ethyl 1 gram capsule (Vascepa) 2 g PO BID SUPPLEMENT 06/06/22 [History Last Taken 08/14/22] lansoprazole 30 mg capsule,delayed release 30 mg PO DAILY GERD 06/06/22 [History Last Taken 08/17/22] metformin 500 mg tablet,extended release 24 hr 500 mg PO BID DM 06/06/22 [History Last Taken 08/15/22] potassium citrate 5 mEq (540 mg) tablet,extended release 5 meq PO DAILY SUPPLEMENT 06/06/22 [History Last Taken 08/15/22] ramipril 10 mg capsule 10 mg PO DAILY HEART 06/06/22 [History Last Taken 08/17/22] rosuvastatin 40 mg tablet (Crestor) 40 mg PO QHS CHOLESTEROL 06/06/22 [History Last Taken 08/13/22] sildenafil 100 mg tablet 100 mg PO DAILY PRN Erectile Dysfunction 06/06/22 [His tory Last Taken 08/14/22] clopidogrel 75 mg tablet 75 mg PO DAILY BLOOD THINNER #90 tabs 07/05/22 [Rx Last Taken 08/13/22] ascorbic acid (vitamin C) 500 mg tablet 1 g PO DAILY SUPPLEMENT 07/27/22 [His tory Last Taken 08/14/22] vitamin A palmitate 1 tab PO QODAY 07/27/22 [History Last Taken 08/14/22] cyanocobalamin (B12)-cobamamide 5,000 mcg-100 mcg sublingual lozenge (B12) 1 obie sublingual DAILY 08/13/22 [History Last Taken 08/14/22] fenofibrate micronized 200 mg capsule 200 mg PO DAILY 08/13/22 [History Last Taken 08/14/22] vitamin B complex 1 cap PO DAILY 08/13/22 [History Last Taken 08/14/22] Allergy/AdvReac Type Severity Reaction Status Date / Time ticlopidine HCl [From Ticlid] Allergy Unknown Verified 08/17/22 13:40 Family History Father Cancer Heart disease Brother Diabetes Hypertension Mother Heart disease Surgical History H/O cardiac catheterization H/O coronary artery bypass surgery (2003) history of anal fistula repair (05/2018) History of coronary artery stent placement (07/02/16) History of esophagogastroduodenoscopy (EGD) History of left heart catheterization (07/02/16) Hx of appendectomy Hx of colonoscopy Hx of cystoscopy Hx of vasectomy Status post cardiac surgery Status post laparoscopic cholecystectomy (05/2022) Social History household members: none housing: house Smoking Status: Current every day smoker tobacco type: cigarettes alcohol intake: current alcohol intake frequency: 0-2 drinks per day Alcohol type: hard liquor substance use type: does not use caffeine: Yes Type: coffee Number of servings: 4 ROS ROS Narrative GENERAL: denies fever, chills, night sweats, weight loss, anorexia HEENT: denies headache, sinus congestion, or drainage, dysphagia RESPIRATORY: denies cough, sputum production, shortness of breath, CARDIAC: denies chest pain, palpitations, orthopnea, PND GASTROINTESTINAL: abdominal pain, nausea, vomiting, melena, GENITOURINARY: denies dysuria, urgency, frequency, heamaturia EXTREMITY: denies swelling MUSCULOSKELETAL: denies current joint pain or tenderness NEUROLOGIC: denies focal numbness, weakness, tingling HEMATOLOGIC: denies easy bruising and/or hemorrhage INTEGUMENT: denies rashes PSYCHIATRIC: denies suicidal or homicidal ideation Vital Signs Vital Signs Vital Signs: 08/18/22 06:40 08/18/22 08:27 08/18/22 09:14 Temperature 97.8 F 98.6 F Temperature Source Temporal Temporal Pulse Rate 66 74 71 Respiratory Rate 17 16 Blood Pressure 138/76 H 135/68 H 129/70 H Blood Pressure Mean 96 90 89 Pulse Ox 96 99 98 Oxygen Delivery Method Room Air Room Air Room Air Weight Weight: 160 kg Body Mass Index (BMI) 52.0 Physical Exam Narrative GENERAL: cooperative HEENT: Atraumatic; normocephalic EYES; Anicteric, Normal Conjunctiva NECK; supple, normal thyroid, RESPIRATORY: Diminished to auscultation CARDIOVASCULAR: Regular S1 S2, GI: soft, normoactive bowel sounds, : No Renal angle tenderness; EXTREMITIES: No edema, no clubbing, MUSCULOSKELETAL: no muscle wasting NEURO: Awake; no lateralizing signs. SKIN: No Rash PSYCH; Flat affect Results Lab / Micro Data Result Diagrams: 08/18/22 06:51 08/18/22 06:51 Labs: Laboratory Results - last 24 hr 08/18/22 06:51: WBC 17.4 H, RBC 5.11, Hgb 14.1, Hct 43.0, MCV 84.1, MCH 27.6, MCHC 32.8, RDW Std Deviation 46.3 H, RDW Coeff of Jeffrey 15.3 H, Plt Count 230, MPV 11.6, Immature Gran % (Auto) 0.400, Neut % (Auto) 87.5 H, Lymph % (Auto) 6.5 L, [place] % (Auto) 5.5, Eos % (Auto) 0.0, Baso % (Auto) 0.1, Absolute Neuts (auto) 15.2 H, Absolute Lymphs (auto) 1.13, Nucleated RBC % 0 08/18/22 06:51: Sodium 136, Potassium 3.6, Chloride 101, Carbon Dioxide 28.0, Anion Gap 7, BUN 18, Creatinine 0.68 L, Estim Creat Clear Calc 111.19, Est GFR (MDRD) Af Amer 150, Est GFR (MDRD) Non-Af 124, BUN/Creatinine Ratio 26.3 H, Glucose 158 H, Calcium 9.2, Total Bilirubin 0.60, Direct Bilirubin 0.23, AST 30, ALT 33, Alkaline Phosphatase 34 L, Troponin I High Sens 11, Total Protein 6.5, Albumin 3.8, Globulin 2.7, Albumin/Globulin Ratio 1.4, Lipase 56255 H 08/18/22 06:51: Lactic Acid 1.1 Radiology Impression Abdomen/Pelvis CT 08/18/22 07:05 IMPRESSION: Fatty infiltration of the liver. Status post cholecystectomy. Fluid distention of the stomach with thickening of the antral portion and first portion of the duodenum. Mildly dilated fluid-filled proximal small bowel loops with the increased markings in the central deep root of the mesentery. Bilateral perinephric stranding and fluid in the pararenal spaces bilaterally. Electronically Signed: Damaso Valenzuela MD at 8:34 EDT , Assessment & Plan Assessment/Plan (1) Pancreatitis: PLAN: Plan Patient is a 62-year-old gentleman with history of chronic alcohol dependence presented with abdominal pain.? Imaging and diagnostic work-up consistent with acute pancreatitis admitted to regular nursing floor for further management 1. Acute pancreatitis ?? Post ERCP and alcohol induced pancreatitis. Patient has been admitted to regular nursing floor currently managed conservatively with bowel rest pain meds antinausea medication as well as PPI plan is to resume oral liquid as soon as possible. Consult was also placed to GI 2. History of biliary stricture ? Patient underwent ERCP with removal of biliary stent on 08/18/[address] Araya 3..? Diabetes mellitus type 2 ? Patient oral agent held please on Accu-Cheks before meals and at bedtime with sliding scale coverage 4.? Hepatic steatosis ? Secondary to patient alcohol use as well as underlying diabetes.? Monitoring with daily LFTs.? GI on board 5.? Chronic alcohol abuse ? Counseled on cessation, started on phenobarb taper for possible early alcohol withdrawal 6.? Coronary artery disease ? Patient has history of CABG with subsequent PCI patient is on recommended medications including rosuvastatin, aspirin atenolol Plavix 7.? Essential hypertension ? Patient blood pressure controlled on atenolol and ramipril did continue 8.? Dyslipidemia -patient is on rosuvastatin did continue 9.? GERD ? Patient is on lansoprazole, substituted with Protonix in the hospital 10.? Carotid artery stenosis ? Patient is followed by vascular surgery as outpatient 11.? DVT prophylaxis ? [facility] Time spent in the patient's overall evaluation,decision-making process, review of diagnostic data, adjustment of management, discussion with other providers, nursing nursing and ancillary staff involved in patient's care documentation, 77Minutes Charges/Coding Visit Charges Inpatient E&M: 90839 Init Hosp L3
[2022-08-18 09:19] LABS: Triglycerides 102 mg/dL
[2022-08-18] MEDS: KCL 20MEQ in D5.45NS 20 MEQ/1,000 ML IV.SOLN. 200 MEQ IV ×3 (11:08→21:35)
[2022-08-18] MEDS: 0.9% Saline Lock 10 ML Syringe IV ×2 (11:11→20:49)
[2022-08-18] MEDS: Ketorolac 15 MG/ML Vial IV ×3 (11:12→23:30)
[2022-08-18] MEDS: Insulin Lispro 100 UNIT/ML INSULN.PEN SC ×3 (12:30→22:22)
[2022-08-18 12:56] LABS: Bedside Glucose 189 mg/dL (74-106)
[2022-08-18 18:06] LABS: Bedside Glucose 203 mg/dL (74-106)
[2022-08-18 22:31] LABS: Bedside Glucose 193 mg/dL (74-106)
[2022-08-19] VITALS (7 sets, daily range): BP systolic 128–174; BP diastolic 69–97; PULSE 58–122; RESP 18–22; TEMP 36.8–38.2; O2SAT 90–95; BMI 24.5
[2022-08-19] MEDS: HYDROmorphone 0.5 MG/0.5 ML SYRINGE IV (01:15)
[2022-08-19] MEDS: KCL 20MEQ in D5.45NS 20 MEQ/1,000 ML IV.SOLN. 200 MEQ IV (02:31)
[2022-08-19 04:55] LABS: Absolute Lymphocyte Count 0.53 X10^3/uL (0.83-4.51); Absolute Neutrophil Count 9.9 X10^3/uL (2.0-7.7); Basophil# 0.06 X10^3/uL; Basophil% 0.5 % (0-1); Eosinophil# 0.04 X10^3/uL; Eosinophils% 0.3 % (0-5); Hematocrit 46.4 % (40-54); Hemoglobin 14.9 g/dL (13.0-16.5); Lymphocyte # 0.53 X10^3/ul (0.83-4.51); Lymphocyte % 4.6 % (19-41); Mean Corp Hgb Conc 32.1 g/dL (32-36); Mean Corpuscular Hgb 26.9 pg (27.0-32.0); Mean Corpuscular Volume 83.8 fL (80-94); Mean Platelet Vol. 11.8 fl (6.2-12.0); Monocyte# 0.85 X10^3/uL; Monocyte% 7.4 % (0-10); NRBC Flagged by Analyzer 0 % (0-5); Neutrophil # 9.93 X10^3/uL (2.7-7.7); Neutrophil % 86.9 % (47-70); POSITIVE DIFFERENTIAL YES; POSITIVE MORPHOLOGY YES; Platelet Count 192 K/mm3 (150-450); RBC Distribution Width CV 15.6 % (11.6-14.6); RBC Distribution Width SD 47.6 fl (35.1-43.9); Red Blood Count 5.54 M/mm3 (4.6-6.2); White Blood Count 11.4 K/mm3 (4.4-11.0)
[2022-08-19 05:22] LABS: ALB/GLOB Ratio 1.1 RATIO (0.9-2.4); AST(SGOT) 21 U/L (15-37); Alanine Aminotransfer ALT/SGPT 19 U/L (16-61); Albumin, Serum 2.5 g/dL (3.2-5.0); Alkaline Phosphatase 24 U/L (45-117); Anion Gap 8 (5-15); BUN 21 mg/dL (7-18); BUN/Creat Ratio 29.5 RATIO (10-20); Calcium,Total 7.3 mg/dL (8.5-10.1); Chloride 106 mmol/L (98-107); Creatinine, Serum 0.71 mg/dL (0.70-1.30); EST Glomerular Filtration Rate 118 mL/min (>60); Est Glom Filt Rate - Afr Amer 143 mL/min (>60); Estimated Creatinine Clearance 106.49 ml/min; Globulin 2.3 g/dL (2.2-4.2); Glucose 193 mg/dL (74-106); Magnesium 1.3 mg/dL (1.6-2.6); Phosphorus 1.8 mg/dL (2.5-4.9); Potassium 4.3 mmol/L (3.5-5.1); Protein, Total 4.8 g/dL (6.4-8.2); Sodium Level 133 mmol/L (136-145)
[2022-08-19 05:23] LABS: Differential Indicated SCAN CRITERIA MET
[2022-08-19] MEDS: Ketorolac 15 MG/ML Vial IV (05:26)
[2022-08-19] MEDS: Insulin Lispro 100 UNIT/ML INSULN.PEN SC (05:33)
[2022-08-19 06:06] LABS: Bedside Glucose 185 mg/dL (74-106)
[2022-08-19 06:44] LABS: Differential Comment SCANNED
--- NOTE | 2022-08-19 07:42 | PN_ITS ---
Subjective Subjective Patient seen and examined this morning. He patient says that he had a rough night and he had a lot of abdominal pain particularly in his lower pelvis. He denies any chest pain. He has been up and out of bed into the bathroom needing to urinate frequently. He has not had a bowel movement in the last several days . Objective Data Objective Data Vital Signs: Vital Signs Temp Pulse Resp BP Pulse Ox O2 Del Method 100.2 F H 108 H 18 153/81 H 92 Room Air 08/19/22 05:25 08/19/22 05:25 08/19/22 05:25 08/19/22 05:25 08/19/22 05:25 08/19/22 05:25 Oxygen Delivery Method Room Air Weight: 166 lb 3.657 oz Body Mass Index (BMI) 24.5 Intake & Output: Intake and Output for Last 24 Hours 08/17/22 08/18/22 08/19/22 23:59 23:59 23:59 Intake Total 4281.25 / 4281.25 986.67 / 986.67 Output Total 400 / 400 Balance 3881.25 / 3881.25 986.67 / 986.67 Lab / Micro Data Result Diagrams: 08/19/22 04:16 08/19/22 04:16 Labs: Laboratory Results - last 24 hr 08/18/22 06:51: Sodium 136, Potassium 3.6, Chloride 101, Carbon Dioxide 28.0, Anion Gap 7, BUN 18, Creatinine 0.68 L, Estim Creat Clear Calc 111.19, Est GFR (MDRD) Af Amer 150, Est GFR (MDRD) Non-Af 124, BUN/Creatinine Ratio 26.3 H, Glucose 158 H, Calcium 9.2, Total Bilirubin 0.60, Direct Bilirubin 0.23, AST 30, ALT 33, Alkaline Phosphatase 34 L, Troponin I High Sens 11, Total Protein 6.5, Albumin 3.8, Globulin 2.7, Albumin/Globulin Ratio 1.4, Lipase 48432 H 08/18/22 06:51: Lactic Acid 1.1 08/18/22 06:51: Triglycerides 102 08/18/22 12:14: POC Glucose 189 H 08/18/22 17:21: POC Glucose 203 H 08/18/22 21:15: POC Glucose 193 H 08/19/22 04:16: WBC 11.4 H, RBC 5.54, Hgb 14.9, Hct 46.4, MCV 83.8, MCH 26.9 L, MCHC 32.1, RDW Std Deviation 47.6 H, RDW Coeff of Jeffrey 15.6 H, Plt Count 192, MPV 11.8, Immature Gran % (Auto) 0.300, Neut % (Auto) 86.9 H, Lymph % (Auto) 4.6 L, [place] % (Auto) 7.4, Eos % (Auto) 0.3, Baso % (Auto) 0.5, Absolute Neuts (auto) 9.9 H, Absolute Lymphs (auto) 0.53 L, Nucleated RBC % 0, Differential Comment SCANNED 08/19/22 04:16: Sodium 133 L, Potassium 4.3, Chloride 106, Carbon Dioxide 19.0 L , Anion Gap 8, BUN 21 H, Creatinine 0.71, Estim Creat Clear Calc 106.49, Est GFR (MDRD) Af Amer 143, Est GFR (MDRD) Non-Af 118, BUN/Creatinine Ratio 29.5 H, Glucose 193 H, Calcium 7.3 L, Phosphorus 1.8 L, Magnesium 1.3 L, Total Bilirubin 0.70, AST 21, ALT 19, Alkaline Phosphatase 24 L, Total Protein 4.8 L, Albumin 2.5 L, Globulin 2.3, Albumin/Globulin Ratio 1.1 08/19/22 05:29: POC Glucose 185 H Radiography Diagnostic Testing: Radiology Impression Abdomen/Pelvis CT 08/18/22 07:05 IMPRESSION: Fatty infiltration of the liver. Status post cholecystectomy. Fluid distention of the stomach with thickening of the antral portion and first portion of the duodenum. Mildly dilated fluid-filled proximal small bowel loops with the increased markings in the central deep root of the mesentery. Bilateral perinephric stranding and fluid in the pararenal spaces bilaterally. Electronically Signed: Damaso Valenzuela MD at 8:34 EDT , Physical Exam Narrative GENERAL: cooperative HEENT: Atraumatic; normocephalic EYES; Anicteric, Normal Conjunctiva NECK; supple, normal thyroid, RESPIRATORY: Diminished to auscultation CARDIOVASCULAR: Regular S1 S2, GI: soft, normoactive bowel sounds, : No Renal angle tenderness; EXTREMITIES: No edema, no clubbing, MUSCULOSKELETAL: no muscle wasting NEURO: Awake; no lateralizing signs. SKIN: No Rash PSYCH; Flat affect Assessment & Plan Assessment/Plan (1) Pancreatitis: (2) Acute alcoholic pancreatitis: (3) Constipation: PLAN: Plan 59-year-old gentleman with past medical history of alcoholic pancreatitis and history of choledocholithiasis induced pancreatitis secondary to chronic cholecystitis status post cholecystectomy and ERCP with stone removal , stent placement and removal. He currently has acute pancreatitis. His hematocrit is increasing from 43-46 which corresponds to not enough hydration for his acute pancreatitis. I will increase his fluids up to 300 mils an hour. I will check an ESR, CRP. He did have a low-grade fever overnight so we will check blood cultures and consider empiric antibiotic therapy. I will give him a dose of azithromycin to increase small bowel motility x1 in the setting of likely paralytic ileus from acute pancreatitis. I will also put him on scheduled Reglan for likely gastroparesis associated with pancreatitis. I will DC his anticoagulation as he is high risk for hemorrhagic conversion to pancreatitis and place him on SCDs. Also recommending Colace twice a day and I will give him a suppository to help him have a bowel movement and hopefully that will help his abdominal pain. Recheck amylase, lipase. Charges/Coding Visit Charges Inpatient E&M: 60518 Subs Hosp L3
[2022-08-19] MEDS: 0.9% Normal Saline 1,000 ML 300 ML IV ×3 (07:48→15:07)
[2022-08-19 08:18] LABS: Lipase 6405 U/L (73-393)
--- NOTE | 2022-08-19 08:25 | PN.HOSP_ITS ---
Reason for Visit Reason for Visit: Diagnoses Constipation, unspecified (08/18/22) Alcohol induced acute pancreatitis without necrosis or infection (08/18/22) Acute pancreatitis without necrosis or infection, unspecified (08/18/22) Subjective Subjective Patient is a 62-year-old gentleman with history of chronic alcohol dependence presented with abdominal pain.? Imaging and diagnostic work-up consistent with acute pancreatitis admitted to regular nursing floor for further management Objective Data Objective Data Vital Signs: Vital Signs Temp Pulse Resp BP Pulse Ox O2 Del Method 100.2 F H 108 H 18 153/81 H 92 Room Air 08/19/22 05:25 08/19/22 05:25 08/19/22 05:25 08/19/22 05:25 08/19/22 05:25 08/19/22 07:51 Oxygen Delivery Method Room Air Weight: 75.4 kg Body Mass Index (BMI) 24.5 Intake & Output: Intake and Output for Last 24 Hours 08/17/22 08/18/22 08/19/22 23:59 23:59 23:59 Intake Total 4281.25 / 4281.25 Output Total 400 / 400 Balance 3881.25 / 3881.25 Lab / Micro Data Result Diagrams: 08/19/22 04:16 08/19/22 04:16 Labs: Laboratory Results - last 24 hr 08/18/22 06:51: Triglycerides 102 08/18/22 12:14: POC Glucose 189 H 08/18/22 17:21: POC Glucose 203 H 08/18/22 21:15: POC Glucose 193 H 08/19/22 04:16: WBC 11.4 H, RBC 5.54, Hgb 14.9, Hct 46.4, MCV 83.8, MCH 26.9 L, MCHC 32.1, RDW Std Deviation 47.6 H, RDW Coeff of Jeffrey 15.6 H, Plt Count 192, MPV 11.8, Immature Gran % (Auto) 0.300, Neut % (Auto) 86.9 H, Lymph % (Auto) 4.6 L, [place] % (Auto) 7.4, Eos % (Auto) 0.3, Baso % (Auto) 0.5, Absolute Neuts (auto) 9.9 H, Absolute Lymphs (auto) 0.53 L, Nucleated RBC % 0, Differential Comment SCANNED 08/19/22 04:16: Sodium 133 L, Potassium 4.3, Chloride 106, Carbon Dioxide 19.0 L , Anion Gap 8, BUN 21 H, Creatinine 0.71, Estim Creat Clear Calc 106.49, Est GFR (MDRD) Af Amer 143, Est GFR (MDRD) Non-Af 118, BUN/Creatinine Ratio 29.5 H, Glucose 193 H, Calcium 7.3 L, Phosphorus 1.8 L, Magnesium 1.3 L, Total Bilirubin 0.70, AST 21, ALT 19, Alkaline Phosphatase 24 L, Total Protein 4.8 L, Albumin 2.5 L, Globulin 2.3, Albumin/Globulin Ratio 1.1 08/19/22 04:16: C-React Prot Ext Range 174.00 H, Lipase 6405 H 08/19/22 05:29: POC Glucose 185 H Radiography Diagnostic Testing: Radiology Impression Abdomen/Pelvis CT 08/18/22 07:05 IMPRESSION: Fatty infiltration of the liver. Status post cholecystectomy. Fluid distention of the stomach with thickening of the antral portion and first portion of the duodenum. Mildly dilated fluid-filled proximal small bowel loops with the increased markings in the central deep root of the mesentery. Bilateral perinephric stranding and fluid in the pararenal spaces bilaterally. Electronically Signed: Damaso Valenzuela MD at 8:34 EDT , Physical Exam Narrative GENERAL: cooperative HEENT: Atraumatic; normocephalic EYES; Anicteric, Normal Conjunctiva NECK; supple, normal thyroid, RESPIRATORY: Diminished to auscultation CARDIOVASCULAR: Regular S1 S2, GI: soft, normoactive bowel sounds, : No Renal angle tenderness; EXTREMITIES: No edema, no clubbing, MUSCULOSKELETAL: no muscle wasting NEURO: Awake; no lateralizing signs. SKIN: No Rash PSYCH; Flat affect Assessment & Plan Assessment/Plan (1) Pancreatitis: PLAN: Plan Patient is a 62-year-old gentleman with history of chronic alcohol dependence presented with abdominal pain.? Imaging and diagnostic work-up consistent with acute pancreatitis admitted to regular nursing floor for further management 1. Acute pancreatitis ?? Post ERCP and alcohol induced pancreatitis. Patient has been admitted to regular nursing floor currently managed conservatively with bowel rest pain meds antinausea medication as well as PPI plan is to resume oral liquid as soon as possible. Consult was also placed to GI ? 08/19/2022; patient still has significant abdominal pain. Lipase levels remain elevated. Did encourage the use of incentive spirometry. 2. History of biliary stricture ? Patient underwent ERCP with removal of biliary stent on 08/18/[address] Araya 3..? Diabetes mellitus type 2 ? Patient oral agent held please on Accu-Cheks before meals and at bedtime with sliding scale coverage 4.? Hepatic steatosis ? Secondary to patient alcohol use as well as underlying diabetes.? Monitoring with daily LFTs.? GI on board 5.? Chronic alcohol abuse ? Counseled on cessation, started on phenobarb taper for possible early alcohol withdrawal 6.? Coronary artery disease ? Patient has history of CABG with subsequent PCI patient is on recommended medications including rosuvastatin, aspirin atenolol Plavix 7.? Essential hypertension ? Patient blood pressure controlled on atenolol and ramipril did continue 8.? Dyslipidemia -patient is on rosuvastatin did continue 9.? GERD ? Patient is on lansoprazole, substituted with Protonix in the hospital 10.? Carotid artery stenosis ? Patient is followed by vascular surgery as outpatient 11.? DVT prophylaxis ? SC Lovenox 12. Hypomagnesemia ? Corrected per protocol 13. Hyponatremia ? Secondary to hypovolemic hyponatremia, adjusted patient IV fluid from D5 half- normal saline to D5 saline with KCl Time spent in the patient's overall evaluation,decision-making process, review of diagnostic data, adjustment of management, discussion with other providers, nursing nursing and ancillary staff involved in patient's care documentation, 57Minutes Charges/Coding Visit Charges Inpatient E&M: 15221 Subs Hosp L3
[2022-08-19 08:44] LABS: Erythrocyte Sedimentation Rate 4 mm/hr (0-20)
[2022-08-19] MEDS: HYDROmorphone 0.5 MG/0.5 ML SYRINGE 1 MG IV ×5 (09:08→23:27)
[2022-08-19] MEDS: Docusate Sodium 100 MG Capsule 200 MG PO (09:16)
[2022-08-19] MEDS: Glycerin 1 Suppository 1 SUPP RC (09:16)
--- NOTE | 2022-08-19 10:00 | CASEMGMT ---
RN HOMAR Face to Face with patient for initial transition planning/care coordination assessment. RN CM introduced self and role at [facility]. Patient lying in bed, alert and oriented. Patient willing to participate in assessment and is able to answer all questions appropriately. Care providers, pharmacy, and demographics verified. Patient wishes to discharge home, denies need for home health at this time. Patient states he has no further needs or concerns at this time. CM to follow for discharge planning needs that may arise. PCP: Emre Specialists: Friend, JESSICA Preferred [facility]acy:[facility] Insurance: [employer] Prescription Benefit: yes Living Will/HPOA: yes, daughter Gwen Gross LNOK: daughter, significant other, [facility] Living Arrangements: Patient lives with significant other in a single story home with 3 steps and railing to enter the home. Patient states he is independent at home. Transportation: self, significant other DME/HHC: Patient states he has shower chair, cane, grab bars, walker at home. No prevoius HHC or SNF. Patient states he smokes 1 PPD of cigarettes and 2-3 Vodka mixed drinks 3-4 times per week. Patient declined resources. Disposition Plan: Patient to discharge home with family support and follow-up plans in place. Roxane SCHWARZ, RN, CM
[2022-08-19] MEDS: Magnesium Sulfate 4gm/100mL 4 GM/100 ML IV.SOLN. IV (11:01)
--- NOTE | 2022-08-19 12:35 | RAD_ITS ---
STUDY: X-RAY - ABDOMEN/PELVIS REASON FOR EXAM: Male, 62 years old. Abdominal pain. ERCP with stent removal 2 days ago. TECHNIQUE: Two AP supine views of the abdomen and pelvis. COMPARISON: CT of the abdomen and pelvis, August 18, 2022 FINDINGS: Normal visualized lung bases. Evidence of median sternotomy. There is a nonspecific bowel gas pattern. There is air throughout the colon as well as scattered dilated small bowel loops predominantly in the right upper quadrant. There is no demonstrated free abdominal air. The visualized liver, spleen and kidneys are grossly normal in size and morphology. Surgical clip in the right upper quadrant. Normal soft tissue structures. Normal visualized osseous structures. RAD/Abdomen Single View (Portable) IMPRESSION: Findings suggestive of localized right upper quadrant ileus. Electronically Signed: Austin Mcintosh DO at 16:51 EDT ,
[2022-08-19] MEDS: Metoclopramide 10 MG/2 ML Vial IV ×2 (13:17→18:23)
[2022-08-19 14:15] LABS: Bedside Glucose 130 mg/dL (74-106)
[2022-08-19 18:02] LABS: Absolute Lymphocyte Count 0.35 X10^3/uL (0.83-4.51); Absolute Neutrophil Count 10.6 X10^3/uL (2.0-7.7); Basophil# 0.09 X10^3/uL; Basophil% 0.7 % (0-1); Eosinophil# 0.05 X10^3/uL; Eosinophils% 0.4 % (0-5); Hematocrit 46.2 % (40-54); Hemoglobin 14.7 g/dL (13.0-16.5); Lymphocyte # 0.35 X10^3/ul (0.83-4.51); Lymphocyte % 2.9 % (19-41); Mean Corp Hgb Conc 31.8 g/dL (32-36); Mean Corpuscular Hgb 26.7 pg (27.0-32.0); Mean Platelet Vol. 11.1 fl (6.2-12.0); Monocyte# 0.97 X10^3/uL; Monocyte% 8.1 % (0-10); NRBC Flagged by Analyzer 0 % (0-5); Neutrophil # 10.56 X10^3/uL (2.7-7.7); Neutrophil % 87.7 % (47-70); POSITIVE DIFFERENTIAL YES; POSITIVE MORPHOLOGY YES; Platelet Count 169 K/mm3 (150-450); RBC Distribution Width CV 15.5 % (11.6-14.6); RBC Distribution Width SD 47.8 fl (35.1-43.9)
[2022-08-19] MEDS: Furosemide 40 MG/4 ML Vial IV (18:16)
[2022-08-19 18:21] LABS: Differential Indicated SCAN CRITERIA MET
[2022-08-19] MEDS: 0.9% Normal Saline 1,000 ML 250 ML IV ×2 (18:25→23:02)
[2022-08-19 18:31] LABS: Differential Comment SCANNED; Erythrocyte Sedimentation Rate 12 mm/hr (0-20)
[2022-08-19 18:48] LABS: Lactic Acid 1.2 mmol/L (0.4-1.9)
[2022-08-19 18:55] LABS: Bedside Glucose 138 mg/dL (74-106)
[2022-08-19] MEDS: Ensure Clear 120 ML Liquid PO (19:24)
[2022-08-19] MEDS: Ondansetron 4 MG/2 ML Vial IV (19:44)
--- NOTE | 2022-08-19 20:45 | CPS ---
Pt did not perform IS/PEP therapy due to being asleep.
[2022-08-20] MEDS: Metoclopramide 10 MG/2 ML Vial IV ×4 (00:19→17:29)
[2022-08-20] MEDS: 0.9% Saline Lock 10 ML Syringe IV ×6 (00:20→20:27)
[2022-08-20 00:40] LABS: Bedside Glucose 140 mg/dL (74-106)
[2022-08-20 03:22] VITALS: BP 155/81; PULSE 60; RESP 20; TEMP 37.3; O2SAT 93
[2022-08-20] MEDS: 0.9% Normal Saline 1,000 ML 250 ML IV ×2 (03:23→06:58)
[2022-08-20] MEDS: HYDROmorphone 0.5 MG/0.5 ML SYRINGE 1 MG IV ×5 (03:24→20:15)
[2022-08-20 06:00] VITALS: BMI 26.0
[2022-08-20 07:03] LABS: Absolute Lymphocyte Count 0.36 X10^3/uL (0.83-4.51); Absolute Neutrophil Count 8.3 X10^3/uL (2.0-7.7); Basophil# 0.05 X10^3/uL; Basophil% 0.5 % (0-1); Eosinophil# 0.01 X10^3/uL; Eosinophils% 0.1 % (0-5); Hematocrit 41.9 % (40-54); Hemoglobin 13.3 g/dL (13.0-16.5); Lymphocyte # 0.36 X10^3/ul (0.83-4.51); Lymphocyte % 3.8 % (19-41); Mean Corp Hgb Conc 31.7 g/dL (32-36); Mean Corpuscular Hgb 26.8 pg (27.0-32.0); Mean Corpuscular Volume 84.5 fL (80-94); Mean Platelet Vol. 11.5 fl (6.2-12.0); Monocyte# 0.77 X10^3/uL; Monocyte% 8.1 % (0-10); NRBC Flagged by Analyzer 0 % (0-5); Neutrophil # 8.31 X10^3/uL (2.7-7.7); Neutrophil % 87.2 % (47-70); POSITIVE DIFFERENTIAL YES; POSITIVE MORPHOLOGY YES; Platelet Count 162 K/mm3 (150-450); RBC Distribution Width CV 15.4 % (11.6-14.6); RBC Distribution Width SD 47.7 fl (35.1-43.9); Red Blood Count 4.96 M/mm3 (4.6-6.2); White Blood Count 9.5 K/mm3 (4.4-11.0)
[2022-08-20 07:21] LABS: Bedside Glucose 128 mg/dL (74-106)
--- NOTE | 2022-08-20 07:23 | CT_ITS ---
STUDY: CT CHEST, ABDOMEN T PELVIS WITH CONTRAST REASON FOR EXAM: Male, 62 years old. Shortness of breath RADIATION DOSAGE (If Supplied By Facility): CTDIvol = ( 16.79 ) mGy, DLP = ( 1582.71 ) mGycm TECHNIQUE: Transaxial imaging was performed following intravenous administration of Oral and amp; IV Gastrografin and amp; 100mL Isovue-300. Multiplanar coronal and sagittal images were reformatted. Individualized dose optimization techniques were used for this CT. COMPARISON: Comparison is made with prior CT scan of the abdomen dated August 18, 2022. FINDINGS: CHEST Since prior study, there has been an increase in the bilateral pleural effusions with bibasilar atelectasis and/or infiltrates. There is no demonstrated pleural abnormality. Sternal cerclage wires and vascular clips are present from a prior sternotomy and coronary artery bypass graft procedure (CABG). There are calcifications of the coronary arteries. Normal mediastinum. Normal hilar regions. Normal unenhanced pulmonary arteries. There is atherosclerotic calcification of the aortic arch with tortuosity and elongation of the aortic arch and descending thoracic aorta. Normal osseous structures. Fatty infiltration of the liver. Ascites. ABDOMEN Increased ascites as compared to prior study. There is hepatomegaly with diffuse hepatic enlargement. The gallbladder is contracted. Normal spleen. Normal pancreas. Normal bilateral adrenal glands. Normal right kidney. Normal left kidney. Since prior study, there is been an increase in the bilateral pararenal space fluid collection worse on the left side. Fluid is seen in the left paracolic gutter. There is also evidence of fluid in the pelvis. Normal visualized stomach. Normal small intestine. Normal colon. The appendix is visualized and appears normal. Normal abdominal aorta. Normal inferior vena cava. Progressive fluid and increased markings seen in the root of the mesenteric fat Normal abdominal wall. There are diffuse degenerative changes of the visualized lumbar spine. PELVIS Distended urinary bladder. Prostatic enlargement. Normal visualized small intestine. Normal visualized colon. There is no pelvic fluid. There is no pelvic lymphadenopathy or mass lesion. Normal visualized pelvic arteries. CT/CT Chest, Abd, Pel w/Contrast IMPRESSION: Progressive ascites. Increased bilateral pleural effusions with bibasilar atelectasis. Increased fluid in the root of the mesentery with increased markings within the mesenteric fat at the level of the mesenteric mesenteric root. Increased fluid in the pararenal spaces bilaterally. Electronically Signed: Damaso Valenzuela MD at 10:13 EDT ,
--- NOTE | 2022-08-20 07:32 | PN_ITS ---
Subjective Subjective Patient said he feels a little bit better today. His pain is 7 out of 10 from a 10 out of 10. He still has not had a bowel movement. He received enema and glycerin suppository and has been on Colace 200 mg twice daily. He he is about 5 L positive. He is still requiring oxygen. Objective Data Objective Data Vital Signs: Vital Signs Temp Pulse Resp BP Pulse Ox O2 Del Method O2 Flow Rate 99.1 F 60 20 H 155/81 H 93 Nasal Cannula 2 08/20/22 03:22 08/20/22 03:22 08/20/22 03:22 08/20/22 03:22 08/20/22 03:22 08/20/22 04:37 08/20/22 04:37 Oxygen Flow Rate (L/min) 2 Oxygen Delivery Method Nasal Cannula Weight: 176 lb 5.917 oz Body Mass Index (BMI) 26.0 Intake & Output: Intake and Output for Last 24 Hours 08/18/22 08/19/22 08/20/22 23:59 23:59 23:59 Intake Total 4281.25 / 4281.25 6573.34 / 6693.34 Output Total 400 / 400 Balance 3881.25 / 3881.25 6573.34 / 6693.34 Lab / Micro Data Result Diagrams: 08/20/22 06:15 08/20/22 06:15 Labs: Laboratory Results - last 24 hr 08/19/22 04:16: ESR 4 08/19/22 04:16: C-React Prot Ext Range 174.00 H, Lipase 6405 H 08/19/22 13:55: POC Glucose 130 H 08/19/22 17:50: WBC 12.0 H, RBC 5.50, Hgb 14.7, Hct 46.2, MCV 84.0, MCH 26.7 L, MCHC 31.8 L, RDW Std Deviation 47.8 H, RDW Coeff of Jeffrey 15.5 H, Plt Count 169, MPV 11.1, Immature Gran % (Auto) 0.200, Neut % (Auto) 87.7 H, Lymph % (Auto) 2.9 L, [place] % (Auto) 8.1, Eos % (Auto) 0.4, Baso % (Auto) 0.7, Absolute Neuts (auto) 10.6 H, Absolute Lymphs (auto) 0.35 L, Nucleated RBC % 0, Differential Comment SCANNED, ESR 12 08/19/22 17:50: C-React Prot Ext Range 258.00 H 08/19/22 17:50: Lactic Acid 1.2 08/19/22 18:32: POC Glucose 138 H 08/20/22 00:18: POC Glucose 140 H 08/20/22 05:54: POC Glucose 128 H Radiography Diagnostic Testing: Radiology Impression KUB X-Ray 08/19/22 12:35 IMPRESSION: Findings suggestive of localized right upper quadrant ileus. Electronically Signed: Austin McintoshDO at 16:51 EDT Reading Location ID and State: [address] [place] [address] Tel [phone], Service support , Physical Exam Narrative GENERAL: cooperative HEENT: Atraumatic; normocephalic EYES; Anicteric, Normal Conjunctiva NECK; supple, normal thyroid, RESPIRATORY: Diminished to auscultation CARDIOVASCULAR: Regular S1 S2, GI: soft, normoactive bowel sounds, : No Renal angle tenderness; swollen testicular sac. EXTREMITIES: No edema, no clubbing, MUSCULOSKELETAL: no muscle wasting NEURO: Awake; no lateralizing signs. SKIN: No Rash PSYCH; Flat affect Assessment & Plan Assessment/Plan (1) Pancreatitis: (2) Acute alcoholic pancreatitis: (3) Constipation: PLAN: Plan 59-year-old gentleman with past medical history of alcoholic pancreatitis and history of choledocholithiasis induced pancreatitis secondary to chronic cholecystitis status post cholecystectomy and ERCP with stone removal , stent placement and removal. He currently has acute pancreatitis. His hematocrit is increasing from 43-46 which corresponds to not enough hydration for his acute pancreatitis. I will increase his fluids up to 300 mils an hour. I will check an ESR, CRP. He did have a low-grade fever overnight so we will check blood cultures and consider empiric antibiotic therapy. I will give him a dose of azithromycin to increase small bowel motility x1 in the setting of likely paralytic ileus from acute pancreatitis. I will also put him on scheduled Reglan for likely gastroparesis associated with pancreatitis. I will DC his anticoagulation as he is high risk for hemorrhagic conversion to pancreatitis and place him on SCDs. Also recommending Colace twice a day and I will give him a suppository to help him have a bowel movement and hopefully that will help his abdominal pain. Recheck amylase, lipase. 08/20-I will decrease his fluids down to 200 cc an hour. I will also put him on 40 mg of Lasix IV every 8 hours. He should continue Ensure clear. I will order CT scan of the chest abdomen pelvis due to his scrotal swelling and continue short of breath. I will repeat his CMP later today to make sure that he is not depleting his potassium and his and not need require supplementation. I will also check a magnesium and phosphate. Further recommendations pending imaging. Blood cultures do not show any growth at this time. Charges/Coding Visit Charges Inpatient E&M: 93528 Subs Hosp L3
[2022-08-20 07:33] LABS: ALB/GLOB Ratio 0.8 RATIO (0.9-2.4); AST(SGOT) 21 U/L (15-37); Alanine Aminotransfer ALT/SGPT 16 U/L (16-61); Albumin, Serum 2.1 g/dL (3.2-5.0); Alkaline Phosphatase 37 U/L (45-117); Anion Gap 8 (5-15); BUN 16 mg/dL (7-18); BUN/Creat Ratio 31.9 RATIO (10-20); Calcium,Total 6.9 mg/dL (8.5-10.1); Chloride 108 mmol/L (98-107); EST Glomerular Filtration Rate 178 mL/min (>60); Est Glom Filt Rate - Afr Amer 215 mL/min (>60); Estimated Creatinine Clearance 151.22 ml/min; Globulin 2.7 g/dL (2.2-4.2); Glucose 116 mg/dL (74-106); Potassium 3.5 mmol/L (3.5-5.1); Protein, Total 4.8 g/dL (6.4-8.2); Sodium Level 136 mmol/L (136-145)
[2022-08-20 07:39] VITALS: O2SAT 93
[2022-08-20 07:39] LABS: Differential Indicated SCAN CRITERIA MET
[2022-08-20] MEDS: Furosemide 40 MG/4 ML Vial IV ×3 (08:00→20:25)
[2022-08-20 08:12] LABS: Amylase 401 U/L (25-115); Lipase 1498 U/L (73-393)
[2022-08-20 08:18] LABS: Lactic Acid 1.4 mmol/L (0.4-1.9)
--- NOTE | 2022-08-20 08:32 | PN.HOSP_ITS ---
Reason for Visit Reason for Visit: Diagnoses Constipation, unspecified (08/18/22) Alcohol induced acute pancreatitis without necrosis or infection (08/18/22) Acute pancreatitis without necrosis or infection, unspecified (08/18/22) Subjective Subjective Patient seen still has significant abdominal pain but less intense compared to previous day. Objective Data Objective Data Vital Signs: Vital Signs Temp Pulse Resp BP Pulse Ox O2 Del Method O2 Flow Rate 99.1 F 60 20 H 155/81 H 93 Nasal Cannula 2 08/20/22 03:22 08/20/22 03:22 08/20/22 03:22 08/20/22 03:22 08/20/22 07:39 08/20/22 07:39 08/20/22 07:39 Oxygen Flow Rate (L/min) 2 Oxygen Delivery Method Nasal Cannula Weight: 80 kg Body Mass Index (BMI) 26.0 Intake & Output: Intake and Output for Last 24 Hours 08/18/22 08/19/22 08/20/22 23:59 23:59 23:59 Intake Total 4281.25 / 4281.25 6573.34 / 6693.34 2128.33 / 2128.33 Output Total 400 / 400 Balance 3881.25 / 3881.25 6573.34 / 6693.34 2128.33 / 2128.33 Lab / Micro Data Result Diagrams: 08/20/22 06:15 08/20/22 06:15 Labs: Laboratory Results - last 24 hr 08/19/22 04:16: ESR 4 08/19/22 13:55: POC Glucose 130 H 08/19/22 17:50: WBC 12.0 H, RBC 5.50, Hgb 14.7, Hct 46.2, MCV 84.0, MCH 26.7 L, MCHC 31.8 L, RDW Std Deviation 47.8 H, RDW Coeff of Jeffrey 15.5 H, Plt Count 169, MPV 11.1, Immature Gran % (Auto) 0.200, Neut % (Auto) 87.7 H, Lymph % (Auto) 2.9 L, [place] % (Auto) 8.1, Eos % (Auto) 0.4, Baso % (Auto) 0.7, Absolute Neuts (auto) 10.6 H, Absolute Lymphs (auto) 0.35 L, Nucleated RBC % 0, Differential Comment SCANNED, ESR 12 03/23/23 17:50: C-React Prot Ext Range 258.00 H 08/19/22 17:50: Lactic Acid 1.2 08/19/22 18:32: POC Glucose 138 H 08/20/22 00:18: POC Glucose 140 H 08/20/22 05:54: POC Glucose 128 H 08/20/22 06:15: WBC 9.5, RBC 4.96, Hgb 13.3, Hct 41.9, MCV 84.5, MCH 26.8 L, MCHC 31.7 L, RDW Std Deviation 47.7 H, RDW Coeff of Jeffrey 15.4 H, Plt Count 162, MPV 11.5, Immature Gran % (Auto) 0.300, Neut % (Auto) 87.2 H, Lymph % (Auto) 3.8 L, [place] % (Auto) 8.1, Eos % (Auto) 0.1, Baso % (Auto) 0.5, Absolute Neuts (auto) 8.3 H, Absolute Lymphs (auto) 0.36 L, Nucleated RBC % 0, Differential Comment COMMENT 08/20/22 06:15: Sodium 136, Potassium 3.5, Chloride 108 H, Carbon Dioxide 20.0 L , Anion Gap 8, BUN 16, Creatinine 0.50 L, Estim Creat Clear Calc 151.22, Est GFR (MDRD) Af Amer 215, Est GFR (MDRD) Non-Af 178, BUN/Creatinine Ratio 31.9 H, Glucose 116 H, Calcium 6.9 L, Total Bilirubin 0.40, AST 21, ALT 16, Alkaline Phosphatase 37 L, Total Protein 4.8 L, Albumin 2.1 L, Globulin 2.7, Albumin/Globulin Ratio 0.8 L 08/20/22 06:15: C-React Prot Ext Range 251.00 H, Amylase 401 H, Lipase 1498 H 08/20/22 07:43: Lactic Acid 1.4 Radiography Diagnostic Testing: Radiology Impression KUB X-Ray 08/19/22 12:35 IMPRESSION: Findings suggestive of localized right upper quadrant ileus. Electronically Signed: Austin Mcintosh DO at 16:51 EDT Reading Location ID and State: [facility] / [place] Tel [phone], Service support , Physical Exam Narrative GENERAL: cooperative HEENT: Atraumatic; normocephalic EYES; Anicteric, Normal Conjunctiva NECK; supple, normal thyroid, RESPIRATORY: Diminished to auscultation CARDIOVASCULAR: Regular S1 S2, GI: soft, normoactive bowel sounds, : No Renal angle tenderness; EXTREMITIES: No edema, no clubbing, MUSCULOSKELETAL: no muscle wasting NEURO: Awake; no lateralizing signs. SKIN: No Rash PSYCH; Flat affect Assessment & Plan Assessment/Plan (1) Pancreatitis: PLAN: Plan Patient is a 62-year-old gentleman with history of chronic alcohol dependence presented with abdominal pain.? Imaging and diagnostic work-up consistent with acute pancreatitis admitted to regular nursing floor for further management 1. Acute pancreatitis ?? Post ERCP and alcohol induced pancreatitis. Patient has been admitted to regular nursing floor currently managed conservatively with bowel rest pain meds antinausea medication as well as PPI plan is to resume oral liquid as soon as possible. Consult was also placed to GI ? 08/19/2022; patient still has significant abdominal pain. Lipase levels remain elevated. Did encourage the use of incentive spirometry. ? 08/20/2022; patient seen has significant abdominal pain. Lipase and amylase levels trending down. Patient scheduled to undergo CT of the abdomen for further evaluation. 2. History of biliary stricture ? Patient underwent ERCP with removal of biliary stent on 08/18/[address] Araya 3..? Diabetes mellitus type 2 ? Patient oral agent held please on Accu-Cheks before meals and at bedtime with sliding scale coverage 4.? Hepatic steatosis ? Secondary to patient alcohol use as well as underlying diabetes.? Monitoring with daily LFTs.? GI on board 5.? Chronic alcohol abuse ? Counseled on cessation, started on phenobarb taper for possible early alcohol withdrawal 6.? Coronary artery disease ? Patient has history of CABG with subsequent PCI patient is on recommended medications including rosuvastatin, aspirin atenolol Plavix 7.? Essential hypertension ? Patient blood pressure controlled on atenolol and ramipril did continue 8.? Dyslipidemia -patient is on rosuvastatin did continue 9.? GERD ? Patient is on lansoprazole, substituted with Protonix in the hospital 10.? Carotid artery stenosis ? Patient is followed by vascular surgery as outpatient 11.? DVT prophylaxis ? SC Lovenox 12. Hypomagnesemia ? Corrected per protocol 13. Hyponatremia ? Secondary to hypovolemic hyponatremia, adjusted patient IV fluid from D5 half- normal saline to D5 saline with KCl Time spent in the patient's overall evaluation,decision-making process, review of diagnostic data, adjustment of management, discussion with other providers, nursing nursing and ancillary staff involved in patient's care documentation, 37Minutes Charges/Coding Visit Charges Inpatient E&M: 84495 Subs Hosp L2
[2022-08-20 09:20] VITALS: BP 166/87; PULSE 109; RESP 20; TEMP 36.8; O2SAT 94
[2022-08-20] MEDS: Docusate Sodium 100 MG Capsule 200 MG PO ×2 (09:24→20:21)
[2022-08-20] MEDS: Ramipril 10 MG Capsule PO (09:25)
[2022-08-20] MEDS: Ensure Clear 120 ML Liquid PO ×3 (09:25→16:22)
[2022-08-20] MEDS: Aspirin E.C. 81 MG Tablet PO (09:25)
[2022-08-20] MEDS: Clopidogrel Bisulfate 75 MG Tablet PO (09:25)
[2022-08-20] MEDS: Magnesium Chloride 64 MG Delay Rel.Tablet 128 MG PO (09:26)
[2022-08-20] MEDS: Senna/Docusate Sodium 1 Tablet 2 TABLET PO (09:28)
[2022-08-20] MEDS: Atenolol 50 MG Tablet PO (09:31)
[2022-08-20] MEDS: Insulin Lispro 100 UNIT/ML INSULN.PEN SC ×2 (12:26→17:29)
[2022-08-20] MEDS: 0.9% Normal Saline 1,000 ML 200 ML IV ×2 (12:27→17:38)
[2022-08-20 12:55] LABS: Bedside Glucose 173 mg/dL (74-106)
[2022-08-20 15:07] VITALS: BP 144/72; PULSE 85; RESP 20; TEMP 37.5; O2SAT 98
[2022-08-20 15:08] VITALS: BP 144/72; PULSE 85; RESP 20; TEMP 37.5; O2SAT 98
[2022-08-20 17:56] LABS: Bedside Glucose 156 mg/dL (74-106)
[2022-08-20 19:23] LABS: Anion Gap 2 (5-15); BUN 13 mg/dL (7-18); BUN/Creat Ratio 22.3 RATIO (10-20); Calcium,Total 7.3 mg/dL (8.5-10.1); Chloride 107 mmol/L (98-107); Creatinine, Serum 0.58 mg/dL (0.70-1.30); EST Glomerular Filtration Rate 149 mL/min (>60); Est Glom Filt Rate - Afr Amer 180 mL/min (>60); Estimated Creatinine Clearance 130.36 ml/min; Glucose 107 mg/dL (74-106); Potassium 3.1 mmol/L (3.5-5.1); Sodium Level 135 mmol/L (136-145)
[2022-08-20 21:07] VITALS: BP 122/71; PULSE 85; RESP 16; TEMP 36.2; O2SAT 97
[2022-08-21] VITALS (8 sets, daily range): BP systolic 107–146; BP diastolic 66–77; PULSE 84–95; RESP 16–18; TEMP 36.7–37.7; O2SAT 92–100; BMI 25.7
[2022-08-21] MEDS: 0.9% Normal Saline 1,000 ML 200 ML IV ×2 (00:12→04:02)
[2022-08-21] MEDS: HYDROmorphone 0.5 MG/0.5 ML SYRINGE 1 MG IV ×6 (00:19→23:40)
[2022-08-21] MEDS: Metoclopramide 10 MG/2 ML Vial IV ×5 (01:08→23:40)
[2022-08-21] MEDS: 0.9% Saline Lock 10 ML Syringe IV ×5 (01:09→23:40)
[2022-08-21 01:30] LABS: Bedside Glucose 94 mg/dL (74-106)
[2022-08-21] MEDS: Senna/Docusate Sodium 1 Tablet 2 TABLET PO (05:12)
[2022-08-21] MEDS: Furosemide 40 MG/4 ML Vial IV ×3 (05:43→19:43)
[2022-08-21 06:15] LABS: Bedside Glucose 85 mg/dL (74-106)
[2022-08-21 07:21] LABS: Absolute Lymphocyte Count 0.39 X10^3/uL (0.83-4.51); Absolute Neutrophil Count 6.5 X10^3/uL (2.0-7.7); Basophil# 0.05 X10^3/uL; Basophil% 0.6 % (0-1); Eosinophil# 0.03 X10^3/uL; Eosinophils% 0.4 % (0-5); Hematocrit 38.4 % (40-54); Lymphocyte # 0.39 X10^3/ul (0.83-4.51); Lymphocyte % 4.9 % (19-41); Mean Corp Hgb Conc 31.3 g/dL (32-36); Mean Corpuscular Hgb 26.8 pg (27.0-32.0); Mean Corpuscular Volume 85.7 fL (80-94); Mean Platelet Vol. 10.9 fl (6.2-12.0); Monocyte# 0.94 X10^3/uL; Monocyte% 11.8 % (0-10); NRBC Flagged by Analyzer 0 % (0-5); Neutrophil # 6.54 X10^3/uL (2.7-7.7); Neutrophil % 81.8 % (47-70); POSITIVE DIFFERENTIAL YES; POSITIVE MORPHOLOGY YES; Platelet Count 172 K/mm3 (150-450); RBC Distribution Width CV 15.2 % (11.6-14.6); RBC Distribution Width SD 47.9 fl (35.1-43.9); Red Blood Count 4.48 M/mm3 (4.6-6.2)
[2022-08-21 07:29] LABS: Differential Indicated SCAN CRITERIA MET
[2022-08-21 07:52] LABS: ALB/GLOB Ratio 0.7 RATIO (0.9-2.4); AST(SGOT) 26 U/L (15-37); Alanine Aminotransfer ALT/SGPT 18 U/L (16-61); Albumin, Serum 2.3 g/dL (3.2-5.0); Alkaline Phosphatase 49 U/L (45-117); Anion Gap 3 (5-15); BUN 12 mg/dL (7-18); BUN/Creat Ratio 20.9 RATIO (10-20); Calcium,Total 7.6 mg/dL (8.5-10.1); Chloride 105 mmol/L (98-107); Creatinine, Serum 0.57 mg/dL (0.70-1.30); EST Glomerular Filtration Rate 152 mL/min (>60); Est Glom Filt Rate - Afr Amer 184 mL/min (>60); Estimated Creatinine Clearance 132.65 ml/min; Globulin 3.1 g/dL (2.2-4.2); Glucose 94 mg/dL (74-106); Potassium 2.7 mmol/L (3.5-5.1); Protein, Total 5.4 g/dL (6.4-8.2); Sodium Level 135 mmol/L (136-145)
[2022-08-21] MEDS: Potassium Chloride Oral Tablet 20 MEQ 40 MEQ PO ×2 (08:50→19:42)
[2022-08-21] MEDS: Aspirin E.C. 81 MG Tablet PO (08:50)
[2022-08-21] MEDS: HYDROmorphone 1 MG/ML Syringe IV (08:51)
[2022-08-21] MEDS: Potassium Chloride 10mEq/100mL 10 MEQ/100 ML IV.SOLN. 100 MEQ IV BOLUS ×3 (09:34→21:05)
[2022-08-21] MEDS: Docusate Sodium 100 MG Capsule 200 MG PO ×2 (09:35→20:02)
[2022-08-21] MEDS: Magnesium Chloride 64 MG Delay Rel.Tablet 128 MG PO (09:36)
[2022-08-21] MEDS: Ramipril 10 MG Capsule PO (09:37)
[2022-08-21] MEDS: Atenolol 50 MG Tablet PO (09:38)
[2022-08-21] MEDS: Clopidogrel Bisulfate 75 MG Tablet PO (11:10)
[2022-08-21] MEDS: Insulin Lispro 100 UNIT/ML INSULN.PEN SC (12:13)
[2022-08-21] MEDS: Potassium Chloride 10mEq/100mL 10 MEQ/100 ML IV.SOLN. 75 MEQ IV BOLUS (12:14)
[2022-08-21 12:46] LABS: Bedside Glucose 164 mg/dL (74-106)
--- NOTE | 2022-08-21 14:51 | PN.HOSP_ITS ---
Reason for Visit Reason for Visit: Diagnoses Constipation, unspecified (08/18/22) Alcohol induced acute pancreatitis without necrosis or infection (08/18/22) Acute pancreatitis without necrosis or infection, unspecified (08/18/22) Subjective Subjective Patient was seen and examined today, I talked with gastroenterology today and placed the patient on an ADA diet, I also reduce his IV fluids and reduced his IV Lasix. Patient was given potassium supplementation today. Patient has not had a bowel movement since he has been in the hospital, I encouraged him to get up and walk around in the [place] today. Objective Data Objective Data Vital Signs: Vital Signs Temp Pulse Resp BP Pulse Ox O2 Del Method O2 Flow Rate 98.1 F 87 16 139/67 H 93 Room Air 2 08/21/22 10:17 08/21/22 10:17 08/21/22 10:17 08/21/22 10:17 08/21/22 10:17 08/21/22 10:17 08/21/22 10:00 Oxygen Flow Rate (L/min) 2 Oxygen Delivery Method Room Air Weight: 79.2 kg Body Mass Index (BMI) 25.7 Intake & Output: Intake and Output for Last 24 Hours 08/19/22 08/20/22 08/21/22 23:59 23:59 23:59 Intake Total 6573.34 / 6693.34 5651.66 / 5651.66 2026.67 / 2026.67 Output Total 2425 / 2425 600 / 600 Balance 6573.34 / 6693.34 3226.66 / 3226.66 1426.67 / 1426.67 Lab / Micro Data Result Diagrams: 08/21/22 06:41 08/21/22 06:41 Labs: Laboratory Results - last 24 hr 08/20/22 17:28: POC Glucose 156 H 08/20/22 18:48: Sodium 135 L, Potassium 3.1 L, Chloride 107, Carbon Dioxide 26.0, Anion Gap 2 L, BUN 13, Creatinine 0.58 L, Estim Creat Clear Calc 130.36, Est GFR (MDRD) Af Amer 180, Est GFR (MDRD) Non-Af 149, BUN/Creatinine Ratio 22.3 H, Glucose 107 H, Calcium 7.3 L 08/21/22 01:07: POC Glucose 94 08/21/22 05:44: POC Glucose 85 08/21/22 06:41: WBC 8.0, RBC 4.48 L, Hgb 12.0 L, Hct 38.4 L, MCV 85.7, MCH 26.8 L, MCHC 31.3 L, RDW Std Deviation 47.9 H, RDW Coeff of Jeffrey 15.2 H, Plt Count 172, MPV 10.9, Immature Gran % (Auto) 0.500, Neut % (Auto) 81.8 H, Lymph % (Auto) 4.9 L, [place] % (Auto) 11.8 H, Eos % (Auto) 0.4, Baso % (Auto) 0.6, Absolu te Neuts (auto) 6.5, Absolute Lymphs (auto) 0.39 L, Nucleated RBC % 0 08/21/22 06:41: Sodium 135 L, Potassium 2.7 L*, Chloride 105, Carbon Dioxide 27.0, Anion Gap 3 L, BUN 12, Creatinine 0.57 L, Estim Creat Clear Calc 132.65, Est GFR (MDRD) Af Amer 184, Est GFR (MDRD) Non-Af 152, BUN/Creatinine Ratio 20.9 H, Glucose 94, Calcium 7.6 L, Total Bilirubin 0.70, AST 26, ALT 18, Alkaline Phosphatase 49, Total Protein 5.4 L, Albumin 2.3 L, Globulin 3.1, Albumin/ Globulin Ratio 0.7 L 08/21/22 12:08: POC Glucose 164 H Micro: Microbiology 08/19/22 08:30 Blood Culture (Wb) - Anticubital Right Blood Culture - Preliminary No growth in 48 hours. 08/19/22 08:24 Blood Culture (Wb) - Left Wrist Blood Culture - Preliminary No growth in 48 hours. Physical Exam Const alert, oriented x3, no apparent distress and average body habitus HEENT head/scalp atraumatic and moist oral mucous membranes Eyes PERRL, EOMs intact bilaterally and conjunctivae normal Neck supple and no JVD Resp normal respiratory effort, no retractions, no use of accessory muscles and clear to auscultation bilaterally Cardio regular rate, regular rhythm, S1 normal heart sound, S2 normal heart sound and no murmurs GI GI Narrative: Abdomen is mildly distended, there are high-pitched bowel sounds scattered throughout the abdomen Auscultation: hypoactive bowel sounds Extremity normal to inspection and no clubbing, cyanosis or edema Neuro oriented x3, CN's II-XII intact bilaterally, moves all extremities and no focal motor deficits Sensorium / Orientation: awake, alert, oriented to person, oriented to place and oriented to time Psych affect normal Assessment & Plan Assessment/Plan (1) Pancreatitis: PLAN: Plan #1 acute recurrent pancreatitis-patient's symptoms are improving at this time, again he was placed on an ADA diet today. IV fluids will continue for now and he will be getting Lasix once a day IV per GI for fluid overload #2 coronary artery disease-stable at this time #3 hypokalemia-patient was given IV and oral potassium supplementation #4 essential hypertension-patient will remain on his present medication #5 hyperlipidemia-patient will remain on his statin at this time Total clinical time spent by myself addressing the patient's medical issues, reviewing all the data, and collaborating with patient's care team: 35 minutes Charges/Coding Visit Charges Inpatient E&M: 33045 Subs Hosp L2
[2022-08-21] MEDS: 0.9% Normal Saline 1,000 ML 75 ML IV (16:01)
[2022-08-21 18:00] LABS: Bedside Glucose 157 mg/dL (74-106)
--- NOTE | 2022-08-21 18:49 | PN_ITS ---
Subjective Subjective Patient states that he feels a little bit better. He still has not been eating much. He has been taking Ensure clear. He has not had a bowel movement with the Colace only. He is up about 12 pounds since his admission. His IV fluids were decreased Objective Data Objective Data Vital Signs: Vital Signs Temp Pulse Resp BP Pulse Ox O2 Del Method O2 Flow Rate 98.7 F 85 16 135/66 H 96 Room Air 2 08/21/22 15:50 08/21/22 15:50 08/21/22 15:50 08/21/22 15:50 08/21/22 15:50 08/21/22 15:50 08/21/22 10:00 Oxygen Flow Rate (L/min) 2 Oxygen Delivery Method Room Air Weight: 174 lb 9.698 oz Body Mass Index (BMI) 25.7 Intake & Output: Intake and Output for Last 24 Hours 08/19/22 08/20/22 08/21/22 23:59 23:59 23:59 Intake Total 6573.34 / 6693.34 5651.66 / 5651.66 2126.67 / 2126.67 Output Total 2425 / 2425 1500 / 1500 Balance 6573.34 / 6693.34 3226.66 / 3226.66 626.67 / 626.67 Lab / Micro Data Result Diagrams: 08/21/22 06:41 08/21/22 06:41 Labs: Laboratory Results - last 24 hr 08/20/22 18:48: Sodium 135 L, Potassium 3.1 L, Chloride 107, Carbon Dioxide 26.0, Anion Gap 2 L, BUN 13, Creatinine 0.58 L, Estim Creat Clear Calc 130.36, Est GFR (MDRD) Af Amer 180, Est GFR (MDRD) Non-Af 149, BUN/Creatinine Ratio 22.3 H, Glucose 107 H, Calcium 7.3 L 08/21/22 01:07: POC Glucose 94 08/21/22 05:44: POC Glucose 85 08/21/22 06:41: WBC 8.0, RBC 4.48 L, Hgb 12.0 L, Hct 38.4 L, MCV 85.7, MCH 26.8 L, MCHC 31.3 L, RDW Std Deviation 47.9 H, RDW Coeff of Jeffrey 15.2 H, Plt Count 172, MPV 10.9, Immature Gran % (Auto) 0.500, Neut % (Auto) 81.8 H, Lymph % (Auto) 4.9 L, [place] % (Auto) 11.8 H, Eos % (Auto) 0.4, Baso % (Auto) 0.6, Absolute Neuts (auto) 6.5, Absolute Lymphs (auto) 0.39 L, Nucleated RBC % 0 08/21/22 06:41: Sodium 135 L, Potassium 2.7 L*, Chloride 105, Carbon Dioxide 27.0, Anion Gap 3 L, BUN 12, Creatinine 0.57 L, Estim Creat Clear Calc 132.65, Est GFR (MDRD) Af Amer 184, Est GFR (MDRD) Non-Af 152, BUN/Creatinine Ratio 20.9 H, Glucose 94, Calcium 7.6 L, Total Bilirubin 0.70, AST 26, ALT 18, Alkaline Phosphatase 49, Total Protein 5.4 L, Albumin 2.3 L, Globulin 3.1, Albumin/Globul in Ratio 0.7 L 08/21/22 12:08: POC Glucose 164 H 08/21/22 17:36: POC Glucose 157 H Micro: Microbiology 08/19/22 08:30 Blood Culture (Wb) - Anticubital Right Blood Culture - Preliminary No growth in 48 hours. 08/19/22 08:24 Blood Culture (Wb) - Left Wrist Blood Culture - Preliminary No growth in 48 hours. Physical Exam Const alert, oriented x3, no apparent distress and average body habitus HEENT head/scalp atraumatic and moist oral mucous membranes Eyes PERRL, EOMs intact bilaterally and conjunctivae normal Neck supple and no JVD Resp normal respiratory effort, no retractions, no use of accessory muscles and clear to auscultation bilaterally Cardio regular rate, regular rhythm, S1 normal heart sound, S2 normal heart sound and no murmurs GI GI Narrative: Abdomen is mildly distended, there are high-pitched bowel sounds scattered throughout the abdomen Auscultation: hypoactive bowel sounds Extremity normal to inspection and no clubbing, cyanosis or edema Neuro oriented x3, CN's II-XII intact bilaterally, moves all extremities and no focal motor deficits Sensorium / Orientation: awake, alert, oriented to person, oriented to place and oriented to time Psych affect normal Assessment & Plan Assessment/Plan (1) Pancreatitis: (2) Acute alcoholic pancreatitis: (3) Constipation: PLAN: Plan 59-year-old gentleman with past medical history of alcoholic pancreatitis and history of choledocholithiasis induced pancreatitis secondary to chronic cholecystitis status post cholecystectomy and ERCP with stone removal , stent placement and removal. He currently has acute pancreatitis. His hematocrit is increasing from 43-46 which corresponds to not enough hydration for his acute pa ncreatitis. I will increase his fluids up to 300 mils an hour. I will check an ESR, CRP. He did have a low-grade fever overnight so we will check blood cultures and consider empiric antibiotic therapy. I will give him a dose of azithromycin to increase small bowel motility x1 in the setting of likely paralytic ileus from acute pancreatitis. I will also put him on scheduled Reglan for likely gastroparesis associated with pancreatitis. I will DC his anticoagulation as he is high risk for hemorrhagic conversion to pancreatitis and place him on SCDs. Also recommending Colace twice a day and I will give him a suppository to help him have a bowel movement and hopefully that will help his abdominal pain. Recheck amylase, lipase. 08/20-I will decrease his fluids down to 200 cc an hour. I will also put him on 40 mg of Lasix IV every 8 hours. He should continue Ensure clear. I will order CT scan of the chest abdomen pelvis due to his scrotal swelling and continue short of breath. I will repeat his CMP later today to make sure that he is not depleting his potassium and his and not need require supplementation. I will also check a magnesium and phosphate. Further recommendations pending imaging. Blood cultures do not show any growth at this time. 08/21-IV fluids decreased down to 75 cc an hour. I would like to get more fluid off of him. Recommend to keep Lasix at every 12 hours. I will repeat a BMP tonight. I will also repeat a CRP to make sure it is going down. Antibiotics have been stopped. Indicators regarding improvement of severe pancreatitis are good regarding today's decrease in hematocrit and his BUN is staying lower. Continue to advance diet. Continue Reglan. Charges/Coding Visit Charges Inpatient E&M: 27785 Subs Hosp L3
[2022-08-21 19:15] LABS: Anion Gap 4 (5-15); BUN 14 mg/dL (7-18); BUN/Creat Ratio 23.4 RATIO (10-20); Calcium,Total 8.1 mg/dL (8.5-10.1); Chloride 104 mmol/L (98-107); EST Glomerular Filtration Rate 145 mL/min (>60); Est Glom Filt Rate - Afr Amer 176 mL/min (>60); Estimated Creatinine Clearance 126.02 ml/min; Glucose 156 mg/dL (74-106); Potassium 2.5 mmol/L (3.5-5.1); Sodium Level 136 mmol/L (136-145)
[2022-08-21 19:35] LABS: Magnesium 1.7 mg/dL (1.6-2.6)
[2022-08-21] MEDS: Atorvastatin Calcium 80 MG Tablet PO (20:02)
[2022-08-21] MEDS: MELATONIN 3 MG TABLET PO (22:16)
[2022-08-22] VITALS (7 sets, daily range): BP systolic 134–170; BP diastolic 64–76; PULSE 85–97; RESP 14–20; TEMP 36.8–37.2; O2SAT 95–100; BMI 25.9
[2022-08-22 00:11] LABS: Bedside Glucose 134 mg/dL (74-106)
[2022-08-22] MEDS: traZODone 50 MG Tablet PO (03:12)
[2022-08-22] MEDS: 0.9% Normal Saline 1,000 ML 75 ML IV (03:17)
[2022-08-22] MEDS: HYDROmorphone 0.5 MG/0.5 ML SYRINGE 1 MG IV ×5 (03:45→19:47)
[2022-08-22] MEDS: 0.9% Saline Lock 10 ML Syringe IV ×5 (03:45→19:48)
[2022-08-22] MEDS: Metoclopramide 10 MG/2 ML Vial IV ×3 (05:56→16:46)
[2022-08-22 06:31] LABS: Bedside Glucose 141 mg/dL (74-106)
[2022-08-22 06:48] LABS: Anion Gap 5 (5-15); BUN 11 mg/dL (7-18); BUN/Creat Ratio 23.6 RATIO (10-20); Calcium,Total 8.1 mg/dL (8.5-10.1); Chloride 103 mmol/L (98-107); Creatinine, Serum 0.47 mg/dL (0.70-1.30); EST Glomerular Filtration Rate 193 mL/min (>60); Est Glom Filt Rate - Afr Amer 234 mL/min (>60); Estimated Creatinine Clearance 160.87 ml/min; Glucose 156 mg/dL (74-106); Potassium 2.8 mmol/L (3.5-5.1); Sodium Level 135 mmol/L (136-145)
[2022-08-22] MEDS: Docusate Sodium 100 MG Capsule 200 MG PO ×2 (07:36→19:53)
[2022-08-22] MEDS: Furosemide 40 MG/4 ML Vial IV ×2 (07:36→16:46)
[2022-08-22] MEDS: Clopidogrel Bisulfate 75 MG Tablet PO (07:36)
[2022-08-22] MEDS: Magnesium Chloride 64 MG Delay Rel.Tablet 128 MG PO (07:36)
[2022-08-22] MEDS: Atenolol 50 MG Tablet PO (07:37)
[2022-08-22] MEDS: Ramipril 10 MG Capsule PO (07:37)
[2022-08-22] MEDS: Aspirin E.C. 81 MG Tablet PO (07:37)
[2022-08-22] MEDS: Potassium Chloride Oral Tablet 20 MEQ 40 MEQ PO (07:51)
[2022-08-22] MEDS: Potassium Chloride 10mEq/100mL 10 MEQ/100 ML IV.SOLN. 100 MEQ IV BOLUS ×3 (08:12→11:04)
[2022-08-22] MEDS: Insulin Lispro 100 UNIT/ML INSULN.PEN SC ×2 (11:12→20:17)
[2022-08-22 11:46] LABS: Bedside Glucose 162 mg/dL (74-106)
--- NOTE | 2022-08-22 12:06 | PN.HOSP_ITS ---
Reason for Visit Reason for Visit: Diagnoses Constipation, unspecified (08/18/22) Alcohol induced acute pancreatitis without necrosis or infection (08/18/22) Acute pancreatitis without necrosis or infection, unspecified (08/18/22) Subjective Subjective Seen and examined today, he has minimal abdominal pain today and is able to eat. Patient still complains of generalized edema in the scrotal area, I told him I can stop his IV fluids but he is reluctant to stop it completely. I decided to reduce the IV fluids and keep the patient on Lasix at this time. Patient's potassium was low and he received potassium replacement today. Objective Data Objective Data Vital Signs: Vital Signs Temp Pulse Resp BP Pulse Ox O2 Del Method O2 Flow Rate 98.9 F 86 16 152/75 H 95 Room Air 2 08/22/22 11:00 08/22/22 11:00 08/22/22 11:00 08/22/22 11:00 08/22/22 11:00 08/22/22 11:00 08/21/22 10:00 Oxygen Flow Rate (L/min) 2 Oxygen Delivery Method Room Air Weight: 79.4 kg Body Mass Index (BMI) 25.9 Intake & Output: Intake and Output for Last 24 Hours 08/20/22 08/21/22 08/22/22 23:59 23:59 23:59 Intake Total 5651.66 / 5651.66 2436.67 / 2436.67 1958.75 / 1958.75 Output Total 2425 / 2425 3000 / 3000 2600 / 2600 Balance 3226.66 / 3226.66 -563.33 / -563.33 -641.25 / -641.25 Lab / Micro Data Result Diagrams: 08/21/22 06:41 08/22/22 05:32 Labs: Laboratory Results - last 24 hr 08/21/22 12:08: POC Glucose 164 H 08/21/22 17:36: POC Glucose 157 H 08/21/22 18:46: Sodium 136, Potassium 2.5 L*, Chloride 104, Carbon Dioxide 28.0, Anion Gap 4 L, BUN 14, Creatinine 0.60 L, Estim Creat Clear Calc 126.02, Est GFR (MDRD) Af Amer 176, Est GFR (MDRD) Non-Af 145, BUN/Creatinine Ratio 23.4 H, Glucose 156 H, Calcium 8.1 L 08/21/22 18:46: Magnesium 1.7 08/21/22 23:39: POC Glucose 134 H 08/22/22 05:32: Sodium 135 L, Potassium 2.8 L, Chloride 103, Carbon Dioxide 2 7.0, Anion Gap 5, BUN 11, Creatinine 0.47 L, Estim Creat Clear Calc 160.87, Est GFR (MDRD) Af Amer 234, Est GFR (MDRD) Non-Af 193, BUN/Creatinine Ratio 23.6 H, Glucose 156 H, Calcium 8.1 L 08/22/22 05:54: POC Glucose 141 H 08/22/22 11:11: POC Glucose 162 H Micro: Microbiology 08/19/22 08:30 Blood Culture (Wb) - Anticubital Right Blood Culture - Preliminary No growth in 48 hours. 08/19/22 08:24 Blood Culture (Wb) - Left Wrist Blood Culture - Preliminary No growth in 48 hours. Physical Exam Const alert, oriented x3, no apparent distress and healthy appearing General Appearance: cooperative, well kempt and well developed Orientation / Consciousness: awake, oriented to person, oriented to place and oriented to time HEENT normocephalic and moist oral mucous membranes Eyes PERRL, EOMs intact bilaterally and conjunctivae normal Neck supple, no JVD, thyroid normal and no carotid bruits General: trachea midline Resp normal respiratory effort, no retractions, no use of accessory muscles and clear to auscultation bilaterally Auscultation: Negative for rales, rhonchi or wheezes Cardio regular rate, regular rhythm, S1 normal heart sound, S2 normal heart sound, no murmurs, no rub and no gallops GI normal to inspection, nondistended, normoactive bowel sounds, soft to palpation and non-distended GI Narrative: Mild abdominal tenderness to palpation Extremity no clubbing, cyanosis or edema Skin no rashes or lesions noted General Skin Exam: no breakdown Neuro oriented x3, CN's II-XII intact bilaterally, no focal motor deficits and no sensory deficits noted Sensorium / Orientation: awake and alert Speech: speech normal Psych affect normal Assessment & Plan Assessment/Plan (1) Pancreatitis: PLAN: Plan #1 acute recurrent pancreatitis-patient's symptoms are improving at this time, I have decided to decrease the patient's IV fluids, he remains on an ADA diet at this time. #2 coronary artery disease-stable at this time #3 hypokalemia-patient was given IV and oral potassium supplementation, recheck BMP tomorrow #4 essential hypertension-patient will remain on his present medication #5 hyperlipidemia-patient will remain on his statin at this time Total clinical time spent by myself addressing the patient's medical issues, reviewing all the data, and collaborating with patient's care team: 36 minutes Charges/Coding Visit Charges Inpatient E&M: 52507 Subs Hosp L2
[2022-08-22] MEDS: Senna/Docusate Sodium 1 Tablet 2 TABLET PO (15:14)
[2022-08-22] MEDS: Potassium Chloride Oral Tablet 20 MEQ PO (16:47)
[2022-08-22] MEDS: 0.9% Normal Saline 1,000 ML 60 ML IV (19:47)
[2022-08-22] MEDS: Atorvastatin Calcium 80 MG Tablet PO (19:53)
[2022-08-22 19:56] LABS: Bedside Glucose 125 mg/dL (74-106)
[2022-08-22 21:40] LABS: Bedside Glucose 164 mg/dL (74-106)
[2022-08-23 00:17] VITALS: BP 161/65; PULSE 94; RESP 20; TEMP 36.9; O2SAT 95
[2022-08-23] MEDS: Metoclopramide 10 MG/2 ML Vial IV ×3 (00:22→12:08)
[2022-08-23] MEDS: HYDROmorphone 1 MG/ML Syringe IV (00:24)
[2022-08-23] MEDS: MELATONIN 3 MG TABLET PO (00:27)
[2022-08-23 02:37] VITALS: BMI 25.9
[2022-08-23 04:29] VITALS: BP 138/63; PULSE 87; RESP 16; TEMP 36.7; O2SAT 95
[2022-08-23] MEDS: HYDROmorphone 0.5 MG/0.5 ML SYRINGE 1 MG IV ×2 (04:33→08:18)
[2022-08-23] MEDS: Insulin Lispro 100 UNIT/ML INSULN.PEN SC ×2 (06:28→12:07)
[2022-08-23 06:50] LABS: Bedside Glucose 181 mg/dL (74-106)
[2022-08-23 07:15] VITALS: O2SAT 93
[2022-08-23 08:00] VITALS: BP 145/93; PULSE 91; RESP 19; TEMP 36.9; O2SAT 98
[2022-08-23] MEDS: Aspirin E.C. 81 MG Tablet PO (08:08)
[2022-08-23] MEDS: Docusate Sodium 100 MG Capsule 200 MG PO (08:09)
[2022-08-23] MEDS: Potassium Chloride Oral Tablet 20 MEQ PO (08:10)
[2022-08-23] MEDS: Magnesium Chloride 64 MG Delay Rel.Tablet 128 MG PO (08:10)
[2022-08-23] MEDS: Ramipril 10 MG Capsule PO (08:11)
[2022-08-23] MEDS: Furosemide 40 MG/4 ML Vial IV (08:11)
[2022-08-23] MEDS: Clopidogrel Bisulfate 75 MG Tablet PO (08:20)
[2022-08-23] MEDS: Atenolol 50 MG Tablet PO (08:20)
[2022-08-23 10:32] LABS: Anion Gap 5 (5-15); BUN 9 mg/dL (7-18); BUN/Creat Ratio 16.5 RATIO (10-20); Calcium,Total 8.2 mg/dL (8.5-10.1); Chloride 101 mmol/L (98-107); Creatinine, Serum 0.54 mg/dL (0.70-1.30); EST Glomerular Filtration Rate 162 mL/min (>60); Est Glom Filt Rate - Afr Amer 196 mL/min (>60); Estimated Creatinine Clearance 140.02 ml/min; Glucose 182 mg/dL (74-106); Potassium 2.7 mmol/L (3.5-5.1); Sodium Level 132 mmol/L (136-145)
[2022-08-23 10:43] LABS: Erythrocyte Sedimentation Rate 42 mm/hr (0-20)
[2022-08-23 10:47] LABS: Absolute Lymphocyte Count 0.51 X10^3/uL (0.83-4.51); Absolute Neutrophil Count 7.5 X10^3/uL (2.0-7.7); Basophil# 0.03 X10^3/uL; Basophil% 0.3 % (0-1); Eosinophil# 0.06 X10^3/uL; Eosinophils% 0.6 % (0-5); Hematocrit 34.2 % (40-54); Hemoglobin 11.2 g/dL (13.0-16.5); Lymphocyte # 0.51 X10^3/ul (0.83-4.51); Lymphocyte % 4.9 % (19-41); Mean Corp Hgb Conc 32.7 g/dL (32-36); Mean Corpuscular Hgb 26.6 pg (27.0-32.0); Mean Corpuscular Volume 81.2 fL (80-94); Mean Platelet Vol. 10.2 fl (6.2-12.0); Monocyte# 2.21 X10^3/uL; Monocyte% 21.3 % (0-10); NRBC Flagged by Analyzer 0 % (0-5); Neutrophil # 7.46 X10^3/uL (2.7-7.7); POSITIVE DIFFERENTIAL YES; Platelet Count 231 K/mm3 (150-450); RBC Distribution Width CV 15.8 % (11.6-14.6); RBC Distribution Width SD 46.9 fl (35.1-43.9); Red Blood Count 4.21 M/mm3 (4.6-6.2); White Blood Count 10.4 K/mm3 (4.4-11.0)
[2022-08-23 10:52] LABS: Differential Indicated SCAN CRITERIA MET
[2022-08-23 11:13] LABS: ALB/GLOB Ratio 0.7 RATIO (0.9-2.4); AST(SGOT) 38 U/L (15-37); Alanine Aminotransfer ALT/SGPT 28 U/L (16-61); Albumin, Serum 2.3 g/dL (3.2-5.0); Alkaline Phosphatase 69 U/L (45-117); Globulin 3.3 g/dL (2.2-4.2); Protein, Total 5.6 g/dL (6.4-8.2)
[2022-08-23 11:16] LABS: Amylase 111 U/L (25-115); Lipase 458 U/L (73-393)
[2022-08-23 11:31] LABS: Bedside Glucose 174 mg/dL (74-106)
[2022-08-23 11:38] LABS: Differential Comment SCANNED
[2022-08-23] MEDS: oxyCODONE 5 MG Tablet 10 MG PO (12:13)
[2022-08-23] MEDS: 0.9% Normal Saline 1,000 ML 60 ML IV (12:15)
[2022-08-23] MEDS: Potassium Chloride Oral Tablet 20 MEQ 40 MEQ PO ×2 (13:27→14:34)
--- NOTE | 2022-08-23 14:11 | DCINST_ITS ---
Discharge Instructions Diet Discharge Diet: 1800 Calorie Control Diet Activity Discharge Activity: Return to Normal Activity Weight Bearing Status: Full weight bearing Follow Up Care Test Results: Test results from this visit will be discussed in further detail at your follow- up appointment, if applicable. Discharge Plan Admission Admit Date/Time: 08/18/22 09:09 Primary Reason for Your Visit: pancreatitis Attending Provider: Lalit Cheng Primary Care Provider: Chai Andrea Consulting Providers: Mundo Keen Discharge Orders/Prescriptions Prescriptions: New hydrocodone-acetaminophen 5-325 mg tablet 1 tab PO Q4H PRN PRN (Reason: pain) 5 Days Qty: 20 0RF metoclopramide HCl [Reglan] 5 mg tablet 5 mg PO BID Qty: 20 0RF Continued aspirin [Adult Low Dose Aspirin] 81 mg tablet,delayed release (DR/EC) 81 mg PO DAILY magnesium oxide 400 mg capsule 400 mg PO DAILY ascorbic acid (vitamin C) 500 mg tablet 1 g PO DAILY acetylcysteine [NAC] 600 mg capsule 1,200 mg PO BID Rx Instructions: administer with a meal nitroglycerin 0.4 mg tablet, sublingual 0.4 mg SUBLINGUAL Q5-15M PRN (Reason: CHEST PAIN) Qty: 25 3RF milk thistle 175 mg tablet 175 mg PO BID Rx Instructions: give with meal/snack vitamin A palmitate 1 tab PO QODAY sildenafil 100 mg tablet 100 mg PO DAILY PRN (Reason: Erectile Dysfunction) Label Comments: TAKE 1 TABLET BY MOUTH NEEDED (ERECTILE DYSFUNCTION) cholecalciferol (vitamin D3) 25 mcg (1,000 unit) Capsule 25 mcg PO DAILY lansoprazole 30 mg capsule,delayed release(DR/EC) 30 mg PO DAILY metformin 500 mg tablet extended release 24 hr 500 mg PO BID atenolol 50 mg tablet 50 mg PO DAILY potassium citrate 5 mEq (540 mg) tablet extended release 5 meq PO DAILY ramipril 10 mg capsule 10 mg PO DAILY rosuvastatin [Crestor] 40 mg tablet 40 mg PO QHS icosapent ethyl [Vascepa] 1 gram capsule 2 g PO BID vitamin B complex Capsule 1 cap PO DAILY B12 5,000-100 mcg Lozenge 1 obie SUBLINGUAL DAILY fenofibrate micronized 200 mg capsule 200 mg PO DAILY clopidogrel 75 mg tablet 75 mg PO DAILY Qty: 90 3RF Referrals / Follow Up: Chai Andrea DO [Primary Care Provider] - Within 2 Weeks Jim Araya DO [Med Staff - Active Staff] - See Referral Note (as scheduled) Disposition Disposition (needs filled in before D/C Order can be placed): Home, Self Care
--- NOTE | 2022-08-23 14:23 | PCM.DC.SUM ---
Providers Date of Admission: 08/18/22 Date of Discharge: 08/23/22 Primary Care Physician: Dr. Chai Andrea, Consultations 08/18/22 10:24 Consult: Gastroenterology Routine Consulting Provider: [facility] Reason for Consult: Acute pancreatitis EMERGENT Consult: No MD Notified: Yes Date Notified: 08/18/22 Time Notified: 10:24 Method of Notification: ED Physician Initiated Reason For Visit: ACUTE PANCREATITIS Diagnosis Discharge Diagnosis (1) Pancreatitis: Status: Inactive Code(s): K85.90 - Acute pancreatitis without necrosis or infection, unspecified Plan #1 acute recurrent pancreatitis-patient's symptoms are improving at this time, I have decided to decrease the patient's IV fluids, he remains on an ADA diet at this time. #2 coronary artery disease-stable at this time #3 hypokalemia-patient was given IV and oral potassium supplementation, recheck BMP tomorrow #4 essential hypertension-patient will remain on his present medication #5 hyperlipidemia-patient will remain on his statin at this time Total clinical time spent by myself addressing the patient's medical issues, reviewing all the data, and collaborating with patient's care team: 36 minutes Medications at Discharge Home Medications aspirin 81 mg tablet,delayed release (Adult Low Dose Aspirin) 81 mg PO DAILY HEALTH 06/08/18 magnesium oxide 400 mg PO DAILY SUPPLEMENT 06/08/18 acetylcysteine 600 mg capsule (NAC) 1,200 mg PO BID DIGESTION 05/29/19 nitroglycerin 0.4 mg sublingual tablet 0.4 mg sublingual Q5-15M PRN CHEST PAIN #25 tabs 04/02/21 milk thistle 175 mg tablet 175 mg PO BID SUPPLEMENT 09/22/21 atenolol 50 mg tablet 50 mg PO DAILY BP 06/06/22 cholecalciferol (vitamin D3) 25 mcg (1,000 unit) capsule 25 mcg PO DAILY SUPPLEMENT 06/06/22 icosapent ethyl 1 gram capsule (Vascepa) 2 g PO BID SUPPLEMENT 06/06/22 lansoprazole 30 mg capsule,delayed release 30 mg PO DAILY GERD 06/06/22 metformin 500 mg tablet,extended release 24 hr 500 mg PO BID DM 06/06/22 potassium citrate 5 mEq (540 mg) tablet,extended release 5 meq PO DAILY SUPPLEMENT 06/06/22 ramipril 10 mg capsule 10 mg PO DAILY HEART 06/06/22 rosuvastatin 40 mg tablet (Crestor) 40 mg PO QHS CHOLESTEROL 06/06/22 sildenafil 100 mg tablet 100 mg PO DAILY PRN Erectile Dysfunction 06/06/22 clopidogrel 75 mg tablet 75 mg PO DAILY BLOOD THINNER #90 tabs 07/05/22 ascorbic acid (vitamin C) 500 mg tablet 1 g PO DAILY SUPPLEMENT 07/27/22 vitamin A palmitate 1 tab PO QODAY 07/27/22 cyanocobalamin (B12)-cobamamide 5,000 mcg-100 mcg sublingual lozenge (B12) 1 obie sublingual DAILY 08/13/22 fenofibrate micronized 200 mg capsule 200 mg PO DAILY 08/13/22 vitamin B complex 1 cap PO DAILY 08/13/22 hydrocodone-acetaminophen 5-325mg 5mg-325mg 1 tab PO Q4H PRN PRN pain 5 days #20 tabs 08/23/22 metoclopramide HCl 5 mg tablet (Reglan) 5 mg PO BID #20 tabs 08/23/22 Hospital Course Operations None Procedures None Summary of Care Provided Minutes Spent on Discharge: 31 Hospital Course: This 62-year-old white male was seen in the emergency room at [facility] with complaints of generalized abdominal pain, he had a stent removed from his common bile duct the day prior to being seen in the emergency room. Work-up in the emergency revealed the patient's lipase to be elevated, his white blood cell count was elevated at 17.4 and patient's liver enzymes were unremarkable. Patient was admitted to [place] [address] for acute recurrent pancreatitis, he was given IV fluids and IV analgesics, he was seen in consultation by gastroenterology. Patient's symptoms resolved slowly during his hospitalization, on 08/23/2022, patient was seen and examined: On examination he appeared in good health and spirits. Vital signs as documented. Skin warm and dry and without overt rashes. Neck without JVD, neck was supple, trachea midline, thyroid was normal. Lungs clear bilaterally, normal air movement was noted. Heart exam notable for regular rhythm, normal sounds and absence of murmurs, rubs or gallops. Abdomen unremarkable and without evidence of organomegaly, masses, or abdominal aortic enlargement. Bowel sounds are present, abdomen is not distended. Extremities nonedematous, no cyanosis was noted, no clubbing was noted. Neuro: Cranial nerves II through XII are grossly intact, no focal motor deficits were noted, sensation to light touch and pinprick intact, motor exam 5/5 throughout. Psych: Patient is alert and oriented x3, he does not appear anxious or depressed, he does not appear agitated. Patient was felt to be stable for discharge on 08/23/2022. Weight / BMI Weight Weight: 79.3 kg Body Mass Index (BMI) 25.9 ABG / Lab / Microbiology Data Result Diagrams: 08/23/22 09:52 08/23/22 09:52 Laboratory: Laboratory Results - last 24 hr 08/22/22 16:46: POC Glucose 125 H 08/22/22 20:15: POC Glucose 164 H 08/23/22 06:26: POC Glucose 181 H 08/23/22 09:52: Sodium 132 L, Potassium 2.7 L*, Chloride 101, Carbon Dioxide 26.0, Anion Gap 5, BUN 9, Creatinine 0.54 L, Estim Creat Clear Calc 140.02, Est GFR (MDRD) Af Amer 196, Est GFR (MDRD) Non-Af 162, BUN/Creatinine Ratio 16.5, Glucose 182 H, Calcium 8.2 L, Total Bilirubin 0.60, AST 38 H, ALT 28, Alkaline Phosphatase 69, Total Protein 5.6 L, Albumin 2.3 L, Globulin 3.3, Albumin/Globulin Ratio 0.7 L 08/23/22 09:52: WBC 10.4, RBC 4.21 L, Hgb 11.2 L, Hct 34.2 L, MCV 81.2 D, MCH 26.6 L, MCHC 32.7, RDW Std Deviation 46.9 H, RDW Coeff of Jeffrey 15.8 H, Plt Count 231, MPV 10.2, Immature Gran % (Auto) 0.900, Neut % (Auto) 72.0 H, Lymph % (Auto) 4.9 L, [place] % (Auto) 21.3 H, Eos % (Auto) 0.6, Baso % (Auto) 0.3, Absolute Neuts (auto) 7.5, Absolute Lymphs (auto) 0.51 L, Nucleated RBC % 0, Differential Comment SCANNED, ESR 42 H 08/23/22 09:52: Sodium Cancelled, Potassium Cancelled, Chloride Cancelled, Carbon Dioxide Cancelled, Anion Gap Cancelled, BUN Cancelled, Creatinine Cancelled, Est GFR (MDRD) Af Amer Cancelled, Est GFR (MDRD) Non-Af Cancelled, BUN/Creatinine Ratio Cancelled, Glucose Cancelled, Calcium Cancelled, Total Bilirubin Cancelled, AST Cancelled, ALT Cancelled, Alkaline Phosphatase Cancelled, C-React Prot Ext Range 109.00 H, Total Protein Cancelled, Albumin Cancelled, Globulin Cancelled, Albumin/Globulin Ratio Cancelled, Amylase 111, Lipase 458 H 08/23/22 11:11: POC Glucose 174 H Microbiology: Microbiology 08/19/22 08:30 Blood Culture (Wb) - Anticubital Right Blood Culture - Preliminary No growth in 48 hours. 08/19/22 08:24 Blood Culture (Wb) - Left Wrist Blood Culture - Preliminary No growth in 48 hours. D/C Instructions Discharge Diet: 1800 Calorie Control Diet Weight Bearing Status: Full weight bearing Meaningful Use Info Meaningful Use Diagnoses (Choose all that apply): None applicable Discharge Plan Admission Admit Date/Time: 08/18/22 09:09 Primary Reason for Your Visit: pancreatitis Attending Provider: Lalit Cheng Primary Care Provider: Chai Andrea Consulting Providers: Mundo Keen Discharge Orders/Prescriptions Prescriptions: New hydrocodone-acetaminophen 5-325 mg tablet 1 tab PO Q4H PRN PRN (Reason: pain) 5 Days Qty: 20 0RF metoclopramide HCl [Reglan] 5 mg tablet 5 mg PO BID Qty: 20 0RF Continued aspirin [Adult Low Dose Aspirin] 81 mg tablet,delayed release (DR/EC) 81 mg PO DAILY magnesium oxide 400 mg capsule 400 mg PO DAILY ascorbic acid (vitamin C) 500 mg tablet 1 g PO DAILY acetylcysteine [NAC] 600 mg capsule 1,200 mg PO BID Rx Instructions: administer with a meal nitroglycerin 0.4 mg tablet, sublingual 0.4 mg SUBLINGUAL Q5-15M PRN (Reason: CHEST PAIN) Qty: 25 3RF milk thistle 175 mg tablet 175 mg PO BID Rx Instructions: give with meal/snack vitamin A palmitate 1 tab PO QODAY sildenafil 100 mg tablet 100 mg PO DAILY PRN (Reason: Erectile Dysfunction) Label Comments: TAKE 1 TABLET BY MOUTH NEEDED (ERECTILE DYSFUNCTION) cholecalciferol (vitamin D3) 25 mcg (1,000 unit) Capsule 25 mcg PO DAILY lansoprazole 30 mg capsule,delayed release(DR/EC) 30 mg PO DAILY metformin 500 mg tablet extended release 24 hr 500 mg PO BID atenolol 50 mg tablet 50 mg PO DAILY potassium citrate 5 mEq (540 mg) tablet extended release 5 meq PO DAILY ramipril 10 mg capsule 10 mg PO DAILY rosuvastatin [Crestor] 40 mg tablet 40 mg PO QHS icosapent ethyl [Vascepa] 1 gram capsule 2 g PO BID vitamin B complex Capsule 1 cap PO DAILY B12 5,000-100 mcg Lozenge 1 obie SUBLINGUAL DAILY fenofibrate micronized 200 mg capsule 200 mg PO DAILY clopidogrel 75 mg tablet 75 mg PO DAILY Qty: 90 3RF Referrals / Follow Up: Chai Andrea DO [Primary Care Provider] - 08/27/22 12:20 pm (WITH Felicity Juarez) Friend,DO Jim [Med Staff - Active Staff] - See Referral Note (as scheduled) Disposition Disposition (needs filled in before D/C Order can be placed): Home, Self Care Charges/Coding Visit Charges Inpatient E&M: 14632 Disch Hosp >30min
[2022-08-23 14:40] VITALS: BP 137/64; PULSE 86; RESP 18; TEMP 36.7; O2SAT 98
--- NOTE | 2022-08-23 15:52 | PHA.DC.MR ---
Pharmacy Service has performed discharge medication reconciliation for this patient. The patient's discharge medication list was reviewed for discrepancies and discrepancies were resolved. Medication education papers prepared, patient discharged before I was able to financial services counselor. Home Medications aspirin 81 mg tablet,delayed release (Adult Low Dose Aspirin) 81 mg PO DAILY HEALTH 06/08/18 magnesium oxide 400 mg PO DAILY SUPPLEMENT 06/08/18 acetylcysteine 600 mg capsule (NAC) 1,200 mg PO BID DIGESTION 05/29/19 nitroglycerin 0.4 mg sublingual tablet 0.4 mg sublingual Q5-15M PRN CHEST PAIN #25 tabs 04/02/21 milk thistle 175 mg tablet 175 mg PO BID SUPPLEMENT 09/22/21 atenolol 50 mg tablet 50 mg PO DAILY BP 06/06/22 cholecalciferol (vitamin D3) 25 mcg (1,000 unit) capsule 25 mcg PO DAILY SUPPLEMENT 06/06/22 icosapent ethyl 1 gram capsule (Vascepa) 2 g PO BID SUPPLEMENT 06/06/22 lansoprazole 30 mg capsule,delayed release 30 mg PO DAILY GERD 06/06/22 metformin 500 mg tablet,extended release 24 hr 500 mg PO BID DM 06/06/22 potassium citrate 5 mEq (540 mg) tablet,extended release 5 meq PO DAILY SUPPLEMENT 06/06/22 ramipril 10 mg capsule 10 mg PO DAILY HEART 06/06/22 rosuvastatin 40 mg tablet (Crestor) 40 mg PO QHS CHOLESTEROL 06/06/22 sildenafil 100 mg tablet 100 mg PO DAILY PRN Erectile Dysfunction 06/06/22 clopidogrel 75 mg tablet 75 mg PO DAILY BLOOD THINNER #90 tabs 07/05/22 ascorbic acid (vitamin C) 500 mg tablet 1 g PO DAILY SUPPLEMENT 07/27/22 vitamin A palmitate 1 tab PO QODAY 07/27/22 cyanocobalamin (B12)-cobamamide 5,000 mcg-100 mcg sublingual lozenge (B12) 1 obie sublingual DAILY 08/13/22 fenofibrate micronized 200 mg capsule 200 mg PO DAILY 08/13/22 vitamin B complex 1 cap PO DAILY 08/13/22 hydrocodone-acetaminophen 5-325mg 5mg-325mg 1 tab PO Q4H PRN PRN pain 5 days #20 tabs 08/23/22 metoclopramide HCl 5 mg tablet (Reglan) 5 mg PO BID #20 tabs 08/23/22
== END 2022-08-23 15:26 | disposition home or self-care (01) | DRG 439 ==
LOC: ED 07:15 → PCU 09:57 → MS3 08-21 00:48
PROVIDERS: Family Medicine; Internal Medicine Gastroenterology; Admitting Provider Internal Medicine; Emergency Provider Emergency Medicine; PCP Student in an Organized Health Care Education/Training Program; Visit Provider Internal Medicine
DX: K85.20 Alcohol induced acute pancreatitis without necrosis or infection (principal); E87.1 Hypo-osmolality and hyponatremia; E11.51 Type 2 diabetes mellitus with diabetic peripheral angiopathy without gangrene; K76.0 Fatty (change of) liver, not elsewhere classified; J44.9 Chronic obstructive pulmonary disease, unspecified; F10.20 Alcohol dependence, uncomplicated; I10 Essential (primary) hypertension; E78.00 Pure hypercholesterolemia, unspecified; I25.10 Atherosclerotic heart disease of native coronary artery without angina pectoris; F17.210 Nicotine dependence, cigarettes, uncomplicated; E87.6 Hypokalemia; K21.9 Gastro-esophageal reflux disease without esophagitis; I65.29 Occlusion and stenosis of unspecified carotid artery; E83.42 Hypomagnesemia; E86.1 Hypovolemia; K59.00 Constipation, unspecified; I25.2 Old myocardial infarction; N49.2 Inflammatory disorders of scrotum; Y90.9 Presence of alcohol in blood, level not specified; Z90.49 Acquired absence of other specified parts of digestive tract; Z95.1 Presence of aortocoronary bypass graft; Z95.5 Presence of coronary angioplasty implant and graft; Z79.02 Long term (current) use of antithrombotics/antiplatelets; Z79.82 Long term (current) use of aspirin; Z79.84 Long term (current) use of oral hypoglycemic drugs; Z79.899 Other long term (current) drug therapy
CPT/HCPCS: 36415; 71260; 74018; 74177; 80048; 80053; 80076; 82150; 82962; 83605; 83690; 83735; 84100; 84478; 84484; 85025; 85652; 86140; 87040; 93005; 94668; 97802; 97803; 99252; 99284; 99406; J7030; J7050; Q9967; A4216; G0463; J1940; J2405

== ENCOUNTER → 2022-08-27 | Outpatient (CLI) | payer OTHER, SELFPAY ==
[2022-08-27 14:14] LABS: Amylase 153 U/L (25-115); Lipase 1045 U/L (73-393)
== END | disposition home or self-care (01) ==
LOC: LABSPEC 13:52
PROVIDERS: PCP Student in an Organized Health Care Education/Training Program; Referring Provider Nurse Practitioner Family; Visit Provider Nurse Practitioner Family
DX: K85.90 Acute pancreatitis without necrosis or infection, unspecified (principal)
CPT/HCPCS: 82150; 83690

== ENCOUNTER → 2022-10-11 | Outpatient (CLI) | payer OTHER, SELFPAY | END | disposition home or self-care (01) | LOC: LAB 11:50 | PROVIDERS: PCP Student in an Organized Health Care Education/Training Program; Referring Provider Physician Assistant; Visit Provider Physician Assistant | DX: I65.29 Occlusion and stenosis of unspecified carotid artery (principal); Z95.5 Presence of coronary angioplasty implant and graft | CPT/HCPCS: 36415 ==

== ENCOUNTER → 2022-10-12 | Outpatient (CLI) | payer OTHER, SELFPAY ==
--- NOTE | 2022-10-12 07:59 | CT_ITS ---
STUDY: CTA HEAD AND NECK WITH CONTRAST REASON FOR EXAM: Male, 62 years old. bilateral carotid artery stenosis RADIATION DOSAGE (If Supplied By Facility): CTDIvol = ( 27.54 ) mGy, DLP = ( 1424.47 ) mGycm TECHNIQUE: CT angiography was performed with a multi-detector CT scanner. Data acquisition was obtained from the skull base through the vertex following intravenous administration of IV 100mL Isovue-370. MIP images were reconstructed from the axial data set. Post-processing of the angiographic images was performed, with multiplanar reformation and 3D reconstruction. Individualized dose optimization techniques were used for this CT. COMPARISON: No relevant priors. FINDINGS: Normal bilateral petrous carotid arteries. There is calcified plaque formation of the right cavernous carotid artery, with a mild stenosis (less than 50%). There is calcified plaque formation of the left cavernous carotid artery, with a mild stenosis (less than 50%). Normal right A1 segments of the anterior cerebral artery. Normal left A1 segments of the anterior cerebral artery. Normal intact anterior communicating artery (ACOM). Normal bilateral A2 segments of the anterior cerebral arteries. Normal right M1 and M2 segments of the middle cerebral arteries, with a normal M1 bifurcation. Normal left M1 and M2 segments of the middle cerebral arteries, with a normal M1 bifurcation. Normal right posterior communicating artery (PCOM). Normal left posterior communicating artery (PCOM). Normal bilateral vertebral arteries. Normal basilar artery with a normal basilar bifurcation. The visualized bilateral superior cerebellar (SCA) arteries are normal. Normal bilateral P1, P2 and visualized P3 segments of the posterior cerebral arteries. There is no demonstrated aneurysm of the [place]. There is no demonstrated abnormality of the visualized brain. AORTIC ARCH: There is atherosclerotic calcific plaque formation of the aortic arch and great vessels arising from the aortic arch, without a hemodynamically significant stenosis. There is a normal origin of the brachiocephalic, left common carotid, and left subclavian arteries. Atherosclerotic calcific plaques at the origin of the left subclavian artery and right brachiocephalic artery. RIGHT CAROTID ARTERIES: Normal right common carotid artery (CCA). Normal right common carotid bulb. There is severe atherosclerotic plaque formation of the origin of the right internal carotid artery with a near complete occlusion. Normal visualized cervical portion of the right internal carotid artery. Normal origin of the right external carotid artery (ECA). LEFT CAROTID ARTERIES: Normal left common carotid artery (CCA). Normal left common carotid bulb. There is severe atherosclerotic plaque formation of the origin of the left internal carotid artery with a near complete occlusion. Normal visualized cervical portion of the left internal carotid artery. Normal origin of the left external carotid artery (ECA). VERTEBRAL ARTERIES: There is enhancement within the bilateral vertebral arteries with a small right vertebral artery, and a dominant left vertebral artery. Nonstenotic calcific plaque in the proximal portion of the left vertebral artery. Calcific plaque in the distal portion of the left vertebral artery causing mild stenosis. There is also evidence of calcific plaques in the distal portion of the right vertebral artery causing 50-60% narrowing. CT/CTA Head AND Neck W/ Contrast IMPRESSION: High-grade stenosis caused by calcific plaques at the origin of both the right and left internal carotid arteries. Calcific plaques are also seen in both vertebral arteries. Dominant left vertebral artery. Electronically Signed: Damaso Valenzuela MD at 15:28 EDT ,
[2022-10-12 08:31] LABS: CREATININE FINGERSTICK < 0.9 mg/dL (0.70-1.30); EGFR FINGERSTICK > 60.0000 mL/min (>60)
== END | disposition home or self-care (01) ==
LOC: CT 07:55
PROVIDERS: PCP Student in an Organized Health Care Education/Training Program; Referring Provider Physician Assistant; Visit Provider Physician Assistant
DX: I65.23 Occlusion and stenosis of bilateral carotid arteries (principal)
CPT/HCPCS: 70496; 70498; Q9967

== ENCOUNTER 2022-11-09 05:22 | Inpatient (IN) | payer OTHER, SELFPAY ==
[2022-11-04 09:52] LABS: Hematocrit 39.8 % (40-54); Hemoglobin 12.5 g/dL (13.0-16.5); Mean Corp Hgb Conc 31.4 g/dL (32-36); Mean Corpuscular Hgb 27.4 pg (27.0-32.0); Mean Corpuscular Volume 87.1 fL (80-94); Mean Platelet Vol. 10.7 fl (6.2-12.0); POSITIVE MORPHOLOGY YES; Platelet Count 226 K/mm3 (150-450); RBC Distribution Width CV 22.2 % (11.6-14.6); RBC Distribution Width SD 70.3 fl (35.1-43.9); Red Blood Count 4.57 M/mm3 (4.6-6.2); White Blood Count 5.1 K/mm3 (4.4-11.0)
[2022-11-04 10:15] LABS: Scan Indicated on CBC? Y/N YES- FLAGS NOTED
[2022-11-04 10:21] LABS: Anion Gap 3 (5-15); BUN 27 mg/dL (7-18); BUN/Creat Ratio 36.5 RATIO (10-20); Calcium,Total 9.7 mg/dL (8.5-10.1); Chloride 109 mmol/L (98-107); Creatinine, Serum 0.74 mg/dL (0.70-1.30); EST Glomerular Filtration Rate 114 mL/min (>60); Est Glom Filt Rate - Afr Amer 137 mL/min (>60); Glucose 166 mg/dL (74-106); Potassium 4.5 mmol/L (3.5-5.1); Sodium Level 138 mmol/L (136-145)
[2022-11-04 10:35] LABS: Hemoglobin A1c 5.4 % (3.8-5.6)
[2022-11-09] VITALS (18 sets, daily range): BP systolic 94–155; BP diastolic 39–72; PULSE 58–77; RESP 12–18; TEMP 36.6–37.2; O2SAT 94–100; BMI 21.5
[2022-11-09] MEDS: Lactated Ringers 1,000 ML 15 ML IV (06:11)
--- NOTE | 2022-11-09 07:14 | PCM.HP.BLA ---
History and Physical Allergies ticlopidine HCl [From Ticlid] Allergy (Intermediate, Verified 10/28/22 14:37) Unknown [facility] Medical History? Acute alcoholic pancreatitis Acute gastritis without mention of hemorrhage Alcohol abuse Alcohol use Arrhythmia Atherosclerosis of coronary artery bypass graft without angina pectoris Atherosclerosis of coronary artery of [place] heart without angina pectoris Back pain due to injury Cancer Cardiology follow-up encounter Carotid artery stenosis Chest pain Constipation COPD (chronic obstructive pulmonary disease) Diabetes Dysphagia Easy bruising Esophagitis Essential (primary) hypertension Excessive bleeding Fistula, anal Gastric reflux GERD (gastroesophageal reflux disease) Heart attack High cholesterol History of rheumatic fever History of stress test History of ulceration Hyperlipidemia Hypertension Hypertriglyceridemia Malignant neoplasm of anterior wall of urinary bladder Pancreatitis Peripheral vascular occlusive disease Restless legs Rheumatic fever Snoring Wears glasses Surgical History? H/O cardiac catheterization H/O coronary artery bypass surgery (2003) history of anal fistula repair (05/2018) History of coronary artery stent placement (07/02/16) History of esophagogastroduodenoscopy (EGD) History of left heart catheterization (07/02/16) Hx of appendectomy Hx of colonoscopy Hx of cystoscopy Hx of vasectomy Status post cardiac surgery Status post laparoscopic cholecystectomy (05/2022) Family History? Father Cancer Heart diseaseBrother Diabetes HypertensionMother Heart disease Social History? household members:? none housing:? house Smoking Status:? Current every day smoker tobacco type: cigarettes alcohol intake:? current alcohol intake frequency: 0-2 drinks per day Alcohol type: hard liquor substance use type:? does not use caffeine:? Yes Type: coffee Number of servings: 4 HPI HPI HPI: SONIA PARSONS, is a 62 M who presents to the office today for follow up discussion of carotid stenosis. Has had a CTA and is here to discuss findings/options. Denies numbness/weakness/vision loss/speech difficultly. ROS General General: Yes weight change; No appetite, fatigue, colon cancer, breast cancer or weakness HEENT HEENT: No difficulty swallowing, eye injury, eye surgery, swollen glands or hoarseness Endo Endocrine: Yes diabetes mellitus; No thyroid disease, thyroid cancer, Hair loss, heat intolerance or cold intolerance Skin Skin: Yes changing moles; No rash Musc Musculoskeletal: Yes gout; No back problems, arthritis, rheumatoid arthritis or joint pain Cardio Cardiovascular: Yes heart disease, high blood pressure, heart attack and heart stent; No murmur, pacemaker, atrial fibrillation, palpitations, shortness of breat with exertion or chest pain Psych Psychiatric: No depression, anxiety or hearing voices Resp Respiratory: No shortness of breath, No sleep apnea, No cough, No COPD, No asthma, No emphysema and No wheezing Gastro Gastrointestinal: Yes abdominal pain, No nausea or vomiting, No diarrhea, Yes constipation, No blood in stool, No acid reflux, No hemorrhoids, No ulcers, Yes gallbladder problem and No black,tarry stools Aubrey Hematologic: Yes blood thinners, No blood disorders, No bleeding, No anemia and No blood clots Neuro Neurologic: No system reviewed and no additional complaints, except as documented, No as per HPI, No abnormal gait, No abnormal hearing, No abnormal movements, No abnormal speech, No behavioral changes, No burning sensations, No confusion, No convulsions, No disequilibrium, No dizziness, No localized weakness, No frequent falls, No headache(s), No lack of coordination, No loss of vision, No memory loss, Yes numbness, No other visual disturbances, No radicular pain, Yes restless legs, No sensory deficit, No syncope, No tingling, No tremor(s), No weakness and No other Exam Const General: cooperative, healthy appearing, comfortable, no acute distress and well developed Nutritional Appearance: well nourished Orientation: alert, awake and oriented x3 [facility] Head: normocephalic and atraumatic Ears: hearing grossly normal bilaterally Nose: external nose normal Eyes General: appearance normal, both eyes and all related structures EOM: EOM intact bilaterally Neck Neck: normal visual inspection, full ROM and trachea midline Thyroid: thyroid normal Resp Effort & Inspection: normal respiratory effort, able to speak in complete sentences, symmetric chest movement, no audible wheezes, not labored, no stridor and no use of accessory muscles Cardio Rate: regular rate Rhythm: regular rhythm Skin General: no rashes or lesions noted and no erythema Wounds: no wounds Neuro Cranial Nerves: CN's II-XI intact bilaterally and EOM intact bilaterally Speech: speech normal Gait: normal gait Motor: strength 5/5 throughout Sensory Exam: no sensory deficits noted Psych Appearance: grossly normal and well kempt Mental Status: mental status grossly normal Mood: congruent mood Speech and Movement: speech and movement normal Thought Content: normal Judgment: judgment good Coding Level of Care Code Off vis,est,level 3 Diagnoses Carotid artery stenosis? I65.29 Assessment and Plan Assessment and Plan (1) Carotid artery stenosis: ?Status:?Chronic -right CEA
--- NOTE | 2022-11-09 07:30 | PLAQ_PTH ---
PATIENT: SONIA PARSONS LOC: [facility] U#:[id number] AGE/SX: 62/M ROOM: [facility]05 RE11/09/[address]: Dr. Jorge Luis Seo MD : 1960 BED: 1 DIS: 11/10/2022 SPEC #: [id number] RECD: 11/09/22 12:11 STATUS: NYA REQ #: [id number] MIGUEL ÁNGEL: 11/09/22 07:[address]: Jorge Luis Seo DEPT: SURGICAL PATHOLOGY RECD BY: Manda Glover ENTERED: 11/09/22 12:33 SP TYPE: PLAQUE OTHR DR: MD Dr. Chai Menjivar DO Tissues: PLAQUE Procedures: Decalcification bone/plaque Surgery Specimen Level III HEADER OPERATION: Carotid endarterectomy PRE-OP DIAGNOSIS: Carotid artery stenosis TISSUE SUBMITTED: Right carotid plaque MICROSCOPIC DIAGNOSIS Right carotid plaque, endarterectomy: Atherosclerotic tissue with focal calcifications (plaque). SJ:suri 11/12/2022 GROSS DESCRIPTION Received in fixative is one container labeled with the patient's name and designated right carotid plaque. The specimen consists of a previously opened tubular piece of johns, indurated tissue measuring 2.5 cm in length and 0.7 cm in diameter. Also present in the container are two pieces of indurated tissue measuring in aggregate 2.0 x 0.5 x 0.2 cm. The specimen cuts with gritty sensation. The entire specimen is submitted in one cassette after decalcification. / SHAWN:suri 11/09/2022 TC:5 CPT: 67048, 69621
[2022-11-09] MEDS: Cefazolin 2 GM in 0.9% Normal Saline 100 ML IV (07:50)
[2022-11-09] MEDS: Bupivacaine Mpf 0.5% 30 ML VIAL (08:08)
[2022-11-09] MEDS: Lidocaine 1% (2ml-nursery) 2 ML VIAL (08:08)
[2022-11-09] MEDS: Heparin Injection (Vial) 5,000 UNIT/ML VIAL 5000 UNIT (08:08)
[2022-11-09 09:33] LABS: Bedside Glucose 168 mg/dL (74-106)
--- NOTE | 2022-11-09 10:38 | PCM.OPRPT ---
Report of Operation Date of Procedure: 11/09/22 Pre-Operative Diagnosis: right carotid stenosis Post-Operative Diagnosis: same Surgery/Procedure Performed:: right carotid endarterectomy Surgeon: Jorge Luis Seo Type of Anesthesia: General Drains: 15 Fr SAMIRA Estimated Blood Loss (mL): 75 Description of Procedure: HPI: Patient is a 62-year-old male with bilateral carotid artery stenosis which has worsened in recent duplex. He had CT angiography which confirmed greater than 80% stenosis of the right internal carotid artery. He presents now for elective endarterectomy. Description of procedure: Upon obtaining informed consent and verification correct patient procedure site patient was taken to the operating where he was placed under general anesthesia. Patient was then positioned prepped and draped in usual sterile fashion timeout was performed. Oblique incision was made overlying the anterior border the sternocleidomastoid and Bovie electrocautery was dissect down to the platysma. The platysma was then divided and self-retaining retractors put in position after which further dissection was carried down to the anterior border the sternocleidomastoid. This then freed along the medial border along lateral retraction exposing the carotid sheath. Sharp dissection was then used to dissect free the jugular vein and the facial vein was identified, ligated with silk ties, and divided. The vein was then retracted laterally exposing the common carotid artery and sharp dissection we used dissect free the proximal common carotid artery with care taken to identify protect the vagus nerve. A right angle used to place a vessel loop on the proximal common carotid artery and attention was then turned to the distal dissection. Sharp dissection used to dissect free the distal internal carotid artery beyond the area of palpable and visible plaque with care taken to identify and protect the hypoglossal nerve. A right angle used to place a vessel loop around the normal vessel distally. The patient was then heparinized allowed to circulate for 3 minutes after which serial ACT measurements were used to redose heparin. Sharp dissection used to dissect free the external carotid artery and a right angle used to place a vessel loop. Vessels then occluded with Vesseloops first the internal followed by the common and external. A longitudinal arteriotomy was created with 11 blade extended Benitez scissors onto the internal carotid artery and a 14 Maldivian shunt was first placed into the internal and then allowed to backbleed before placing proximally in the common carotid artery. The shunt was interrogated with Doppler and found to be patent low resistance signal. We then performed her endarterectomy with a freer elevator with satisfactory endpoint onto the internal carotid artery and eversion endarterectomy of the external carotid artery. The lumen flushed heparinized saline to clear debris in the distal endpoint tacked with 7-0 Prolene interrupted sutures. A bovine pericardial patch was then brought in the field and secured in position using a 6-0 Prolene in a running fashion. Prior to completing the suture line the shunt was removed and the vessels backbled. After completing the suture line the internal carotid artery clamp was released on the backbleed and the bifurcation then it was reoccluded as origin. Clamps were then removed from the external and the common carotid artery allowing 10 heartbeats of antegrade flow to flush into the external before reestablishing antegrade flow into the internal. When the clamps removed satisfactory stasis was noted and the vessels were interrogated with Doppler. The internal carotid artery was patent with low resistance signal in the external carotid artery is patent with appropriate signal. The patient was then reversed with protamine and incision inspected for hemostasis. There was some generalized oozing so Olena topical hemostatic was applied after which a 15 Maldivian SAMIRA was then placed via separate stab incision. The incision was then closed with a 2-0 Vicryl followed by a 3-0 Vicryl for Monocryl and Dermabond for the skin. At the conclusion of case patient was awakened anesthesia moving all extremities to command and he was taken to the intensive care unit for hemodynamic and neurologic monitoring.
[2022-11-09] MEDS: 0.45% Normal Saline 1,000 ML 100 ML IV ×2 (11:50→20:59)
[2022-11-09] MEDS: Acetaminophen 500 MG Tablet 1000 MG PO ×2 (12:20→20:58)
[2022-11-09 12:33] LABS: Bedside Glucose 142 mg/dL (74-106)
[2022-11-09] MEDS: HYDROmorphone Inj 0.2 MG/ML SYRINGE IV ×3 (13:56→21:56)
--- NOTE | 2022-11-09 15:40 | CASEMGMT ---
RN CM THREAD TOOL GRINDER SET UP OPERATOR CM to room to meet with patient for initial transition planning/care coordination assessment. RN HOMAR introduced self and role at [facility].? Pt voices understanding and consents to assessment at this time.? Pt resting in bed in no distress at this time.?Sig other, Jesu, @ bedside and pt agreeable to her being present during assessment. Pt is A/O at this time and answers all questions appropriately.?? Care providers, pharmacy, and demographics verified/updated at this time. PCP: Dr Andrea Specialists: Dr Mamadou Rojas, JESSICA-SONNY/Paty Preferred Pharmacy: [facility] Retail Insurance: [employer] Prescription Benefit:? Yes Living Will/HPOA:? Has HCPOA which is not on file @ [facility]. Pt states thinks both his Dtr, Shimon, and son are POA's. LNOK: Dtr, Shimon. Son. Sis-in-law, Tatiana. Sig other, Jesu Living Arrangements: Lives w/sig other, Jesu, in single-story home w/3 steps and railing to enter. Indep w/ADL's and IADL's. Transportation: Pt states drives self and states no transportation concerns at this time.? Jesu also drives. DME: ?States has the following DME but does not use: Shower chair, cane, grab bars, walker. ?Pt states no need for further DME at this time.? HHC/SNF: No hx of either and denies needs. No HHC needs identified. Pt wishes to return home and states has no concerns with going home at time of discharge.? Pt vapes and drinks 2-3 glasses (about 3 oz) Vodka/week. Pt declines wanting resources to stop drinking. CM to follow for any discharge planning/needs.? Pt and sig other voice no concerns/needs at this time.? Advised them to ask for CM if any further questions/concerns/needs arise.? They voices understanding. PLAN: ? Juan C SCHWARZ RN, CM
--- NOTE | 2022-11-09 15:45 | CASEMGMT ---
RN CM TISSUE TECHNICIAN CM to room to meet with patient for initial transition planning/care coordination assessment. RN HOMAR introduced self and role at [facility].? Pt voices understanding and consents to assessment at this time.? Pt resting in bed in no distress at this time.?Sig other, Jesu, @ bedside and pt agreeable to her being present during assessment. Pt is A/O at this time and answers all questions appropriately.?? Care providers, pharmacy, and demographics verified/updated at this time. PCP: Dr Andrea Specialists: Dr Mamadou Rojas, JESSICA-SONNY/Paty Preferred Pharmacy: [facility] Retail Insurance: [employer] Prescription Benefit:? Yes Living Will/HPOA:? Has HCPOA which is not on file @ [facility]. Pt states thinks both his Dtr, Shimon, and son are POA's. LNOK: Dtr, Shimon. Son. Sis-in-law, Tatiana. Sig other, Jesu Living Arrangements: Lives w/sig other, Jesu, in single-story home w/3 steps and railing to enter. Indep w/ADL's and IADL's. Transportation: Pt states drives self and states no transportation concerns at this time.? Jesu also drives. DME: ?States has the following DME but does not use: Shower chair, cane, grab bars, walker. ?Pt states no need for further DME at this time.? HHC/SNF: No hx of either and denies needs. No HHC needs identified. Pt wishes to return home and states has no concerns with going home at time of discharge.? Pt vapes and drinks 2-3 glasses (about 3 oz) Vodka/week. Pt declines wanting resources to stop drinking. CM to follow for any discharge planning/needs.? Pt and sig other voice no concerns/needs at this time.? Advised them to ask for CM if any further questions/concerns/needs arise.? They voice understanding. PLAN: ?Home Juan C SCHWARZ RN, CM
[2022-11-09] MEDS: Cefazolin 1 GM/50 ML BAG IV ×2 (16:32→23:27)
[2022-11-09] MEDS: metFORMIN (XR) 500 MG Tablet PO (16:33)
[2022-11-09] MEDS: Metoclopramide 5 MG TABLET PO (16:33)
[2022-11-09 16:52] LABS: Bedside Glucose 148 mg/dL (74-106)
[2022-11-09 20:51] LABS: Bedside Glucose 134 mg/dL (74-106)
[2022-11-09] MEDS: Zolpidem Tartrate 5 MG Tablet PO (20:57)
[2022-11-09] MEDS: Atorvastatin Calcium 80 MG Tablet PO (20:58)
[2022-11-10] VITALS (16 sets, daily range): BP systolic 94–143; BP diastolic 45–76; PULSE 59–71; RESP 9–14; TEMP 36.4–37; O2SAT 96–100; BMI 21.4
[2022-11-10] MEDS: HYDROmorphone Inj 0.2 MG/ML SYRINGE IV (03:10)
[2022-11-10 03:25] LABS: Absolute Lymphocyte Count 1.02 X10^3/uL (0.83-4.51); Absolute Neutrophil Count 4.1 X10^3/uL (2.0-7.7); Basophil# 0.01 X10^3/uL; Basophil% 0.2 % (0-1); Eosinophil# 0.12 X10^3/uL; Hematocrit 33.1 % (40-54); Hemoglobin 10.3 g/dL (13.0-16.5); Lymphocyte # 1.02 X10^3/ul (0.83-4.51); Lymphocyte % 16.7 % (19-41); Mean Corp Hgb Conc 31.1 g/dL (32-36); Mean Corpuscular Volume 89.9 fL (80-94); Mean Platelet Vol. 10.8 fl (6.2-12.0); Monocyte# 0.88 X10^3/uL; Monocyte% 14.4 % (0-10); NRBC Flagged by Analyzer 0 % (0-5); Neutrophil # 4.08 X10^3/uL (2.7-7.7); Neutrophil % 66.5 % (47-70); POSITIVE MORPHOLOGY YES; Platelet Count 167 K/mm3 (150-450); RBC Distribution Width CV 20.4 % (11.6-14.6); Red Blood Count 3.68 M/mm3 (4.6-6.2); White Blood Count 6.1 K/mm3 (4.4-11.0)
[2022-11-10 03:45] LABS: Differential Indicated SCAN CRITERIA MET
[2022-11-10 03:49] LABS: Anisocytosis 2+
[2022-11-10] MEDS: Acetaminophen 500 MG Tablet 1000 MG PO ×2 (05:26→13:43)
[2022-11-10] MEDS: 0.45% Normal Saline 1,000 ML 100 ML IV (05:26)
[2022-11-10] MEDS: Vitamin B Comp W-C Capsule 1 CAP PO (09:14)
[2022-11-10] MEDS: Metoclopramide 5 MG TABLET PO (09:14)
[2022-11-10] MEDS: Aspirin E.C. 81 MG Tablet PO (09:14)
[2022-11-10] MEDS: metFORMIN (XR) 500 MG Tablet PO (09:14)
[2022-11-10] MEDS: Ramipril 10 MG Capsule PO (09:15)
[2022-11-10] MEDS: Fenofibrate 145 MG Tablet PO (09:15)
[2022-11-10] MEDS: Ascorbic Acid 500 MG Tablet 1000 MG PO (09:15)
[2022-11-10] MEDS: Magnesium Chloride 64 MG Delay Rel.Tablet 128 MG PO (09:16)
[2022-11-10] MEDS: Clopidogrel Bisulfate 75 MG Tablet PO (09:16)
[2022-11-10] MEDS: Pantoprazole Sodium 40 MG Tablet PO (09:16)
[2022-11-10] MEDS: Atenolol 50 MG Tablet PO (09:16)
[2022-11-10] MEDS: Cholecalciferol (VIT D3) 25 MCG TABLET (1,000 UNITS) PO (09:17)
--- NOTE | 2022-11-10 10:02 | PCM.PN.SRG ---
Subjective Subjective Patient is doing well overall this morning. He did not sleep well last night due to frequent urination. He is having expected incisional site pain but otherwise no complaints. No facial drooping, dysarthria, focal weakness, sensory deficits, vision changes. He tolerated regular diet for dinner last night. His pain is well-controlled. He has been up to the chair without issue. Objective Data Objective Data Vital Signs: Vital Signs Temp Pulse Resp BP Pulse Ox O2 Del Method 97.6 F L 63 12 115/48 L 99 Room Air 11/10/22 04:00 11/10/22 07:00 11/10/22 07:00 11/10/22 07:00 11/10/22 07:00 11/10/22 07:00 Oxygen Delivery Method Room Air Weight: 149 lb 7.574 oz Body Mass Index (BMI) 21.4 Intake & Output: Intake and Output for Last 24 Hours 11/08/22 11/09/22 11/10/22 23:59 23:59 23:59 Intake Total 1209.5 / 1209.5 845 / 845 Output Total 1327 / 1327 1730 / 1730 Balance -117.5 / -117.5 -885 / -885 Lab / Micro Data Result Diagrams: 11/10/22 03:10 11/04/22 09:36 Labs: Laboratory Results - last 24 hr 11/09/22 12:12: POC Glucose 142 H 11/09/22 16:31: POC Glucose 148 H 11/09/22 20:32: POC Glucose 134 H 11/10/22 03:10: WBC 6.1, RBC 3.68 L, Hgb 10.3 L, Hct 33.1 L, MCV 89.9, MCH 28.0, MCHC 31.1 L, RDW Std Deviation 67.0 H, RDW Coeff of Jeffrey 20.4 H, Plt Count 167, MPV 10.8, Immature Gran % (Auto) 0.200, Neut % (Auto) 66.5, Lymph % (Auto) 16.7 L, [place] % (Auto) 14.4 H, Eos % (Auto) 2.0, Baso % (Auto) 0.2, Absolute Neuts (auto) 4.1, Absolute Lymphs (auto) 1.02, Nucleated RBC % 0, Anisocytosis 2+ Physical Exam Const alert, oriented x3 and no apparent distress General Appearance: cooperative and comfortable HEENT normocephalic, hearing grossly normal bilaterally, external ears normal and external nose normal Eyes EOMs intact bilaterally General Eye: normal appearance of both eyes Neck Neck Narrative: Right neck incision site with surgical glue intact, mild edema, no ecchymosis/erythema/drainage. Small amount of serosanguineous drainage noted in SAMIRA drain. General: trachea midline Resp normal respiratory effort, no retractions and no use of accessory muscles Effort and Inspection: able to speak in complete sentences; Negative for labored, stridor or audible wheezes Cardio regular rate and regular rhythm Peripheral Pulses: brachial pulses present and radial pulses present Extremity no clubbing, cyanosis or edema Skin no rashes or lesions noted Trauma: no lacerations or abrasions Wounds: wounds noted Wound Narrative: R CEA incision site as described above Neuro oriented x3, CN's II-XII intact bilaterally, moves all extremities, no focal motor deficits and no sensory deficits noted Speech: speech normal Psych Appearance: grossly normal Attitude: calm and engaged Activity / Motor Behavior: appropriate eye contact Speech: normal speech Assessment & Plan Assessment/Plan (1) Carotid artery stenosis: PLAN: Patient is POD#1 from right carotid endarterectomy. He has been hemodynamically and neurologically stable. SAMIRA drain has had minimal output overnight. His pain is well-controlled. He is tolerating regular diet and voiding without difficulty. Surgical site dressing and SAMIRA drain were removed without issue. Okay to d/c arterial line. He was up to chair this morning. Will ambulate around the room/down the edmond with nursing later this morning. Plan for d/c this afternoon.
[2022-11-10 10:19] LABS: Bedside Glucose 140 mg/dL (74-106)
[2022-11-10 12:13] LABS: Bedside Glucose 130 mg/dL (74-106)
--- NOTE | 2022-11-10 14:45 | PCM.DC.SUM ---
Providers Date of Admission: 11/09/22 Primary Care Physician: Dr. Chai Andrea, DO Reason For Visit: CAROTID ENDARTERECTOMY RT Diagnosis Discharge Diagnosis (1) Carotid artery stenosis: Status: Chronic Code(s): I65.29 - Occlusion and stenosis of unspecified carotid artery Plan: Patient is POD#1 from right carotid endarterectomy. He has been hemodynamically and neurologically stable. SAMIRA drain has had minimal output overnight. His pain is well-controlled. He is tolerating regular diet and voiding without difficulty. Surgical site dressing and SAMIRA drain were removed without issue. Okay to d/c arterial line. He was up to chair this morning. Will ambulate around the room/down the edmond with nursing later this morning. Plan for d/c this afternoon. Medications at Discharge Home Medications aspirin 81 mg tablet,delayed release (Adult Low Dose Aspirin) 81 mg PO DAILY HEALTH 06/08/18 magnesium oxide 400 mg PO DAILY SUPPLEMENT 06/08/18 acetylcysteine 600 mg capsule (NAC) 1,200 mg PO BID DIGESTION 05/29/19 nitroglycerin 0.4 mg sublingual tablet 0.4 mg sublingual Q5-15M PRN CHEST PAIN #25 tabs 04/02/21 milk thistle 175 mg tablet 175 mg PO BID SUPPLEMENT 09/22/21 atenolol 50 mg tablet 50 mg PO DAILY BP 06/06/22 cholecalciferol (vitamin D3) 25 mcg (1,000 unit) capsule 25 mcg PO DAILY SUPPLEMENT 06/06/22 icosapent ethyl 1 gram capsule (Vascepa) 2 g PO BID SUPPLEMENT 06/06/22 lansoprazole 30 mg capsule,delayed release 30 mg PO DAILY GERD 06/06/22 metformin 500 mg tablet,extended release 24 hr 500 mg PO BID DM 06/06/22 potassium citrate 5 mEq (540 mg) tablet,extended release 5 meq PO DAILY SUPPLEMENT 06/06/22 ramipril 10 mg capsule 10 mg PO DAILY HEART 06/06/22 rosuvastatin 40 mg tablet (Crestor) 40 mg PO QHS CHOLESTEROL 06/06/22 sildenafil 100 mg tablet 100 mg PO DAILY PRN Erectile Dysfunction 06/06/22 clopidogrel 75 mg tablet 75 mg PO DAILY BLOOD THINNER #90 tabs 07/05/22 ascorbic acid (vitamin C) 500 mg tablet 1 g PO DAILY SUPPLEMENT 07/27/22 vitamin A palmitate 1 tab PO QODAY Check with primary doctor 07/27/22 cyanocobalamin (B12)-cobamamide 5,000 mcg-100 mcg sublingual lozenge (B12) 1 obie sublingual DAILY Check with primary doctor 08/13/22 fenofibrate micronized 200 mg capsule 200 mg PO DAILY Check with primary doctor 08/13/22 vitamin B complex 1 cap PO DAILY Check with primary doctor 08/13/22 metoclopramide HCl 5 mg tablet (Reglan) 5 mg PO BID Check with primary doctor 11/03/22 zolpidem 5 mg tablet 5 mg PO QHS Check with primary doctor 11/03/22 hydrocodone-acetaminophen 5-325mg 5mg-325mg 1 tab PO Q6H PRN PRN pain 3 days #12 tabs 11/10/22 Hospital Course Operations - (Right carotid endarterectomy) Summary of Care Provided Hospital Course: Patient underwent right carotid endarterectomy on 11/09/2022. The procedure was without complication and he tolerated it well. He was routinely admitted to the ICU postoperatively for hemodynamic and neurologic monitoring. He has remained stable throughout his admission. SAMIRA drain was removed without issue on POD#1. The incision site has satisfactory appearance. His blood pressures have been stable and he is without signs/symptoms concerning for stroke/TIA or reperfusion syndrome. He is voiding without difficulty, tolerating regular diet, ambulating without issue. He is medically stable for discharge with outpatient follow-up. Physical Exam Const alert, oriented x3 and no apparent distress General Appearance: cooperative and comfortable HEENT normocephalic, hearing grossly normal bilaterally, external ears normal and external nose normal Eyes EOMs intact bilaterally General Eye: normal appearance of both eyes Neck Neck Narrative: Right neck incision site with surgical glue intact, mild edema, no ecchymosis/erythema/drainage. General: trachea midline Resp normal respiratory effort, no retractions and no use of accessory muscles Effort and Inspection: able to speak in complete sentences; Negative for labored, stridor or audible wheezes Cardio regular rate and regular rhythm Peripheral Pulses: brachial pulses present and radial pulses present Extremity no clubbing, cyanosis or edema Skin no rashes or lesions noted Trauma: no lacerations or abrasions Wounds: wounds noted Wound Narrative: R CEA incision site as described above Neuro oriented x3, CN's II-XII intact bilaterally, moves all extremities, no focal motor deficits and no sensory deficits noted Speech: speech normal Psych Appearance: grossly normal Attitude: calm and engaged Activity / Motor Behavior: appropriate eye contact Speech: normal speech Weight / BMI Weight Weight: 149 lb 7.574 oz Body Mass Index (BMI) 21.4 ABG / Lab / Microbiology Data Result Diagrams: 11/10/22 03:10 11/04/22 09:36 Laboratory: Laboratory Results - last 24 hr 11/09/22 16:31: POC Glucose 148 H 11/09/22 20:32: POC Glucose 134 H 11/10/22 03:10: WBC 6.1, RBC 3.68 L, Hgb 10.3 L, Hct 33.1 L, MCV 89.9, MCH 28.0, MCHC 31.1 L, RDW Std Deviation 67.0 H, RDW Coeff of Jeffrey 20.4 H, Plt Count 167, MPV 10.8, Immature Gran % (Auto) 0.200, Neut % (Auto) 66.5, Lymph % (Auto) 16.7 L, [place] % (Auto) 14.4 H, Eos % (Auto) 2.0, Baso % (Auto) 0.2, Absolute Neuts (auto) 4.1, Absolute Lymphs (auto) 1.02, Nucleated RBC % 0, Anisocytosis 2+ 11/10/22 09:12: POC Glucose 140 H 11/10/22 11:53: POC Glucose 130 H D/C Instructions Discharge Diet: No restrictions May shower in (days): 1 Weight Bearing Status: Weight bearing as tolerated Lifting Restricted to (Lbs): 20 Lifting Restrictions: Do not lift greater than 20 pounds for 3 weeks Call your doctor if your incision/area has: Sudden Increased Bleeding and Increased Pain/ Swelling Call your doctor if you observe: Fever of 101 or Higher and Uncontrolled pain Remove Dressing in: 1 day Additional Dressing/Incision Instructions: You may remove the small bandage tomorrow. This was covering the drain site, if there is still some drainage you may re-cover with a bandaid. If there is no drainage it is okay to leave it open to air. The rest of the incision site is covered with surgical glue which will continue to protect it, no need to cover with any other dressing. The glue will peel/flake off over the next few weeks, try not to pick at it. Additional Instructions: You may shower tomorrow. It is okay for soap and water to rinse over the incision site. Do not submerge the incision site in water for [address] you feel you are able to move your head well enough to check all of your blindspots, typically patients wait 3-5 days. We have sent you home with a prescription pain medication. Do not drive while you are taking this medication. Take this medication only as needed as prescribed and do not take in combination with any other prescription pain medications. Follow-up in the office in 2-4 weeks. Our office will contact you to schedule an appointment. Please Follow Up With: Jorge Luis Seo MD When: 2-4 weeks Meaningful Use Info Meaningful Use Diagnoses (Choose all that apply): None applicable Discharge Plan Admission Admit Date/Time: 11/09/22 05:22 Primary Reason for Your Visit: Right carotid endarterectomy Attending Provider: Jorge Luis Seo Primary Care Provider: Chai Andrea Consulting Providers: Jorge Luis Aburto Discharge Orders/Prescriptions Prescriptions: Continued aspirin [Adult Low Dose Aspirin] 81 mg tablet,delayed release (DR/EC) 81 mg PO DAILY magnesium oxide 400 mg capsule 400 mg PO DAILY ascorbic acid (vitamin C) 500 mg tablet 1 g PO DAILY acetylcysteine [NAC] 600 mg capsule 1,200 mg PO BID Rx Instructions: administer with a meal nitroglycerin 0.4 mg tablet, sublingual 0.4 mg SUBLINGUAL Q5-15M PRN (Reason: CHEST PAIN) Qty: 25 3RF milk thistle 175 mg tablet 175 mg PO BID Rx Instructions: give with meal/snack vitamin A palmitate 1 tab PO QODAY sildenafil 100 mg tablet 100 mg PO DAILY PRN (Reason: Erectile Dysfunction) Label Comments: TAKE 1 TABLET BY MOUTH NEEDED (ERECTILE DYSFUNCTION) cholecalciferol (vitamin D3) 25 mcg (1,000 unit) Capsule 25 mcg PO DAILY lansoprazole 30 mg capsule,delayed release(DR/EC) 30 mg PO DAILY metformin 500 mg tablet extended release 24 hr 500 mg PO BID atenolol 50 mg tablet 50 mg PO DAILY potassium citrate 5 mEq (540 mg) tablet extended release 5 meq PO DAILY ramipril 10 mg capsule 10 mg PO DAILY rosuvastatin [Crestor] 40 mg tablet 40 mg PO QHS icosapent ethyl [Vascepa] 1 gram capsule 2 g PO BID vitamin B complex Capsule 1 cap PO DAILY B12 5,000-100 mcg Lozenge 1 obie SUBLINGUAL DAILY fenofibrate micronized 200 mg capsule 200 mg PO DAILY metoclopramide HCl [Reglan] 5 mg tablet 5 mg PO BID zolpidem 5 mg tablet 5 mg PO QHS Label Comments: TAKE 1 TO 2 TABLETS BY MOUTH NEEDED AT BEDTIME FOR INSOMNIA clopidogrel 75 mg tablet 75 mg PO DAILY Qty: 90 3RF Changed hydrocodone-acetaminophen 5-325 mg tablet 1 tab PO Q6H PRN PRN (Reason: pain) 3 Days Qty: 12 0RF Referrals / Follow Up: Chai Andrea DO [Primary Care Provider] - Disposition Disposition (needs filled in before D/C Order can be placed): Home, Self Care
--- NOTE | 2022-11-10 15:57 | PHA.DC.MR ---
Pharmacy Service has performed discharge medication reconciliation for this patient. The patient's discharge medication list was reviewed for discrepancies and discrepancies were resolved. Home Medications aspirin 81 mg tablet,delayed release (Adult Low Dose Aspirin) 81 mg PO DAILY HEALTH 06/08/18 magnesium oxide 400 mg PO DAILY SUPPLEMENT 06/08/18 acetylcysteine 600 mg capsule (NAC) 1,200 mg PO BID DIGESTION 05/29/19 nitroglycerin 0.4 mg sublingual tablet 0.4 mg sublingual Q5-15M PRN CHEST PAIN #25 tabs 04/02/21 milk thistle 175 mg tablet 175 mg PO BID SUPPLEMENT 09/22/21 atenolol 50 mg tablet 50 mg PO DAILY BP 06/06/22 cholecalciferol (vitamin D3) 25 mcg (1,000 unit) capsule 25 mcg PO DAILY SUPPLEMENT 06/06/22 icosapent ethyl 1 gram capsule (Vascepa) 2 g PO BID SUPPLEMENT 06/06/22 lansoprazole 30 mg capsule,delayed release 30 mg PO DAILY GERD 06/06/22 metformin 500 mg tablet,extended release 24 hr 500 mg PO BID DM 06/06/22 potassium citrate 5 mEq (540 mg) tablet,extended release 5 meq PO DAILY SUPPLEMENT 06/06/22 ramipril 10 mg capsule 10 mg PO DAILY HEART 06/06/22 rosuvastatin 40 mg tablet (Crestor) 40 mg PO QHS CHOLESTEROL 06/06/22 sildenafil 100 mg tablet 100 mg PO DAILY PRN Erectile Dysfunction 06/06/22 clopidogrel 75 mg tablet 75 mg PO DAILY BLOOD THINNER #90 tabs 07/05/22 ascorbic acid (vitamin C) 500 mg tablet 1 g PO DAILY SUPPLEMENT 07/27/22 vitamin A palmitate 1 tab PO QODAY Check with primary doctor 07/27/22 cyanocobalamin (B12)-cobamamide 5,000 mcg-100 mcg sublingual lozenge (B12) 1 obie sublingual DAILY Check with primary doctor 08/13/22 fenofibrate micronized 200 mg capsule 200 mg PO DAILY Check with primary doctor 08/13/22 vitamin B complex 1 cap PO DAILY Check with primary doctor 08/13/22 metoclopramide HCl 5 mg tablet (Reglan) 5 mg PO BID Check with primary doctor 11/03/22 zolpidem 5 mg tablet 5 mg PO QHS Check with primary doctor 11/03/22 hydrocodone-acetaminophen 5-325mg 5mg-325mg 1 tab PO Q6H PRN PRN pain 3 days #12 tabs 11/10/22
== END 2022-11-10 15:45 | disposition home or self-care (01) | DRG 39 ==
LOC: ACINP 08:44 → ICU 11:07
PROVIDERS: Anesthesiology; Admitting Provider Surgery Trauma Surgery; PCP Student in an Organized Health Care Education/Training Program; Referring Provider Surgery Trauma Surgery; Visit Provider Surgery Trauma Surgery
PROC: 03CK0ZZ Extirpation of Matter from Right Internal Carotid Artery, Open Approach (ICD-10-PCS; CPT 35301; principal; 2022-11-09 07:10)
DX: I65.21 Occlusion and stenosis of right carotid artery (principal); E11.51 Type 2 diabetes mellitus with diabetic peripheral angiopathy without gangrene; J44.9 Chronic obstructive pulmonary disease, unspecified; F17.210 Nicotine dependence, cigarettes, uncomplicated; I10 Essential (primary) hypertension; E78.00 Pure hypercholesterolemia, unspecified; I25.10 Atherosclerotic heart disease of native coronary artery without angina pectoris; I25.2 Old myocardial infarction; F10.10 Alcohol abuse, uncomplicated; Y90.9 Presence of alcohol in blood, level not specified; Z95.1 Presence of aortocoronary bypass graft; Z95.5 Presence of coronary angioplasty implant and graft; Z79.02 Long term (current) use of antithrombotics/antiplatelets; Z79.82 Long term (current) use of aspirin; Z79.84 Long term (current) use of oral hypoglycemic drugs; Z79.899 Other long term (current) drug therapy
CPT/HCPCS: 36415; 80048; 82962; 83036; 85025; 85027; 86850; 86900; 86901; 88304; 88311; 94668; 97802; 99252; 99406; A4648; J7040; J7120; G0463; J2405

== ENCOUNTER → 2023-03-25 | Outpatient (CLI) | payer OTHER, SELFPAY ==
[2023-03-30 16:54] LABS: Hematocrit 32.5 % (40-54); Hemoglobin 10.7 g/dL (13.0-16.5); Mean Corp Hgb Conc 32.9 g/dL (32-36); Mean Corpuscular Hgb 27.9 pg (27.0-32.0); Mean Corpuscular Volume 84.9 fL (80-94); Mean Platelet Vol. 10.9 fl (6.2-12.0); Platelet Count 227 K/mm3 (150-450); RBC Distribution Width CV 16.6 % (11.6-14.6); RBC Distribution Width SD 51.1 fl (35.1-43.9); Red Blood Count 3.83 M/mm3 (4.6-6.2); White Blood Count 6.1 K/mm3 (4.4-11.0)
[2023-03-30 17:48] LABS: Anion Gap 7 (5-15); BUN 35 mg/dL (7-18); BUN/Creat Ratio 28.2 RATIO (10-20); Calcium,Total 9.1 mg/dL (8.5-10.1); Chloride 105 mmol/L (98-107); Creatinine, Serum 1.24 mg/dL (0.70-1.30); EST Glomerular Filtration Rate 62 mL/min (>60); Est Glom Filt Rate - Afr Amer 76 mL/min (>60); Glucose 141 mg/dL (74-106); Potassium 3.8 mmol/L (3.5-5.1); Sodium Level 138 mmol/L (136-145)
== END | disposition home or self-care (01) ==
LOC: PAT 04-26 09:28
PROVIDERS: PCP Student in an Organized Health Care Education/Training Program; Visit Provider Surgery Trauma Surgery
DX: Z01.818 Encounter for other preprocedural examination (principal)
CPT/HCPCS: 36415; 80048; 85027; 86850; 86900; 86901

== ENCOUNTER → 2023-07-11 | Outpatient (CLI) | payer OTHER, SELFPAY ==
--- NOTE | 2023-07-11 10:10 | CDU_ITS ---
Reason For Study: s/p RCEA, LICA Stenosis Rt. Velocities/BP Lt. Velocities/BP Prox CCA 127/36 cm/sec. Prox CCA 125/36 cm/sec. Mid CCA 106/32 cm/sec. Mid CCA 94/28 cm/sec. Dist CCA 138/30 cm/sec. Dist CCA 72/23 cm/sec. Prox ICA 122/32 cm/sec. Prox ICA 441/109 cm/sec. Mid ICA 126/36 cm/sec. Mid ICA 120/23 cm/sec. Dist ICA 111/38 cm/sec. Dist ICA 82/31 cm/sec. Rt. ICA/CCA = 1.2. Lt. ICA/CCA = 4.7. Prox ECA 377/99 cm/sec. Prox ECA 435/109 cm/sec. Rt. Vert. 79/12 cm/sec. Lt. Vert. 83/19 cm/sec. Right Extracranial There is homogeneous, smooth atherosclerotic plaque noted in the right common carotid artery. There is homogeneous, smooth atherosclerotic plaque noted in the right internal carotid artery. There is heterogeneous, smooth atherosclerotic plaque noted in the right external carotid artery. Antegrade flow is noted in the right vertebral artery. Left Extracranial There is heterogeneous, irregular atherosclerotic plaque noted in the left common carotid artery. There is heterogeneous, irregular atherosclerotic plaque noted in the left internal carotid artery. There is heterogeneous, irregular atherosclerotic plaque noted in the left external carotid artery. Antegrade flow is noted in the left vertebral artery. Procedure Carotid Duplex [id number]. This is a Carotid Duplex examination using B-mode, color flow and specral Doppler. Prelim given to Rosa MÁRQUEZ. Exam performed in department. VL/Carotid Duplex Ultrasound Interpretation Summary Moderate (50-69%) stenosis right extracranial internal carotid. Severe (>70%) stenosis left extracranial internal carotid. Patent and antegrade vertebrals bilaterally. Ordering Physician: Harriett Suarez Referring Physician: Chai Andrea Performed By: Roof, Farrah, RDCS, RVT
--- NOTE | 2023-07-11 10:10 | ART_ITS ---
Reason For Study: Claudication Procedure A bilateral lower extremity continuous wave Doppler with analog waveform analysis,segmental pressures,and ankle brachial indexes without exercise. Left Segmental Pressures Left brachial= 109mmHg. Left posterior tibial artery = 128mmHg. Left dorsalis pedis artery = 122mmHg. Left digit = 97 mmHg. Right Segmental Pressures Right brachial= 105mmHg. Right posterior tibial artery = 124mmHg. Right dorsalis pedis artery = 108mmHg. Right digit = 60 mmHg. Indices The right ankle brachial index by the posterior tibial artery is 1.14. The right ankle brachial index by the dorsalis pedis is 0.99. The right digital-brachial index is 0.55. The left ankle brachial index by the posterior tibial artery is 1.17. The left ankle brachial index by the dorsalis pedis is 1.12. The left digital-brachial index is 0.89. VL/Lower Ext Art Exam w/o Exercis Interpretation Summary Right ARUN 1.14, normal. Doppler/PVR waveforms of the right leg normal at rest. TBI diminished, pedal/digit disease vs spasm Left ARUN 1.17, normal. TBI and Doppler/PVR waveforms of the left leg normal at rest. Ordering Physician: Harriett Suraez Referring Physician: Chai Andrea Performed By: Farrah Queen RDCS/RVT
== END | disposition home or self-care (01) ==
PROVIDERS: PCP Student in an Organized Health Care Education/Training Program; Referring Provider Physician Assistant; Visit Provider Physician Assistant
DX: I73.9 Peripheral vascular disease, unspecified (principal); I65.22 Occlusion and stenosis of left carotid artery
CPT/HCPCS: 93880; 93923

== ENCOUNTER 2023-08-08 09:24 | Inpatient (IN) | payer OTHER, SELFPAY ==
[2023-08-02 12:03] LABS: Hematocrit 36.7 % (40-54); Hemoglobin 11.2 g/dL (13.0-16.5); Mean Corp Hgb Conc 30.5 g/dL (32-36); Mean Corpuscular Hgb 21.9 pg (27.0-32.0); Mean Corpuscular Volume 71.7 fL (80-94); POSITIVE MORPHOLOGY YES; Platelet Count 186 K/mm3 (150-450); RBC Distribution Width CV 25.7 % (11.6-14.6); RBC Distribution Width SD 63.5 fl (35.1-43.9); Red Blood Count 5.12 M/mm3 (4.6-6.2); White Blood Count 5.2 K/mm3 (4.4-11.0)
[2023-08-02 12:06] LABS: Scan Indicated on CBC? Y/N YES- FLAGS NOTED
[2023-08-02 12:28] LABS: AST(SGOT) 43 U/L (15-37); Alanine Aminotransfer ALT/SGPT 69 U/L (16-61); Alkaline Phosphatase 44 U/L (45-117); Bilirubin, Direct 0.17 mg/dL (0.00-0.30)
[2023-08-02 12:32] LABS: Hemoglobin A1c 6.8 % (3.8-5.6)
[2023-08-02 12:33] LABS: International Normalized Ratio 1.1; Prothrombin Time (Protime)PT. 14.5 SECONDS (11.7-14.9)
[2023-08-02 12:34] LABS: Partial Thromboplast Time 29.4 Seconds (24.1-36.2)
[2023-08-02 12:37] LABS: Anion Gap 8 (5-15); BUN 17 mg/dL (7-18); BUN/Creat Ratio 20.9 RATIO (10-20); Calcium,Total 9.6 mg/dL (8.5-10.1); Chloride 108 mmol/L (98-107); Creatinine, Serum 0.82 mg/dL (0.70-1.30); EST Glomerular Filtration Rate 101 mL/min (>60); Est Glom Filt Rate - Afr Amer 122 mL/min (>60); Glucose 137 mg/dL (74-106); Potassium 4.2 mmol/L (3.5-5.1); Sodium Level 142 mmol/L (136-145)
[2023-08-08] VITALS (21 sets, daily range): BP systolic 108–152; BP diastolic 53–79; PULSE 64–94; RESP 11–18; TEMP 36.3–37.1; O2SAT 94–99; BMI 26.4
[2023-08-08] MEDS: Lactated Ringers 1,000 ML 15 ML IV (10:14)
[2023-08-08 10:36] LABS: Bedside Glucose 165 mg/dL (74-106)
--- NOTE | 2023-08-08 11:25 | PCM.HP.BLA ---
History and Physical Allergies ticlopidine HCl [From [employer]] Adverse Reaction (Intermediate, Verified 08/01/23 15:09) Unknown Medications aspirin 81 mg tablet,delayed release (Adult Low Dose Aspirin) 81 mg PO DAILY HEALTH 06/08/18 [History Confirmed 08/01/23] magnesium oxide 400 mg PO DAILY SUPPLEMENT 06/08/18 [History Confirmed 08/01/23] nitroglycerin 0.4 mg sublingual tablet 0.4 mg sublingual Q5-15M PRN CHEST PAIN #25 tabs 04/02/21 [Rx Confirmed 08/01/23] milk thistle 175 mg tablet 175 mg PO BID SUPPLEMENT 09/22/21 [History Confirmed 08/01/23] atenolol 50 mg tablet 50 mg PO DAILY BP 06/06/22 [History Confirmed 08/01/23] cholecalciferol (vitamin D3) 25 mcg (1,000 unit) capsule 25 mcg PO DAILY SUPPLEMENT 06/06/22 [History Confirmed 08/01/23] ramipril 10 mg capsule 10 mg PO DAILY HEART 06/06/22 [History Confirmed 08/01/23] rosuvastatin 40 mg tablet (Crestor) 40 mg PO QHS CHOLESTEROL 06/06/22 [History Confirmed 08/01/23] sildenafil 100 mg tablet 100 mg PO DAILY PRN Erectile Dysfunction 06/06/22 [History Confirmed 08/01/23] clopidogrel 75 mg tablet 75 mg PO DAILY BLOOD THINNER #90 tabs 07/05/22 [Rx Confirmed 08/01/23] ascorbic acid (vitamin C) 500 mg tablet 1 g PO DAILY SUPPLEMENT 07/27/22 [History Confirmed 08/01/23] vitamin A palmitate 1 tab PO QODAY Check with primary doctor 07/27/22 [History Confirmed 08/01/23] cyanocobalamin (B12)-cobamamide 5,000 mcg-100 mcg sublingual lozenge (B12) 1 obie sublingual DAILY Check with primary doctor 08/13/22 [History Confirmed 08/01/23] fenofibrate micronized 200 mg capsule 200 mg PO DAILY Check with primary doctor 08/13/22 [History Confirmed 08/01/23] vitamin B complex 1 cap PO DAILY Check with primary doctor 08/13/22 [History Confirmed 08/01/23] metformin 500 mg tablet,extended release 24 hr 500 mg PO BID DM #60 tabs 12/28/22 [Rx Confirmed 08/01/23] potassium citrate 5 mEq (540 mg) tablet,extended release 5 meq PO DAILY SUPPLEMENT 03/25/23 [History Confirmed 08/01/23] tizanidine 4 mg tablet 4 mg PO ONCE PRN 05/06/23 [History Confirmed 08/01/23] zolpidem 10 mg tablet 10 mg PO QHS PRN 05/06/23 [History Confirmed 08/01/23] icosapent ethyl 1 gram capsule (Vascepa) 2 g (2 x 1 gram) PO BID SUPPLEMENT #360 caps 06/06/23 [Rx Confirmed 08/01/23] acetylcysteine 600 mg capsule (NAC) 600 mg PO BID DIGESTION 07/21/23 [History Confirmed 08/01/23] PFSH Medical History Acute alcoholic pancreatitis Acute gastritis without mention of hemorrhage Alcohol abuse Alcohol use Arrhythmia Atherosclerosis of coronary artery bypass graft without angina pectoris Atherosclerosis of coronary artery of [place] heart without angina pectoris Back pain due to injury Cancer Cardiology follow-up encounter Carotid artery stenosis Constipation COPD (chronic obstructive pulmonary disease) Diabetes Essential (primary) hypertension Fistula, anal Gastric reflux Heart attack High cholesterol History of rheumatic fever History of stress test History of ulceration Hyperlipidemia Hypertension Hypertriglyceridemia Malignant neoplasm of anterior wall of urinary bladder Pancreatitis Peripheral vascular occlusive disease Restless legs Rheumatic fever Snoring Wears glasses Surgical History H/O coronary artery bypass surgery (2003) history of anal fistula repair (05/2018) History of carotid endarterectomy History of coronary artery stent placement (07/02/16) History of esophagogastroduodenoscopy (EGD) History of left heart catheterization (07/02/16) Hx of appendectomy Hx of colonoscopy Hx of cystoscopy Hx of vasectomy Status post cardiac surgery Status post laparoscopic cholecystectomy (05/2022) Family History Father Cancer Heart diseaseBrother Diabetes HypertensionMother Heart disease Social History household members: none housing: house Smoking Status: Current every day smoker tobacco type: e-cigarettes Electronic Cigarette Use: with nicotine alcohol intake: current alcohol intake frequency: 0-2 drinks per day Alcohol type: hard liquor substance use type: does not use caffeine: Yes Type: coffee Number of servings: 3 HPI HPI HPI: SONIA PARSONS, is a 63 M who presents to the office today for follow up of asymptomatic left carotid stenosis. Previously underwent right CEA in 11/19 with plans to proceed with left in . Around that time he had new cardiac symptoms and underwent cath with repeat PCI. He has recovered from that and is now doing well. Intermittent atypical symptoms that is not felt due to any ischemic process. Currently on ASA and plavix. No numbness/weakness/vision loss/speech difficulty. ROS General General: No weight change, appetite, fatigue, colon cancer, breast cancer or weakness HEENT HEENT: No difficulty swallowing, eye injury, eye surgery, swollen glands or hoarseness Endo Endocrine: Yes diabetes mellitus; No thyroid disease, thyroid cancer, Hair loss, heat intolerance or cold intolerance Skin Skin: No rash or changing moles Musc Musculoskeletal: No back problems, arthritis, rheumatoid arthritis, gout or joint pain Cardio Cardiovascular: Yes heart disease, high blood pressure, heart attack and heart stent; No murmur, pacemaker, atrial fibrillation, palpitations, shortness of breat with exertion or chest pain Psych Psychiatric: No depression, anxiety or hearing voices Resp Respiratory: Yes shortness of breath, No sleep apnea, No cough, No COPD, No asthma, No emphysema and No wheezing Gastro Gastrointestinal: No abdominal pain, No nausea or vomiting, No diarrhea, No constipation, No blood in stool, No acid reflux, No hemorrhoids, No ulcers, No gallbladder problem and No black,tarry stools Aubrey Hematologic: Yes blood thinners, No blood disorders, No bleeding, No anemia and No blood clots Neuro Neurologic: No system reviewed and no additional complaints, except as documented, No as per HPI, No abnormal gait, No abnormal hearing, No abnormal movements, No abnormal speech, No behavioral changes, Yes burning sensations, No confusion, No convulsions, No disequilibrium, No dizziness, No localized weakness, No frequent falls, No headache(s), No lack of coordination, No loss of vision, No memory loss, No numbness, No other visual disturbances, Yes radicular pain, No restless legs, No sensory deficit, No syncope, No tingling, No tremor(s), No weakness and No other Exam Const General: cooperative, healthy appearing, comfortable, no acute distress and well developed Nutritional Appearance: well nourished Orientation: alert, awake and oriented x3 HENMT Head: normocephalic and atraumatic Ears: hearing grossly normal bilaterally Nose: external nose normal Eyes General: appearance normal, both eyes and all related structures EOM: EOM intact bilaterally Neck Neck: normal visual inspection, full ROM, no lymphadenopathy and trachea midline Thyroid: thyroid normal Lymphatic: no lymphadenopathy noted Resp Effort & Inspection: normal respiratory effort, able to speak in complete sentences, symmetric chest movement, no audible wheezes, not labored, no stridor and no use of accessory muscles Cardio Rate: regular rate Rhythm: regular rhythm Pulses: brachial pulses present and radial pulses present Skin General: no rashes or lesions noted and no erythema Wounds: no wounds Neuro Cranial Nerves: CN's II-XI intact bilaterally and EOM intact bilaterally Speech: speech normal Gait: normal gait Motor: strength 5/5 throughout Sensory Exam: no sensory deficits noted Psych Appearance: grossly normal and well kempt Mental Status: mental status grossly normal Mood: congruent mood Speech and Movement: speech and movement normal Thought Content: normal Judgment: judgment good Coding Level of Care Code Off vis,est,level 3 Diagnoses Bilateral carotid artery stenosis I65.23 Laterality: bilateral Assessment and Plan Assessment and Plan (1) Carotid artery stenosis: Status: Chronic Qualifiers: Laterality: bilateral Qualified Code(s): I65.23 - Occlusion and stenosis of bilateral carotid arteries Comment: Duplex- Interpretation Summary Moderate (50-69%) stenosis right extracranial internal carotid. Severe (>70%) stenosis left extracranial internal carotid. Patent and antegrade vertebrals bilaterally. Plan: -plan left CEA
[2023-08-08] MEDS: 0.9% Normal Saline (1000mL) 1,000 ML IV (11:35)
--- NOTE | 2023-08-08 11:35 | PLAQ_PTH ---
PATHOLOGY RESULTS PATIENT: SONIA PARSONS LOC: [facility] U#:[id number] AGE/SX: 63/M ROOM: ICU10 RE08/08/[address]: Dr. Jorge Luis Seo MD : 1960 BED: 1 DIS: 08/09/2023 SPEC #: [id number] RECD: 08/09/23 08:08 STATUS: NYA REKorina #: [id number] MIGUEL ÁNGEL: 08/08/23 11:[address]: Jorge Luis Seo DEPT: SURGICAL PATHOLOGY RECD BY: Roberta Long ENTERED: 08/09/23 08:08 SP TYPE: PLAQUE OTHR DR: Dr. Chai Andrea, Tissues: PLAQUE Procedures: Decalcification bone/plaque Surgery Specimen Level III HEADER OPERATION: Carotid Endarterectomy PRE-OP DIAGNOSIS: Carotid artery stenosis TISSUE SUBMITTED: Plaque left carotid artery MICROSCOPIC DIAGNOSIS Left carotid artery plaque, Endarterectomy; Calcified atheromatous plaque consistent with severe stenosis. AM/mr 08/12/2023 GROSS DESCRIPTION Received in fixative is one container labeled with the patient's name and designated plaque left carotid artery. The specimen consists of a tubular piece of johns-yellow, indurated tissue measuring 3.0 cm in length and up to 0.6 cm in diameter. The lumen is focally, markedly narrow. The specimen cuts with gritty sensation. Also present in the container is a piece of johns, indurated tissue measuring 1.0 x 0.3 x 0.2 cm. The entire specimen is submitted in one cassette after decalcification. / SJ:suri 08/09/2023 TC:5 CPT: 56654,90707
[2023-08-08] MEDS: Cefazolin 2 GM in 0.9% Normal Saline (100mL Bag) 100 ML IV (12:06)
[2023-08-08] MEDS: Heparin Injection (Vial) 5,000 UNIT/ML VIAL 5000 UNIT (12:55)
[2023-08-08] MEDS: Bupivacaine Mpf 0.5% 30 ML VIAL (14:33)
--- NOTE | 2023-08-08 14:37 | PCM.OPRPT ---
Report of Operation Date of Procedure: 08/08/23 Pre-Operative Diagnosis: left carotid stenosis Post-Operative Diagnosis: same Surgery/Procedure Performed:: left carotid endarterectomy Surgeon: Jorge Luis Seo Type of Anesthesia: General Drains: 19 Fr SAMIRA Estimated Blood Loss (mL): 25 Description of Procedure: HPI: Patient is a 63-year-old male with asymptomatic left carotid artery severe stenosis. He presents now for carotid endarterectomy. Description of procedure: Upon obtaining form consent and verification correct patient was procedure and site patient was taken the operating where he was placed under general anesthesia. He was then positioned prepped and draped in usual sterile fashion a time was performed. Oblique incision was made along the anterior border the sternocleidomastoid and Bovie electrocautery was dissect down through the subcutaneous tissue to the level of platysma. The platysma was then divided and self-retaining retractors put in position. Further dissection was then carried down to the sternocleidomastoid freed along its anterior border and retracted laterally exposing the carotid sheath. Sharp dissection used dissect free the the internal jugular vein with the facial vein identified, ligated with silk ties, and divided. This was then retracted laterally exposing the carotid vessels and sharp dissection used dissect free the common carotid artery. A writing was then used to place a vessel loop with care taken to identify and protect the vagus nerve. Sharp dissection then carried distally onto the internal carotid artery beyond the area of palpable and visible plaque. The vessel was then dissected free circumferentially and a right angle was placed vessel loop with care taken to identify and protect the hypoglossal nerve. Patient was in heparinized allowed to circulate for 3 minutes with subsequent heparin doses based on ACT results. The external carotid artery was dissected free circumferentially and a running was placed vessel loop. Vessels then occluded first the internal followed by the common the external and longitudinal arteriotomy created with 11 blade extended with Benitez scissors onto the internal carotid artery. A 12 [place] shunt was then placed first distally into the internal carotid artery allowed to backbleed before placing in the common carotid artery. The shunt was interrogated Doppler found to be patent low resistance signal. We then performed her endarterectomy with a freer elevator with satisfactory endpoint distally onto the internal carotid artery and eversion endarterectomy of the external carotid artery. The limb was then flushed heparinized saline to clear debris in the distal endpoint tacked with 7-0 Prolene interrupted suture. A bovine pericardial patch was brought in the field and secured in position using a 6-0 Prolene in a running fashion. Prior to completing the suture line the shunt was withdrawn and the vessels backbled. After completing the suture line the internal carotid artery was released allowed to backbleed into the bifurcation and then reoccluded at its origin. Clamps were then removed from the external and common carotid arteries allowing 10 heartbeats to flush into the external carotid artery before reestablishing antegrade flow into the internal carotid artery. After clamps removed satisfactory hemostasis was noted and the heparin was reversed with protamine. The incision inspected for hemostasis and a 19 [place] channel SAMIRA placed via separate stab incision. Incision was then closed with 2-0 Vicryl, 3-0 Vicryl, 4 Monocryl and Dermabond for the skin. At the conclusion of the case the patient was awakened anesthesia moving all extremities to command cranial nerves intact with some left tongue deviation. Patient was then taken the recovery room with anticipated mission intensive care unit for hemodynamic neurologic monitoring.
[2023-08-08] MEDS: 0.9% Normal Saline (1000mL) 1,000 ML 15 ML IV (14:40)
--- NOTE | 2023-08-08 15:10 | NURSING ---
TONGUE DEVIATION TO THE LEFT UPON ARRIVAL TO PACU, DR. FORBES AWARE, CONTINUE TO MONITOR.
[2023-08-08 16:25] LABS: Bedside Glucose 168 mg/dL (74-106)
[2023-08-08] MEDS: HYDROmorphone Inj 0.2 MG/ML SYRINGE 0.200000000000000011 MG IV ×2 (17:42→21:52)
[2023-08-08] MEDS: 0.45% Normal Saline 1,000 ML 75 ML IV ×2 (17:43→18:05)
[2023-08-08] MEDS: Cefazolin 1 GM/50 ML BAG IV (20:08)
[2023-08-08] MEDS: oxyCODONE 5 MG Tablet PO (20:29)
[2023-08-08] MEDS: Acetaminophen 500 MG Tablet 1000 MG PO (20:31)
[2023-08-08] MEDS: Atorvastatin Calcium 80 MG Tablet PO (20:31)
[2023-08-08] MEDS: Insulin Lispro 100 UNIT/ML INSULN.PEN SC (21:51)
[2023-08-08] MEDS: 0.9% Saline Lock 10 ML Syringe IV (21:52)
[2023-08-08 22:05] LABS: Bedside Glucose 232 mg/dL (74-106)
[2023-08-08] MEDS: Zolpidem Tartrate 5 MG Tablet 10 MG PO (23:42)
[2023-08-09] VITALS (16 sets, daily range): BP systolic 102–146; BP diastolic 53–91; PULSE 64–84; RESP 13–18; TEMP 36.7–37.2; O2SAT 94–966; BMI 27.4
[2023-08-09] MEDS: HYDROmorphone Inj 0.2 MG/ML SYRINGE 0.200000000000000011 MG IV (01:12)
[2023-08-09] MEDS: Cefazolin 1 GM/50 ML BAG IV (03:48)
[2023-08-09] MEDS: Insulin Lispro 100 UNIT/ML INSULN.PEN SC ×3 (03:48→16:17)
[2023-08-09 03:59] LABS: Absolute Lymphocyte Count 0.66 X10^3/uL (0.83-4.51); Absolute Neutrophil Count 8.1 X10^3/uL (2.0-7.7); Basophil# 0.02 X10^3/uL; Basophil% 0.2 % (0-1); Hematocrit 35.6 % (40-54); Hemoglobin 10.9 g/dL (13.0-16.5); Lymphocyte # 0.66 X10^3/ul (0.83-4.51); Mean Corp Hgb Conc 30.6 g/dL (32-36); Mean Corpuscular Volume 75.1 fL (80-94); Monocyte# 0.71 X10^3/uL; Monocyte% 7.5 % (0-10); NRBC Flagged by Analyzer 0 % (0-5); Neutrophil # 8.07 X10^3/uL (2.7-7.7); POSITIVE MORPHOLOGY YES; Platelet Count 181 K/mm3 (150-450); RBC Distribution Width CV 28.9 % (11.6-14.6); RBC Distribution Width SD 74.6 fl (35.1-43.9); Red Blood Count 4.74 M/mm3 (4.6-6.2); White Blood Count 9.5 K/mm3 (4.4-11.0)
[2023-08-09 04:07] LABS: Differential Indicated SCAN CRITERIA MET
[2023-08-09 04:08] LABS: Bedside Glucose 250 mg/dL (74-106)
[2023-08-09 05:03] LABS: Anisocytosis 2+
[2023-08-09] MEDS: Acetaminophen 500 MG Tablet 1000 MG PO ×2 (05:31→14:25)
[2023-08-09] MEDS: oxyCODONE 5 MG Tablet PO ×3 (05:31→14:05)
[2023-08-09] MEDS: Ramipril 10 MG Capsule PO (08:12)
[2023-08-09] MEDS: Pantoprazole Sodium 40 MG Tablet PO (08:13)
[2023-08-09] MEDS: Fenofibrate 145 MG Tablet PO (08:13)
[2023-08-09] MEDS: Ferrous Sulfate 325 MG Tablet PO (08:13)
[2023-08-09] MEDS: Magnesium Chloride 64 MG Delay Rel.Tablet 128 MG PO (08:13)
[2023-08-09] MEDS: Cholecalciferol (VIT D3) 25 MCG TABLET (1,000 UNITS) PO (08:14)
[2023-08-09] MEDS: Clopidogrel Bisulfate 75 MG Tablet PO (08:14)
[2023-08-09] MEDS: Enoxaparin 40 MG/0.4 ML Syringe SC (08:14)
[2023-08-09] MEDS: metFORMIN (XR) 500 MG Tablet PO ×2 (08:15→16:18)
[2023-08-09] MEDS: Atenolol 50 MG Tablet PO (08:15)
[2023-08-09] MEDS: Aspirin E.C. 81 MG Tablet PO (08:15)
[2023-08-09] MEDS: Ascorbic Acid 500 MG Tablet 1000 MG PO (08:15)
--- NOTE | 2023-08-09 09:47 | CASEMGMT ---
YULISA GRAF Assessment Face to Face with patient for initial transition planning/care coordination assessment. YULISA GRAF introduced self and role at [facility], pt voices understanding. Pt is A&Ox4 and is resting comfortably in bed and is calm. Care providers, pharmacy, and demographics verified. Admitting dx: Carotid Endarterectomy LACE Strata: 2 PCP: Emre Specialists: [facility] ([facility]), Stephen Seo Preferred Pharmacy: [facility] Insurance: [employer] Prescription Benefit: Yes LNOK: Jesu Torres ([place]), Berta Gross ([place]) Living Arrangements: Pt lives with his SO in a single story home with a BM with HR. Pt states there are 3 steps to enter the home with a HR with no issues ADLs/IADLs: Ind Transportation: Self, SO DME: Pt states that he has a BGM at home and enough supplies to check his BS. Pt also reports that he has a shower chair and GB, cane, and walker at home but does not need to use. HHC/SNF: Denies history or needs. Pt?s goal: Return to PLOF and return to work. Pt denies needs such as HHC or OP therapy. Plan: Pt 6-Click is 18 at this time. Therapy eval's are pending. Pt states that he wants to return to his PLOF and return home with no additional needs. Pt states that he feels safe and comfortable discharging home with no needs. CM to follow for safe DC home. Silvestre Merida RN, CM
[2023-08-09 14:33] LABS: Bedside Glucose 173 mg/dL (74-106)
--- NOTE | 2023-08-09 16:24 | PCM.DC.SUM ---
Providers Date of Admission: 08/08/23 Date of Discharge: 08/09/23 Primary Care Physician: Dr. Chai Andrea DO Reason For Visit: Carotid Endarterectomy Medications at Discharge Home Medications aspirin 81 mg tablet,delayed release (Adult Low Dose Aspirin) 81 mg PO DAILY HEALTH 06/08/18 magnesium oxide 400 mg PO DAILY SUPPLEMENT 06/08/18 nitroglycerin 0.4 mg sublingual tablet 0.4 mg sublingual Q5-15M PRN CHEST PAIN #25 tabs 04/02/21 milk thistle 175 mg tablet 175 mg PO BID SUPPLEMENT 09/22/21 atenolol 50 mg tablet 50 mg PO DAILY BP 06/06/22 cholecalciferol (vitamin D3) 25 mcg (1,000 unit) capsule 25 mcg PO DAILY SUPPLEMENT 06/06/22 ramipril 10 mg capsule 10 mg PO DAILY HEART 06/06/22 rosuvastatin 40 mg tablet (Crestor) 40 mg PO QHS CHOLESTEROL 06/06/22 sildenafil 100 mg tablet 100 mg PO DAILY PRN Erectile Dysfunction 06/06/22 clopidogrel 75 mg tablet 75 mg PO DAILY BLOOD THINNER #90 tabs 07/05/22 ascorbic acid (vitamin C) 500 mg tablet 1 g PO DAILY SUPPLEMENT 07/27/22 vitamin A palmitate 1 tab PO QODAY Check with primary doctor 07/27/22 cyanocobalamin (B12)-cobamamide 5,000 mcg-100 mcg sublingual lozenge (B12) 1 obie sublingual DAILY Check with primary doctor 08/13/22 fenofibrate micronized 200 mg capsule 200 mg PO DAILY Check with primary doctor 08/13/22 vitamin B complex 1 cap PO DAILY Check with primary doctor 08/13/22 metformin 500 mg tablet,extended release 24 hr 500 mg PO BID DM #60 tabs 12/28/22 potassium citrate 5 mEq (540 mg) tablet,extended release 5 meq PO DAILY SUPPLEMENT 03/25/23 tizanidine 4 mg tablet 4 mg PO ONCE PRN muscle spasticity 05/06/23 zolpidem 10 mg tablet 10 mg PO QHS PRN insomnia 05/06/23 icosapent ethyl 1 gram capsule (Vascepa) 2 g (2 x 1 gram) PO BID SUPPLEMENT #360 caps 06/06/23 acetylcysteine 600 mg capsule (NAC) 600 mg PO BID DIGESTION 07/21/23 ferrous sulfate 325 mg (65 mg iron) tablet 325 mg PO DAILY SUPPLEMENT 08/01/23 lansoprazole 30 mg capsule,delayed release 30 mg PO DAILY GERD 08/01/23 oxycodone 5 mg tablet 5 mg PO Q6H PRN PRN Pain Score 4-10 5 days #20 tabs 08/09/23 Hospital Course Summary of Care Provided Hospital Course: Mr. Mundo Morgan is a 63 y/o male who underwent L CEA on 08/08/23. Postoperatively, he was routinely admitted to the ICU for neurologic and hemodynamic monitoring. Initially postoperatively, he was noted to have some tongue deviation which has subsequently resolved. Otherwise, he has remained neurologically intact. He has remained hemodynamically stable throughout his admission. He has complained of jaw pain since surgery which is not unexpected given the more distal location and will improve with time. The incision site is satisfactory in appearance without any evidence of hematoma or infection. SAMIRA drain was removed without issue today. He has been able to eat without difficulty, void without difficulty, and ambulate well. He is medically stable for discharge home today with follow-up in the office on 09/08/23. Physical Exam Const oriented x3 and no apparent distress HEENT normocephalic, head/scalp atraumatic, hearing grossly normal bilaterally, external ears normal and external nose normal Eyes EOMs intact bilaterally General Eye: normal appearance of both eyes Neck Neck Narrative: L CEA incision site with surgical glue intact. No focal swelling, erythema, drainage, ecchymosis. Resp normal respiratory effort Cardio regular rate and regular rhythm Extremity no clubbing, cyanosis or edema Skin no rashes or lesions noted and no wounds General Skin Exam: no breakdown Neuro oriented x3, CN's II-XII intact bilaterally, moves all extremities, no focal motor deficits and no sensory deficits noted Speech: speech normal Psych mental status grossly normal Appearance: grossly normal Attitude: calm and engaged Activity / Motor Behavior: appropriate eye contact Speech: normal speech Mood & Affect: euthymic mood Judgement: judgement good Weight / BMI Weight Weight: 191 lb 9.307 oz Body Mass Index (BMI) 27.4 ABG / Lab / Microbiology Data 08/09/23 03:44 08/02/23 11:45 Laboratory: Laboratory Results - last 24 hr 08/08/23 15:05: POC Glucose 168 H 08/08/23 21:45: POC Glucose 232 H 08/09/23 03:44: WBC 9.5, RBC 4.74, Hgb 10.9 L, Hct 35.6 L, MCV 75.1 L, MCH 23.0 L, MCHC 30.6 L, RDW Std Deviation 74.6 H, RDW Coeff of Jeffrey 28.9 H, Plt Count 181, MPV TNP, Immature Gran % (Auto) 0.300, Neut % (Auto) 85.0 H, Lymph % (Auto) 7.0 L, [place] % (Auto) 7.5, Eos % (Auto) 0.0, Baso % (Auto) 0.2, Absolute Neuts (auto) 8.1 H, Absolute Lymphs (auto) 0.66 L, Nucleated RBC % 0, Anisocytosis 2+ 08/09/23 03:46: POC Glucose 250 H 08/09/23 11:32: POC Glucose 173 H D/C Instructions Discharge Diet: Carb Control Diet May shower in (days): 1 Weight Bearing Status: Weight bearing as tolerated Lifting Restricted to (Lbs): 20 Lifting Restrictions: Do not lift greater than 20 pounds for 3 weeks Call your doctor if your incision/area has: Sudden Increased Bleeding, Increased Redness and Foul Smelling Discharge Call your doctor if you observe: Fever of 101 or Higher and Uncontrolled pain Additional Instructions: You have a small bandage over the site from which the surgical drain was removed. You may remove this bandage tomorrow. As long as there is no residual drainage, you may leave this open to air. If you do notice some continued drainage, you may re-cover with a Band-Aid. Your incision site is covered with surgical glue which will continue to protect it. The surgical glue will peel/flake off on its own over the next few weeks. Please do not pick at it. You may shower tomorrow. It is okay for soap and water to rinse over the incision site, pat to dry. Do not submerge the incision site in water such as to take a bath or go swimming etc. for 3 weeks. Do not lift greater than 20 pounds for 3 weeks. Otherwise, please continue with activity as tolerated. Do not drive until you can turn your head well enough to safely check your blind spots. I have prescribed a prescription pain medication oxycodone 5 mg tablets to be taken by mouth every 8 hours as needed for pain. This is an opioid pain medication and is to be taken only as directed and as needed. Do not take in combination with any other prescription pain medications. You may take this in addition to Tylenol or ibuprofen as allowed. Follow-up in the office as scheduled on 09/08/23. If you need to change this appointment or have any other questions/concerns please contact the office at [phone]. Please Follow Up With: Harriett Suarez PA When: 09/08/23 Meaningful Use Info Meaningful Use Diagnoses (Choose all that apply): None applicable Discharge Plan Admission Admit Date/Time: 08/08/23 09:24 Primary Reason for Your Visit: Left carotid endarterectomy Attending Provider: Jorge Luis Seo Primary Care Provider: Chai Andrea Instructions Additional Instructions / Restrictions: You have a small bandage over the site from which the surgical drain was removed. You may remove this bandage tomorrow. As long as there is no residual drainage, you may leave this open to air. If you do notice some continued drainage, you may re-cover with a Band-Aid. Your incision site is covered with surgical glue which will continue to protect it. The surgical glue will peel/flake off on its own over the next few weeks. Please do not pick at it. You may shower tomorrow. It is okay for soap and water to rinse over the incision site, pat to dry. Do not submerge the incision site in water such as to take a bath or go swimming etc. for 3 weeks. Do not lift greater than 20 pounds for 3 weeks. Otherwise, please continue with activity as tolerated. Do not drive until you can turn your head well enough to safely check your blind spots. I have prescribed a prescription pain medication oxycodone 5 mg tablets to be taken by mouth every 8 hours as needed for pain. This is an opioid pain medication and is to be taken only as directed and as needed. Do not take in combination with any other prescription pain or sleep medications unless otherwise instructed to do so. You may take this in addition to Tylenol or ibuprofen as allowed. Follow-up in the office as scheduled on 09/08/23. If you need to change this appointment or have any other questions/concerns please contact the office at [phone]. Discharge Orders/Prescriptions Prescriptions: New oxycodone 5 mg Tablet 5 mg PO Q6H PRN PRN (Reason: Pain Score 4-10) 5 Days Qty: 20 0RF Continued aspirin [Adult Low Dose Aspirin] 81 mg tablet,delayed release (DR/EC) 81 mg PO DAILY magnesium oxide 400 mg capsule 400 mg PO DAILY ascorbic acid (vitamin C) 500 mg tablet 1 g PO DAILY acetylcysteine [NAC] 600 mg capsule 600 mg PO BID Rx Instructions: administer with a meal nitroglycerin 0.4 mg tablet, sublingual 0.4 mg SUBLINGUAL Q5-15M PRN (Reason: CHEST PAIN) Qty: 25 3RF milk thistle 175 mg tablet 175 mg PO BID Rx Instructions: give with meal/snack vitamin A palmitate 1 tab PO QODAY tizanidine 4 mg tablet 4 mg PO ONCE PRN (Reason: muscle spasticity) zolpidem 10 mg tablet 10 mg PO QHS PRN (Reason: insomnia) sildenafil 100 mg tablet 100 mg PO DAILY PRN (Reason: Erectile Dysfunction) Patient Comments: TAKE 1 TABLET BY MOUTH NEEDED (ERECTILE DYSFUNCTION) cholecalciferol (vitamin D3) 25 mcg (1,000 unit) Capsule 25 mcg PO DAILY atenolol 50 mg tablet 50 mg PO DAILY ramipril 10 mg capsule 10 mg PO DAILY rosuvastatin [Crestor] 40 mg tablet 40 mg PO QHS vitamin B complex Capsule 1 cap PO DAILY B12 5,000-100 mcg Lozenge 1 obie SUBLINGUAL DAILY fenofibrate micronized 200 mg capsule 200 mg PO DAILY potassium citrate 5 mEq (540 mg) tablet extended release 5 meq PO DAILY Rx Instructions: Take 1 tablet by mouth once daily lansoprazole 30 mg capsule,delayed release(DR/EC) 30 mg PO DAILY ferrous sulfate 325 mg (65 mg iron) tablet 325 mg PO DAILY clopidogrel 75 mg tablet 75 mg PO DAILY Qty: 90 3RF metformin 500 mg tablet extended release 24 hr 500 mg PO BID Qty: 60 4RF icosapent ethyl [Vascepa] 1 gram capsule 2 g PO BID Qty: 360 3RF Referrals / Follow Up: Chai Andrea DO [Primary Care Provider] - Disposition Disposition (needs filled in before D/C Order can be placed): Home, Self Care
[2023-08-09 16:37] LABS: Bedside Glucose 172 mg/dL (74-106)
[2023-08-09 23:41] LABS: ACT Activated Clotting Time 271 sec (74-137)
[2023-08-09 23:41] LABS: ACT Activated Clotting Time 142 sec (74-137)
[2023-08-09 23:42] LABS: ACT Activated Clotting Time 228 sec (74-137)
[2023-08-10 05:33] LABS: Bedside Glucose 139 mg/dL (74-106)
[2023-08-10 13:00] LABS: ACT Activated Clotting Time 271 sec (74-137)
[2023-08-10 13:00] LABS: ACT Activated Clotting Time 228 sec (74-137)
== END 2023-08-09 17:10 | disposition home or self-care (01) | DRG 39 ==
LOC: ACINP 09:31 → ICU 14:46
PROVIDERS: Anesthesiology; Admitting Provider Surgery Trauma Surgery; PCP Student in an Organized Health Care Education/Training Program; Visit Provider Surgery Trauma Surgery
PROC: 03CL0ZZ Extirpation of Matter from Left Internal Carotid Artery, Open Approach (ICD-10-PCS; CPT 35301; principal; 2023-08-08 11:15)
DX: I65.22 Occlusion and stenosis of left carotid artery (principal); E11.9 Type 2 diabetes mellitus without complications; J44.9 Chronic obstructive pulmonary disease, unspecified; I10 Essential (primary) hypertension; I25.10 Atherosclerotic heart disease of native coronary artery without angina pectoris; F17.290 Nicotine dependence, other tobacco product, uncomplicated; E78.00 Pure hypercholesterolemia, unspecified; I25.2 Old myocardial infarction; Z95.1 Presence of aortocoronary bypass graft; Z95.5 Presence of coronary angioplasty implant and graft; Z79.02 Long term (current) use of antithrombotics/antiplatelets; Z79.82 Long term (current) use of aspirin; Z79.84 Long term (current) use of oral hypoglycemic drugs; Z79.899 Other long term (current) drug therapy
CPT/HCPCS: 36415; 80048; 80076; 82962; 83036; 85025; 85027; 85347; 85610; 85730; 86850; 86900; 86901; 88304; 88311; 94668; 99252; 99406; A4648; J7030; J7120; A4216; G0463; J2405

== ENCOUNTER → 2023-10-25 | Outpatient (CLI) | payer OTHER, SELFPAY ==
[2023-10-25 18:34] LABS: Anion Gap 8 (5-15); BUN 25 mg/dL (7-18); BUN/Creat Ratio 21.9 RATIO (10-20); Calcium,Total 9.8 mg/dL (8.5-10.1); Chloride 108 mmol/L (98-107); Creatinine, Serum 1.14 mg/dL (0.70-1.30); EST Glomerular Filtration Rate 69 mL/min (>60); Est Glom Filt Rate - Afr Amer 83 mL/min (>60); Glucose 128 mg/dL (74-106); Potassium 4.1 mmol/L (3.5-5.1); Sodium Level 136 mmol/L (136-145)
== END | disposition home or self-care (01) ==
LOC: LAB 15:11
PROVIDERS: PCP Student in an Organized Health Care Education/Training Program; Referring Provider Nurse Practitioner Gerontology; Visit Provider Nurse Practitioner Gerontology
DX: I10 Essential (primary) hypertension (principal); Z51.81 Encounter for therapeutic drug level monitoring; Z79.899 Other long term (current) drug therapy
CPT/HCPCS: 36415; 80048

== ENCOUNTER → 2023-11-04 | Outpatient (CLI) | payer OTHER, SELFPAY ==
--- NOTE | 2023-11-04 12:14 | STRESSREP ---
Stress Test Report Pharmacologic myocardial perfusion stress test. 63-year-old man with a history of chest pain Resting EKG demonstrates sinus bradycardia with a rate of 50 bpm. Resting blood pressure is 138/70 mmHg. 0.4 mg of regadenoson was infused per usual protocol followed by rapid intravenous saline flush injection. Continuous EKG monitoring was performed. The maximum heart rate was 69 bpm which was 44 beats of max impacted heart rate the maximum workload was 1 metabolic equivalent. At rest there were no ST or T wave changes noted to suggest ischemia and at peak infusion nonspecific ST changes were noted which did not meet the criteria for ischemia. No clinical angina is noted. The final blood pressure was 128/68 mmHg. Myocardial perfusion protocol. 13.8 mCi of technetium 99m sestamibi was injected at rest. 0.4 mg of regadenoson was infused per usual protocol. At peak infusion 43.9 mCi of technetium 99m sestamibi was injected stress images were obtained stress and rest images were reconstructed and compared in the short axis vertical long and horizontal long axis. Gated images were also obtained. Perfusion SPECT analysis: Review of the stress images demonstrate normal uptake of tracer noted in all areas of the myocardium. The resting images similar demonstrated normal uptake of tracer noted in all areas of the myocardium. No areas of reversibility are noted to suggest ischemia and no previous infarct is noted. Gated SPECT analysis: The gated ejection fraction is 61%. Conclusion: Normal pharmacologic myocardial perfusion stress test. Preserved ejection fraction.
== END | disposition home or self-care (01) ==
LOC: CVS 06:11
PROVIDERS: PCP Student in an Organized Health Care Education/Training Program; Referring Provider Physician Assistant Medical; Visit Provider Physician Assistant Medical
DX: R07.9 Chest pain, unspecified (principal); I25.10 Atherosclerotic heart disease of native coronary artery without angina pectoris; Z95.1 Presence of aortocoronary bypass graft; Z95.2 Presence of prosthetic heart valve; E78.2 Mixed hyperlipidemia; E78.1 Pure hyperglyceridemia; I73.9 Peripheral vascular disease, unspecified; I65.23 Occlusion and stenosis of bilateral carotid arteries
CPT/HCPCS: 78452; 93017; A9500; A4216; J2785

== ENCOUNTER → 2024-03-02 | Outpatient (CLI) | payer OTHER, SELFPAY ==
--- NOTE | 2024-03-02 09:52 | CDU_ITS ---
Reason For Study: S/P BILATERAL CEAs Rt. Velocities/BP Lt. Velocities/BP Prox CCA 91.9/17.1 cm/sec. Prox CCA 132.6/30.3 cm/sec. Mid CCA 100.2/21.6 cm/sec. Mid CCA 103.9/25.3 cm/sec. Dist CCA 127.1/26.7 cm/sec. Dist CCA 91.6/21.6 cm/sec. Prox ICA 70.2/16.3 cm/sec. Prox ICA 63.3/5.1 cm/sec. Mid ICA 79.6/17.3 cm/sec. Mid ICA 69.9/18.2 cm/sec. Dist ICA 75.9/31.5 cm/sec. Dist ICA 94.9/26.7 cm/sec. Rt. ICA/CCA = 79.6/17.3=0.8. Lt. ICA/CCA = 94.9/103.9=0.9. Prox ECA 319.0/79.6 cm/sec. Prox ECA 170.0/32.7 cm/sec. Rt. Vert. 36.0/6.1 cm/sec. Lt. Vert. 35.3/8.3 cm/sec. Right Extracranial There is homogeneous, smooth atherosclerotic plaque noted in the right common carotid artery. There is homogeneous, smooth atherosclerotic plaque noted in the right internal carotid artery. There is heterogeneous, irregular atherosclerotic plaque noted in the right external carotid artery. Antegrade flow is noted in the right vertebral artery. Left Extracranial There is homogeneous, smooth atherosclerotic plaque noted in the left common carotid artery. There is homogeneous, smooth atherosclerotic plaque noted in the left internal carotid artery. There is heterogeneous, irregular atherosclerotic plaque noted in the left external carotid artery. Antegrade flow is noted in the left vertebral artery. Procedure Carotid Duplex [id number]. This is a Carotid Duplex examination using B-mode, color flow and specral Doppler. Exam performed in department. VL/Carotid Duplex Ultrasound Interpretation Summary Mild (<50%) stenosis right extracranial internal carotid. Mild (<50%) stenosis left extracranial internal carotid. Patent and antegrade vertebrals bilaterally. Ordering Physician: Harriett Suarez Referring Physician: Chai Andrea Performed By: Alfreda Haney RDCS, RVT
== END | disposition home or self-care (01) ==
LOC: CVS 09:52
PROVIDERS: PCP Student in an Organized Health Care Education/Training Program; Referring Provider Physician Assistant; Visit Provider Physician Assistant
DX: I65.29 Occlusion and stenosis of unspecified carotid artery (principal); Z48.812 Encounter for surgical aftercare following surgery on the circulatory system
CPT/HCPCS: 93880

== ENCOUNTER → 2024-09-21 | Outpatient (CLI) | payer OTHER, SELFPAY ==
--- NOTE | 2024-09-21 09:54 | CDU_ITS ---
Reason For Study Reason For Study: S/P Bilateral CEAs Rt. Velocities/BP Lt. Velocities/BP Prox CCA 78.7/21.1 cm/sec. Prox CCA 111.3/20.1 cm/sec. Mid CCA 96.1/21.2 cm/sec. Mid CCA 87.2/16.8 cm/sec. Dist CCA 83.9/16.3 cm/sec. Dist CCA 60.8/11.3 cm/sec. Prox ICA 57.5/12.4 cm/sec. Prox ICA 52.2/8.8 cm/sec. Mid ICA 87.2/21.2 cm/sec. Mid ICA 57/16.3 cm/sec. Dist ICA 69.6/12.4 cm/sec. Dist ICA 59.4/25.6 cm/sec. Rt. ICA/CCA = 0.91. Lt. ICA/CCA = 0.68. Prox ECA 317.1/47.8 cm/sec. Prox ECA 135.7/20.6 cm/sec. Rt. Vert. 40.9/6.9 cm/sec. Lt. Vert. 50/13.3 cm/sec. Right Extracranial There is homogeneous, smooth atherosclerotic plaque noted in the right common carotid artery. There is homogeneous, smooth atherosclerotic plaque noted in the right internal carotid artery. There is heterogeneous, irregular atherosclerotic plaque noted in the right external carotid artery. Antegrade flow is noted in the right vertebral artery. Left Extracranial There is homogeneous, smooth atherosclerotic plaque noted in the left common carotid artery. There is homogeneous, smooth atherosclerotic plaque noted in the left internal carotid artery. There is intimal thickening but no significant atherosclerotic plaque noted in the left external carotid artery. Antegrade flow is noted in the left vertebral artery. Procedure This is a Carotid Duplex examination using B-mode, color flow and specral Doppler. Carotid Duplex [id number]. Exam performed in department. VL/Carotid Duplex Ultrasound Interpretation Summary Mild (<50%) stenosis right extracranial internal carotid. Mild (<50%) stenosis left extracranial internal carotid. Patent and antegrade vertebrals bilaterally. Ordering Physician: Harriett Suarez Referring Physician: Chai Andrea Performed By: Roxane Castro RVT
[2024-09-21 11:03] LABS: Absolute Lymphocyte Count 0.94 X10^3/uL (0.83-4.51); Absolute Neutrophil Count 3.2 X10^3/uL (2.0-7.7); Basophil# 0.05 X10^3/uL; Eosinophil# 0.08 X10^3/uL; Eosinophils% 1.6 % (0-5); Hematocrit 39.9 % (40-54); Hemoglobin 13.7 g/dL (13.0-16.5); Lymphocyte # 0.94 X10^3/ul (0.83-4.51); Lymphocyte % 18.9 % (19-41); Mean Corp Hgb Conc 34.3 g/dL (32-36); Mean Corpuscular Hgb 31.3 pg (27.0-32.0); Mean Corpuscular Volume 91.1 fL (80-94); Mean Platelet Vol. 10.9 fl (6.2-12.0); Monocyte# 0.66 X10^3/uL; Monocyte% 13.3 % (0-10); NRBC Flagged by Analyzer 0 % (0-5); Neutrophil # 3.23 X10^3/uL (2.7-7.7); Neutrophil % 64.8 % (47-70); Platelet Count 203 K/mm3 (150-450); RBC Distribution Width CV 12.7 % (11.6-14.6); RBC Distribution Width SD 42.2 fl (35.1-43.9); Red Blood Count 4.38 M/mm3 (4.6-6.2)
[2024-09-21 11:50] LABS: AST(SGOT) 45 U/L (<=37); Alanine Aminotransfer ALT/SGPT 47 U/L (<=46); Albumin, Serum 4.5 g/dL (3.4-4.8); Alkaline Phosphatase 35 U/L (40-129); Anion Gap 11 (5-15); BUN 20 mg/dL (4-19); BUN/Creat Ratio 25.6 RATIO (10-20); Bilirubin, Direct 0.33 mg/dL (0.00-0.30); Calcium,Total 10.3 mg/dL (7.6-11.0); Carbon Dioxide 24.2 mmol/L (21.0-32.0); Chloride 106 mmol/L (98-108); Cholesterol 188 mg/dL (<=200); Creatinine, Serum 0.77 mg/dL (0.70-1.20); EST Glomerular Filtration Rate 99 (>60); Globulin 2.7 g/dL (2.2-4.2); Glucose 187 mg/dL (70-99); High Density Lipoprotein 33 mg/dL; Low Density Lipoprotein Calc. 107 mg/dL; PSA,Total - Annual Screen 1.87 ng/mL (0.02-4.00); Potassium 4.8 mmol/L (3.3-5.1); Protein, Total 7.2 g/dL (5.9-8.4); Sodium Level 141 mmol/L (133-145); Total Bilirubin 0.66 mg/dL (0.00-1.30); Triglycerides 241 mg/dL; Very Low Density Lipoprotein 48 mg/dL (5-40); Vitamin B12 1791 pg/mL (180-914); Vitamin D,25 Hydroxy 46.9 ng/mL (30-100)
== END | disposition home or self-care (01) ==
LOC: CVS 09:52
PROVIDERS: Nurse Practitioner Family; PCP Student in an Organized Health Care Education/Training Program; Referring Provider Physician Assistant; Visit Provider Physician Assistant
DX: Z48.812 Encounter for surgical aftercare following surgery on the circulatory system (principal); E11.9 Type 2 diabetes mellitus without complications; I65.23 Occlusion and stenosis of bilateral carotid arteries; I25.10 Atherosclerotic heart disease of native coronary artery without angina pectoris; E78.1 Pure hyperglyceridemia; E78.2 Mixed hyperlipidemia; Z95.1 Presence of aortocoronary bypass graft; Z12.5 Encounter for screening for malignant neoplasm of prostate
CPT/HCPCS: 36415; 80048; 80061; 80076; 82306; 82607; 83036; 84153; 85025; 93880; G0103

== ENCOUNTER → 2025-05-07 | Outpatient (CLI) | payer OTHER, SELFPAY ==
--- NOTE | 2025-05-07 13:55 | ECHOD_ITS ---
Reason For Study Reason For Study: CAD/ASHD Procedure This was a 2D Doppler, Color Flow transthoracic echocardiogram. Myocardial strain analysis was performed in this exam to aid in the assessment of cardiac function. Exam performed in department. Left Ventricle Normal LV size. The left ventricular ejection fraction is 60 %. No regional wall motion abnormalities noted. Right Ventricle Normal RV size. Normal systolic function. Atria Normal left atrium. Normal right atrium. Mitral Valve Normal mitral valve. Tricuspid Valve Normal tricuspid valve. Mild (1+) tricuspid valve insufficiency. Pulmonary artery systolic pressure is 38 mmHg. Aortic Valve Trisinus/trileaflet aortic valve. Pulmonic Valve Normal pulmonic valve. Great Vessels Normal aortic root. The pulmonary artery is normal size. Normal inferior vena cava. Pericardium/Pleural No pericardial effusion. MMode/2D Measurements & Calculations LVIDd: 5.3 cm IVSd: 0.58 cm Ao root diam: 2.6 cm LVIDs: 4.1 cm LVPWd: 0.91 cm RVDd: 3.3 cm FS: 21.0 % LAV(MOD-bp): 49.5 ml LVAd ap4: 24.0 cm2 LVAd ap2: 24.5 cm2 LAV(MOD-bp) Indexed: 24.0 ml/m2 LVLd ap4: 7.5 cm LVLd ap2: 7.4 cm LAV(MOD-sp2): 47.2 ml EDV(MOD-sp4): 61.9 ml EDV(MOD-sp2): 67.3 ml LAV(MOD-sp4): 51.0 ml EDV(sp4-el): 65.0 ml EDV(sp2-el): 68.9 ml LVAs ap4: 13.2 cm2 LVAs ap2: 13.6 cm2 LVLs ap4: 6.2 cm LVLs ap2: 6.1 cm ESV(MOD-sp4): 22.8 ml ESV(MOD-sp2): 25.8 ml ESV(sp4-el): 23.8 ml ESV(sp2-el): 26.1 ml EF(MOD-sp4): 63.2 % EF(MOD-sp2): 61.6 % EF(sp4-el): 63.4 % SV(MOD-sp4): 39.1 ml SV(MOD-sp2): 41.5 ml EDV(MOD-bp): 65.1 ml SI(MOD-sp4): 19.0 ml/m2 SI(MOD-sp2): 20.1 ml/m2 ESV(MOD-bp): 24.4 ml EF(MOD-bp): 62.6 % SV(sp4-el): 41.2 ml LA dimension(2D): 4.0 cm LA A4 area: 19.1 cm2 RA A4 area: 12.6 cm2 TAPSE: 2.1 cm Time Measurements MV dec time: 0.19 sec Doppler Measurements & Calculations MV E max camilo: 85.7 cm/sec Lat Peak E' Camilo: 11.1 cm/sec Med Peak E' Camilo: 9.0 cm/sec MV A max camilo: 68.0 cm/sec E/E' lat: 7.7 E/E' med: 9.5 MV E/A: 1.3 Ao V2 max: 126.7 cm/sec LV V1 max: 106.1 cm/sec MV dec slope: 445.4 cm/sec2 Ao max P.4 mmHg LV V1 max P.5 mmHg Ao V2 mean: 80.2 cm/sec LV V1 mean P.2 mmHg Ao mean P.0 mmHg LV V1 mean: 69.4 cm/sec Ao V2 VTI: 30.3 cm LV V1 VTI: 24.3 cm AV (velocity ratio): 0.80 PA V2 max: 98.7 cm/sec TR max camilo: 285.7 cm/sec TR max P.6 mmHg ECHO/Echo Complete Interpretation Summary Normal LV size. The left ventricular ejection fraction is 60 %. Pulmonary artery systolic pressure is 38 mmHg. Mild (1+) tricuspid valve insufficiency. The global longitudinal strain is normal. The global longitudinal strain = -17. 7 % (normal). Ordering Physician: Sim Queen Referring Physician: Chai Andrea Performed By: Olivia Wilson RDCS
== END | disposition home or self-care (01) ==
LOC: CVS 13:53
PROVIDERS: PCP Student in an Organized Health Care Education/Training Program; Referring Provider Nurse Practitioner Family; Visit Provider Nurse Practitioner Family
DX: I10 Essential (primary) hypertension (principal); I73.9 Peripheral vascular disease, unspecified; I65.23 Occlusion and stenosis of bilateral carotid arteries; E78.2 Mixed hyperlipidemia; Z95.1 Presence of aortocoronary bypass graft; Z95.5 Presence of coronary angioplasty implant and graft
CPT/HCPCS: 93306